=== PATIENT | female | born 1960 | race Caucasian/White ===

== ENCOUNTER 2019-07-03 20:52 | Emergency (ER) | payer OTHER ==
[~2019-07-03] VITALS: Ht 172.7 cm; Wt 88.5 kg
--- OUTSIDE RECORDS SUMMARY | ~2019-07-03 | XMS | Encounter Summary ---
Demographics + + + | Address | [address] | | | [place] [address] | + + + | Home Phone | | + + + | Preferred Language | Unknown | + + + | Marital Status | | + + + | Hindu Affiliation | NON | + + + | Race | White | + + + | Ethnic Group | Not or | + + + Author + + + | Author | [facility] | + + + | Organization | [facility] | + + + | Address | Unknown | + + + | Phone | Unavailable | + + + Support + + + + + | Name | Relationship | Address | Phone | + + + + + | Liam Dietrich | ECON | [place] | | + + + + + Care Team Providers + +------+ + | Care Newspaper Distributor Supervisor Name | Role | Phone | + +------+ + PCP | Unavailable | + +------+ + Encounter Details +--------+ + + + + | Date | Type | Department | Care Team | Description | +--------+ + + + + | 04/21/ | Results | [facility] | Roger Fatima MD | | | 1999 | Only | Center Outpatient | [address] | | | | | Therapy Center [address] | [place], [place] | | | | | [address] | [address] | | | | | Outpatient Therapy | [phone] | | | | | Center 2nd floor | | | | | | Mailcode: OP26 | | | | | | [place], [place] | | | | | | [address] | | | | | | [phone] | | | +--------+ + + + + Social History + +-------+ +--------+------+ | Tobacco Use | Types | Packs/Day | Years | Date | | | | | Used | | + +-------+ +--------+------+ | Never Assessed | | | | | + +-------+ +--------+------+ + + + | Sex Assigned at | Date Recorded | | | | + + + | Not on file | | + + + + + + + | Job Start Date | Occupation | Industry | + + + + | Not on file | Not on file | Not on file | + + + + + + + + | Travel History | Travel Start | Travel End | + + + + + + | No recent travel history available. | + + documented as of this encounter Plan of Treatment Not on filedocumented as of this encounter Procedures + +--------+ + + + | Procedure Name | Priori | Date/Time | Associated Diagnosis | Comments | | | ty | | | | + +--------+ + + + | FLUOROSCOPY, | Routin | 04/21/2000 | | Results for this | | INDEPENDENT PORT. | e | 3:10 PM | | procedure are in the | | | | PDT | | results section. | + +--------+ + + + documented in this encounter Results FLUOROSCOPY, INDEPENDENT PORT. (04/21/2000 3:10 PM PDT) + + + + + + | Component | Value | Ref Range | Performed | Pathologist | | | | | At | Signature | + + + + + + | FLUOROSCOPY | Radiologist 1: MAKAYLA | | | | | , | Marco Antonio PUGA IMPRESSION: | | | | | INDEPENDENT | FLUOROSCOPY SERVICES | | | | | PORT. | WERE PERFORMED UNDER THE | | | | | | DIRECTION OF | | | | | | THEORDERING PHYSICIAN. | | | | | | END OF IMPRESSION: | | | | | | | | | | | | | | | | | |END OF IMPRESSION: | | | | | | | | | | | | | | | | | | | | | | + + + + + + + + | Specimen | + + | | + + + +---------+ + + | Performing | Address | City/State/Zipcode | Phone Number | | Organization | | | | + +---------+ + + | [facility] | | | | RADIOLOGY | | | | + +---------+ + + documented in this encounter Visit Diagnoses Not on filedocumented in this encounter"
--- OUTSIDE RECORDS SUMMARY | ~2019-07-03 | XMS | Encounter Summary ---
Demographics + + + | Address | [address] | | | [place] [address] | + + + | Home Phone | | + + + | Preferred Language | Unknown | + + + | Marital Status | | + + + | Uatsdin Affiliation | 1041 | + + + | Race | Unknown | + + + | Ethnic Group | Unknown | + + + Author + + + | Author | [facility] | | | and [place] | + + + | Organization | [facility] | | | and [place] | + + + | Address | Unknown | + + + | Phone | Unavailable | + + + Support + + + + + | Name | Relationship | Address | Phone | + + + + + | Liam Dietrich | ECON | [address] | | | | | [place] | | | | | [address] | | + + + + + | Daina Mazariegos | ECON | Unknown | | + + + + + Care Team Providers + +------+ + | Care Architectural Examiner Name | Role | Phone | + +------+ + | Noe Thomason | PCP | | | MD | | | + +------+ + Reason for Visit + + + | Reason | Comments | + + + | Hip Pain | Right hip pain | + + + Service/Procedure (Routine) +--------+--------+ + + + + | Status | Reason | Specialty | Diagnoses / | Referred By | Referred To | | | | | Procedures | Contact | Contact | +--------+--------+ + + + + | Closed | | Physical | Diagnoses | | Sepideh, | | | | Medicine and | | Sepideh, | Mohan Andrews MD | | | | Rehabilitatio | Trochanteric | Mohan Andrews MD | [address] | | | | n | bursitis of | [address] | [address] [place] | | | | | both hips | [address] [place] | [place] | | | | | Procedures | [place], [place] | [address] Phone: | | | | | [place] | [address] | [phone] | | | | | DRAIN/INJECT | Phone: | Fax: | | | | | LARGE | [phone] | [phone] | | | | | JOINT/BURSA | Fax: | | | | | | Bilateral | [phone] | | | | | | Trochanteric | | | | | | | Bursa | | | | | | | injecitons | | | | | | | in office. | | | | | | | (appt | | | | | | | 09/19/12) | | | +--------+--------+ + + + + Encounter Details +--------+---------+ + + + | Date | Type | Department | Care Team | Description | +--------+---------+ + + + | 09/19/ | Office | [facility] | Mohan Bunn | Bursitis, hip | | 2012 | Visit | PHYSIATRY [address] | (Primary Dx); | | | | [place], | [place], [place] | Sacroiliitis - | | | | [place] [address] | [address] | right; Hx of spinal | | | | [phone] | | fusion; BACK PAIN, | | | | | | LUMBAR; DISC | | | | | | DISEASE, LUMBOSACRAL | | | | | | SPINE | +--------+---------+ + + + Social History + +-------+ +--------+------+ | Tobacco Use | Types | Packs/Day | Years | Date | | | | | Used | | + +-------+ +--------+------+ | Never Smoker | | | | | + +-------+ +--------+------+ + + +---------+ + | Alcohol Use | Drinks/Week | oz/Week | Comments | + + +---------+ + | Not Asked | | | | + + +---------+ + + + + | Sex Assigned at [...] + + documented as of this encounter Last Filed Vital Signs + + + + + | Vital Sign | Reading | Time Taken | Comments | + + + + + | Blood Pressure | 131/88 | 09/19/2012 7:22 AM | | | | | PST | | + + + + + | Pulse | 91 | 09/19/2012 7:22 AM | | | | | PST | | + + + + + | Temperature | - | - | | + + + + + | Respiratory Rate | - | - | | + + + + + | Oxygen Saturation | - | - | | + + + + + | Inhaled Oxygen | - | - | | | Concentration | | | | + + + + + | Weight | 83.9 kg (185 lb) | 09/19/2012 7:22 AM | | | | | PST | | + + + + + | Height | 177.8 cm (5' 10") | 09/19/2012 7:22 AM | | | | | PST | | + + + + + | Body Mass Index | 26.54 | 09/19/2012 7:22 AM | | | | | PST | | + + + + + documented in this encounter Progress Notes Mohan Bunn MD - 09/19/2012 7:31 AM PST Chief Complaint Patient presents with Hip Pain Right hip pain HPI: The patient is being seen in follow-up today for continued right lateral hip pain. S he has been seen for this complaint in the past. She has tried PT and has had a prior troch anteric bursa injection in the past which provided relief. Recently she had foot surgery and has been wearing a walking boot. She has had an abnormal gain because of this and she feel s this has flared up her pain in the hip and in the low back in the region of the SI joint. She is interested in repeating a trochanteric bursa injection again today. She did localize the majority of the pain to the lateral hip and was quite tender to palpation over the grea ter trochanter. I did feel it was appropriate to repeat the injection today. Impression: 1. Trochanteric bursitis - right 2. Sacroiliitis 3. Chronic low back pain, DDD, history of spinal fusion 4. Left foot pain and recent surgery Plan: On today's visit, we discussed her options. She has tried physical therapy for her v arious pain complaints and unfortunately she has not had much relief recently. She is intere sted in a trial of interventional procedures and I offered her a right trochanteric bursa in [facility] and she did wish to proceed. The procedure was performed using sterile, no-touch elidia hnique. Initially, a 27-gauge 1-1/2-inch needle was used to anesthetize the area with approx imately 2 mL of 1% lidocaine, then a 22-gauge spinal needle was advanced down to periosteum over the greater trochanter then slightly withdrawn. Attempted aspiration did not show any b lood or other fluid, then a total of 1 mL of 40 mg/mL of Kenalog and 2 mL each of 0.5% bupiv acaine and 1% lidocaine was infused into this region. The patient tolerated the procedure we ll without complications. She was instructed to ice the area as needed over the next few day s and to watch for any signs of infection. She will follow-up with me on an as-needed basis. documented in this encounter Plan of Treatment Not on filedocumented as of this encounter Visit Diagnoses + + | Diagnosis | + + | Bursitis, hip - Primary Enthesopathy of hip region | + + | Sacroiliitis - right Sacroiliitis, not elsewhere classified | + + | Hx of spinal fusion Arthrodesis status | + + | BACK PAIN, LUMBAR Lumbago | + + | DISC DISEASE, LUMBOSACRAL SPINE Degeneration of lumbar or lumbosacral intervertebral | | disc | + + documented in this encounter
--- OUTSIDE RECORDS SUMMARY | ~2019-07-03 | XMS | Encounter Summary ---
Demographics + + + | Address | [address] | | | [place] [address] | + + + | Home Phone | | + + + | Preferred Language | Unknown | + + + | Marital Status | | + + + | Restorationist Affiliation | 1041 | + + + | Race | Unknown | + + + | Ethnic Group | Unknown | + + + Author + + + | Author | [facility] | | | and [place] | + + + | Organization | [facility] | | | and [place] [...] [place] | | | | | [address] | | + + + + + | Daina Mazariegos | ECON | Unknown | | + + + + + Care Team Providers + +------+ + | Care Pressure Tester Name | Role | Phone | + +------+ + | Noe Thomason | PCP | | | MD | | | + +------+ + Reason for Visit +--------+ + | Reason | Comments | +--------+ + | Other | Discuss further imaging | +--------+ + Encounter Details +--------+ + + + + | Date | Type | Department | Care Team | Description | +--------+ + + + + | 06/18/ | Telephone | [facility] | Mohan Bunn | Other (Discuss | | 2012 | | PHYSIATRY [address] | [address] | further imaging) | | | | [place], | [place] | | | | | [place] [address] | [address] | | | | | [phone] | | | +--------+ + + + [...] filedocumented as of this encounter Visit Diagnoses Not on filedocumented in this encounter"
--- OUTSIDE RECORDS SUMMARY | ~2019-07-03 | XMS | Encounter Summary ---
Demographics + + + | Address | [address] | | | [place] [address] | + + + | Home Phone | | + + + | Preferred Language | Unknown | + + + | Marital Status | | + + + | Scientologist Affiliation | 1041 | + + + | Race | Unknown | + + + | Ethnic Group | Unknown | + + + Author + + + | Author | [facility] | | | and [place] | + + + | Organization | [facility] | | | and [...] [place] | | | | | [address] | | + + + + + | Daina Mazariegos | ECON | Unknown | | + + + + + Care Team Providers + +------+ + | Care Magneto Repairer Name | Role | Phone | + +------+ + | Noe Thomason | PCP | | | MD | | | + +------+ + Encounter Details +--------+ + + + + | Date | Type | Department | Care Team | Description | +--------+ + + + + | 06/18/ | Hospital | [facility] | BabiggbrandonchuyMohan | Right hip pain | | 2013 | Encounter | MED CTR XRAY [address] | [address] | | | | | [place] | [place], [place] | | | | | [place] [address] | [address] | | | | | [phone] | | | | | | | Manufacturing Project EngineerZora | | +--------+ + + + + [...] this encounter Last Filed Vital Signs + +---------+ + + | Vital Sign | Reading | Time Taken | Comments | + +---------+ + + | Blood Pressure | 154/84 | 06/18/2014 3:47 PM | | | | | PST | | + +---------+ + + | Pulse | 86 | 06/18/2014 3:00 PM | | | | | PST | | + +---------+ + + | Temperature | - | - | | + +---------+ + + | Respiratory Rate | - | - | | + +---------+ + + | Oxygen Saturation | - | - | | + +---------+ + + | Inhaled Oxygen | - | - | | | Concentration | | | | + +---------+ + + | Weight | - | - | | + +---------+ + + | Height | - | - | | + +---------+ + + | Body Mass Index | - | - | | + +---------+ + + documented in this encounter Medications at Time of Discharge + + + +---------+ + + | Medication | Sig | Dispensed | Refills | Start | End Date | | | | | | Date | | + + + +---------+ + + | aspirin (ADULT | Take 162 mg by mouth | | 0 | 04/07/20 | | | ASPIRIN EC LOW | Daily. | | | 12 | | | STRENGTH) 81 MG EC | | | | | | | tablet | | | | | | + + + +---------+ + + | | Take 1 tablet by | | 0 | | | | oxyCODONE-acetaminop | mouth Daily as | | | | | | hen (PERCOCET) 5-325 | needed. | | | | | | mg per tablet | | | | | | + + + +---------+ + + | Phendimetrazine | Take 105 mg by mouth | | 0 | 04/07/20 | | | Tartrate (BONTRIL | Daily. | | | 12 | | | SLOW RELEASE) 105 MG | | | | | | | CP24 | | | | | | + + + +---------+ + + | cetirizine | Take 10 mg by mouth | | 0 | 04/07/20 | | | (ZYRTEC) 10 mg | Daily. | | | 12 | 5 | | tablet | | | | | | + + + +---------+ + + | fluticasone | 2 sprays in each | | 0 | 04/07/20 | | | (FLONASE) 50 | nostril daily | | | 12 | 5 | | mcg/nasal spray | | | | | | + + + +---------+ + + documented as of this encounter Plan of Treatment Not on filedocumented as of this encounter Procedures + +--------+ + + + | Procedure Name | Priori | Date/Time | Associated Diagnosis | Comments | | | ty | | | | + +--------+ + + + | [place] ASPIRATION | Routin | 06/18/2014 | Right hip pain | Results for this | | INJECTION MAJOR | e | 3:35 PM | | procedure are in the | | JOINT RIGHT | | PST | | results section. | + +--------+ + + + documented in this encounter Results [place] Major Joint Injection Right (06/18/2014 3:35 PM PST) + + | Specimen | + + | | + + + + + | Narrative | Performed At | + + + | 06/18/2014 RIGHT INTRAARTICULAR HIP INJECTION CLINICAL | [facility] | | HISTORY: ICD-9 CODE 719.45, HIP PAIN. Mae Hernández | [facility] | | presents to the fluoroscopy suite for a fluoroscopically-guided [facility] | | right intraarticular hip injection as part of conservative | - IMAGING | | management for chronic pain and hip arthropathy. After informed | | | consent was obtained, the patient laid in the supine position on the | | | fluoroscopy table. The right intertrochanteric line was located under | | | fluoroscopic guidance. The area was prepped and draped in a sterile | | | fashion. Then a 25-gauge 1.5 inch needle was inserted into this | | | region and approximately 3 mL buffered 1% lidocaine was infused. | | | Next a 22-gauge spinal needle was inserted into the joint space | | | under fluoroscopic guidance. Confirmation into the joint capsule was | | | obtained with infusion of approximately 1 mL Omnipaque contrast, | | | which showed capsular flow. Then, a combination of 1 mL of 40 mg/mL | | | Kenalog and 4 mL 0.5% bupivicaine was infused. The patient tolerated | | | the procedure well without complications. Pre- and post-procedure | | | blood pressure was stable. The patient was given verbal as well as | | | written followup instructions. The patient reported good improvement | | | in pain symptoms post-procedure. Prior to the start of the | | | procedure, the following were performed or verified, including | | | correct patient identity, correct site/side marked and verified, | | | agreement of the procedure to be done, correct patient positioning | | | and an accurate procedure consent form. Any safety precautions based | | | on clinical history and/or medication use have been addressed. I | | | personally performed the procedure above. Estimated blood loss: | | | Minimal Complications: None Findings: As expected Anesthesia: | | | Local 1% Lidocaine | | + + + + + | Procedure Note | + + | Mohan Bunn MD - 06/18/2014 3:52 PM PST 06/18/2014RIGHT INTRAARTICULAR HIP | | INJECTIONCLINICAL HISTORY: ICD-9 CODE 719.45, HIP PAIN. [facility] | | presents to the fluoroscopy suite for a fluoroscopically-guided right intraarticular hip | | injection as part of conservative management for chronic pain and hip arthropathy. | | After informed consent was obtained, the patient laid in the supine position on the | | fluoroscopy table. The right intertrochanteric line was located under fluoroscopic | | guidance. The area was prepped and draped in a sterile fashion. Then a 25-gauge 1.5 inch | | needle was inserted into this region and approximately 3 mL buffered 1% lidocaine was | | infused. Next a 22-gauge spinal needle was inserted into the joint space under | | fluoroscopic guidance. Confirmation into the joint capsule was obtained with infusion of | | approximately 1 mL Omnipaque contrast, which showed capsular flow. Then, a combination | | of 1 mL of 40 mg/mL Kenalog and 4 mL 0.5% bupivicaine was infused. The patient tolerated | | the procedure well without complications. Pre- and post-procedure blood pressure was | | stable. The patient was given verbal as well as written followup instructions. The | | patient reported good improvement in pain symptoms post-procedure. Prior to the start of | | the procedure, the following were performed or verified, including correct patient | | identity, correct site/side marked and verified, agreement of the procedure to be done, | | correct patient positioning and an accurate procedure consent form. Any safety | | precautions based on clinical history and/or medication use have been addressed. I | | personally performed the procedure above.Estimated blood loss: MinimalComplications: | | NoneFindings: As expectedAnesthesia: Local 1% Lidocaine | |Anesthesia: Local 1% Lidocaine | + + + + + + + | Performing | Address | City/State[facility] | Phone Number | | Organization | | | | + + + + + | [address] | [address] | [place] | [phone] | | [facility] | | [address] | | | - IMAGING | | | | + + + + + documented in this encounter Visit Diagnoses + + | Diagnosis | + + | Right hip pain Pain in joint, pelvic region and thigh | + + documented in this encounter Administered Medications + +--------+ +-------+------+------+ | Medication Order | MAR | Action | Dose | Rate | Site | | | Action | Date | | | | + +--------+ +-------+------+------+ | iohexol (OMNIPAQUE 300) 300 | Given | 06/18/20 | 3 mLs | | | | mg/mL injection 3 mL 3 mL, | | 14 3:46 | | | | | INTRATHECAL, ONCE, 06/18/14 | | PM PST | | | | | at 1545, For 1 dose | | | | | | + +--------+ +-------+------+------+ +---+---+ | | | +---+---+ + +-------+ +-------+---+ + | lidocaine 1% injection 5 mL 5 | Given | 06/18/20 | 5 mLs | | Other | | mL, Intradermal, ONCE, Tue | | 14 3:45 | | | (Comment | | 06/18/14 at 1545, For 1 dose | | PM PST | | | ) | + +-------+ +-------+---+ + +---+---+ | | | +---+---+ + +-------+ +-------+---+---+ | sodium bicarbonate (NEUT) 4% | Given | 06/18/20 | 2 mLs | | | | injection 2 mL 2 mL, Topical, | | 14 3:46 | | | | | ONCE, 06/18/14 at 1545, For 1 | | PM PST | | | | | dose | | | | | | + +-------+ +-------+---+---+ +---+---+ | | | +---+---+ + +-------+ +-------+---+---+ | triamcinolone acetonide | Given | 06/18/20 | 40 mg | | | | (KENALOG-40) 40 mg/mL injection | | 14 3:46 | | | | | 40 mg 40 mg, Intra-articular, | | PM PST | | | | | ONCE, 06/18/14 at 1545, For 1 | | | | | | | dose, Shake well. Not for IV | | | | | | | use., | | | | | | + +-------+ +-------+---+---+ +---+---+ | | | +---+---+ documented in this encounter"
--- OUTSIDE RECORDS SUMMARY | ~2019-07-03 | XMS | Encounter Summary ---
Demographics + + + | Address | [address] | | | [place] [address] | + + + | Home Phone | | + + + | Preferred Language | Unknown | + + + | Marital Status | | + + + | Tenriism Affiliation | NON | + + + | Race | White | + + + | Ethnic Group | Not or | + + + Author + + + | Organization | Unknown | + + + | Address | Unknown | + + + | Phone | Unavailable | + + + Support + + + + + | Name | Relationship | Address | Phone | + + + + + | Liam Dietrich | ECON | [place] | | + + + + + Care Team Providers + +------+ + | Care Concrete Bucket Unloader Name | Role | Phone | + +------+ + PCP | Unavailable | + +------+ + Encounter Details +--------+ + + + + | Date | Type | Department | Care Team | Description | +--------+ + + + + | 18/ | Transcribed | | Dictation, Other | Transcribed | | 2000 | | | | | +--------+ + + + [...] + + documented as of this encounter Progress Notes Interface, Anesthesia Associate In - 06/10/2006 1:01 AM [facility] [place] [address] [place], [place] [address] or February 09, 2000 Khari Ying M.D. [facility] [address] [address] RE: MAE WILLIS MR #: [id number] Dear Dr. Ying: I saw the patient in the Neurosurgery Clinic again today. She has had several days of bad low back pain which has been fairly symmetrical. Her buttock pain is still a problem, but the back pain is getting to be more severe. She has tried oral Vicodin without much relief, and heat only seems to make the pain worse. In review of her records, her last MRI scan of the back was in 1996. I have felt all along that some of her pain may certainly be related to her back, although early evaluation did not seem to indicate that this was the primary problem. Given the fact that we are now [address], I think it would be worthwhile to reevaluate with an MRI scan and I have gone ahead to set that up here. I will see her back in clinic next week after the MRI is completed and we will reassess the possibility that she may have degenerative disc disease in the back which may be leading to some of her problems. Sincerely, Bebe Claros M.D. [facility] / MADELINE [id number] / [id number] / [id number] / [id number] signed by Interface, Anesthesia Associate In at 06/10/2006 1:01 AM PSTdocume nted in this encounter Plan of Treatment Not on filedocumented as of this encounter Visit Diagnoses Not on filedocumented in this encounter"
--- OUTSIDE RECORDS SUMMARY | ~2019-07-03 | XMS | Encounter Summary ---
Demographics + + + | Address | [address] | | | [place] [address] | + + + | Home Phone | | + + + | Preferred Language | Unknown | + + + | Marital Status | | + + + | Temple Affiliation | NON | + + + | Race | White | + + + | Ethnic Group | Not or | + + + Author + + + | Author | [facility] | + + + | Organization | [facility] | + + + | Address | Unknown | + + + | Phone | Unavailable | + + + Support + + + + + | Name | Relationship | Address | Phone | + + + + + | Liam Dietrich | ECON | [place] | | + + + + + Care Team Providers + +------+ + | Care Rn Hematology Name | Role | Phone | + +------+ + PCP | Unavailable | + +------+ + Encounter Details +--------+ + + + + | Date | Type | Department | Care Team | Description | +--------+ + + + + | 10/27/ | Office | [facility] | Note, Outpatient | Progress Note | | 2000 | Visit-Trans | MEDICINE | Clinic | | | | cribed | | | | +--------+ + + [...] as of this encounter Progress Notes Interface, Truss Puller Helper In - 05/22/2006 3:06 AM PSTCLINIC DATE: 10/27/2000 NEUROSURGERY CLINIC SUBJECTIVE: Mae Dietrich is a 39-year-old female with 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 She returns to clinic today for an adjustment of her internal pulse generator which is part of her nerve stimulator system. Ms. Dietrich states that she would like to have the generator reprogrammed from the cycling mode to a continuous mode. She says that the intermittent stimulation is bothersome and distracting. Ms. Dietrich does say that the nerve stimulator system is helpful for her back and left buttock pain overall. She said that she appreciates having the stimulation, especially when she is sitting for long periods of time. She continues to experience what she describes as lightning bolt pains in her left gluteal muscle. Using the visual analog scale, the patient rated her average pain level during the past week as 35/100. OBJECTIVE AND PROCEDURE: The patient's neuroreceiver was analyzed, and it was found that she has been using a cycling mode with a 1 minute on time and 1 minute time. Her electrode setting has been channeled to electrode 5 positive and 7 negative. She has been using an amplitude of 3.1 V, a pulse width of 60 msec, and a rate of 45 pulses per second. Because the patient stated that the stimulation feels like it is in the right location with the correct intensity and rate, the only change made in programming was to create a continuous mode of stimulation by reprogramming the neuroreceiver. The soft start was also reprogrammed to be in the off mode. PLAN: The patient will return to clinic on an as needed basis for adjustments of her nerve stimulator system. Reshma Mosquera R.N.,M.A. / [id number] / [id number] / [id number] / [id number] signed by Interface, Truss Puller Helper In at 05/22/2006 3:06 AM PSTdocume nted in this encounter Plan of Treatment Not on filedocumented as of this encounter Visit Diagnoses Not on filedocumented in this encounter"
--- OUTSIDE RECORDS SUMMARY | ~2019-07-03 | XMS | Encounter Summary ---
Demographics + + + | Address | [address] | | | [place] [address] | + + + | Home Phone | | + + + | Preferred Language | Unknown | + + + | Marital Status | | + + + | Faith Affiliation | NON | + + + | Race | White | + + + | Ethnic Group | Not or | + + + Author + + + | Author | [facility] | + + + | Organization | [facility] | + + + | Address [...] Team Providers + +------+ + | Care Cupola Tender Name | Role | Phone | + +------+ + PCP | Unavailable | + +------+ + Encounter Details +--------+ + + + + | Date | Type | Department | Care Team | Description | +--------+ + + + + | 03/13/ | Transcribed | Allergy Clinic at | Dictation, Other | Transcribed | | 1997 | | [facility] [address] | | | | | | [address] | | | | | | Mailcode: [id number] | | | | | | [address] | | | | | | [facility] | | | | | | [place] [address] | | | | | | [phone] | | | +--------+ + + + [...] as of this encounter Progress Notes Interface, Claim Technician In - 08/10/2006 2:08 AM PST [address] [address] or March 13, 1998 GRANT MADDEN MD [address] [place] [id number] RE:MAE HOLLINS MR#:[id number] Madden: Ms. Hollins returned today and we reviewed her electromyogram results. They showed absolutely no evidence of denervation in the superior gluteal muscle nor in the sciatic distribution on the left. She did have a bit of a sural neuropathy on the right but I think that is unrelated. 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 I have had a chance to review some of the literature on this in the last few weeks and this opinion is only strengthened by that. We talked about pyriformis release using a muscle splitting approach and she is thinking about it although I think she is inclined to proceed. I will keep you posted on her progress if she does elect to go ahead with the surgery. Sincerely, Bebe Claros M.D. Professor and Export Documents Clerk Department of Neurological Surgery Bhupendra documented in this encounter Plan of Treatment Not on filedocumented as of this encounter Visit Diagnoses Not on filedocumented in this encounter"
--- OUTSIDE RECORDS SUMMARY | ~2019-07-03 | XMS | Encounter Summary ---
Demographics + + + | Address | [address] | | | [place] [address] | + + + | Home Phone | | + + + | Preferred Language | Unknown | + + + | Marital Status | | + + + | Restorationist Affiliation | NON | + + + | Race | White | + + + | Ethnic Group | Not or | + + + Author + + + | Author | [facility] | + + + | Organization | [facility] | + + + | Address [...] Team Providers + +------+ + | Care Acute Dialysis Nurse Name | Role | Phone | + +------+ + | Noe Thomason MD | PCP | | + +------+ + Encounter Details +--------+ + + + + | Date | Type | Department | Care Team | Description | +--------+ + + + + | 01/16/ | Results | Registration [id number] | | | | 1998 | Only | [address] | | | | | | [address] Mailcode: [id number] | | | | | | [place], [place] | | | | | | [address] | | | | | | [phone] | | | +--------+ + + + [...] | + +--------+ + + + | URINALYSIS TESTS | Routin | 01/16/1999 | | Results for this | | | e | 2:43 PM | | procedure are in the | | | | PDT | | results section. | + +--------+ + + + | CHEMISTRY TESTS 4 | Routin | 01/16/1999 | | Results for this | | | e | 1:15 PM | | procedure are in the | | | | PDT | | results section. | + +--------+ + + + | CBC TESTS 2 | Routin | 01/16/1999 | | Results for this | | | e | 1:15 PM | | procedure are in the | | | | PDT | | results section. | + +--------+ + + + documented in this encounter Results URINALYSIS TESTS (01/16/1999 2:43 PM PDT) + +-------+ + + + | Component | Value | Ref Range | Performed | Pathologist | | | | | At | Signature | + +-------+ + + + | WHITE CELLS | 0-1 | /HPF | | | + +-------+ + + + | RED CELLS | NONE | /HPF | | | + +-------+ + + + | NON-SQUAMOU | NONE | /HPF | | | | S EPITH | | | | | + +-------+ + + + | SQUAMOUS | NONE | /HPF | | | | EPITHELIAL | | | | | + +-------+ + + + | BACTERIA | NONE | /HPF | | | + +-------+ + + + | MUCOUS | NONE | /HPF | | | + +-------+ + + + | HYALINE | NONE | /LPF | | | | CASTS | | | | | + +-------+ + + + | GRANULAR | NONE | /LPF | | | | CASTS | | | | | + +-------+ + + + | CELLULAR | NONE | /LPF | | | | CASTS | | | | | + +-------+ + + + + + | Specimen | + + | | + + + + + + + | Performing | Address | City/State/Zipcode | Phone Number | | Organization | | | | + + + + + | [facility] | [address] | [place] [address] | | | PATHOLOGY | [address] | | | + + + + + CHEMISTRY TESTS 4 (01/16/1999 1:15 PM PDT) + + + + + + | Component | Value | Ref Range | Performed | Pathologist | | | | | At | Signature | + + + + + + | SODIUM, | 140. | mmol/l | | | | PLASMA | | | | | | (LAB) | | | | | + + + + + + | POTASSIUM, | 4.6 | mmol/l | | | | PLASMA | | | | | | (LAB) | | | | | + + + + + + | CHLORIDE, | 105. | mmol/l | | | | PLASMA | | | | | | (LAB) | | | | | + + + + + + | TOTAL CO2, | 32. (H) | mmol/l | | | | PLASMA | | | | | | (LAB) | | | | | + + + + + + + + | Specimen | + + | | + + + + + + + | Performing | Address | City/State/Zipcode | Phone Number | | Organization | | | | + + + + + | [facility] | [address] | [place] [address] | | | PATHOLOGY | [address] | | | + + + + + CBC TESTS 2 (01/16/1999 1:15 PM PDT) + + + + + + | Component | Value | Ref Range | Performed | Pathologist | | | | | At | Signature | + + + + + + | WHITE CELL | 7.7 | K/CU MM | | | | COUNT | | | | | + + + + + + | RED CELL | 4.4 | M/CU MM | | | | COUNT | | | | | + + + + + + | HEMOGLOBIN | 13.9 | GM/DL | | | + + + + + + | HEMATOCRIT | 40.7 | % | | | + + + + + + | MCV | 92.4 | FL | | | + + + + + + | MCH | 31.5 | PG | | | + + + + + + | MCHC | 34.1 (H) | GM/DL | | | + + + + + + | RDW | 12.8 | % | | | + + + + + + | PLATELET | 270. | K/CU MM | | | | COUNT | | | | | + + + + + + | MPV | 7. (L) | [place] | | | + + + + + + + + | Specimen | + + | | + + + + + + + | Performing | Address | City/State/Zipcode | Phone Number | | Organization | | | | + + + + + | [facility] | [address] | [place] [address] | | | PATHOLOGY | [address] | | | + + + + + documented in this encounter Visit Diagnoses Not on filedocumented in this encounter"
--- OUTSIDE RECORDS SUMMARY | ~2019-07-03 | XMS | Encounter Summary ---
Demographics + + + | Address | [address] | | | [place] [address] | + + + | Home Phone | | + + + | Preferred Language | Unknown | + + + | Marital Status | | + + + | Jewish Affiliation | NON | + + + [...] Team Providers + +------+ + | Care Renovator Machine Operator Name | Role | Phone | + +------+ + PCP | Unavailable | + +------+ + Encounter Details +--------+ + + + + | Date | Type | Department | Care Team | Description | +--------+ + + + + | 02/16/ | Procedure - | | Record, Operation | Operative Report | | 1998 | | | | | | | Transcribed | | | | +--------+ + + [...] | + +--------+ + + + | OPERATION RECORD | | 02/16/1999 | | Results for this | | | | | | procedure are in the | | | | | | results section. | + +--------+ + + + documented in this encounter Results OPERATION RECORD (02/16/1999) + + | Transcriptions | + + | Interface, Driver Recruiter In - 07/08/2006 1:11 AM PST | | [place] [address] | | [place], [place] [address] | | [facility]Med Rec No.: | | [id number] Date: 02/16/1999Name: Thao Dietrich SURGEON:Bebe Swartz | | Marco Antonio ClarosMEDICAL LABORATORY TECHNOLOGIST(S): Marco Antonio Anand | | Marco Antonio GuPREOPERATIVE DIAGNOSIS(ES):Left inferior gluteal neuralgia.POSTOPERATIVE | | DIAGNOSIS(ES):Left inferior gluteal neuralgia.OPERATIONS PERFORMED:1. Implantation of | | extension electrode lead.2. Implantation of peripheral nerve stimulator.SPECIMEN(S) | | REMOVED:Not dictated.ANESTHESIA:General.INDICATIONS:This patient has had a | | successful trial of inferior gluteal nervestimulation for neuralgia involving the | | nerve associated with a neuromaseen at surgery.PROCEDURE:The patient was placed under | | general anesthetic and general endotrachealintubation. She was positioned on her | | right side. The previous upper leftbuttock incision was reopened and the wire of the | | electrode identified. Asmall left subcostal incision and a pocket created | | superficial to themuscle fascia and in that site. A subcutaneous passer was passed | | from thebuttock incision to the subcostal incision and the extension wires for | | theelectrode passed from the abdominal incision to the buttock incision. Theelectrode | | was attached to the extension leads by way of the standard fourelectrode lead with a | | screwdriver. The extension leads were connected upto an Itrel 3 generator and | | fastened in the usual fashion.This was then implanted and fastened to the fascia with | | 2-0 Surgidac. Thewound was copiously flushed and closed with 3-0 Vicryl to the | | subcutaneoustissue and 4-0 nylon to the skin. At the end of the procedure the | | patientwas awoken from anesthesia and transferred to Postanesthesia Care Unit in astable | | condition.Arnaldo Anand M.D.ZI:xt7D: 02/16/1999T: | | 03/02/[id number]: | |1. Implantation of extension electrode lead. | |2. Implantation of peripheral nerve stimulator. | | | |SPECIMEN(S) REMOVED: | |Not dictated. | | | |ANESTHESIA: | |General. | | | |INDICATIONS: | |This patient has had a successful trial of inferior gluteal nerve | |stimulation for neuralgia involving the nerve associated with a neuroma | |seen at surgery. | | | |PROCEDURE: | |The patient was placed under general anesthetic and general endotracheal | |intubation. She was positioned on her right side. The previous upper left | |buttock incision was reopened and the wire of the electrode identified. A | |small left subcostal incision and a pocket created superficial to the | |muscle fascia and in that site. A subcutaneous passer was passed from the | |buttock incision to the subcostal incision and the extension wires for the | |electrode passed from the abdominal incision to the buttock incision. The | |electrode was attached to the extension leads by way of the standard four | |electrode lead with a screwdriver. The extension leads were connected up | |to an [employer] 3 generator and fastened in the usual fashion. | | | |This was then implanted and fastened to the fascia with 2-0 Surgidac. The | |wound was copiously flushed and closed with 3-0 Vicryl to the subcutaneous | |tissue and 4-0 nylon to the skin. At the end of the procedure the patient | |was awoken from anesthesia and transferred to Postanesthesia Care Unit in a | |stable condition. | | | | | | | |Dima Treviño M.D. | | | | | | | |Bebe Claros M.D. | | | |ZI:[id number] | | | | | | | | | |[id number] | | | |CC: | + + documented in this encounter Visit Diagnoses Not on filedocumented in this encounter"
--- OUTSIDE RECORDS SUMMARY | ~2019-07-03 | XMS | Encounter Summary ---
Demographics + + + | Address | [address] | | | [place] [address] | + + + | Home Phone | | + + + | Preferred Language | Unknown | + + + | Marital Status | | + + + | Advent Affiliation | NON | + + + | Race | White | + + + | Ethnic Group | Not or | + + + Author + + + | Author | [facility] | + + + | Organization | [facility] | + + + | Address | Unknown | + + + | Phone | Unavailable | + + + Support + + + + + | Name | Relationship | Address | Phone | + + + + + | Liam Dietrich | ECON | [place] | | + + + + + Care Team Providers + +------+ + | Care Cartography Teacher Name | Role | Phone | + +------+ + | Noe Thomason MD | PCP | | + +------+ + Encounter Details +--------+ + + + + | Date | Type | Department | Care Team | Description | +--------+ + + + + | 03/04/ | Procedure - | UNKNOWN DEPARTMENT | Other, Faculty | EEG | | 1997 | | [address] [facility] | [phone] | | | | Transcribed | [address] | | | | | | [place] | | | | | | [address] | | | +--------+ + + + [...] documented as of this encounter Progress Notes Other, Faculty - 03/04/1998 12:00 AM PDTAssociated Order(s): EEG ROUTINE CLINIC DATE: Log #[id number] CLINICAL COMMENT: A 37-year-old woman with left buttock pain which has been constant since a fall onto that side in August of 1995. Paresthesias experienced in the left buttock. No radiation to the legs. No weakness. Physical examination: Notable for minimally reduced right ankle jerk relative to the left and subjective decrease in light touch and temperature sensation over the left buttock. TEST DESCRIPTION: The right sural amplitude is mildly reduced with a normal conduction velocity. The left sural sensory nerve conduction study was normal. Left deep peroneal and tibial motor nerve conduction studies were normal. Left peroneal and left tibial F-wave latencies were normal. Concentric needle electromyography of the left tibialis anterior, medical gastrocnemius and gluteus medius were normal. IMPRESSION: Apart from the mild reduction in sural amplitude on the asymptomatic side, the electrophysiological tests are normal. There is no evidence for a left sciatic neuropathy or radiculopathy. Gerri Duong M.D., Ph.D. Molded Parts Inspector, Neurology Marlene Randall M.D., Ph.D. Process Planner, Neurology Ayla C: 03/06/98 documented in this encou nter Plan of Treatment Not on filedocumented as of this encounter Procedures + +--------+ + + + | Procedure Name | Priori | Date/Time | Associated Diagnosis | Comments | | | ty | | | | + +--------+ + + + | EEG ROUTINE | | 03/04/1998 | | Results for this | | | | 12:00 AM | | procedure are in the | | | | PDT | | results section. | + +--------+ + + + documented in this encounter Results EEG ROUTINE (03/04/1998 12:00 AM PDT) + + | Procedure Note | + + | Other, Faculty - 03/04/1998 12:00 AM PDT CLINIC DATE: 03/04/98 Log #[id number] | | | | CLINICAL COMMENT: | | | | A 37-year-old woman with left buttock pain which has been constant since a | | fall onto that side in August of 1995. Paresthesias experienced in the | | left buttock. No radiation to the legs. No weakness. | | | | Physical examination: Notable for minimally reduced right ankle jerk | | relative to the left and subjective decrease in light touch and temperature | | sensation over the left buttock. | | | | TEST DESCRIPTION: | | | | The right sural amplitude is mildly reduced with a normal conduction | | velocity. The left sural sensory nerve conduction study was normal. Left | | deep peroneal and tibial motor nerve conduction studies were normal. Left | | peroneal and left tibial F-wave latencies were normal. Concentric needle | | electromyography of the left tibialis anterior, medical gastrocnemius and | | gluteus medius were normal. | | | | IMPRESSION: | | | | Apart from the mild reduction in sural amplitude on the asymptomatic side, | | the electrophysiological tests are normal. There is no evidence for a left | | sciatic neuropathy or radiculopathy. | | | | | | | | Gerri Duong M.D., Ph.D. | | Molded Parts Inspector, Neurology | | | | | | | | Marlene Randall M.D., Ph.D. | | Process Planner, Neurology | | | | MAYITO/demarcus | | | | | | C: 03/06/98 | | | + + documented in this encounter Visit Diagnoses Not on filedocumented in this encounter"
--- OUTSIDE RECORDS SUMMARY | ~2019-07-03 | XMS | Encounter Summary ---
Demographics + + + | Address | [address] [facility] [address] | | | [place] [address] | + + + | Home Phone | | + + + | Preferred Language | Unknown | + + + | Marital Status | | + + + | Yarsani Affiliation | [id number] | + + + | Race | Unknown | + + + | Ethnic Group | Unknown | + + + Author + + + | Author | [facility] | | | and [place] | + + + | Organization | [facility] | | | and [...] [place] | | | | | [address] | | + + + + + | Daina Mazariegos | ECON | Unknown | | + + + + + Care Team Providers + +------+ + | Care Yard Stocker Name | Role | Phone | + +------+ + | Noe Thomason | PCP | | | MD | | | + +------+ + Reason for Visit +--------+ + | Reason | Comments | +--------+ + | Other | discuss imaging | +--------+ + Encounter Details +--------+ + + + + | Date | Type | Department | Care Team | Description | +--------+ + + + + | 02/14/ | Telephone | [facility] | Tenisha Ricketts, | Other (discuss | | 2013 | | PHYSIATRY [address] | imaging) | | | | [place], | | | | | | [place] [address] | | | | | | [phone] | | | +--------+ + + + [...]
--- OUTSIDE RECORDS SUMMARY | ~2019-07-03 | XMS | Encounter Summary ---
Demographics + + + | Address | [address] | | | [place] [address] | + + + | Home Phone | | + + + | Preferred Language | Unknown | + + + | Marital Status | | + + + | Muslim Affiliation | NON | + + + | Race | White | + + + | Ethnic Group | Not or | + + + Author + + + | Author | [facility] | + + + | Organization | [facility] | + + + | Address [...] Team Providers + +------+ + | Care Casting Machine Control Board Operator Name | Role | Phone | + +------+ + | Noe Thomason MD | PCP | | + +------+ + Reason for Visit + + + | Reason | Comments | + + + | Back pain | | + + + Encounter Details +--------+---------+ + + + | Date | Type | Department | Care Team | Description | +--------+---------+ + + + | 10/28/ | Office | [facility] | Zi Fatima MD | Spondylolisthesis, | | 2006 | Visit | [facility] [address] | [address] | Grade 1; Lumbosacral | | | | [address] | [place], [place] | Spondylosis without | | | | Mailcode: [id number] | [phone] | Myelopathy | | | | [facility] | [phone] | | | | | and Healing, | | | | | | Building [address], 8th | | | | | | Floor [place], [place] | | | | | | [address] | | | | | | [phone] | | | +--------+---------+ + + + Social History + +-------+ +--------+------+ | Tobacco Use | Types | Packs/Day | Years | Date | | | | | Used | | + +-------+ +--------+------+ | Never Smoker | | | | | + +-------+ +--------+------+ + + + + + | Alcohol Use | Drinks/Week | oz/Week | Comments | + + + + + | Yes | 0-2 Standard | 0.0 - 1.7 | | | | drinks or equivalent | | | + + + + + + + + | Sex Assigned [...] + + + | Blood Pressure | 143/73 | 10/28/2006 2:39 PM | | | | | PDT | | + + + + + | Pulse | 72 | 10/28/2006 2:39 PM | | | | | PDT | | + + + + + | Temperature | 36 C (96.8 F) | 10/28/2006 2:39 PM | | | | | PDT | | + + + + + | Respiratory Rate | 15 | 10/28/2006 2:39 PM | | | | | PDT | | + + + + + | Oxygen Saturation | 98% | 10/28/2006 2:39 PM | | | | | PDT | | + + + + + | Inhaled Oxygen | - | - | | | Concentration | | | | + + + + + | Weight | 89.8 kg (198 lb) | 10/28/2006 2:39 PM | | | | | PDT | | + + + + + | Height | 175.3 cm (5' 9") | 10/28/2006 2:39 PM | | | | | PDT | | + + + + + | Body Mass Index | 29.24 | 10/28/2006 2:39 PM | | | | | PDT | | + + + + + documented in this encounter Progress Notes Zi Fatima - 10/28/2006 3:36 PM PDT October 28, 2006 Mae Hernández [id number] [facility] Return Visit Chief Complaint: Chief Complaint Patient presents with Back pain History of Present Illness: Mae Hernández is a 45 y.o. 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 She has had increased low back pain without radiati on over the last 3 weeks. 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 Her pain is improved by lying on massager chair or heat. She complains of sharp pain without radiation. She denies muscle aches, but has a pressure sensation as well. She has used a scant amount of hydrocodone/acetaminophen for this, which helps a little. No relevant past medical history. Past Surgical History Procedure Date Hx lumbar fusion 1996 L4-5 Peripheral nerve stimulator 1997 left sciatic nerve Idet, single level 1998 Family History Problem Relation Hypertension Mother Cancer Father lung No current outpatient prescriptions. Review of Systems: Bones, Joints, and Muscles: Right hip pain Gastrointestinal System: Bloating; has a bowel movement about every day. Genitourinary System: negative Nervous System: negative Psychiatric History: Euthymic; worse sleep due to pain Physical examination: BP 143/73 | Pulse 72 | Temp (Src) 96.8 F (36 C) (Oral) | Resp 15 | Wt 89.812 kg (198 lb s) | SpO2 98% Body mass index is 29.24 kg/(m^2). Appears healthy. Alert; in no acute distress. Pleasant. SPINE: physiologic curvature Cervical spine Curvature: physiologic Thoracic Spine Curvature: physiologic kyphosis Lumbar curvature: physiologic Lumbar active range of motion in degrees: Flexion: 80; not painful Extension: <10; low back tightness Right rotation + extension: 7/10 typical low back pain Left rotation + extension: 7/10 typical low back pain Myofascial exam: Tender right erector spinae and bilateral tensor fascia jojo Radiology: SPINE LUMBOSACRAL 2 VIEWS (no units) Date Value Low High Status 10/27/2006 Radiologist 1: Maxime HUNT M.D. LUMBAR SPINE, AP AND LATERAL UPRIGHT: 10/27/2006 Dictated 10/27/2006 COMPARISON: 09/05/2003 FINDINGS: There is combined an terior and posterior spinal fixation of L4-5. The interbody bone graft shows no collapse or displacement. The bilateral pedicle screws and paraspinal rods remain intact without loosen ing or displacement. There is no change in alignment at the fused segments. There is poste rior disc narrowing and some retrolisthesis at L3-4 which is unchanged. There is moderately advanced L5-S1 degenerative disc disease and facet arthropathy which is also unchanged. El ectrode with 4 pads is unchanged lying inferior to the left sciatic notch. Final Value: Radiologist 1: Maxime HUNT M.D. LUMBAR SPINE, AP AND LATERAL UPRIGHT: 10/27/2006 Dictated 10/27/2006 COMPARISON: 09/05/2003 FINDINGS: There is combined anterior and posterior spinal fixation of L4-5. The interbody bone graft shows no collapse or displacement. The bilateral pedicle screws and paraspinal rods remain intact without loosening or displacement. There is no change in alignment at the fused segments. There is posterior disc narrowing and some retrolisthesis at L3-4 which is unchanged. There is moderately advanced L5-S1 degenerative disc disease and facet arthropathy which is also unchanged. Electrode with 4 pads is unchanged lying inferior to the left sciatic notch. Impression: 1. 738.4B Spondylolisthesis, Grade 1 721.3 Lumbosacral Spondylosis without Myelopathy Ms. Hernández has mechanical low back pain consistent with a facet arthropathy, and has ad jacent segment disease evident on her X-ray. Dr. Claros has requested a diagnostic facet injection, and a lumbar medial branch block has the advantage that, if successful, it will l ead to a radiofrequency medial branch denervation. This procedure has a 75% likelihood of p roducing analgesia lasting about 18-24 months if the block produces analgesia. Ms. Hernández is not involved in physical therapy at this time, and has considerable myofa scial pain in her lumbopelvic girdle. It may be to her advantage to seek this locally, as s he no longer has easy access to [facility]. Recommendations/Plan: 1. Bilateral lumbar medial branch block at the L3-4 joint. 2. Pending results, possible radiofrequency medial branch denervation. 3. I had a detailed PARQ discussion with Ms. Hernández, who gave written consent for the procedure. ZI FATIMA MD [facility] [place] [facility] Lj Martinez - 10/28/2006 2:54 PM PDTFormatting of this note might be different from the origin al. CRITICAL POWER TECHNICIAN PRE-SEDATION: Date: October 28, 2006 Mae Hernández [id number] ALLERGIES: Erythromycin and Clarification needed Previous reaction to Sedation/Analgesia: no MEDICATIONS: No current outpatient prescriptions on file. Meets NPO Guidelines: yes For female patients of reproductive age: When was last menstrual period? Non-applicable If > 30 days, could the patient be ? no Would she like to have a test? no documented in this encounter Plan of Treatment Not on filedocumented as of this encounter Visit Diagnoses + + | Diagnosis | + + | Spondylolisthesis, grade 1 Acquired spondylolisthesis | + + | Lumbosacral spondylosis without myelopathy | + + documented in this encounter
--- OUTSIDE RECORDS SUMMARY | ~2019-07-03 | XMS | Encounter Summary ---
Demographics + + + | Address | [address] | | | [place] [address] | + + + | Home Phone | | + + + | Preferred Language | Unknown | + + + | Marital Status | | + + + | Tenriism Affiliation | [id number] | + + + | Race | Unknown | + + + | Ethnic Group | Unknown | + + + Author + + + | Author | [facility] | | | and [place] | + + + | Organization | [facility] | | | and [...] [place] | | | | | [id number] | | + + + + + | Daina Mazariegos | ECON | Unknown | | + + + + + Care Team Providers + +------+ + | Care Clay Hoister Name | Role | Phone | + +------+ + | Noe Thomason | PCP | | | MD | | | + +------+ + Reason for Referral Diagnostic/Screening (Routine) +--------+--------+ + + + + | Status | Reason | Specialty | Diagnoses / | Referred By | Referred To | | | | | Procedures | Contact | Contact | +--------+--------+ + + + + | Closed | | Radiology | Diagnoses | [place], | | | | | | Weakness of | Michelle Cohn, | | | | | | both legs | [place] [address] | | | | | | Procedures | [address] | | | | | | [address] | [place], [place] | | | | | | Myelography | [address] | | | | | | Lumbar Spine | Phone: | | | | | | | [phone] | | | | | | | Fax: | | | | | | | [phone] | | +--------+--------+ + + + + Reason for Visit Diagnostic/Screening (Routine) +--------+--------+ + + + + | Status | Reason | Specialty | Diagnoses / | Referred By | Referred To | | | | | Procedures | Contact | Contact | +--------+--------+ + + + + | Closed | | Radiology | Diagnoses | [place], | | | | | | Weakness of | Michelle Cohn, | | | | | | both legs | [place] [address] | | | | | | Procedures | [address] | | | | | | [address] | [place], [place] | | | | | | Myelography | [address] | | | | | | Lumbar Spine | Phone: | | | | | | | [phone] | | | | | | | Fax: | | | | | | | [phone] | | +--------+--------+ + + + + Encounter Details +--------+ + + + + | Date | Type | Department | Care Team | Description | +--------+ + + + + | 03/12/ | Hospital | [facility] | Michelle Haney, | Weakness of both | | 2015 | Encounter | [facility] [address] | [place] [address] | legs | | | | [place]rendan [place]ug[place], | [place], [place] | | | | | [place] [address] | [address] | | | | | [phone] | [phone] | | | | | | | | +--------+ + [...] + + documented as of this encounter Medications at Time of Discharge [...] | + +--------+ + + + | CT MYELOGRAPHY | Routin | 03/12/2015 | Weakness of both | Results for this | | LUMBAR SPINE | e | 2:05 PM | legs | procedure are in the | | | | PDT | | results section. | + +--------+ + + + documented in this encounter Results CT Myelography Lumbar Spine (03/12/2015 2:05 PM PDT) + + | Specimen | + + | | + + + + + | Narrative | Performed At | + + + | CT MYELOGRAPHY LUMBAR SPINE 03/12/2015 1:47 PM HISTORY: | [facility] | | Weakness of both legs. EVAL RT LOWER EXTREMITY PAIN, BILATERAL HF | | | WEAKNESS, AND S/P PREVIOUS LUMBAR FUSION.. Patient unable to obtain | | | MRI because of nerve stimulator. COMPARISON: Lumbar spine x-ray | | | 03/12/2015 TECHNIQUE: Coned-down axial images were obtained | | | through the lumbar lumbar spine following intrathecal injection of | | | Omnipaque 300 contrast under fluoroscopic guidance. Multiplanar | | | reformatted images created. FINDINGS: LUMBAR SPINE: Posterior | | | spinal fusion hardware is seen at the levels of L4 and L5 with disc | | | spacer at the intervening level, without evidence of hardware failure. | | | Posterior fusion hardware casts streak artifact, which hinders | | | evaluation of adjacent structures at those levels. Vertebral body | | | alignment is maintained at the fused levels. There is | | | retrolisthesis of L1 on L2 . There is retrolisthesis of L2 on L3 . | | | There is retrolisthesis of L3 on L4. There is exaggeration of | | | the lumbar lordosis. Schmorl's node formation is seen at the inferior | | | endplate of T12, superior and inferior endplates of L2, and superior | | | and inferior endplates of L3. Vertebral body heights are otherwise | | | preserved. There is diffuse degenerative disc disease at the | | | nonfused levels, with severe loss of disc height posteriorly at L3-4, | | | with mild loss of disc height at T11-12 through L1-2, and mild to | | | moderate loss of disc height posteriorly at L2-3. Postsurgical change | | | compatible with posterior fusion with laminectomy seen at L4. | | | Contrast is seen within the intrathecal space. The cauda equina | | | terminates normally at the level of L2. T11-12: Spinal canal | | | and osseous neural foramina within normal limits. T12-L1: Tiny | | | posterior disc bulge that mildly contours the thecal sac, | | | asymmetrically to the right of midline, without evidence of contacting | | | of the cord. Thecal sac measures 13 mm in midline AP diameter. | | | No osseous neural foraminal narrowing. L1-2: Tiny posterior | | | disc bulge that mildly contours the thecal sac, without significant | | | narrowing. No osseous neural foraminal narrowing. L2-3: | | | Small posterior disc bulge that mildly contours the thecal sac, | | | extending into bilateral inferior neural foraminal recesses, with | | | subsequent mild bilateral neural foraminal narrowing. L3-4: | | | Retrolisthesis of L3 on L4 with subsequent contouring of the thecal | | | sac. Facet degenerative hypertrophy, with transverse narrowing of | | | the thecal sac to approximately 10 mm in midline AP diameter. | | | Severe left and at least moderate right neural foraminal narrowing. | | | L4-5: Postsurgical change at this level compatible with L4 | | | laminectomy and posterior spinal fusion. Facet degenerative | | | hypertrophy with partial osseous fusion of the facets. No | | | significant neural foraminal narrowing. L5-S1: Facet | | | degenerative hypertrophy. Moderate bilateral neural foraminal | | | narrowing. Visualized intra-abdominal structures are unremarkable. | | | Postsurgical change in the soft tissues of the low back. | | | IMPRESSION - Postsurgical change at L4 and L5, compatible with | | | posterior spinal fusion and L4 laminectomy. Multilevel degenerative | | | disc disease and spondylolisthesis with exaggeration of lumbar | | | lordosis. Multilevel neural foraminal narrowing ranging up to severe | | | in degree, as detailed above, greatest at L3-4. Dictated and | | | Signed by: Eric Veras MD Electronically signed: 03/12/2015 | | | 4:40 PM | | + + + + + | Procedure Note | + + | Jarrod, Rad Results In - 03/12/2015 4:[address] MYELOGRAPHY LUMBAR SPINE 03/12/2015 | | 1:47 PMHISTORY: Weakness of both legs. EVAL RT LOWER EXTREMITY PAIN, BILATERAL | | HFWEAKNESS, AND S/P PREVIOUS LUMBAR FUSION.. Patient unable to obtain MRI becauseof | | nerve stimulator.COMPARISON: Lumbar spine x-ray 03/12/2015TECHNIQUE: Coned-down axial | | images were obtained through the lumbar lumbar spinefollowing intrathecal injection of | | Omnipaque 300 contrast under fluoroscopicguidance. Multiplanar reformatted images | | created.FINDINGS:LUMBAR SPINE:Posterior spinal fusion hardware is seen at the levels of | | L4 and L5 with discspacer at the intervening level, without evidence of hardware | | failure. Posterior fusion hardware casts streak artifact, which hinders evaluation | | ofadjacent structures at those levels.Vertebral body alignment is maintained at the | | fused levels. There is retrolisthesis of L1 on L2 . There is retrolisthesis of L2 on | | L3 . There is retrolisthesis of L3 on L4.There is exaggeration of the lumbar | | lordosis.Schmorl's node formation is seen at the inferior endplate of T12, superior | | andinferior endplates of L2, and superior and inferior endplates of L3. Vertebralbody | | heights are otherwise preserved.There is diffuse degenerative disc disease at the | | nonfused levels, with severeloss of disc height posteriorly at L3-4, with mild loss of | | disc height at [id number] L1-2, and mild to moderate loss of disc height posteriorly | | at L2-3.Postsurgical change compatible with posterior fusion with laminectomy seen | | atL4.Contrast is seen within the intrathecal space. The cauda equina terminates | | normally at the level of L2. T11-12: Spinal canal and osseous neural foramina within | | normal limits.T12-L1: Tiny posterior disc bulge that mildly contours the thecal | | sac,asymmetrically to the right of midline, without evidence of contacting of thecord. | | Thecal sac measures 13 mm in midline AP diameter. No osseous neuralforaminal | | narrowing.L1-2: Tiny posterior disc bulge that mildly contours the thecal sac, | | withoutsignificant narrowing. No osseous neural foraminal narrowing. L2-3: Small | | posterior disc bulge that mildly contours the thecal sac, extendinginto bilateral | | inferior neural foraminal recesses, with subsequent mildbilateral neural foraminal | | narrowing.L3-4: Retrolisthesis of L3 on L4 with subsequent contouring of the thecal | | sac. Facet degenerative hypertrophy, with transverse narrowing of the thecal sac | | toapproximately 10 mm in midline AP diameter. Severe left and at least moderateright | | neural foraminal narrowing.L4-5: Postsurgical change at this level compatible with L4 | | laminectomy andposterior spinal fusion. Facet degenerative hypertrophy with partial | | osseousfusion of the facets. No significant neural foraminal narrowing.L5-S1: Facet | | degenerative hypertrophy. Moderate bilateral neural foraminalnarrowing.Visualized | | intra-abdominal structures are unremarkable. Postsurgical change inthe soft tissues of | | the low back.IMPRESSION -Postsurgical change at L4 and L5, compatible with posterior | | spinal fusion and [id number].Multilevel degenerative disc disease and | | spondylolisthesis with exaggeration oflumbar lordosis.Multilevel neural foraminal | | narrowing ranging up to severe in degree, asdetailed above, greatest at L3-4.Dictated | | and Signed by: Eric Veras MD Electronically signed: 03/12/2015 4:40 PM | |foraminal narrowing. | | | |L1-2: Tiny posterior disc bulge that mildly contours the thecal sac, without | |significant narrowing. No osseous neural foraminal narrowing. | | | |L2-3: Small posterior disc bulge that mildly contours the thecal sac, extending | |into bilateral inferior neural foraminal recesses, with subsequent mild | |bilateral neural foraminal narrowing. | | | |L3-4: Retrolisthesis of L3 on L4 with subsequent contouring of the thecal sac. | |Facet degenerative hypertrophy, with transverse narrowing of the thecal sac to | |approximately 10 mm in midline AP diameter. Severe left and at least moderate | |right neural foraminal narrowing. | | | |L4-5: Postsurgical change at this level compatible with L4 laminectomy and | |posterior spinal fusion. Facet degenerative hypertrophy with partial osseous | |fusion of the facets. No significant neural foraminal narrowing. | | | |L5-S1: Facet degenerative hypertrophy. Moderate bilateral neural foraminal | |narrowing. | | | |Visualized intra-abdominal structures are unremarkable. Postsurgical change in | |the soft tissues of the low back. | | | | | |IMPRESSION - | |Postsurgical change at L4 and L5, compatible with posterior spinal fusion and L4 | |laminectomy. | |Multilevel degenerative disc disease and spondylolisthesis with exaggeration of | |lumbar lordosis. | |Multilevel neural foraminal narrowing ranging up to severe in degree, as | |detailed above, greatest at L3-4. | | | |Dictated and Signed by: Eric Veras MD | | Electronically signed: 03/12/2015 4:40 PM | + + + +---------+ + + | Performing | Address | City/State/[facility] | Phone Number | | Organization | | | | + +---------+ + + | [facility] | | | | + +---------+ + + documented in this encounter Visit Diagnoses + + | Diagnosis | + + | Weakness of both legs Other musculoskeletal symptoms referable to limbs | + + documented in this encounter"
--- OUTSIDE RECORDS SUMMARY | ~2019-07-03 | XMS | Encounter Summary ---
Demographics + + + | Address | [address] | | | [place] [address] | + + + | Home Phone | | + + + | Preferred Language | Unknown | + + + | Marital Status | | + + + | Protestant Affiliation | NON | + + + | Race | White | + + + | Ethnic Group | Not or | + + + Author + + + | Author | [facility] | + + + | Organization | [facility] | + + + | Address [...] Team Providers + +------+ + | Care Metrology Engineer Name | Role | Phone | + +------+ + PCP | Unavailable | + +------+ + Encounter Details +--------+ + + + + | Date | Type | Department | Care Team | Description | +--------+ + + + + | 12/12/ | Office | [facility] | Note, Outpatient | Progress Note | | 2001 | Visit-Trans | MEDICINE | Clinic | [...] as of this encounter Progress Notes Interface, Nanny/Household Manager In - 03/28/2006 1:23 AM PDTCLINIC DATE: 12/12/2001 Mae returns today now 3 months following up for pedicle screw fusion. Her back pain is better, and she has now reached a point where I think we can safely take her out of the brace. I advised that she continue physical therapy which she is now doing twice a week including both strengthening, stretching, and water therapy. I plan to see her back in 3 months for followup. Bebe Claros M.D. [facility] / MADELINE [id number] / [id number] / [id number] / Tdocumented in this encounter Plan of Treatment Not on filedocumented as of this encounter Visit Diagnoses Not on filedocumented in this encounter"
--- OUTSIDE RECORDS SUMMARY | ~2019-07-03 | XMS | Encounter Summary ---
Demographics + + + | Address | [address] | | | [place] [address] | + + + | Home Phone | | + + + | Preferred Language | Unknown | + + + | Marital Status | | + + + | Anabaptist Affiliation | NON | + + + | Race | White | + + + | Ethnic Group | Not or | + + + Author + + + | Author | [facility] | + + + | Organization | [facility] | + + + | Address | Unknown | + + + | Phone | Unavailable | + + + Support + + + + + | Name | Relationship | Address | Phone | + + + + + | Lima Dietrich | ECON | [place] | | + + + + + Care Team Providers + +------+ + | Care Commodity Buyer Name | Role | Phone | + +------+ + | Noe Thomason MD | PCP | | + +------+ + Encounter Details +--------+ + + + + | Date | Type | Department | Care Team | Description | +--------+ + + + + | 07/20/ | Telephone | [facility] | Roger Fatima MD | | | 2006 | | Pain Center at | [address] | | | | | [facility] | [place], [place] | | | | | [address] | [address] | | | | | Mailcode: [id number] | [phone] | | | | | [place] [facility] | | | | | | and Healing, | | | | | | | | | | | | Floor [place], [place] | | | | | | [address] | | | | | | [phone] | | | +--------+ + + + [...]
--- OUTSIDE RECORDS SUMMARY | ~2019-07-03 | XMS | Encounter Summary ---
Demographics + + + | Address | [address] | | | [place] [address] | + + + | Home Phone | | + + + | Preferred Language | Unknown | + + + | Marital Status | | + + + | Church Affiliation | NON | + + + | Race | White | + + + | Ethnic Group | Not or | + + + Author + + + | Author | [facility] | + + + | Organization | [facility] | + + + | [...] Team Providers + +------+ + | Care Field Agronomist Name | Role | Phone | + +------+ + PCP | Unavailable | + +------+ + Encounter Details +--------+ + + + + | Date | Type | Department | Care Team | Description | +--------+ + + + + | 02/15/ | Results | Neurosurgery 3250 | Bebe Claros MD | | | 2001 | Only | [address] | [address] | | | | | [address] Mailcode:OP14B | [place], [place] | | | | | [place] | [address] | | | | | [place], [place] | [phone] | | | | | [address] | | | | | | [phone] | | | +--------+ + + + [...] | + +--------+ + + + | X-RAY SPINE | Routin | 02/15/2002 | | Results for this | | LUMBOSACRAL 2 VIEWS | e | 2:41 PM | | procedure are in the | | | | PDT | | results section. | + +--------+ + + + documented in this encounter Results SPINE LUMBOSACRAL 2 VIEWS (02/15/2002 2:41 PM PDT) + + + + + + | Component | Value | Ref Range | Performed | Pathologist | | | | | At | Signature | + + + + + + | SPINE | Radiologist 1: | | | | | LUMBOSACRAL | BERNARDO LUCAS, | | | | | 2 VIEWS | M.D.-Radiologist 2: | | | | | | BERNARDO LUCAS, | | | | | | M.D.LUMBOSACRAL - AP AND | | | | | | LATERAL: 02/15/2002 | | | | | | at 1340 Dictated | | | | | | 02/16/2002 HISTORY: | | | | | | 41-year-old female. | | | | | | COMPARISON: | | | | | | 12/12/2001. FINDINGS: | | | | | | The patient has had | | | | | | posterior fusion of L4 | | | | | | and L5 withpaired spinal | | | | | | rods, pedicular screws | | | | | | and an intervertebral | | | | | | bone graft,in normal | | | | | | postoperative alignment | | | | | | and unchanged from | | | | | | previously.There is no | | | | | | evidence of hardware | | | | | | failure or loosening. | | | | | | An | | | | | | electricalstimulator is | | | | | | seen with its lead | | | | | | extending into the left | | | | | | hemipelvis,as before. | | | | | | The vertebrae are in | | | | | | normal alignment. Mild | | | | | | anterior wedging of | | | | | | T12and L1 is seen. The | | | | | | remaining lumbar | | | | | | vertebral body heights | | | | | | aremaintained. Disc | | | | | | space narrowing and | | | | | | marginal osteophyte | | | | | | formation isseen, at the | | | | | | lower thoracic and | | | | | | upper lumbar spine and | | | | | | at L5-S1. Laminectomies | | | | | | have been performed at | | | | | | L4 and L5. IMPRESSION: | | | | | | 1. Intact | | | | | | intervertebral bone | | | | | | graft and posterior | | | | | | fusion hardware atL4-L5 | | | | | | unchanged from prior | | | | | | study with no evidence | | | | | | of complication. 2. | | | | | | Chronic anterior | | | | | | wedging of T12 and L1. | | | | | | 3. Mild to moderate | | | | | | degenerative disc | | | | | | disease at T12-L1 | | | | | | through L2-3and at | | | | | | L5-S1. 4. Electronic | | | | | | stimulator with its tip | | | | | | in the left hemipelvis, | | | | | | asbefore. END OF | | | | | | IMPRESSION: | | | | + + + + + + + + | Specimen | + + | | + + + +---------+ + + | Performing | Address | City/State/Zipcode | Phone Number | | Organization | | | | + +---------+ + + | [facility] DEPARTMENT OF | | | | | RADIOLOGY | | | | + +---------+ + + documented in this encounter Visit Diagnoses Not on filedocumented in this encounter"
--- OUTSIDE RECORDS SUMMARY | ~2019-07-03 | XMS | Encounter Summary ---
Demographics + + + | Address | [address] | | | [place] [address] | + + + | Home Phone | | + + + | Preferred Language | Unknown | + + + | Marital Status | | + + + | Anabaptist Affiliation | NON | + + + | Race | White | + + + | Ethnic Group | Not or | + + + Author + + + | Author | [facility] | + + + | Organization | [facility] | + + + | Address | Unknown | + + + | Phone | Unavailable | + + + Support + + + + + | Name | Relationship | Address | Phone | + + + + + | Liam Lowry | ECON | [place] | | + + + + + Care Team Providers + +------+ + | Care Electronic Publications Specialist Name | Role | Phone | + +------+ + PCP | Unavailable | + +------+ + Encounter Details +--------+ + + + + | Date | Type | Department | Care Team | Description | +--------+ + + + + | 01/30/ | Transcribed | Allergy Clinic at | Dictation, Other | Transcribed | | 1997 | | [facility] [address] | | | | | | Rohith Kelly | | | | | | Mailcode: [id number] | | | | | | Dave Sweeney | | | | | | [facility] | | | | | | [place] [address] | | | | | | [phone] | | | +--------+ + + + [...] as of this encounter Progress Notes Interface, Industrial Safety And Health Specialist In - 08/11/2006 3:03 AM PST [address] [address] or December 31, 1997 [place] [address] [address] RE:MAE LOWRY MR#:[id number] Madden: I had the pleasure of seeing Ms. Lowry in Dr. Claros's clinic, together with Dr. Claros. The patient was seen, examined and interveiwed by Dr. Claros and her condition and treatment options were discussed. As you know this is a 37-year-old white female who has complains of pain in the left gluteal area that started after a fall in August, in a store. The patient's pain is localized in the superior gluteal area on the left side. There is radiation to the leg, no superficial painful points. There is some tingling and burning sensation that happens intermittently every time she sits down for a long time or puts foot pressure on the left side. This pain gets significantly worse after she has been driving her car, because she thinks there is too much pressure on that area. She feels that there is a tight pipe going through the middle of her buttock that gets spasms along its way, and describes it as "brakes pushing onto the nerve." This patient already had an MRI performed and a CT myelogram in June of 1997. She also had two tests; an epidural caudal injection of steroids by Dr. Beebe and Dr. Hilario. However, that did not give her any relief. Her medical and surgical history are unremarkable. She does not take any medications for pain. On examination she seems to be completely intact with no sensory or motor deficits. Specifically, her gluteal area has normal sensation to light touch and pinprick sensation and there is no difference between left and right. 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 That is a relatively rare phenomenon which, however, is well described in the literature and essentially is one of those entrapment syndromes when the nerve is compressed by offending muscle and the compression gets worse if there is any swelling or hematoma which could be her case, considering the history of trauma and fall. Since that is the possible case we would like to work this up a little better. We are going to get an EMG of the area to look for signs of denervation of superior or medial gluteal muscles. However, even if that is negative the clinical suspicion of possible compression of the superior gluteal nerve will remain. In the future if her symptoms persist or get worse she may be a candidate for exploration and possible decompression of the superior gluteal nerve next to the piriform muscle. We will be waiting for the results of the EMG prior to any therapeutic intervention. I want to thank you again for sending this patient to us. We will be happy to let you know about her progress in the future. Sincerely, Hola Arciniega M.D. Fellow, Neurosurgery /[facility] documented in this encounter Plan of Treatment Not on filedocumented as of this encounter Visit Diagnoses Not on filedocumented in this encounter
--- OUTSIDE RECORDS SUMMARY | ~2019-07-03 | XMS | Encounter Summary ---
Demographics + + + | Address | [address] | | | [place] [address] | + + + | Home Phone | | + + + | Preferred Language | Unknown | + + + | Marital Status | | + + + | Restorationist Affiliation | 1041 | + + + | Race | Unknown | + + + | Ethnic Group | Unknown | + + + Author + + + | Author | [facility] | | | and [place] | + + + | Organization | [facility] | | | and [place] | [...] [place] | | | | | [address] | | + + + + + | Daina Mazariegos | ECON | Unknown | | + + + + + Care Team Providers + +------+ + | Care Finance Teacher Name | Role | Phone | + +------+ + | Noe Thomason | PCP | | | MD | | | + +------+ + Reason for Referral Evaluate & Treat (Routine) +--------+ + + + + + | Status | Reason | Specialty | Diagnoses / | Referred By | Referred To | | | | | Procedures | Contact | Contact | +--------+ + + + + + | Closed | Specialty | Neurosurgery | Diagnoses | | Harryel, | | | Services | | DDD | Sepideh, | MD Bebe [address] | | | Required | | (degenerativ | Mohan Andrews MD | [address] | | | | | e disc | [address] | [place], [place] | | | | | disease), | [facility] | [address] | | | | | lumbosacral | [place], [place] | Phone: | | | | | Hx of | [address] | [phone] | | | | | spinal | Phone: | Fax: | | | | | fusion | [phone] | [phone] | | | | | Lumbar | Fax: | | | | | | radiculopath | [phone] | | | | | | y | | | | | | | Spondylolist | | | | | | | hesis of | | | | | | | lumbar | | | | | | | region | | | +--------+ + + + + + Encounter Details +--------+ + + + + | Date | Type | Department | Care Team | Description | +--------+ + + + + | 04/01/ | Orders Only | [facility] | Mohan Bunn | DISC DISEASE, | | 2013 | | PHYSIATRY [address] | TMD [address] | LUMBOSACRAL SPINE | | | | [place], | [place], [place] | (Primary Dx); Hx of | | | | [place] [address] | [address] | spinal fusion; | | | | [phone] | | Lumbar | | | | | | radiculopathy; | | | | | | Spondylolisthesis of | | | | | | lumbar region | +--------+ + + + + Social [...] as of this encounter Plan of Treatment + + +--------+ + + | Name | Type | Priori | Associated Diagnoses | Order Schedule | | | | ty | | | + + +--------+ + + | Ambulatory referral | Outpatient | Routin | DISC DISEASE, | Ordered: 04/01/2014 | | to Neurosurgery | Referral | e | LUMBOSACRAL SPINE | | | | | | Hx of spinal fusion | | | | | | Lumbar | | | | | | radiculopathy | | | | | | Spondylolisthesis of | | | | | | lumbar region | | + + +--------+ + + documented as of this encounter Visit Diagnoses + + | Diagnosis | + + | DISC DISEASE, LUMBOSACRAL SPINE - Primary Degeneration of lumbar or lumbosacral | | intervertebral disc | + + | Hx of spinal fusion Arthrodesis status | + + | Lumbar radiculopathy Thoracic or lumbosacral neuritis or radiculitis, unspecified | + + | Spondylolisthesis of lumbar region Acquired spondylolisthesis | + + documented in this encounter"
--- OUTSIDE RECORDS SUMMARY | ~2019-07-03 | XMS | Encounter Summary ---
Demographics + + + | Address | [address] | | | [place] [address] | + + + | Home Phone | | + + + | Preferred Language | Unknown | + + + | Marital Status | | + + + | Denominational Affiliation | 1041 | + + + | Race | Unknown | + + + | Ethnic Group | Unknown | + + + Author + + + | Author | [facility] | | | and [place] | + + + | Organization | [facility] | | | and [place] [...] [place] | | | | | [address] | | + + + + + | Daina Mazariegos | ECON | Unknown | | + + + + + Care Team Providers + +------+ + | Care Park Worker Supervisor Name | Role | Phone | + +------+ + | Antoinette Davila | PCP | | | PA | | | + +------+ + Reason for Visit Diagnostic/Screening (Routine) +--------+--------+ + + + + | Status | Reason | Specialty | Diagnoses / | Referred By | Referred To | | | | | Procedures | Contact | Contact | +--------+--------+ + + + + | Closed | | Radiology | Diagnoses | Isbell, | [facility] | | | | | Epigastric | MD Pilar | Medicine | | | | | pain | [address] | [address] | | | | | Procedures | POINT | [address] | | | | | NM Gastric | [place], [place] | [place], [place] | | | | | Emptying | [address] | [address] | | | | | | Phone: | Phone: | | | | | | [phone] | [phone] | | | | | | Fax: | Fax: | | | | | | [phone] | [phone] | +--------+--------+ + + + + Encounter Details +--------+ + + + + | Date | Type | Department | Care Team | Description | +--------+ + + + + | 06/13/ | Hospital | [facility] | Pilar Isbell MD | | | 2019 | Encounter | [facility] N[facility] | [address] | | | | | MEDICINE [address] | [place] [address] | | | | | [address] | [phone] | | | | | [place], [place] | | | | | | [address] | | | | | | [phone] | | | +--------+ + + + [...] + + + +---------+ + + | levothyroxine | Take 75 mcg by mouth | | 0 | | | | (SYNTHROID, | every morning | | | | | | LEVOTHROID) 75 MCG | (before breakfast). | | | | | | tablet | | | | | | + + + +---------+ + + | liraglutide | Inject 1.2 mg under | | 0 | | | | (VICTOZA) 18 mg/3 mL | the skin Daily. | | | | | | injection | | | | | | + + + +---------+ + + | naproxen | Take 250 mg by mouth | | 0 | | | | (NAPROSYN) 250 mg | 2 times daily (with | | | | | | tablet | breakfast & | | | | | | | dinner). | | | | | + + [...] + + + +---------+ + + | traMADol (ULTRAM) | Take 50 mg by mouth | | 0 | | | | 50 mg tablet | every 6 hours as | | | | | | | needed for Pain. | | | | | + + + +---------+ + + documented as of this encounter Plan of Treatment Not on filedocumented as of this encounter Procedures + +--------+ + + + | Procedure Name | Priori | Date/Time | Associated Diagnosis | Comments | | | ty | | | | + +--------+ + + + | NM GASTRIC EMPTYING | Routin | 06/13/2019 | Epigastric pain | Results for this | | | e | 1:04 PM | | procedure are in the | | | | PST | | results section. | + +--------+ + + + documented in this encounter Results NM Gastric Emptying (06/13/2019 1:04 PM PST) + + | Specimen | + + | | + + + + + | Impressions | Performed At | + + + | Negative study. No evidence of gastroparesis seen Signed | [facility] | | by: Marco Antonio Villalta, Fernando Sign Date/Time: 06/13/2019 2:30 PM | | + + + + + + | Narrative | Performed At | + + + | GASTRIC EMPTYING STUDY (4-HOUR) CLINICAL INFORMATION: early | [facility] | | satiety. epigastric pain COMPARISON: CT ABDOMEN W CONTRAST | | | (02/23/2018); PELVIS 1 OR VIEWS (08/06/2011); PROCEDURE: Dose: 1 mCi | | | Tc-99m sulfur colloid. Ingested as: {Standard radio labeled solid | | | meal.} The standard department imaging protocol was followed. | | | FINDINGS: Gastric retention at 1 hour measures 75 %. Normal | | | 37-90%. Gastric retention at 2 hours measures 45 %. Normal 30-60%. | | | Gastric retention at 4 hours measures 9 %. Normal 0-10%. There | | | is no gastroesophageal reflux seen. | | + + + + + | Procedure Note | + + | Finesse Garay Results In - 06/13/2019 2:34 PM PST | | GASTRIC EMPTYING STUDY (4-HOUR) | | | | CLINICAL INFORMATION: | | early satiety. epigastric pain | | | | COMPARISON: | | CT ABDOMEN W CONTRAST (02/23/2018); PELVIS 1 OR VIEWS (08/06/2011); | | | | PROCEDURE: | | Dose: 1 mCi Tc-99m sulfur colloid. | | | | Ingested as: {Standard radio labeled solid meal.} | | | | The standard department imaging protocol was followed. | | | | FINDINGS: | | Gastric retention at 1 hour measures 75 %. Normal 37-90%. | | Gastric retention at 2 hours measures 45 %. Normal 30-60%. | | Gastric retention at 4 hours measures 9 %. Normal 0-10%. | | | | There is no gastroesophageal reflux seen. | | | | IMPRESSION: | | Negative study. No evidence of gastroparesis seen | | | | | | | | Signed by: Marco Antonio Villalta Amit | | Sign Date/Time: 06/13/2019 2:30 PM | + + + +---------+ + + | Performing | Address | City/State/Zipcode | Phone Number | | Organization | | | | + +---------+ + + | [facility] | | | | + +---------+ + + documented in this encounter Visit Diagnoses Not on filedocumented in this encounter"
--- OUTSIDE RECORDS SUMMARY | ~2019-07-03 | XMS | Encounter Summary ---
Demographics + + + | Address | [address] | | | [place] [address] | + + + | Home Phone | | + + + | Preferred Language | Unknown | + + + | Marital Status | | + + + | Evangelical Affiliation | NON | + + + [...] Team Providers + +------+ + | Care Finishing Operator Name | Role | Phone | + +------+ + PCP | Unavailable | + +------+ + Encounter Details +--------+ + + + + | Date | Type | Department | Care Team | Description | +--------+ + + + + | 01/30/ | Results | [facility] | Roger Fatima MD | | | 2000 | Only | Center Outpatient | [address] | | | | | Therapy Center [address] | [place], [place] | | | | | [address] | [address] | | | | | Outpatient Therapy | [phone] | | | | | Center 2nd floor | | | | | | Mailcode: [address]26 | | | | | | [place], [place] | | | | | | [address] | | | | | | [phone] | | | +--------+ + + + [...] + + | FLUOROSCOPY, | Routin | 03/07/2001 | | Results for this | | INDEPENDENT PORT. | e | 10:40 AM | | procedure are in the | | | | PDT | | results section. | + +--------+ + + + | CT L SPINE W/PRIOR | Routin | 01/30/2001 | | Results for this | | CONTRAST | e | 3:35 PM | | procedure are in the | | | | PDT | | results section. | + +--------+ + + + | FLUOROSCOPY, | Routin | 01/30/2001 | | Results for this | | INDEPENDENT PORT. | e | 2:30 PM | | procedure are in the | | | | PDT | | results section. | + +--------+ + + + documented in this encounter Results FLUOROSCOPY, INDEPENDENT PORT. (03/07/2001 10:40 AM PDT) + + + + + + | Component | Value | Ref Range | Performed | Pathologist | | | | | At | Signature | + + + + + + | FLUOROSCOPY | Radiologist 1: MAKAYLA, | | | | | , | [...] | | + +---------+ + + | [place] DEPARTMENT OF | | | | | RADIOLOGY | | | | + +---------+ + + CT L SPINE W/PRIOR CONTRAST (01/30/2001 3:35 PM PDT) + + + + + + | Component | Value | Ref Range | Performed | Pathologist | | | | | At | Signature | + + + + + + | CT L SPINE | Radiologist 1: RITO, | | | | | W/PRIOR | Mckenzie DOYLE | | | | LAWANDA | Marco Antonio-Radiologist 2: | | | | | | EMRE VERAS M.D.CT | | | | | | LUMBAR SPINE: | | | | | | 01/30/2001 Dictated | | | | | | 02/06/2001 HISTORY: | | | | | | Status post | | | | | | discography. CLINICAL | | | | | | INFORMATION: Chronic low | | | | | | back pain localizing to | | | | | | the"tailbone." The | | | | | | patient is being seen in | | | | | | the [facility] | | | | [facility] with a | | | | | | history of a gluteal | | | | | | nerve stimulator. She is | | | | | | beingevaluated for | | | | | | IDET. COMPARISON STUDY: | | | | | | MRI, lumbar spine, | | | | | | 07/20/00. TECHNICAL | | | | | | FACTORS: CT imaging | | | | | | was performed utilizing | | | | | | 3 mm contiguousaxial | | | | | | images from the T12-S1 | | | | | | vertebral segments. | | | | | | Sagittal images | | | | | | arethen reformatted and | | | | | | reviewed. Prior MRI | | | | | | examination showed | | | | | | degenerative disc change | | | | | | and central discbulges | | | | | | at L4-5 and L5-S1. | | | | | | FINDINGS: At the L5-S1 | | | | | | level, there is gas in | | | | | | the disc space which | | | | | | maybe related to | | | | | | discography or vacuum | | | | | | disc phenomenon. There | | | | | | is mildloss of disc | | | | | | space. No contrast is | | | | | | present. Facet joints | | | | | | arewell-maintained. | | | | | | Spinal canal and | | | | | | neural foramina are | | | | | | patent. At the L4-5 | | | | | | level, there is also | | | | | | disc space narrowing. | | | | | | Contrast ispresent | | | | | | centrally in the disc | | | | | | space, status post | | | | | | discography. There | | | | | | islinear extension of | | | | | | contrast posteriorly, | | | | | | suggesting a central | | | | | | radialannular tear. | | | | | | There is extravasation | | | | | | of contrast into | | | | | | thesubligamentous | | | | | | extradural space | | | | | | posteriorly. No focal | | | | | | discrete discherniation | | | | | | is identified. Facet | | | | | | joints are | | | | | | well-maintained. | | | | | | Spinalcanal and neural | | | | | | foramina are patent. | | | | | | The L3-4 level shows | | | | | | contrast present | | | | | | extending anteriorly | | | | | | with alinear component | | | | | | suggesting radial | | | | | | central anterior annular | | | | | | tear.Contrast collects | | | | | | anterior to the disc | | | | | | margin. Spinal canal | | | | | | andneural foramina are | | | | | | patent. At the L1-2 and | | | | | | L2-3 levels, no | | | | | | abnormalities are seen. | | | | | | IMPRESSION: 1. Central | | | | | | posterior radial | | | | | | annular tear, L4-5 with | | | | | | subligamentousextradural | | | | | | contrast collection. 2. | | | | | | Anterior central | | | | | | radial-type annular | | | | | | tear, L3-4. 3. Disc | | | | | | space narrowing, L4-5 | | | | | | and L5-S1. END OF | | | | | | IMPRESSION: | | | | + + + + + + + + | Specimen | + + | | + + + +---------+ + + | Performing | Address | City/State/Zipcode | Phone Number | | Organization | | | | + +---------+ + + | [facility] DEPARTMENT OF | | | | | RADIOLOGY | | | | + +---------+ + + FLUOROSCOPY, INDEPENDENT PORT. (01/30/2001 2:30 PM PDT) + + + + + + | Component | Value | Ref Range | Performed | Pathologist | | | | | At | Signature | + + + + + + | FLUOROSCOPY | Radiologist 1: MAKAYLA, | | | | | , | [...] | | + +---------+ + + | [facility] DEPARTMENT OF | | | | | RADIOLOGY | | | | + +---------+ + + documented in this encounter Visit Diagnoses Not on filedocumented in this encounter
--- OUTSIDE RECORDS SUMMARY | ~2019-07-03 | XMS | Encounter Summary ---
Demographics + + + | Address | [address] | | | [place] [address] | + + + | Home Phone | | + + + | Preferred Language | Unknown | + + + | Marital Status | | + + + | Congregation Affiliation | NON | + + + | Race | White | + + + | Ethnic Group | Not or | + + + Author + + + | Author | [facility] | + + + | Organization | [facility] | + + + | [...] Team Providers + +------+ + | Care Hand I Thermal Cutter Name | Role | Phone | + +------+ + PCP | Unavailable | + +------+ + Encounter Details +--------+ + + + + | Date | Type | Department | Care Team | Description | +--------+ + + + + | 04/03/ | Office | [facility] | Note, [...] as of this encounter Progress Notes Interface, Joint Cutter Machine In - 05/03/2006 3:07 AM PDTCLINIC DATE: 04/03/2001 CHIEF COMPLAINT: Low back pain. HISTORY OF PRESENT ILLNESS: Ms. Dietrich relates that she has a continued burning upper sacral pain 3 weeks after her IDET procedure. She feels as though her medication is important to her (if she misses or if she is late with a dose, she has a substantial increase in pain.) but that is only providing partial relief. REVIEW OF SYSTEMS: She denies fevers, rigors, or diaphoresis. She denies any new neurological changes. She denies any change in urination. She has intermittent constipation but usually has a bowel movement on a daily basis. PHYSICAL EXAMINATION: GENERAL: No apparent distress. VITAL SIGNS: Blood pressure 132/92, heart rate 78, respirations 16, and temperature 36.3 centigrade. NEUROLOGICAL: There is no topical allodynia over the sacral. However, there is substantial tenderness to even moderate palpation of the area. The neurological exam is otherwise nonfocal. IMPRESSION: Lumbar spondylosis without myelopathy. Ms. Dietrich is 3 weeks off her IDET procedure, and I have seen a couple of patients had this type of burning sacral discomfort subsequent to the procedure. She does not have any findings to suggest that she has a more ominous sort of problems such as infectious discitis. However, I gave her some things to look out for such as fever or changes in sphincteric function which would cause me to want to order an MRI. Most patients who have had this burning post-IDET pain, resolved this within 4-6 weeks of the procedure and I encouraged Ms. Dietrich to continue doing pretty modest physical therapy to avoid deconditioning during this period. She will probably need to miss some work because it is very uncomfortable for her to sit for prolonged periods of time. Her job requires this. Therefore, I gave her a note for another 3 weeks of likely absence of work. I also advised to increase her OxyContin to 20 mg p.o. q.8h. and use 323 in case she had constipation. PLAN 1. Follow up in 3 weeks. 2. Increase OxyContin to 20 mg p.o. q.8h. Roger Fatima M.D. KAVITA / [id number] / [id number] / [id number] / cc: Bebe Claros M.D. [id number] signed by Interface, Joint Cutter Machine In at 05/03/2006 3:07 AM PDTdocume nted in this encounter Plan of Treatment Not on filedocumented as of this encounter Visit Diagnoses Not on filedocumented in this encounter"
--- OUTSIDE RECORDS SUMMARY | ~2019-07-03 | XMS | Encounter Summary ---
Demographics + + + | Address | [address] | | | [place] [address] | + + + | Home Phone [...] + + + | Author | [facility] | + + + | Organization | [facility] | + + + | Address | Unknown | + + + | Phone | Unavailable | + + + Support + + + + + | Name | Relationship | Address | Phone | + + + + + | Liam Dietrich | ECON | [place] | | + + + + + Care Team Providers + +------+ + | Care Surveillance Manager Name | Role | Phone | + +------+ + PCP | Unavailable | + +------+ + Encounter Details +--------+ + + + + | Date | Type | Department | Care Team | Description | +--------+ + + + + | 06/02/ | Office | [facility] | Note, [...] as of this encounter Progress Notes Interface, Provider Service Representative In - 04/25/2006 2:25 AM PDTCLINIC DATE: 06/02/2001 [facility] SUBJECTIVE: Ms. Dietrich states that after waiting in line in an activity with her child, she has increased burning low-back pain. She has poor sleep associated with this. She has about 1 bowel movement a day or every other day. Constipation is not a significant issue for her. In looking at her records, we had done a first lumbar medial branch block back in 1999; and instead of doing a second block, Ms. Dietrich had wanted to work more on physical therapy. She relates currently and at that time that she had several hours of increased pain control with extension. On physical exam today, she has increased pain with extension but is able to flex 80 degrees without significant pain. PHYSICAL EXAMINATION: GENERAL: No apparent distress. VITAL SIGNS: Blood pressure 118/74, heart rate 60, respirations 16, and temperature 36.6 degrees centigrade. BACK: Lumbar range of motion: Flexion to 80 degrees is essentially asymptomatic. She has a sense of pressure, but no pain. Extension to 20 degrees causes increased pressure and pain. Rotation is bilaterally 30 degrees and causes a sense of "soreness" with rotation to the left. There is tenderness over the upper sacrum in the midline. IMPRESSION: Lumbar spondylosis with myelopathy. Ms. Dietrich's current difficulty with extension is not new and appears to be consistent with her prior problem. For a variety of reasons, she never had the second diagnostic lumbar medial branch block, and I think that some of her mechanical back pain is related to this. Although it is possible that she may not have an improvement in functions or symptoms after her Intradiscal Electrothermal therapy, I think that we should exhaust the possibilities regarding the other etiologies for lumbosacral pain. We can increase her medications in the meanwhile and ask her to take some senna. She is going to see Dr. Claros. PLAN 1. Increase OxyContin to 20 mg p.o. q.8h. 2. Senna for constipation. 3. Follow up with Dr. Claros as already scheduled. 4. Lumbar medial branch block #2. Roger Fatima M.D. [facility], [facility] / [id number] / [id number] / [id number] / [id number] cc: Bebe Claros M.D. Department of Neurosurgery, Operations Program Manager [id number] signed by Interface, Provider Service Representative In at 04/25/2006 2:25 AM PDTdoc umented in this encounter Plan of Treatment Not on filedocumented as of this encounter Visit Diagnoses Not on filedocumented in this encounter
--- OUTSIDE RECORDS SUMMARY | ~2019-07-03 | XMS | Encounter Summary ---
Demographics + + + | Address | [address] | | | [place] [address] | + + + | Home Phone | | + + + | Preferred Language | Unknown | + + + | Marital Status | | + + + | Restorationism Affiliation | NON | + + + | Race | White | + + + | Ethnic Group | Not or | + + + Author + + + | Author | [facility] | + + + | Organization | [facility] | + + + | [...] Team Providers + +------+ + | Care Candy Wrapping Machine Operator Name | Role | Phone [...] as of this encounter Progress Notes Interface, Distribution Engineer In - 05/22/2006 3:06 AM PSTCLINIC DATE: [...] nerve stimulator system. Reshma Mosquera R.N.,M.A. / [id number] / [id number] / [id number] / [id number] signed by Interface, Distribution Engineer In at 05/22/2006 3:06 AM PSTdocume nted in this encounter Plan of Treatment Not on filedocumented as of this encounter Visit Diagnoses Not on filedocumented in this encounter"
--- OUTSIDE RECORDS SUMMARY | ~2019-07-03 | XMS | Encounter Summary ---
Demographics + + + | Address | [address] | | | [place] [address] | + + + | Home Phone | | + + + | Preferred Language | Unknown | + + + | Marital Status | | + + + | Religion Affiliation | NON | + + + | Race | White | + + + | Ethnic Group | Not or | + + + Author + + + | Author | [facility] | + + + | Organization | [facility] | + + + | [...] Team Providers + +------+ + | Care Sandblaster Glass Name | Role | Phone | + +------+ + PCP | Unavailable | + +------+ + Encounter Details +--------+ + + + + | Date | Type | Department | Care Team | Description | +--------+ + + + + | 02/24/ | Office | [facility] | Note, Outpatient | Progress Note | | 1998 | Visit-Trans | MEDICINE | Clinic | [...] as of this encounter Progress Notes Interface, Web Site Developer In - 07/05/2006 3:09 AM PSTCLINIC DATE: 02/24/1999 NEUROLOGICAL SURGERY CLINIC SUBJECTIVE: Mae Dietrich is a [age]-old female with 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 She returns to clinic today for postoperative evaluation following implantation of a left gluteal nerve stimulator implant on February 16, 1999 and also a left gluteal nerve electrode placement on February 06, 1999. The patient states that her gluteal nerve stimulation is taking the edge off of her left buttock pain; however, she says that the current electrode settings create too intense stimulation and she would like to try a different setting. OBJECTIVE: The patient's temperature was taken with a tympanic thermometer and found to be 98.5 degrees. The patient's abdominal and two buttocks incisions were evaluated by Bebe Claros M.D. The incisions were found to be healing well, with no signs or symptoms of infection. The incisional edges were all well approximated. Using the spinal cord stimulator game programmer, it was determined that the patient's spinal cord stimulator had been programmed to have electrodes 0 off, 1 off, 2 positive and 3 negative. The patient has been using a pulse width of 60 microseconds and a rate of 130 pulses per second. She has an amplitude of only 0.2 volts at present because of the continued intense sensation that the generator is creating. PROCEDURE: All of the Steri-Strips were removed from both of the patient's buttocks incisions. Steri-Strips were placed on the superior buttock incision. It was not necessary to remove the sutures from the abdominal wound because the sutures are disposable. Using a game programmer seven different settings were tried. The patient found the best relief with 0 off, 1 positive, 2 off and 3 negative. With that electrode configuration the patient preferred an amplitude of 2.2 volts, a pulse width of 60 microseconds and a rate of 130 pulses per second. PLAN: The patient was scheduled to return to clinic on March 03, 1999 for follow-up and possible adjustment of the gluteal nerve stimulator parameters. Reshma Mosquera R.N., M.A. LJ/aron cc: [place] [id number] [id number] signed by Interface, Web Site Developer In at 07/05/2006 3:09 AM PSTdocume nted in this encounter Plan of Treatment Not on filedocumented as of this encounter Visit Diagnoses Not on filedocumented in this encounter"
--- OUTSIDE RECORDS SUMMARY | ~2019-07-03 | XMS | Encounter Summary ---
Demographics + + + | Address | [address] | | | [place] [address] | + + + | Home Phone | | + + + | Preferred Language | Unknown | + + + | Marital Status | | + + + | Lutheran Affiliation | NON | + + + [...] Team Providers + +------+ + | Care Rehabilitation Aide Name | Role | Phone | + +------+ + PCP | Unavailable | + +------+ + Encounter Details +--------+ + + + + | Date | Type | Department | Care Team | Description | +--------+ + + + + | 10/05/ | Transcribed | | Dictation, Other | [...] as of this encounter Progress Notes Interface, Change Over In - 06/19/2006 3:15 AM [facility] [place] [id number] [place], [place] [address] or October 06, 1999 Khari Ying M.D. [id number] [facility] [address] [place] [address] RE: MAE JOSE MR #: [id number] Dear Dr. Ying: Mae Jose returned to our clinic today. She is not doing very well and has increasing pain in the buttock, now spreading up slightly higher towards the iliac crest. She is having more episodes of what she calls "electric shock" pains. We talked about several options of including a trial of spinal cord stimulation versus simply removing the nerve stimulating electrode and severing the inferior gluteal nerve. I did give her a video tape on spinal cord stimulation which she is going to review, and then she will be back in touch with me once she has reached some certain decision. I think, clearly, she is now at the point where she needs to move on to some other therapy since she is simply not making any progress. I will be back in touch with you when and if she decides to proceed with some further surgery. Sincerely, Bebe Claros M.D. ISSAC / MADELINE [id number] / [id number] / [id number] / [id number] signed by Interface, Change Over In at 06/19/2006 3:15 AM PSTdocume nted in this encounter Plan of Treatment Not on filedocumented as of this encounter Visit Diagnoses Not on filedocumented in this encounter
--- OUTSIDE RECORDS SUMMARY | ~2019-07-03 | XMS | Encounter Summary ---
Demographics + + + | Address | [address] | | | [place] [address] | + + + | Home Phone | | + + + | Preferred Language | Unknown | + + + | Marital Status | | + + + | Roman Catholic Affiliation | 1041 | + + + | Race | Unknown | + + + | Ethnic Group | Unknown | + + + Author + + + | Author | [facility] | | | and [place] | + + + | Organization | [facility] | | | and [...] [place] | | | | | [address] | | + + + + + | Daina Mazariegos | ECON | Unknown | | + + + + + Care Team Providers + +------+ + | Care Commercial Collections Driver Name | Role | Phone | + +------+ + | Noe Thomason | PCP | | | MD | | | + +------+ + Reason for Visit +--------+ + | Reason | Comments | +--------+ + | Other | follow up | +--------+ + Encounter Details +--------+ + + + + | Date | Type | Department | Care Team | Description | +--------+ + + + + | 02/17/ | Telephone | [facility] [place] | Tenisha Ricketts, | Other (follow up) | | 2014 | | [address]RY [address] | [employer]NER | | | | | [place], | | | | | | [place] [address] | | | | | | [phone] | | | +--------+ + + + [...]
--- OUTSIDE RECORDS SUMMARY | ~2019-07-03 | XMS | Encounter Summary ---
Demographics + + + | Address | [address] | | | [place] [address] | + + + | Home Phone | | + + + | Preferred Language | Unknown | + + + | Marital Status | | + + + | Sikhism Affiliation | 1041 | + + + | Race | Unknown | + + + | Ethnic Group | Unknown | + + + Author + + + | Author | [facility] | | | and [place] | + + + | Organization | [facility] | | | and [place] [...] [place] | | | | | [address] | | + + + + + | Daina Mazariegos | ECON | Unknown | | + + + + + Care Team Providers + +------+ + | Care Inspector Ball Points Name | Role | Phone | + +------+ + | Noe Thomason | PCP | | | MD | | | + +------+ + Reason for Visit +--------+ + | Reason | Comments | +--------+ + | Other | Discuss pain | +--------+ + Encounter Details +--------+ + + + + | Date | Type | Department | Care Team | Description | +--------+ + + + + | 06/11/ | Telephone | [facility] | Mohan Bunn | Other (Discuss pain) | | 2012 | | [address]SI[address]RY [address] | [address] | | | | | [place], | [place], [place] | | | | | [place] [address] | [address] | | | | | [phone] | | | +--------+ + + + [...]
--- OUTSIDE RECORDS SUMMARY | ~2019-07-03 | XMS | Encounter Summary ---
Demographics + + + | Address | [address] | | | [place] [address] | + + + | Home Phone | | + + + | Preferred Language | Unknown | + + + | Marital Status | | + + + | Sabianist Affiliation | NON | + + + [...] Team Providers + +------+ + | Care Steam Plant Records Clerk Name | Role | Phone | + +------+ + PCP | Unavailable | + +------+ + Encounter Details +--------+ + + + + | Date | Type | Department | Care Team | Description | +--------+ + + + + | 09/04/ | Results | Neurosurgery [address] | Bebe Claros MD | | | 2001 | Only | [address] | [address] | | | | | [address] Mailcode:OP[address] | [place], [place] | | | | | [place] | [address] | | | | | [place], [place] | [phone] | | | | | [address] | | | | | | [phone] | | | +--------+ + + + [...] | + +--------+ + + + | SPINE, LUMBOSACRAL, | Routin | 11/09/2001 | | Results for this | | 2 VIEWS | e | 2:19 PM | | procedure are in the | | | | PDT | | results section. | + +--------+ + + + | SPINE, LUMBOSACRAL, | Routin | 10/05/2001 | | Results for this | | 2 VIEWS | e | 9:40 AM | | procedure are in the | | | | PST | | results section. | + +--------+ + + + | SPINE, LUMBOSACRAL, | Routin | 09/05/2001 | | Results for this | | 2 VIEWS | e | 9:35 AM | | procedure are in the | | | | PST | | results section. | + +--------+ + + + | FLUOROSCOPY, | Routin | 09/04/2001 | | Results for this | | INDEPENDENT PORT. | e | 7:10 PM | | procedure are in the | | | | PST | | results section. | + +--------+ + + + | SURGICAL PATHOLOGY | Routin | 09/04/2001 | | Results for this | | | e | | | procedure are in the | | | | | | results section. | + +--------+ + + + documented in this encounter Results SPINE, LUMBOSACRAL, 2 VIEWS (11/09/2001 2:19 PM PDT) + + + + + + | Component | Value | Ref Range | Performed | Pathologist | | | | | At | Signature | + + + + + + | SPINE, | Radiologist 1: MARILEE, | | | | | LUMBOSACRAL | Maxime DINH | | | | | , 2 VIEWS | M.DCarolee-Radiologist 2: | | | | | | YAMILETH DEL RIO | | | | | | SPINE: 11/09/2001 | | | | | | Dictated 11/10/2001 | | | | | | HISTORY: The patient | | | | | | is status post L4-L5 | | | | | | spinal fusion with | | | | | | pairedspinal rods and | | | | | | pedicular screws. | | | | | | There is | | | | | | intervertebral body | | | | | | bonegraft at L4-L5. | | | | | | The patient is status | | | | | | post L5 laminectomy. The | | | | | | vertebrae are in normal | | | | | | alignment. There is | | | | | | L5-S1 disc | | | | | | spacenarrowing and L5-S1 | | | | | | facet arthropathy. | | | | | | There is mild anterior | | | | | | wedgingat T11-T12 with | | | | | | mild degenerative | | | | | | changes at T10-T11 and | | | | | | T11-T12,unchanged. There | | | | | | is no fracture or focal | | | | | | destruction identified. | | | | | | The SI joints have mild | | | | | | inferior spurring which | | | | | | has not | | | | | | significantlychanged. | | | | | | There is an electrode | | | | | | stimulator seen at the | | | | | | left lowerquadrant with | | | | | | a lead over the left | | | | | | hemipelvis, unchanged. | | | | | | IMPRESSION: 1. Post | | | | | | L4-L5 anterior fusion | | | | | | and posterior spinal | | | | | | fusion with | | | | | | intacthardware and | | | | | | graft. 2. Severe L5-S1 | | | | | | degenerative disc | | | | | | disease. 3. | | | | | | Degenerative changes | | | | | | of the lower thoracic | | | | | | spine, as above. 4. No | | | | | | change in electrical | | | | | | stimulator device in | | | | | | left lower quadrant. | | | | | | END OF IMPRESSION: | | | | + + [...] | | | + +---------+ + + SPINE, LUMBOSACRAL, 2 VIEWS (10/05/2001 9:40 AM PST) + + + + + + | Component | Value | Ref Range | Performed | Pathologist | | | | | At | Signature | + + + + + + | SPINE, | Radiologist 1: | | | | | LUMBOSACRAL | SCHMAHMANN, BERNARDO, | | | | | , 2 VIEWS | M.D.LUMBOSACRAL SPINE: | | | | | | 10/05/2001 Dictated | | | | | | 10/05/2001 TECHNIQUE: | | | | | | Two views. COMPARISON: | | | | | | 09/05/01. FINDINGS: | | | | | | The patient is status | | | | | | post L4-L5 spinal fusion | | | | | | with pairedspinal rods | | | | | | and pedicular screws | | | | | | extending into L4 and | | | | | | L5. There | | | | | | isintervertebral body | | | | | | bone graft at L4-L5. | | | | | | The patient is status | | | | | | postL4 laminectomy. The | | | | | | vertebrae are in normal | | | | | | alignment. There is | | | | | | marked L5-S1 discspace | | | | | | narrowing and L5-S1 | | | | | | facet arthropathy. | | | | | | There is mild | | | | | | anteriorwedging of T12 | | | | | | and T11 of indeterminate | | | | | | age, but probably | | | | | | chronic withdegenerative | | | | | | disc disease noted at | | | | | | T10, T11 and T11-T12. | | | | | | There aresmall | | | | | | marginal osteophytes at | | | | | | multiple levels. There | | | | | | is no fractureor focal | | | | | | destruction identified. | | | | | | The sacroiliac joints | | | | | | demonstratemild | | | | | | degenerative change, | | | | | | particularly at the | | | | | | inferior aspects of | | | | | | bothjoints. There is an | | | | | | electrode stimulator | | | | | | seen in the left lower | | | | | | quadrant and alead is | | | | | | noted in the left | | | | | | hemipelvis. IMPRESSION: | | | | | | 1. Status post L4-L5 | | | | | | anterior and posterior | | | | | | spinal fusion with | | | | | | intacthardware and | | | | | | graft. 2. Severe L5-S1 | | | | | | degenerative disc | | | | | | disease. 3. | | | | | | Age-indeterminate, but | | | | | | probably chronic | | | | | | compression deformities | | | | | | ofT11 and T12. 4. | | | | | | Electrical stimulator | | | | | | device in the left lower | | | | | | quadrant. END OF | | | | | | IMPRESSION: | | | | + + + + + + + + | Specimen | + + | | + + + +---------+ + + | Performing | Address | City/State/Zipcode | Phone Number | | Organization | | | | + +---------+ + + | [facility] | | | | | RADIOLOGY | | | | + +---------+ + + SPINE, LUMBOSACRAL, 2 VIEWS (09/05/2001 9:35 AM PST) + + + + + + | Component | Value | Ref Range | Performed | Pathologist | | | | | At | Signature | + + + + + + | SPINE, | Radiologist 1: MAKAYLA, | | | | | LUMBOSACRAL | Marco Antonio PUGA-Radiologist | | | | | , 2 VIEWS | 2: VIVIEN BENAVIDES, | | | | | | Marco AntonioLUMBAR SPINE: | | | | | | 09/05/2001 Dictated | | | | | | 09/05/2001 COMPARISON: | | | | | | None. FINDINGS: There | | | | | | has been anterior fusion | | | | | | with intervertebral | | | | | | body bonegraft material | | | | | | at L4-5. There is also | | | | | | posterior asha and | | | | | | pedicle screwfixation of | | | | | | L4-5. There has been | | | | | | an L4 laminectomy. The | | | | | | alignment ofthe | | | | | | vertebral bodies is | | | | | | normal. In the soft | | | | | | tissues overlying | | | | | | theright lower quadrant | | | | | | of the abdomen, there is | | | | | | a stimulator device | | | | | | withattached electrodes | | | | | | placed in the right | | | | | | lower pelvis. | | | | | | IMPRESSION: Status post | | | | | | anterior and posterior | | | | | | fusion of L4-5 and L4 | | | | | | laminectomywith anatomic | | | | | | alignment of the spine. | | | | | | END OF IMPRESSION: | | | | + + + + + + + + | Specimen | + + | | + + + +---------+ + + | Performing | Address | City/State/Zipcode | Phone Number | | Organization | | | | + +---------+ + + | [facility] | | | | | RADIOLOGY | | | | + +---------+ + + FLUOROSCOPY, INDEPENDENT PORT. (09/04/2001 7:10 PM PST) + + + + + + | [...] | | | + +---------+ + + SURGICAL PATHOLOGY (09/04/2001) + + + + + + | Component | Value | Ref Range | Performed | Pathologist | | | | | At | Signature | + + + + + + | SURGICAL | SOURCE OF SPECIMEN:A L4- | | [facility] | | | PATHOLOGY | 5 disc Final Pathologic | | DEPARTMENT | | | | Diagnosis:L4-5 disc: | | OF | | | | - Fragments of | | PATHOLOGY | | | | fibrocartilage, | | | | | | intervertebral disc | | | | | | material, and | | | | | | scantmature lamellar | | | | | | bone Case reviewed | | | | | | by:Melanie Moore / | | | | | | Student Alonzo Clancy | | | | | | Marco Antonio Vieira | | | | | | /Estephanie Leger | | | | | | Marco Antonio Tyler, Ph.D. | | | | | | /PathologistT:09/07/01 | | | | | | I have reviewed all | | | | | | diagnostic slides and | | | | | | have edited the gross | | | | | | and/ormicroscopic | | | | | | portion of this report | | | | | | as part of my pathologic | | | | | | assessment andfinal | | | | | | diagnosis. Clinical | | | | | | History:The patient is a | | | | | | 40 year old female with | | | | | | a discectomy specimen. | | | | | | Gross Description:One | | | | | | specimen is received in | | | | | | formalin labeled, "L4-5 | | | | | | disc". Received | | | | | | aremultiple, irregular, | | | | | | unoriented fragments of | | | | | | soft to firm, rubbery, | | | | | | zamora tored tissue | | | | | | measuring4.5 x 4.5 x 2 | | | | | | cm in aggregate. | | | | | | Cassette Index:A1, RS, | | | | | | may need surface | | | | | | decalcificationSP:RW:CC: | | | | | | rRendering | | | | | | Diagnostician: | | | | | | Meño Tyler | | | | | | | | | | | | Marco Antonio,Ph.D.PathologistEle | | | | | | ctronically Signed | | | | | | 09/07/2001Comment: | | | | | | SOURCE OF SPECIMEN: L4- | | | | | | 5 disc | | | | + + + + + + + + | Specimen | + + | | + + + + + + + | Performing | Address | City/State/Zipcode | Phone Number | | Organization | | | | + + + + + | [facility] | [address] | [place] [address] | | | PATHOLOGY | KADEEM CARDONA | | | + + + + + | [facility] | [address] | [place] [address] | | | PATHOLOGY | KADEEM CARDONA | | | + + + + + documented in this encounter Visit Diagnoses Not on filedocumented in this encounter
--- OUTSIDE RECORDS SUMMARY | ~2019-07-03 | XMS | Encounter Summary ---
Demographics + + + | Address | [address] | | | [place] [address] | + + + | Home Phone | | + + + | Preferred Language | Unknown | + + + | Marital Status | | + + + | Restorationism Affiliation | 1041 | + + + | Race | Unknown | + + + | Ethnic Group | Unknown | + + + Author + + + | Author | [facility] | | | and Humbertoana | + + + | Organization | [facility] | | | and Humbertoana [...] [place] | | | | | [address] | | + + + + + | Daina Mazariegos | ECON | Unknown | | + + + + + Care Team Providers + +------+ + | Care [place] Dehydrator Operator Name | Role | Phone | [...] | | | | pain | [address] [place] | [address] | | | | | Procedures | POINT | [address] | | | | | [place] Gastric | [place], [place] | [place] | | | | | Emptying | [address] | [address] | | | | | | Phone: | Phone: | | | | | | [phone] | [phone] | | | | | | Fax: | Fax: | | | | | | [phone] | [phone] | +--------+--------+ + + + + Encounter Details +--------+ + + + + | Date | Type | Department | Care Team | Description | +--------+ + + + + | 06/13/ | Hospital | [facility] | Pilar Isbell MD | | | 2019 | Encounter | [facility] | [address] | | | | | MEDICINE [address] | [place] [address] | | | | | [address] | [phone] | | | | | [place], [place] | | | | | | [address] | | | | | | [phone] | | | +--------+ + + + [...]
--- OUTSIDE RECORDS SUMMARY | ~2019-07-03 | XMS | Encounter Summary ---
Demographics + + + | Address | [address] | | | [place] [address] | + + + | Home Phone | | + + + | Preferred Language | Unknown | + + + | Marital Status | | + + + | Latter-Day Affiliation | NON | + + + [...] Team Providers + +------+ + | Care Tobacco Educator Name | Role | Phone | + +------+ + PCP | Unavailable | + +------+ + Encounter Details +--------+ + + + + | Date | Type | Department | Care Team | Description | +--------+ + + + + | 09/20/ | Transcribed | | Dictation, Other | Transcribed | | 2002 | | | | | +--------+ + [...] as of this encounter Progress Notes Interface, Customs And Immigration Officer In - 04/05/2006 1:08 AM PDT September 20, 2001 Marco Antonio Agustin Max, [address] [place] [id number] Re: Mae Hernández [birth year][address] Mary, I saw Mae Hernández in the [facility] today. 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 This was treated with wide local excision without complication. Thank you very much for referring this patient. If you have any questions regarding her care please feel free to contact me. Sincerely, Carlos Hudson Service Delivery Analyst, Dermatology Otolaryngology - Head and Neck Surgery SAHARA/randy A documented in this encounter Plan of Treatment Not on filedocumented as of this encounter Visit Diagnoses Not on filedocumented in this encounter"
--- OUTSIDE RECORDS SUMMARY | ~2019-07-03 | XMS | Encounter Summary ---
Demographics + + + | Address | [address] | | | [place] [address] | + + + | Home Phone | | + + + | Preferred Language | Unknown | + + + | Marital Status | | + + + | Yazidism Affiliation | 1041 | + + + | Race | Unknown | + + + | Ethnic Group | Unknown | + + + Author + + + | Author | [facility] | | | and Humbertoana | + + + | Organization | [facility] | | | and Humbertoana [...] [place] | | | | | [address] | | + + + + + | Daina Mazariegos | ECON | Unknown | | + + + + + Care Team Providers + +------+ + | Care In School Suspension Aide Name | Role | Phone | + +------+ + PCP | Unavailable | + +------+ + Reason for Visit + + + | Reason | Comments | + + + | Appointment | | + + + Encounter Details +--------+ + + + + | Date | Type | Department | Care Team | Description | +--------+ + + + + | 08/23/ | Telephone | [facility] | Mohan Bunn | Appointment | | 2012 | | ORTHOPEDIC SURGERY | MD Darryl [address] | | | | | [address] [place] [address] | [place], [place] | | | | | [place], [place] | [address] | | | | | [address] | | | | | | [phone] | | | +--------+ + + + [...]
--- OUTSIDE RECORDS SUMMARY | ~2019-07-03 | XMS | Encounter Summary ---
Demographics + + + | Address | [address] | | | [place] [address] | + + + | Home Phone | | + + + | Preferred Language | Unknown | + + + | Marital Status | | + + + | Baptism Affiliation | 1041 | + + + | Race | Unknown | + + + | Ethnic Group | Unknown | + + + Author + + + | Author | [facility] | | | and [place] | + + + | Organization | [facility] | | | and [...] [place] | | | | | [address] | | + + + + + | Daina Mazariegos | ECON | Unknown | | + + + + + Care Team Providers + +------+ + | Care Lead Setter Name | Role | Phone | + +------+ + | Noe Thomason | PCP | | | MD | | | + +------+ + Reason for Visit Service/Procedure (Routine) +--------+--------+ + + + + | Status | Reason | Specialty | Diagnoses / | Referred By | Referred To | | | | | Procedures | Contact | Contact | +--------+--------+ + + + + | Closed | | Radiology | Diagnoses | | [facility] | | | | | | [place], | [address] | | | | | Sacroiliitis | Mohan Andrews MD | [place], | | | | | (HCC) | [address] | [place] | | | | | Procedures | [place] | [address] | | | | | PA INJECT SI | [place], [place] | Phone: | | | | | JOINT | [address] | [phone] | | | | | ARTHRGRPHY&/ | Phone: | Fax: | | | | | ANES/STEROID | [phone] | [phone] | | | | | W/IMAGE PA | Fax: | | | | | | | [phone] | | | | | | TRIAMCINOLON | | | | | | | E ACET INJ | | | | | | | NOS, 10 MG | | | | | | | APPT | | | | | | | TODAY-Bilat | | | | | | | SI Joint | | | +--------+--------+ + + + + Encounter Details +--------+ + + + + | Date | Type | Department | Care Team | Description | +--------+ + + + + | 11/10/ | Hospital | [facility] | Yohannesgertrude, | S/P lumbar fusion - | | 2015 | Encounter | [facility] XRAY [address] | [address] | L4/L5; Status post | | | | [address] [place] | [address], | right hip | | | | [place] [address] | [place] [address] | replacement; | | | | [phone] | [phone] | Sacroiliitis, not | | | | | | elsewhere classified | | | | | Soup MixerZora | ([facility]) | +--------+ + + + + Social [...] +---------+ + + | Blood Pressure | 139/101 | 11/11/2015 2:06 PM | | | | | PDT | | + +---------+ + + | Pulse | 108 | 11/11/2015 2:06 PM | | | | | PDT | | + +---------+ + + | [...] + +--------+ + + + | FL SACROILIAC | Routin | 11/11/2015 | S/P lumbar fusion | Results for this | | INJECTION RIGHT | e | 1:51 PM | - L4/L5 Status post | procedure are in the | | | | PDT | right hip | results section. | | | | | replacement | | | | | | Sacroiliitis, not | | | | | | elsewhere classified | | | | | | (HCC) | | + +--------+ + + + | FL SACROILIAC | Routin | 11/11/2015 | S/P lumbar fusion | Results for this | | INJECTION LEFT | e | 1:51 PM | - L4/L5 Status post | procedure are in the | | | | PDT | right hip | results section. | | | | | replacement | | | | | | Sacroiliitis, not | | | | | | elsewhere classified | | | | | | (HCC) | | + +--------+ + + + documented in this encounter Results FL Sacroiliac Injection Right (11/11/2015 1:51 PM PDT) + + | Specimen | + + | | + + + + + | Narrative | Performed At | + + + | 11/11/2015 Bilateral Sacroiliac Joint Injection Clinical History: | [facility] | | Sacroiliitis ICD-10 M46.1 Mae Jones EliseozackShruti presents to | [facility] | | the fluoroscopy suite for fluoroscopically guided bilateral | MEDICAL CENTER | | sacroiliac joint steroid injections as part of conservative | - IMAGING | | management for chronic pain with sacroiliitis. After informed | | | consent was obtained the patient laid in the prone position on the | | | fluoroscopy table. The bilateral sacroiliac joints were identified | | | under fluoroscopic guidance. The areas were prepped and draped in | | | sterile fashion. A 25 gauge 1-1/2 inch needle was inserted into each | | | region and approximately 3 mL of buffered 1% lidocaine was infused. | | | Then a 22 gauge spinal needle was inserted into the inferior joint | | | spaces under fluoroscopic guidance. Confirmation into the sacroiliac | | | joints obtained with infusion of approximately 1 mL of Omnipaque | | | contrast which showed flow within the joint spaces. Then a | | | combination of 2 mL 1% lidocaine and 2 mL of 40 mg per milliliter | | | Kenalog was infused divided between the two sides. The patient | | | tolerated the procedure well without complications. Pre- and post | | | procedure blood pressures were stable. The patient was given verbal | | | as well as written followup instructions. Prior to the start of | | | the procedure the following were performed and verified including | | | correct patient identity, correct site/side marked and visible, | | | agreement of the procedure to be done, correct patient positioning | | | and an accurate procedure consent form. Any safety precautions based | | | on clinical history and/or medications have been addressed. I | | | personally performed the procedure above. Estimated blood loss: | | | Minimal Complications: None Findings: As expected Anesthesia: | | | Local 1% Lidocaine | | + + + + + + + + | Performing | Address | City[facility]State[facility] | Phone Number | | Organization | | | | + + + + + | [facility] | [address] | [place] | [phone] | | [facility] | | [address] | | | - IMAGING | | | | + + + + + FL Sacroiliac Injection Left (11/11/2015 1:51 PM PDT) + + | Specimen | + + | | + + + + + | Narrative | Performed At | + + + | 11/11/2015 Bilateral Sacroiliac Joint Injection Clinical History: | [facility] | | Sacroiliitis ICD-10 M46.1 Mae Hernández presents to | [facility] | | the fluoroscopy suite for fluoroscopically guided bilateral [facility] | | sacroiliac joint steroid injections as part of conservative | - IMAGING | | management for chronic pain with sacroiliitis. After informed | | | consent was obtained the patient laid in the prone position on the | | | fluoroscopy table. The bilateral sacroiliac joints were identified | | | under fluoroscopic guidance. The areas were prepped and draped in | | | sterile fashion. A 25 gauge 1-1/2 inch needle was inserted into each | | | region and approximately 3 mL of buffered 1% lidocaine was infused. | | | Then a 22 gauge spinal needle was inserted into the inferior joint | | | spaces under fluoroscopic guidance. Confirmation into the sacroiliac | | | joints obtained with infusion of approximately 1 mL of Omnipaque | | | contrast which showed flow within the joint spaces. Then a | | | combination of 2 mL 1% lidocaine and 2 mL of 40 mg per milliliter | | | Kenalog was infused divided between the two sides. The patient | | | tolerated the procedure well without complications. Pre- and post | | | procedure blood pressures were stable. The patient was given verbal | | | as well as written followup instructions. Prior to the start of | | | the procedure the following were performed and verified including | | | correct patient identity, correct site/side marked and visible, | | | agreement of the procedure to be done, correct patient positioning | | | and an accurate procedure consent form. Any safety precautions based | | | on clinical history and/or medications have been addressed. I | | | personally performed the procedure above. Estimated blood loss: | | | Minimal Complications: None Findings: As expected Anesthesia: | | | Local 1% Lidocaine | | + + + + + + + + | Performing | Address | City/State[facility] | Phone Number | | Organization | | | | + + + + + | [facility] | [address] | [place] | [phone] | | [facility] | | [address] | | | - IMAGING | | | | + + + + + documented in this encounter Visit Diagnoses + + | Diagnosis | + + | S/P lumbar fusion - L4/L5 Arthrodesis status | + + | Status post right hip replacement Hip joint replacement by other means | + + | Sacroiliitis, not elsewhere classified (HCC) Sacroiliitis, not elsewhere classified | + + documented in this encounter Administered Medications + +--------+ +-------+------+------+ | Medication Order | MAR | Action | Dose | Rate | Site | | | Action | Date | | | | + +--------+ +-------+------+------+ | iohexol (OMNIPAQUE 300) 300 | Given | 11/11/19 | 4 mLs | | | | mg/mL injection 4 mL 4 mL, | | 16 2:03 | | | | | INTRATHECAL, ONCE, Bonnie 11/11/15 at | | PM PDT | | | | | 1415, For 1 dose | | | | | | + +--------+ +-------+------+------+ +---+---+ | | | +---+---+ + +-------+ +-------+---+ + | lidocaine 1% injection 5 mL 5 | Given | 11/11/19 | 5 mLs | | Other | | mL, Intradermal, ONCE, Tue | | 16 2:05 | | | (Comment | | 11/11/15 at 1415, For 1 dose | | PM PDT | | | ) | + +-------+ +-------+---+ + +---+---+ | | | +---+---+ + +-------+ +--------+---+ + | lidocaine buffered 1% injection | Given | 11/11/19 | 10 mLs | | Other | | 10 mL 10 mL, Intradermal, ONCE, | | 16 1:58 | | | (Comment | | 11/11/15 at 1415, For 1 dose | | PM PDT | | | ) | + +-------+ +--------+---+ + +---+---+ | | | +---+---+ + +-------+ +-------+---+---+ | triamcinolone acetonide | Given | 11/11/19 | 80 mg | | | | (KENALOG-40) 40 mg/mL injection | | 16 2:05 | | | | | 80 mg 80 mg, Intra-articular, | | PM PDT | | | | | ONCE, 11/11/15 at 1415, For 1 | | | | | | | dose, Shake well. Not for IV | | | | | | | use., | | | | | | + +-------+ +-------+---+---+ +---+---+ | | | +---+---+ documented in this encounter"
--- OUTSIDE RECORDS SUMMARY | ~2019-07-03 | XMS | Encounter Summary ---
Demographics + + + | Address | [address] | | | [place] [address] | + + + | Home Phone | | + + + | Preferred Language | Unknown | + + + | Marital Status | | + + + | Faith Affiliation | 1041 | + + + | Race | Unknown | + + + | Ethnic Group | Unknown | + + + Author + + + | Author | [facility] | | | and Humbertoana | + + + | Organization | [facility] | | | and Humbertoana [...] [place] | | | | | [address] | | + + + + + | Daina Mazariegos | ECON | Unknown | | + + + + + Care Team Providers + +------+ + | Care Ground Nuclear Weapons Assembly Officer Name | Role | Phone | + +------+ + PCP | Unavailable | + +------+ + Reason for Visit + + + | Reason | Comments | + + + | Appointment | | + + + Encounter Details +--------+ + + + + | Date | Type | Department | Care Team | Description | +--------+ + + + + | 08/14/ | Telephone | [facility] | Mohan Bunn | Appointment | | 2012 | | PHYSIATRY [address] | [address] | | | | | [place], | [place], [place] | | | | | [place] [address] | [phone] | | | | | [phone] | | | +--------+ + + + [...]
--- OUTSIDE RECORDS SUMMARY | ~2019-07-03 | XMS | Encounter Summary ---
Demographics + + + | Address | [address] | | | [place] [address] | + + + | Home Phone | | + + + | Preferred Language | Unknown | + + + | Marital Status | | + + + | Buddhist Affiliation | 1041 | + + + | Race | Unknown | + + + | Ethnic Group | Unknown | + + + Author + + + | Author | [facility] | | | and Humbertoana | + + + | Organization | [facility] | | | and Humbertoana [...] [place] | | | | | [address] | | + + + + + | Daina Mazariegos | ECON | Unknown | | + + + + + Care Team Providers + +------+ + | Care Raveler Name | Role | Phone | + +------+ + PCP | Unavailable | + +------+ + Reason for Visit +--------+ + | Reason | Comments | +--------+ + | Other | | +--------+ + Encounter Details +--------+ + + + + | Date | Type | Department | Care Team | Description | +--------+ + + + + | 08/25/ | Telephone | [facility] | BaMohan contreras | Other | | 2012 | | PHYSIATRY [address] | [address] | | | | | [place], | [facility], [place] | | | | | [place] [address] | [address] | | | | | [phone] | | | +--------+ + + + [...]
--- OUTSIDE RECORDS SUMMARY | ~2019-07-03 | XMS | Encounter Summary ---
Demographics + + + | Address | [address] | | | [place] [address] | + + + | Home Phone | | + + + | Preferred Language | Unknown | + + + | Marital Status | | + + + | Christianity Affiliation | NON | + + + [...] Team Providers + +------+ + | Care Emulsification Operator Name | Role | Phone | + +------+ + PCP | Unavailable | + +------+ + Encounter Details +--------+ + + + + | Date | Type | Department | Care Team | Description | +--------+ + + + + | 09/04/ | Procedure - | | Record, Operation | Operative Report | | 2001 | | | | | | | [...] + + | OPERATION RECORD | | 09/04/2001 | | Results for this | | | | | | procedure are in the | | | | | | results section. | + +--------+ + + + documented in this encounter Results OPERATION RECORD (09/04/2001) + + | Transcriptions | + + | Interface, Mail Distributor In - 04/05/2006 1:08 AM PDT | | [place] [address] [address] | | [place], [place] [address] | | [facility] Rec No[facility] | | [id number] Date: 09/04/2001Name: Mae Hernández SURGEON:Bebe | | Maxime Claros M.D.ASSISTANTS: Allan Mercado M.D.PREOPERATIVE | | DIAGNOSIS(ES):L4-5 degenerative disc disease.POSTOPERATIVE DIAGNOSIS(ES):L4-5 | | degenerative disc disease.OPERATIONS PERFORMED:1. L4-5 posterior lumbar interbody | | fusion with Synthes allograft spacers.2. Segmental L4 L5 pedicle screw fixation.3. | | Interoperative fluoroscopy times one minute.SPECIMEN(S) REMOVED:None.ESTIMATED BLOOD | | LOSS:300 cc.COMPLICATIONS:None.INDICATIONS:As per Dr. Claros's attending operative | | addendum note and clinic notes.PROCEDURE:The patient was properly identified and taken | | to the operating room whereshe underwent induction intubation by the anesthesiologist | | nd preoperativeantibiotics and steroids were administered. Leyva catheter was | | placed.Sequential compression stockings were placed for deep venous | | thrombosisprophylaxis. The patient was turned prone onto the Dave table, | | allpressure points were well padded. Her back was prepped and draped in thestandard | | sterile fashion.The fluoroscopic unit was brought in and used to localize the | | incision.Local anesthetic with epinephrine was then infiltrated, and a | | linearincision was made with a #2 blade scalpel and carried down through the skinand | | subcutaneous tissues to the fascia. The fascia was then opened usingBovie | | electrocautery, and the posterior spinous processes of L3, L4, and L5were then exposed. | | Repeat fluoroscopy was used to confirm the correctlevel, and a subperiosteal | | dissection was carried out at L3, L4, and D0zpnbv Torres retractors and Bovie | | electrocautery. The Fritz retractorsystem was then placed. A laminectomy at | | L4 was then performed usingAddison and Kerrison rongeurs. The bone was saved | | for reimplantationperfusion. Wide laminectomy was performed at this level, and | | L4-5foraminotomies were performed bilaterally do decompress the nerve root. Apartial | | laminotomy of the inferior margin of L3 bilaterally, and superiormargin of L5 | | bilaterally was performed to facilitate exposure and palpationof the L4-5 pedicles.Once | | this was accomplished, the Dizzywood high-speed drill was then used toplace marketing performance analyst | | holes over the L4 and L5 pedicles bilaterally using acombination of direct | | visualization and fluoroscopy for guidance. Once thepilot holes were placed, a pedicle | | probe was passed into the pedicle to thecorrect depth using fluoroscopy for guidance. | | Bilaterally pedicle screwswere then placed at these levels, again using fluoroscopy | | for guidance.Once this was accomplished, a titanium asha from the Synthes set was | | chosenand trimmed to the correct length, and this was then placed. This was thensecured | | to the pedicle screws using the instrumentation set provided. Thedisc space was then | | placed under mild distraction, and the superior screwswere temporarily tightened in | | distraction. Once this was accomplished, thedura was mobilized medially, starting on | | the right side. Dural veins werecoagulated using bipolar electrocautery, and the L4-5 | | annulus was cut witha #15 blade scalpel. Discectomy was then performed using | | pituitaryrongeurs and curettes. In a likewise fashion, discectomy was completed onthe | | opposite side in a similar fashion.Once the end plates were prepared with the box | | curette, the trials for theSynthes allografts were then brought in. An | | appropriately-sized PLIFspacer allografts were then placed bilaterally. Fluoroscopy | | again was usedto guide placement, and final position was confirmed. The pedicle | | screwswere then loosened bilaterally and then retightened and torqued | | tospecification with the disc space and grafts under compression. Thepreviously | | harvested bone from the L4 laminectomy was then morselized andmixed with DBX | | demineralized bone matrix. Using a funnel and a tamp, thiswas then placed into the | | disc space lateral to the grafts. Additionalmaterial was placed between the | | facet joints superiorly. Prior finalplacement of the graft material, the wound | | was copiously irrigated withbacitracin irrigant.The wound was then closed in layers | | with interrupted 0-Vicryl suturesthrough the fascial layer, interrupted 3-0 | | Vicryl sutures through thesubcutaneous layer, followed by running 4-0 Rapide | | self-absorbing suturefor final skin closure. The wound was then dressed with | | bacitracinointment and Telfa. Surgical drapes were removed and the patient | | wasreturned to the supine position on a [facility] where she was awakenedand | | extubated by the anesthesiologist. Shew was then taken to the PostAnesthesia Care | | Unit in stable condition.Allan Mercado M.D. Bebe Claros, | | Marco AntonioMS:x11D: 10/09/2001T: 10/10/[id number]: | |margin of L5 bilaterally was performed to facilitate exposure and palpation | |of the L4-5 pedicles. | | | |Once this was accomplished, the Dizzywood high-speed drill was then used to | |place marketing performance analyst holes over the L4 and L5 pedicles bilaterally using a | |combination of direct visualization and fluoroscopy for guidance. Once the | |marketing performance analyst holes were placed, a pedicle probe was passed into the pedicle to the | |correct depth using fluoroscopy for guidance. Bilaterally pedicle screws | |were then placed at these levels, again using fluoroscopy for guidance. | |Once this was accomplished, a titanium asha from the Synthes set was chosen | |and trimmed to the correct length, and this was then placed. This was then | |secured to the pedicle screws using the instrumentation set provided. The | |disc space was then placed under mild distraction, and the superior screws | |were temporarily tightened in distraction. Once this was accomplished, the | |dura was mobilized medially, starting on the right side. Dural veins were | |coagulated using bipolar electrocautery, and the L4-5 annulus was cut with | |a #15 blade scalpel. Discectomy was then performed using pituitary | |rongeurs and curettes. In a likewise fashion, discectomy was completed on | |the opposite side in a similar fashion. | | | |Once the end plates were prepared with the box curette, the trials for the | |Synthes allografts were then brought in. An appropriately-sized PLIF | |spacer allografts were then placed bilaterally. Fluoroscopy again was used | |to guide placement, and final position was confirmed. The pedicle screws | |were then loosened bilaterally and then retightened and torqued to | |specification with the disc space and grafts under compression. The | |previously harvested bone from the L4 laminectomy was then morselized and | |mixed with DBX demineralized bone matrix. Using a funnel and a tamp, this | |was then placed into the disc space lateral to the grafts. Additional | |material was placed between the facet joints superiorly. Prior final | |placement of the graft material, the wound was copiously irrigated with | |bacitracin irrigant. | | | |The wound was then closed in layers with interrupted 0-Vicryl sutures | |through the fascial layer, interrupted 3-0 Vicryl sutures through the | |subcutaneous layer, followed by running 4-0 Rapide self-absorbing suture | |for final skin closure. The wound was then dressed with bacitracin | |ointment and Telfa. Surgical drapes were removed and the patient was | |returned to the supine position on a [facility] where she was awakened | |and extubated by the anesthesiologist. Shew was then taken to the Post | |Anesthesia Care Unit in stable condition. | | | | | | | |Allan Mercado M.D. Bebe Claros M.D. | | | |MS:x11 | | | | | | | | | |[phone] | | | |CC: | + + documented in this encounter Visit Diagnoses Not on filedocumented in this encounter"
--- OUTSIDE RECORDS SUMMARY | ~2019-07-03 | XMS | Encounter Summary ---
Demographics + + + | Address | [address] | | | [place] [address] | + + + | Home Phone | | + + + | Preferred Language | Unknown | + + + | Marital Status | | + + + | Druze Affiliation | NON | + + + | Race | White | + + + | Ethnic Group | Not or | + + + Author + + + | Author | [facility] | + + + | Organization | [facility] | + + + | Address [...] Team Providers + +------+ + | Care Cashier Supervisor Name | Role | Phone | + +------+ + PCP | Unavailable | + +------+ + Encounter Details +--------+ + + + + | Date | Type | Department | Care Team | Description | +--------+ + + + + | 08/15/ | Office | [facility] | Note, [...] as of this encounter Progress Notes Interface, Baling Press Operator In - 04/08/2006 6:10 AM PDTCLINIC DATE: 08/15/2001 NEUROSURGERY CLINIC Ms. Dietrich comes back for further discussion of her low back pain. In 1996, she fell at work and sustained a low back injury which has been diagnosed as degenerative lumbar disease. She had a positive diskography at L4-5 and an IDET procedure which has been unsuccessful. She has also had successful gluteal nerve stimulation for her left piriformis syndrome in 1997. We reviewed all the perioperative and postoperative issues of L4-5 PLIF and pedicle screw fusion. She is worried about undergoing surgery of any kind but wants to proceed. We are planning to schedule this and proceed as necessary. She has weaned herself from OxyContin and is only taking 3 or 4 Vicodin tablets a day. Jefferson Munroe M.D. VALERI / MADELINE [id number] / [id number] / [id number] / C: 09/12/2001 [facility] [id number] signed by Interface, Baling Press Operator In at 04/08/2006 6:10 AM PDTdoc umented in this encounter Plan of Treatment Not on filedocumented as of this encounter Visit Diagnoses Not on filedocumented in this encounter"
--- OUTSIDE RECORDS SUMMARY | ~2019-07-03 | XMS | Encounter Summary ---
Demographics + + + | Address | [address] | | | [place] [address] | + + + | Home Phone | | + + + | Preferred Language | Unknown | + + + | Marital Status | | + + + | Episcopal Affiliation | NON | + + + | Race | White | + + + | Ethnic Group | Not or | + + + Author + + + | Author | [facility] | + + + | Organization | [facility] | + + + | [...] Team Providers + +------+ + | Care Adjunct Faculty Name | Role | Phone | + +------+ + PCP | Unavailable | + +------+ + Encounter Details +--------+ + + + + | Date | Type | Department | Care Team | Description | +--------+ + + + + | 02/10/ | Results | Neurosurgery [address] | Bebe Claros MD | | | 1999 | Only | [address] [place] | [address] | | | | | [address] Mailcode:OP[address] | [place], [place] | | | | | [facility] | [address] | | | | | [place], [place] | [phone] | | | | | [address] | | | | | | [phone] | | | +--------+ + + + [...] | + +--------+ + + + | MRI L-SPINE, 3 SEQ, | Routin | 02/11/2000 | | Results for this | | [facility] | e | 7:30 AM | | procedure are in the | | | | PDT | | results section. | + +--------+ + + + documented in this encounter Results MRI L-SPINE, 3 SEQ, (02/11/2000 7:30 AM PDT) + + + + + + | Component | Value | Ref Range | Performed | Pathologist | | | | | At | Signature | + + + + + + | MRI | Radiologist 1: | | | | | L-SPINE, 3 | [facility] | | | | | SEQ, | LUMBAR SPINE: | | | | | | 02/11/00. DICTATED | | | | | | 02/11/00. TECHNIQUE: | | | | | | T1 and T2 sagittal and | | | | | | axial pulse sequence of | | | | | | the lumbarspine was | | | | | | obtained. FINDINGS: | | | | | | The spinal cord ends | | | | | | at the L1-2 level. | | | | | | There is very mildloss | | | | | | of height of the T12 | | | | | | vertebral body | | | | | | anteriorly, but there is | | | | | | noincrease signal | | | | | | intensity on the T2 | | | | | | sequence. This is | | | | | | probablychronic. | | | | | | Marrow is otherwise | | | | | | unremarkable. At the | | | | | | L4-5 and L5-S1 level, | | | | | | there are broad base | | | | | | disc bulges, but nocanal | | | | | | stenosis or foraminal | | | | | | narrowing. There are | | | | | | mild hypertrophicchanges | | | | | | of the facet joints. | | | | | | There are also small | | | | | | osteophytes at theL4-5 | | | | | | and L5-S1 level. There | | | | | | is also mild disc space | | | | | | narrowing at the L5-S1 | | | | | | level. IMPRESSION: Disc | | | | | | bulges at the L4-5 and | | | | | | L5-S1 level. END OF | | | | | | IMPRESSION: | | | | + + + + + + + + | Specimen | + + | | + + + +---------+ + + | Performing | Address | City/State/Zipcode | Phone Number | | Organization | | | | + +---------+ + + | [facility] DEPARTMENT OF | | | | | RADIOLOGY | | | | + +---------+ + + documented in this encounter Visit Diagnoses Not on filedocumented in this encounter"
--- OUTSIDE RECORDS SUMMARY | ~2019-07-03 | XMS | Encounter Summary ---
Demographics + + + | Address | [address] | | | [place] [address] | + + + | Home Phone | | + + + | Preferred Language | Unknown | + + + | Marital Status | | + + + | Oriental Orthodox Affiliation | NON | + + + | Race | White | + + + | Ethnic Group | Not or | + + + Author + + + | Author | [facility] | + + + | Organization | [facility] | + + + | [...] Team Providers + +------+ + | Care Surgical Resident Name | Role | Phone | + +------+ + PCP | Unavailable | + +------+ + Encounter Details +--------+ + + + + | Date | Type | Department | Care Team | Description | +--------+ + + + + | 09/05/ | Results | Neurosurgery [address] | Bebe Claros MD | | | 2003 | Only | [address] | [address] | | | | | [address] Mailcode:OP14B | [place], [place] | | | | | [facility] [employer] | [address] | | | | | [place], [place] | [phone] | | | | | [address] | | | | | | [phone] | | | +--------+ + + + [...] + | X-RAY SPINE | Routin | 09/05/2003 | | Results for this | | LUMBOSACRAL 2 VIEWS | e | 9:34 AM | | procedure are in the | | | | PST | | results section. | + +--------+ + + + documented in this encounter Results SPINE LUMBOSACRAL 2 VIEWS (09/05/2003 9:34 AM PST) + + + + + + | Component | Value | Ref Range | Performed | Pathologist | | | | | At | Signature | + + + + + + | SPINE | Radiologist 1: MARILEE, | | | | | LUMBOSACRAL | Maxime DINH | | | | | 2 VIEWS | M.D.-Radiologist 2: | | | | | | KEVON YIP: Patti.Macario | | | | | | lateral lumbar spine | | | | | | COMPARISON: March | | | | | | 2002 DISCUSSION: The | | | | | | patient is status post | | | | | | laminectomy and fusion | | | | | | at L4 5.Pedicles screws | | | | | | and intravertebral bone | | | | | | graft show no | | | | | | intervalchange in | | | | | | alignment or evidence of | | | | | | hardware complication. | | | | | | Thereslight disc | | | | | | narrowing and sclerosis | | | | | | at L5 S1. An electrode | | | | | | withintact leads | | | | | | projects over the left | | | | | | pelvis in the region of | | | | | | thesciatic notch. | | | | | | IMPRESSION: 1. L4 5 | | | | | | and diskectomy with | | | | | | laminectomy and fusion | | | | | | without changein | | | | | | alignment or evidence of | | | | | | hardware complication. | | | | + + + + + + + + | Specimen | + + | | + + + +---------+ + + | Performing | Address | City/State/Zipcode | Phone Number | | Organization | | | | + +---------+ + + | [facility] DEPARTMENT OF | | | | | RADIOLOGY | | | | + +---------+ + + documented in this encounter Visit Diagnoses Not on filedocumented in this encounter"
--- OUTSIDE RECORDS SUMMARY | ~2019-07-03 | XMS | Encounter Summary ---
Demographics + + + | Address | [address] | | | [place] [address] | + + + | Home Phone | | + + + | Preferred Language | Unknown | + + + | Marital Status | | + + + | Anabaptism Affiliation | NON | + + + [...] Team Providers + +------+ + | Care Pit Shoveler Name | Role | Phone | + +------+ + PCP | Unavailable | + +------+ + Encounter Details +--------+ + + + + | Date | Type | Department | Care Team | Description | +--------+ + + + + | 06/03/ | Procedure - | | Record, Operation | Operative Report | | 2000 | | | | | | | [...] + + | OPERATION RECORD | | 06/03/2000 | | Results for this | | | | | | procedure are in the | | | | | | results section. | + +--------+ + + + documented in this encounter Results OPERATION RECORD (06/03/2000) + + | Transcriptions | + + | Interface, Four H Agent In - 06/02/2006 1:03 AM PST | | [place] [address] [address] | | [place], [place] [address] | | [facility]Med Rec No.: | | [id number] Date: 06/03/2000Name: Thao Dietrich SURGEON: | | Bebe Claros M.D.STORAGE CENTER MANAGER(S): Noe Mcdaniel M.D. | | Ph.D.PREOPERATIVE DIAGNOSIS(ES):Chronic buttock pain.POSTOPERATIVE | | DIAGNOSIS(ES):Same.PROCEDURE(S) PERFORMED:Replacement of implantable pulse generator | | with a synergy unit.INDICATIONS:The patient is a 39-year-old female who has a | | gluteal nerve stimulatorimplant and she is here for the replacement of the IPG | | unit with theSynergy battery.SPECIMEN(S):See below.PROCEDURE:The patient was properly | | identified and brought to the operating room. Shewas placed under general anesthesia. | | Her left upper abdomen was properlyprepped and draped in the usual sterile fashion | | and local anesthetic wasused to infiltrate the incisional area. The old scar was | | reopened using a#10 blade and the Bovie was used to dissect around the pocket around | | thegenerator. The generator was then removed using a Jad and the wireleads were | | then disconnected using a screwdriver. The new battery was thenhooked up and the leads | | were secured with the screwdriver and a headwas then placed into the other | | channel, which was not used, and after whichwe inserted the Synergy unit to the old | | pocket and irrigated the pocketwith copious antibiotic solution. The subcutaneous | | layer was then closedwith 3-0 Vicryl stitches and the skin was closed with 4-0 | | Rapide in asimple, running fashion.Noe Mcdaniel M.D. Ph.D. Bebe Claros, | | Marco AntonioFH/X65D:06/03/2000T:06/03/[id number]: | |PROCEDURE(S) PERFORMED: | |Replacement of implantable pulse generator with a synergy unit. | | | |INDICATIONS: | |The patient is a 39-year-old female who has a gluteal nerve stimulator | |implant and she is here for the replacement of the IPG unit with the | |Synergy battery. | | | |SPECIMEN(S): | |See below. | | | |PROCEDURE: | |The patient was properly identified and brought to the operating room. She | |was placed under general anesthesia. Her left upper abdomen was properly | |prepped and draped in the usual sterile fashion and local anesthetic was | |used to infiltrate the incisional area. The old scar was reopened using a | |#10 blade and the Bovie was used to dissect around the pocket around the | |generator. The generator was then removed using a Jad and the wire | |leads were then disconnected using a screwdriver. The new battery was then | |hooked up and the leads were secured with the screwdriver and a head | |was then placed into the other channel, which was not used, and after which | |we inserted the Synergy unit to the old pocket and irrigated the pocket | |with copious antibiotic solution. The subcutaneous layer was then closed | |with 3-0 Vicryl stitches and the skin was closed with 4-0 Rapide in a | |simple, running fashion. | | | | | |Noe Mcdaniel M.D. Ph.D. Bebe Claros M.D. | | | |FH/X65 | | | | | | | | | |[id number] | | | |CC: | + + documented in this encounter Visit Diagnoses Not on filedocumented in this encounter"
--- OUTSIDE RECORDS SUMMARY | ~2019-07-03 | XMS | Encounter Summary ---
Demographics + + + | Address | [address] | | | [place] [address] | + + + | Home Phone | | + + + | Preferred Language | Unknown | + + + | Marital Status | | + + + | Mu-Ism Affiliation | NON | + + + [...] Team Providers + +------+ + | Care Analyst Market Intelligence Name | Role | Phone | + +------+ + PCP | Unavailable | + +------+ + Encounter Details +--------+ + + + + | Date | Type | Department | Care Team | Description | +--------+ + + + + | 12/13/ | Office | [facility] | Note, [...] as of this encounter Progress Notes Interface, Swing Grinder In - 05/20/2006 4:02 AM PDTCLINIC DATE: 12/13/2000 [facility] CHIEF COMPLAINT: Low back pain. HISTORY OF PRESENT ILLNESS: Ms. iDetrich comes today for a followup visit. She has been seen here before for treatment of her low back pain. Initially, she had some diagnostic lumbar medial branch blocks with no significant change in her pain. She then had a revision of her peripheral nerve stimulator by Dr. Claros and that has been taking care of her nerve pain, still she has been having low back pain despite changes on her nerve stimulation and continued physical therapy. She says that she has been doing physical therapy which has not been really helping. The last time that she came for physical therapy here was in October 2000 and since we had a different physical therapy, she decided to postpone any other visits to our Physical Therapy. She is still doing her exercises, and she has joined a health club. She says that her daily activities keep her from doing daily exercises. Her pain is still deep in the low back, going across the sacrum, pressure like, and throbbing. Her pain can go from 3/10 to 10/10 on the visual analog scale. This does not happen everyday. She denies any numbness or weakness. She says that in terms of medication, she has been taking Vicodin 0 to 2 pills a week. This is not used with regularity, because she does not like to take medications. She says that she tried OxyContin in the past which was not helping. She has not tried methadone, Zanaflex, or Ultram. She denies any changes in her ability to urinate. She denies any changes in her ability to have bowel movements, reporting bowel movements everyday or every other day. No changes in sexual function. In terms of her mood, she says that it has been a little bit down. She has been tired of this pain that now has been there for approximately 4 years, and she wants it to go away. She says that she is sleeping 5 to 6 hours, and hence if she goes late to sleep, she will not wake up because of the pain. MEDICATIONS: Vicodin 0 to 2 pills a week. PHYSICAL EXAMINATION: VITAL SIGNS: Weight 178 pounds, height 5 feet 10 inches, blood pressure 124/78, heart rate 76, respiratory rate 16, temperature 36.0, and pain score of 5/10. GENERAL APPEARANCE: Alert and oriented in no acute distress. SPINE: Lumbar range of motion: The patient is able to flex to 90 degrees with some stretching in the low back. No double clutch coming from that movement. Extension to 20 degrees does not reproduce any significant pain on her back. Bilateral rotation to 45 degrees with extension performed and no reproduction of pain is done. Side glide from left to right reproduces her typical back pain, and this is the worst movement for her from right to left. We also reproduced her typical back pain, although to a less extent. March sign shows decreased range of motion of the sacroiliac joint on the right leg. Tenderness: The patient presents tenderness along the sacrum in the mid-area and along the left piriformis muscle. EXTREMITIES: Lower extremities: Straight leg raising bilaterally to 90 degrees with no reproduction of pain. Bilateral Ranjeet's sign is within normal limits on both sides with no reproduction of pain. Strength: Bilateral extension and flexion of the knees and ankles +5. Bilateral extensor hallucis longus +5. NEUROLOGIC: The patient is able to walk on toes, heels, and tandem walk. Deep tendon reflexes: Bilateral knees +3 and bilateral ankles +2. IMPRESSION: Mechanical low back pain. The examination still shows pelvic asymmetry, but it shows improvement of her myofascial pain. She also reports improved function after her peripheral nerve stimulator was revised, and she has had minimal benefit with the physical therapy after this was done. Her range of motion is normal with the typical pain reproduced only with the slide glide and palpation. The MRI is still consistent with degenerative spinal disease with bulging disk at L4-L5 and L5-S1. We doubt that she has significant facet arthropathy. We agree with the assessment that her pain is probably discogenic. We will schedule a discography today. We did a PARQ discussion with the patient, and this will be scheduled. Meanwhile, she will have an evaluation with our psychologist as part of the intradiscal electrothermal protocol. PLAN 1. Psychology evaluation as part of the intradiscal electrothermal protocol. 2. Provocative discography for diagnosis. Dr. Roger Fatima was present during the assessment of this patient. Corey Allen M.D. Fellow, [facility] Roger Fatima M.D. Liability Claims Representative, [facility] Department of Anesthesiology / [place] [id number] / [id number] / [id number] / cc: Bebe Claros M.D. [id number] signed by Interface, Swing Grinder In at 05/20/2006 4:02 AM PDTdocume nted in this encounter Plan of Treatment Not on filedocumented as of this encounter Visit Diagnoses Not on filedocumented in this encounter"
--- OUTSIDE RECORDS SUMMARY | ~2019-07-03 | XMS | Encounter Summary ---
Demographics + + + | Address | [address] | | | [place] [address] | + + + | Home Phone | | + + + | Preferred Language | Unknown | + + + | Marital Status | | + + + | Confucianism Affiliation | NON | + + + [...] Team Providers + +------+ + | Care Hotel Maintenance Technician Name | Role | Phone | + +------+ + PCP | Unavailable | + +------+ + Encounter Details +--------+ + + + + | Date | Type | Department | Care Team | Description | +--------+ + + + + | 01/30/ | Procedure - | | Record, Operation [...] + + | OPERATION RECORD | | 01/30/2001 | | Results for this | | | | | | procedure are in the | | | | | | results section. | + +--------+ + + + documented in this encounter Results OPERATION RECORD (01/30/2001) + + | Transcriptions | + + | Interface, Bobbin Hauler In - 05/12/2006 1:10 AM PDT | | [place] [address] | | [place], [place] [address] | | [facility]icsOPERATION RECORDMed Rec No.: | | [id number] Date: 01/30/2001Name: Thao Dietrich SURGEON: | | Roger Fatima M.D.DREDGE OPERATOR SUPERVISOR(S): Megan Ferguson, | | Marco AntonioPREOPERATIVE DIAGNOSIS(ES):Mechanical lumbosacral pain.POSTOPERATIVE | | DIAGNOSIS(ES):Mechanical lumbosacral pain, probably associated with L4-5 internal | | discdegeneration.PROCEDURE(S) PERFORMED:ANESTHESIA:Sedation and monitoring supervised | | by Dr. Fatima, delivered by Vero WillardFINDINGS:1. L3-4 disc opening | | pressure is 15 PSI. The patient reported 7-8/10 pressure sensation at 52 PSI. | | This was not consistent with her typical pain sensation.2. L5-S1 disc had an opening | | pressure of 12 PSI. The patient complained of pressure without explicit pain, with | | injection pressures of up to 120 PSI.3. L4-5 opening pressure 13 PSI. The patient | | complained of typical mid lumbosacral pain, a little bit worse on the right, at 31 | | PSI.4. The Jordan ratings of all discs were a rating of 4.COMPLICATIONS:None.ESTIMATED | | BLOOD LOSS:None.URINE OUTPUT:None.DRAINS:None.IV FLUIDS:Lactated Ringer's 700 | | mL.SPECIMEN(S):None.INDICATIONS:The patient is a 40-year-old female with a history of | | mechanical back painrefractory to conservative management. She is here today for | | diagnosticevaluation of possible lumbar discogenic pain associated with internal | | discdegeneration and multiple levels found on her MRI.PROCEDURE:After a detailed PARQ | | discussion, the patient signed a written consent.She had a 20-gauge intravenous | | catheter placed in her left hand and had 2grams of IV cefazolin 1.5 hours prior to | | the procedure. She was thenescorted to the [facility] Procedure | | Suite where she waspositioned prone on the examination table. Her back was | | prepared withHibiclens, alcohol and DuraPrep. She was prepped out in aseptic | | fashionand aseptic technique was used during the procedure.A fluoroscope was positioned | | to count the five lumbar vertebrae and wasthen positioned in a right lateral | | oblique position to expose theintersection of the inferior end plate of the L4-5 | | interspace with thefacet articular process. A 1% Lidocaine skin wheal was placed | | here with [id number] introducer needle placed through that wheal. A 22-gauge 6.5 | | inchChiba needle was positioned under intermittent fluoroscopic guidance intothe | | intervertebral disc and then was further positioned so that the tip wasin the | | geometrical center of the disc. There were no paresthesias duringplacement. At this | | point the fluoroscope was positioned to indicate theL5-S1 disc in similar fashion and | | after placement of a skin wheal andintroducer needle, another Chiba needle was | | positioned under intermittentfluoroscopy into the geometric center of the L5-S1 | | intervertebral disc onthe first attempt. There were no paresthesias.The fluoroscope was | | repositioned over the L3-4 intervertebral disc and in aright oblique position a skin | | wheal and introducer needle were placed in asimilar fashion. The Chiba needle was | | then placed under intermittentfluoroscopy into the geometrical center of the | | intervertebral disc.During this period of time, the patient had remained sedated with | | propofolintravenous infusion. This was discontinued. We took utmost care duringthe | | entire procedure to avoid any contact with the electronic set forperipheral nerve | | stimulator and in fact did the entire procedure on thecontralateral side of the | | patient.Upon awakening, we began to inject the L3-4 intervertebral disc | | withOmnipaque 300 with 10 mg/mL of cefazolin and the results of the injectionare | | found in the Findings section. We then injected the L5-M2merhhjkpaywilp | | disc. Injection of this disc was difficult, as there wasapparently very little | | disc material. High injection pressures wereinitially necessary to create some | | opening that was asymptomatic. Repeatinjection gave the findings which are | | summarized in the Findings section.The L4-5 disc was similarly injected.After adequate | | clinical and fluoroscopic data were obtained, the needleswere removed and the | | patient was given intravenous fentanyl for paincontrol. She was transferred by | | stretcher [facility] where she | | had an uneventful recovery andwas taking p.o. medications prior to discharge.She was | | discharged with oral analgesic medications and will have review ofher CT scan before | | determining further plan.The patient tolerated the procedure well and had no apparent | | complications.She was given a pass for staying off work for two days after the | | procedure. Roger Fatima | | Marco AntonioDS/X65D:01/30/2001T:01/30/2001cc: Bebe Claros M.D.[id number]: | |refractory to conservative management. She is here today for diagnostic | |evaluation of possible lumbar discogenic pain associated with internal disc | |degeneration and multiple levels found on her MRI. | | | |PROCEDURE: | |After a detailed PARQ discussion, the patient signed a written consent. | |She had a 20-gauge intravenous catheter placed in her left hand and had 2 | |grams of IV cefazolin 1.5 hours prior to the procedure. She was then | |escorted to the [facility] Suite where she was | |positioned prone on the examination table. Her back was prepared with | |Hibiclens, alcohol and DuraPrep. She was prepped out in aseptic fashion | |and aseptic technique was used during the procedure. | | | |A fluoroscope was positioned to count the five lumbar vertebrae and was | |then positioned in a right lateral oblique position to expose the | |intersection of the inferior end plate of the L4-5 interspace with the | |facet articular process. A 1% Lidocaine skin wheal was placed here with a | |20-guage introducer needle placed through that wheal. A 22-gauge 6.5 inch | |Chiba needle was positioned under intermittent fluoroscopic guidance into | |the intervertebral disc and then was further positioned so that the tip was | |in the geometrical center of the disc. There were no paresthesias during | |placement. At this point the fluoroscope was positioned to indicate the | |L5-S1 disc in similar fashion and after placement of a skin wheal and | |introducer needle, another Chiba needle was positioned under intermittent | |fluoroscopy into the geometric center of the L5-S1 intervertebral disc on | |the first attempt. There were no paresthesias. | | | |The fluoroscope was repositioned over the L3-4 intervertebral disc and in a | |right oblique position a skin wheal and introducer needle were placed in a | |similar fashion. The Chiba needle was then placed under intermittent | |fluoroscopy into the geometrical center of the intervertebral disc. | | | |During this period of time, the patient had remained sedated with propofol | |intravenous infusion. This was discontinued. We took utmost care during | |the entire procedure to avoid any contact with the electronic set for | |peripheral nerve stimulator and in fact did the entire procedure on the | |contralateral side of the patient. | | | |Upon awakening, we began to inject the L3-4 intervertebral disc with | |Omnipaque 300 with 10 mg/mL of cefazolin and the results of the injection | |are found in the Findings section. We then injected the L5-S1 | |intervertebral disc. Injection of this disc was difficult, as there was | |apparently very little disc material. High injection pressures were | |initially necessary to create some opening that was asymptomatic. Repeat | |injection gave the findings which are summarized in the Findings section. | |The L4-5 disc was similarly injected. | | | |After adequate clinical and fluoroscopic data were obtained, the needles | |were removed and the patient was given intravenous fentanyl for pain | |control. She was transferred by stretcher to the [facility] | |Center Post Anesthesia Care Unit where she had an uneventful recovery and | |was taking p.o. medications prior to discharge. | | | |She was discharged with oral analgesic medications and will have review of | |her CT scan before determining further plan. | | | |The patient tolerated the procedure well and had no apparent complications. | |She was given a pass for staying off work for two days after the procedure. | | | | | | | | Roger Fatima M.D. | | | |DS/X65 | | | | | | | |cc: Bebe Claros M.D. | | | | | |[phone] | | | |CC: | + + documented in this encounter Visit Diagnoses Not on filedocumented in this encounter"
--- OUTSIDE RECORDS SUMMARY | ~2019-07-03 | XMS | Encounter Summary ---
Demographics + + + | Address | [address] | | | [place] [address] | + + + | Home Phone | | + + + | Preferred Language | Unknown | + + + | Marital Status | | + + + | Sikhism Affiliation | NON | + + + | Race | White | + + + | Ethnic Group | Not or | + + + Author + + + | Author | [facility] | + + + | Organization | [facility] | + + + | Address | Unknown | + + + | Phone | Unavailable | + + + Support + + + + + | Name | Relationship | Address | Phone | + + + + + | Liam Dietrich | ECON | [place] | | + + + + + Care Team Providers + +------+ + | Care Commutator Operator Name | Role | Phone | + +------+ + | Noe Thomason MD | PCP | | + +------+ + Reason for Visit + + + | Reason | Comments | + + + | Follow-up visit | | + + + Encounter Details +--------+ + + + + | Date | Type | Department | Care Team | Description | +--------+ + + + + | 12/12/ | Telephone | [facility] | Sibell, Roger, MD | Follow-up visit | | 2006 | | Pain Center at | [address] | | | | | [facility] | [place], [place] | | | | | [address] | [address] | | | | | Mailcode: [id number] | [phone] | | | | | [facility] | | | | | | and Healing, | | | | | | Building | | | | | | Floor [place], [place] | | | | | | [address] | | | | | | [phone] | | | +--------+ + + + [...]
--- OUTSIDE RECORDS SUMMARY | ~2019-07-03 | XMS | Encounter Summary ---
Demographics + + + | Address | [address] | | | [place] [address] | + + + | Home Phone [...] Team Providers + +------+ + | Care Obstetrician/Gynecologist Name | Role | Phone | + +------+ + PCP | Unavailable | + +------+ + Encounter Details +--------+ + + + + | Date | Type | Department | Care Team | Description | +--------+ + + + + | 06/23/ | Procedure - | | Record, Operation | Operative Report | | 1997 | | | | | | | [...] + + | OPERATION RECORD | | 06/23/1998 | | Results for this | | | | | | procedure are in the | | | | | | results section. | + +--------+ + + + documented in this encounter Results OPERATION RECORD (06/23/1998) + + | Transcriptions | + + | Interface, Seismic Observer In - 07/29/2006 5:03 AM PST | | [facility] | | [place], [place] [address] University | | [facility] CenterOPERATION RECORDMed Rec No.: [id number] Date: | | 06/23/1998Name: Thao Dietrich SURGEON: Bebe Claros M.D. | | Professor and Cost Accounting Clerk, | | Department of Neurological Surgery | | aSSISTANTS: Hola Arciniega M.D. | | Fellow, Department of Neurological | | Surgery pOSTOPERATIVE DIAGNOSIS(ES): | | Left piriformis syndrome.OPERATIONS PERFORMED: Left piriformis foramen | | release.SPECIMEN(S) REMOVED: None.ANESTHESIA: | | General.DRAINS: Implants.ESTIMATED BLOOD LOSS: | | 30 cc.COMPLICATIONS: None.DISPOSITION: | | To Postanesthesia Care Unit, extubated.INDICATIONS: This | | 37-year-old, right-handed whitefemale presented with complaints of pain in the | | left gluteal area. Thepatient had an injury to her left buttock after she fell | | several monthsago. The patient developed pain in her gluteal area and the upper | | thighposteriorly immediately after the fall and, over time, the pain | | gotprogressively worse. She had a focal tenderness on examination and | | herelectromyographic study was essentially normal. Based on clinical groundsand the | | history, the patient was diagnosed with post-traumatic leftpiriformis syndrome and | | was scheduled for a piriformis decompression.PROCEDURE: After | | appropriate informed consent, shewas taken to the Operating Room and general anesthesia | | was induced and thepatient was intubated uneventfully. She was then placed in | | the proneposition and all pressure points were padded appropriately.After that, the | | left gluteal area was prepped and draped in standardsterile fashion and the site of | | the future incision was infiltrated withlocal anesthesia.A slightly curvilinear | | incision was made prison between the trochantermajor and the ischial tuberosity. | | The incision was made along one of theminor skin folds. After that, the skin | | and underlying fascia weredissected sharply and the self-retaining retractor was | | put in place. Thesurface of the gluteus cheli muscle was then visualized and | | themuscle-splitting technique was used in order to penetrate through themuscle. | | It was possible to go between the muscular fascicles withoutcutting the muscle | | fibers. Once the muscle was completely penetrated, theself-retaining retractors were | | inserted in between the muscle fascicles.The sciatic nerve was visualized. It was | | going just lateral to the gluteusmedius muscle and, in the superior aspect, it | | was diving into thepiriformis foramen and was covered by the tendon and the muscle | | tissue overthe piriformis muscle. At the level of entrance into the | | piriformisforamen, the sciatic nerve was changing its configuration from being roundto | | being flattened and slightly discolored. That was interpreted as a signof longstanding | | compression and decompression of the piriformis foramen wasthen performed by cutting the | | tendon and part of the muscle tissue of thepiriformis muscle. The first recurrent | | branch of the sciatic nerve thatwas probably a superior gluteal nerve was | | visualized and preservedthroughout the dissection. It was possible also to preserve | | all arterialand venous vessels in the vicinity of the sciatic nerve.Once the | | decompression was performed, it was possible to feel the sciaticnerve all the way | | through the piriformis canal into the patient's pelvis.There was no evidence of | | ongoing compression.At this point, the incision was irrigated with a large amount of | | Bacitracinsolution and additional hemostasis was achieved using bipolar coagulation.The | | sciatic nerve was once again inspected and it was found to be | | nicelydecompressed.Then we proceeded with careful closure of the gluteal fascia | | using #0Vicryl. Then the subcutaneous layers were closed with #3-0 Vicryl and theskin | | was closed with nylon. The incision was then cleaned, dried andcovered with a | | sterile dressing.The patient was awakened from anesthesia, extubated uneventfully | | andbrought to the Postanesthesia Care Unit in stable condition. There were | | nocomplications during surgery. The patient tolerated the procedure well. | | Hola Arciniega M.D. Fellow, | | Department of Neurological Surgery | | Bebe Claros M.D. | | Professor and Cost Accounting Clerk, | | Department of Neurological Surgery | | KS/ljmD: 06/24/1998T: 06/25/1998 9:14 Acc: | |cutting the muscle fibers. Once the muscle was completely penetrated, the | |self-retaining retractors were inserted in between the muscle fascicles. | |The sciatic nerve was visualized. It was going just lateral to the gluteus | |medius muscle and, in the superior aspect, it was diving into the | |piriformis foramen and was covered by the tendon and the muscle tissue over | |the piriformis muscle. At the level of entrance into the piriformis | |foramen, the sciatic nerve was changing its configuration from being round | |to being flattened and slightly discolored. That was interpreted as a sign | |of longstanding compression and decompression of the piriformis foramen was | |then performed by cutting the tendon and part of the muscle tissue of the | |piriformis muscle. The first recurrent branch of the sciatic nerve that | |was probably a superior gluteal nerve was visualized and preserved | |throughout the dissection. It was possible also to preserve all arterial | |and venous vessels in the vicinity of the sciatic nerve. | | | |Once the decompression was performed, it was possible to feel the sciatic | |nerve all the way through the piriformis canal into the patient's pelvis. | |There was no evidence of ongoing compression. | | | |At this point, the incision was irrigated with a large amount of Bacitracin | |solution and additional hemostasis was achieved using bipolar coagulation. | |The sciatic nerve was once again inspected and it was found to be nicely | |decompressed. | | | |Then we proceeded with careful closure of the gluteal fascia using #0 | |Vicryl. Then the subcutaneous layers were closed with #3-0 Vicryl and the | |skin was closed with nylon. The incision was then cleaned, dried and | |covered with a sterile dressing. | | | |The patient was awakened from anesthesia, extubated uneventfully and | |brought to the Postanesthesia Care Unit in stable condition. There were no | |complications during surgery. The patient tolerated the procedure well. | | | | | | | | Hola Arciniega M.D. | | Fellow, Department of Neurological | | Surgery | | | | | | | | Bebe Claros M.D. | | Professor and Cost Accounting Clerk, | | Department of Neurological Surgery | | | | | |EVELINA/paras | | | | A | | | |cc: | + + documented in this encounter Visit Diagnoses Not on filedocumented in this encounter"
--- OUTSIDE RECORDS SUMMARY | ~2019-07-03 | XMS | Encounter Summary ---
Demographics + + + | Address | [address] | | | [place] [address] | + + + | Home Phone | | + + + | Preferred Language | Unknown | + + + | Marital Status | | + + + | Orthodox Affiliation | NON | + + [...] Team Providers + +------+ + | Care Bag Machine Set Up Operator Name | Role | Phone | + +------+ + PCP | Unavailable | + +------+ + Encounter Details +--------+ + + + + | Date | Type | Department | Care Team | Description | +--------+ + + + + | 02/06/ | Procedure - | | Record, Operation | Operative Report | | 1999 | | | | | | | [...] + + | OPERATION RECORD | | 02/06/1999 | | Results for this | | | | | | procedure are in the | | | | | | results section. | + +--------+ + + + documented in this encounter Results OPERATION RECORD (02/06/1999) + + | Transcriptions | + + | Interface, Motor Assembly Supervisor In - 07/10/2006 3:08 AM PST | | [facility] | | [place], [place] [address] University | | [facility]OPER[facility] RECORDMed Rec No.: [id number] Date: | | 02/06/1999Name: Thao Dietrich SURGEON: Bebe Claros, | | Marco AntonioASSISTANTS: Dima Treviño M.D. | | Shankar Gu M.D.PREOPERATIVE DIAGNOSIS(ES): Left gluteal | | neuralgia.POSTOPERATIVE DIAGNOSIS(ES): Same.OPERATIONS PERFORMED: | | 1. Exploration of the left glutealregion. 2. | | Explantation of the quadripolar electrode. | | 3. Replacement of quadripolar | | electrode with another | | quadripolar electrode, which was | | placed on the inferior gluteal | | nerve.ANESTHESIA: General endotracheal anesthesia.ESTIMATED | | BLOOD LOSS: Less than 100 cc.FLUIDS: 1500 cc | | lactated Ringer's.SPECIMEN(S) REMOVED: None.COMPLICATIONS: | | None.INDICATIONS: This patient has previously | | undergoneplacement of a quadripolar electrode in her left gluteal region for | | thetreatment of left gluteal neuralgia. However, the electrode was not in theoptimal | | position, and therefore it was decided that the patient wouldundergo another | | procedure for placement of the electrode in the optimalposition for the best | | results.PROCEDURE: After obtaining proper consent, | | thepatient was taken to the Operating Room where she was placed in a supineposition | | and her left gluteal area was prepped and draped in the usualsterile fashion. | | Please note that the previous electrode after having beensterilized was cut and removed | | from the field prior to final sterilizationof the field and draping.An incision was | | made along the line which connects the left posterior iliacspine and the coccyx. The | | length of this incision was approximately 10 cm.Also, an incision was made along the | | previous incision on the left buttock(the old incision was reopened). The gluteal | | muscles were split throughthe new incision, and the previous scar was followed down | | towards thepiriformis muscle. The sciatic nerve was identified and seemed to | | beencased in fibrotic tissues. The old incision was used to follow all theway to the | | sciatic notch. The inferior gluteal nerve was successfullyidentified. A neuroma | | was noted to be encasing the inferior gluteal nerve.The old electrode, which was | | connected to the perineurium, was disconnectedand removed from the operating field. | | After identifying the inferiorgluteal nerve via nerve stimulation, the new | | electrode was encased inDuraGraft and secured to it. It was then placed over the | | inferior glutealnerve. The fascial layers of the muscle were reapproximated using | | 1-0Vicryl. This was done in an interrupted fashion. Another fascial layerwas then | | reapproximated using 2-0 Vicryl. Next, a subcutaneous levelsuture was used to | | reapproximate the wound superficially. Lastly, theedges of the wound were | | reapproximated using a running nylon suture. Thismethod of suturing applied to both | | incisions.The wound was washed, dried, and covered with antibiotic ointment. A | | Telfadressing was placed over the catheter and the wounds. The patient | | wasextubated in the Operating Room successfully and regained consciousness.She was | | transferred to the Post Anesthesia Care Unit. There were nocomplications.Please | | note that Dr. Claros was present throughout the entire operation.Shankar Gu M.D. | | Bebe Claros M.D.Suki/ammysD: 02/06/1999T: 02/19/1999 3:05 [id number]: | |patient was taken to the Operating Room where she was placed in a supine | |position and her left gluteal area was prepped and draped in the usual | |sterile fashion. Please note that the previous electrode after having been | |sterilized was cut and removed from the field prior to final sterilization | |of the field and draping. | | | |An incision was made along the line which connects the left posterior iliac | |spine and the coccyx. The length of this incision was approximately 10 cm. | |Also, an incision was made along the previous incision on the left buttock | |(the old incision was reopened). The gluteal muscles were split through | |the new incision, and the previous scar was followed down towards the | |piriformis muscle. The sciatic nerve was identified and seemed to be | |encased in fibrotic tissues. The old incision was used to follow all the | |way to the sciatic notch. The inferior gluteal nerve was successfully | |identified. A neuroma was noted to be encasing the inferior gluteal nerve. | |The old electrode, which was connected to the perineurium, was disconnected | |and removed from the operating field. After identifying the inferior | |gluteal nerve via nerve stimulation, the new electrode was encased in | |DuraGraft and secured to it. It was then placed over the inferior gluteal | |nerve. The fascial layers of the muscle were reapproximated using 1-0 | |Vicryl. This was done in an interrupted fashion. Another fascial layer | |was then reapproximated using 2-0 Vicryl. Next, a subcutaneous level | |suture was used to reapproximate the wound superficially. Lastly, the | |edges of the wound were reapproximated using a running nylon suture. This | |method of suturing applied to both incisions. | | | |The wound was washed, dried, and covered with antibiotic ointment. A Telfa | |dressing was placed over the catheter and the wounds. The patient was | |extubated in the Operating Room successfully and regained consciousness. | |She was transferred to the Post Anesthesia Care Unit. There were no | |complications. | | | |Please note that Dr. Claros was present throughout the entire operation. | | | | | | | | | |Shankar Gu M.D. Bebe Claros M.D. | | | |VANESSAL/miladys | | | | P | |[phone] | | | |cc: | + + documented in this encounter Visit Diagnoses Not on filedocumented in this encounter"
--- OUTSIDE RECORDS SUMMARY | ~2019-07-03 | XMS | Encounter Summary ---
Demographics + + + | Address | [address] | | | [place] [address] | + + + | Home Phone [...] Team Providers + +------+ + | Care Meeting Planner Name | Role | Phone | + +------+ + PCP | Unavailable | + +------+ + Encounter Details +--------+ + + + + | Date | Type | Department | Care Team | Description | +--------+ + + + + | 09/02/ | Results | | Other, Faculty | | | 2001 | Only | | [phone] | | +--------+ + + + + [...] | + +--------+ + + + | DERMATOPATHOLOGY(CON | Routin | 09/02/2001 | | Results for this | | SULT) | e | | | procedure are in the | | | | | | results section. | + +--------+ + + + documented in this encounter Results DERMATOPATHOLOGY(CONSULT) (09/02/2001) + + + + + + | Component | Value | Ref Range | Performed | Pathologist | | | | | At | Signature | + + + + + + | DERMATOPATH | SOURCE OF SPECIMEN:A | | | | | (CONSULT) | CONSULTATION CLINICAL | | | | | | DESCRIPTION:Shave, mid | | | | | | back, R/O MIS Dear Elan: | | | | | | I agree with you | | | | | | regarding Mae | | | | | | Acre-Bigot's mid back | | | | | | skinbiopsy where there | | | | | | is a broad, asymmetric, | | | | | | and poorly | | | | | | circumscribedmelanocytic | | | | | | neoplasm characterized | | | | | | by primarily single | | | | | | melanocytes and | | | | | | somenests distributed | | | | | | irregularly along the | | | | | | basal layer, focally | | | | | | throughout theepidermis, | | | | | | and extending down | | | | | | adnexae. Most of the | | | | | | melanocytic nuclei | | | | | | arelarge, pleomorphic, | | | | | | and hyperchromatic, and | | | | | | many of the cells | | | | | | havecytoplasm containing | | | | | | melanin. There are a | | | | | | few nests of melanocytes | | | | | | withsmaller more | | | | | | uniform nuclei in the | | | | | | fibrotic and thickened | | | | | | papillary dermisof a | | | | | | pre-existing nevus. 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 | | | | | | While the mid back | | | | | | melanoma appears to be | | | | | | within the confines of | | | | | | theepidermis (in situ) | | | | | | in these sections, | | | | | | pronounced adnexal | | | | | | involvement andplane of | | | | | | section make it | | | | | | difficult to entirely | | | | | | exclude superficial | | | | | | dermalinvolvement. The | | | | | | melanoma extends | | | | | | closely to the surgical | | | | | | margins of theshave | | | | | | biopsy; excision to | | | | | | insure its complete | | | | | | removal would be | | | | | | prudent. Thank you for | | | | | | referring this | | | | | | consultation. 1 slide | | | | | | returned to Dr. Mary; | | | | | | [id number]. | | | | | | CRW/jyiRendering | | | | | | Diagnostician: | | | | | | Ayush Reddy Jr., | | | | | | MJenniferPathologistElectroni | | | | | | wilberto Signed | | | | | | 09/12/2001Comment: | | | | | | SOURCE OF SPECIMEN: | | | | | | CONSULTATION | | | | + + + + + + + + | Specimen | + + | | + + + + + | Narrative | Performed At | + + + | Ordered by Tyra Pérez | | + + + + + + + + | Performing | Address | City/State/Zipcode | Phone Number | | Organization | | | | + + + + + | [facility] | [id number], [address] | [place] [address] | | | DERMATOPATHOLOGY | [address] | | | + + + + + documented in this encounter Visit Diagnoses Not on filedocumented in this encounter"
--- OUTSIDE RECORDS SUMMARY | ~2019-07-03 | XMS | Encounter Summary ---
Demographics + + + | Address | [address] | | | [place] [address] | + + + | Home Phone | | + + + | Preferred Language | Unknown | + + + | Marital Status | | + + + | Orthodox Affiliation | NON | + + + | Race | White | + + + | Ethnic Group | Not or | + + + Author + + + | Author | [facility] | + + + | Organization | [facility] | + + + | Address [...] Team Providers + +------+ + | Care Hospice Volunteer Coordinator Name | Role | Phone | + +------+ + PCP | Unavailable | + +------+ + Encounter Details +--------+ + + + + | Date | Type | Department | Care Team | Description | +--------+ + + + + | 12/12/ | Results | Neurosurgery [address] | Bebe Claros MD | | | 2001 | Only | [address] | [address] | | | | | [address] Mailcode:[address] | [place], [place] | | | | | [facility] [employer] | [address] | | | | | [place], [place] | [phone] | | | | | [address] | | | | | | [phone] | | | +--------+ + + + [...] + | X-RAY SPINE | Routin | 12/12/2001 | | Results for this | | LUMBOSACRAL 2 VIEWS | e | 1:35 PM | | procedure are in the | | | | PDT | | results section. | + +--------+ + + + documented in this encounter Results SPINE LUMBOSACRAL 2 VIEWS (12/12/2001 1:35 PM PDT) + + + + + + | Component | Value | Ref Range | Performed | Pathologist | | | | | At | Signature | + + + + + + | SPINE | Radiologist 1: ALLAN, | | | | | LUMBOSACRAL | Marco Antonio FRANKLINLUMBAR SPINE | | | | | 2 VIEWS | - UPRIGHT AP AND LATERAL | | | | | | VIEWS: 12/12/2001 | | | | | | Dictated 12/13/2001 | | | | | | COMPARISON: | | | | | | 11/09/2001. FINDINGS: | | | | | | There has been prior | | | | | | anteroposterior fusion | | | | | | of L4-L5. Theinterbody | | | | | | bone graft and | | | | | | posterior asha and | | | | | | pedicle screw | | | | | | fixationremain intact. | | | | | | There is mild anterior | | | | | | wedging of T12 which | | | | | | resultsin an increased | | | | | | thoracolumbar junction | | | | | | kyphosis. This is | | | | | | unchangedfrom prior | | | | | | study. The remaining | | | | | | vertebral body heights | | | | | | are wellmaintained. | | | | | | There is mild | | | | | | narrowing of disc space | | | | | | at lower thoracicand | | | | | | upper lumbar levels. A | | | | | | stimulator-type device | | | | | | is again | | | | | | identifiedoverlying the | | | | | | left lower anterior | | | | | | abdominal wall with the | | | | | | tip in theregion of the | | | | | | left sciatic notch. | | | | | | This is also | | | | | | unchanged. Laminectomies | | | | | | have been performed at | | | | | | L4 and L5. IMPRESSION: | | | | | | 1. Status post | | | | | | anterior and posterior | | | | | | fusion of L4-5 without | | | | | | evidenceof complication | | | | | | or loss of fixation. 2. | | | | | | Disc space narrowing | | | | | | at lower thoracic and | | | | | | upper lumbar levels. 3. | | | | | | Chronic anterior | | | | | | wedging of the T12 | | | | | | vertebra with an | | | | | | associatedincreased | | | | | | kyphosis at this level. | | | | | | 4. Electronic | | | | | | stimulator left lower | | | | | | quadrant also unchanged. | | | | | | END [...]
--- OUTSIDE RECORDS SUMMARY | ~2019-07-03 | XMS | Encounter Summary ---
Demographics + + + | Address | [address] | | | [place] [address] | + + + | Home Phone | | + + + | Preferred Language | Unknown | + + + | Marital Status | | + + + | Methodist Affiliation | NON | + + + | Race | White | + + + | Ethnic Group | Not or | + + + Author + + + | Author | [facility] | + + + | Organization | [facility] | + + + | Address [...] Team Providers + +------+ + | Care Box Tender Name | Role | Phone | + +------+ + PCP | Unavailable | + +------+ + Encounter Details +--------+ + + + + | Date | Type | Department | Care Team | Description | +--------+ + + + + | 04/14/ | Office | [facility] | Report, Outpatient | Progress Note | | 2000 | Visit-Trans | | Consultation | | | | cribed | | [...] as of this encounter Progress Notes Interface, Riprap Man In - 06/06/2006 2:31 AM [facility] OR [facility] OUTPATIENT CONSULTATION REPORT [address], [place] [address] or Referred From and Faxed To: Referred To: ATTENDING PHYSICIAN: Bebe Claros M.D. MR#: [id number] Patient: Mae Dietrich CONSULTATION DATE: 04/14/2000 CHIEF COMPLAINT: Low back pain. The patient was referred to the [facility] by Dr. Claros. REASON FOR REQUESTED CONSULTATION: Mrs. Dietrich is a 39-year-old female patient who reports to be otherwise healthy until August 1996. She says she fell in a store that month. She fell over her left buttock and she said at that time she didn't feel it was anything of importance. She was taking some msqd-xah-vvdyxel medication and thought she only had some bruises. A couple of months later, she started having tingling and numbness of the left buttock and October of that year she saw Dr. Cortes from Orthopedics who ordered an MRI. He said she had nothing that he could do surgery for so he referred her to Dr. Beebe of Neurosurgery, who did a myelogram and other tests. He ordered some steroid pills which did not work and she also had two epidural steroid injections which did not work. Then Dr. Beebe referred her to Dr. Ying, a Neurologist, who eventually referred her to Dr. Claros here at [facility]. This happened in 01/1998. She underwent release of the pyriformis muscle on the left side. She says that she had relief from her pain but she developed more pain. Dr. Claros decided to place a spinal cord stimulator in 1998, the trial did not work so she underwent a peripheral nerve stimulator trial and placement. She says this really worked for her pain but it has been off since January 2000 when she underwent an MRI. She is not sure about why the nerve stimulator is not working at the moment. They would like to perform, review or replacement of the stimulator but Dr. Claros is interested in reviewing other possible reasons for her low back pain which is involving progressively more low back pain as much as her buttock which was the initial pain referral. Mrs. Dietrich says the pain is numb and tingling, hot and like pressure mostly on the left side. She also noticed some pain that feels like pressure on the low back. She says she had an epidural scope in December of this year and that this low back pain got even worse but is currently decreasing even though it is still present. She says that that pain feels like heavy pressure and when it gets very bad, the back gets very stiff. She says it is getting better. She reports to have been going to physical therapy since 1996. She is doing breathing exercises and walking. She also does stretching with a ball. She has received exercise at a gymnasium and heat therapy in the past. The patient says she has tried other medications like Oxycodone. After surgery she also tried Neurontin, unknown dose, for four months. She was taking it three times a day and it was not working. She has restarted it twice since the pain problem started. She also reports to have taken a heart pill to relax the nerves which was not working. She doesn't remember this as being Clonidine. She says she is not taking any medications. She has some Vicodin for breakthrough pain but she hardly ever takes it. Mrs. Dietrich says her pain is usually between 6 and 10/10, the 10 depends on the activity, she says the pain gets worse with driving, sitting or standing for a long period of time. It can be worse in the morning or at night depending on the activity once again, she says it is constant and that it gets better with hot tub and stretching over the ball. The patient says that she has not had any problems with her ability to urinate or have bowel movements in terms of her sleep, she says that when she has had a very high pain day, it takes a long time to go to sleep, that the pain has awakened her in the past from her sleep. She is able to sleep 5 and = hours a day, depending on the daily activity. PAST MEDICAL HISTORY: The patient denies any cardiovascular, respiratory, gastrointestinal, genital, urinary, musculoskeletal or neurological problems, other than just what we reported. PAST SURGICAL HISTORY: 1. 1997 - pyriformis release. 2. January 1999 - peripheral nerve stimulator (had three procedures). 3. December 1999 - epidural scope. MEDICATIONS: Vicodin for breakthrough. DRUG OR FOOD ALLERGIES: ERYTHROMYCIN - nausea and vomiting. SOCIAL HISTORY: Patient is currently and lives with her and her two kids. She doesn't report any current use of tobacco or illicit street drugs. She reports to consume very little alcohol. She is currently working in the [employer] business. CONSULTATION FINDINGS AND RECOMMENDATIONS: Vital signs - weight 177 lb, height 5'10", blood pressure 132/84, pulse 84, respiratory rate 16, temperature 36.5, pain score 7/10. General appearance - well-groomed, engaging in interaction, calm behavior, good mobility, normal gait. Lungs are clear to auscultation bilaterally. Heart - regular rate and rhythm. Musculoskeletal - well-developed. Skin within normal limits except for well healed scar over the left buttock. Spine - lumbar curvature within normal limits. Range of motion - patient able to flex to 90 degrees and extend to 30 degrees with mild pulling, able to have right rotation and extension to 45 degrees when we did extension. We are able to elicit some pulling on the left hip which gives her some pain. Leg rotation with extension to 45 degrees was negative for pain. Side glide was negative from left to right and from right to left. She was feeling some pulling of the left hip with the side glide from left to right. Tenderness - the patient presents with mild tenderness over the left buttock scars. Extremities - lower extremities, straight leg raising negative on both legs up to 90 degrees. Ranjeet's sign negative on both sides. Bilateral sacroiliac range of motion within normal limits. Neurological - deep tendon reflexes, triceps jerk, biceps jerk, brachioradialis jerk, knee jerk and ankle jerk bilaterally 2+/4+. Sensory - within normal limits to light touch, pin prick and cold in the lower extremities and lumbar area. Motor - bilateral knee and ankle flexion, extension and extensor hallucis longus 2+/4+. ASSESSMENT: 1. Mild lumbar extension restriction which is not painful. Despite the patient's complaint of pain, her function seems not to be markedly limited. She presents with mild lumbar extension restriction, her physical exam and history don't seem to point in the direction of discogenic pain as our first diagnosis to rule out. We discussed this with her. We think with her history of trauma and her limitations and physical exam, we should consider first arthropathy of the facet joints. We discussed with her the possibility of having diagnostic lumbar medial branch blocks and she agreed to these. We also feel that because of the other findings and physical exam and medial history, she should undergo a Multi- disciplinary Patient Care Conference with evaluation by our physical therapy and pain psychologist here at the [facility]. She agrees to this. 2. Left buttock tenderness consistent with myofascial dysfunction. This was once again reviewed with the patient. This will be addressed by he physical therapist here at the [facility]. 3. Peripheral nerve stimulator generator failure. This will be reviewed by Dr. Claros. PLAN: 1. Consider diagnostic lumbar medial branch blocks for possible radiofrequency innervation if the diagnostic blocks were successful. 2. Psychology evolution. 3. Physical therapy evaluation. 4. Multidisciplinary Patient Care Conference. Corey Allen M.D. Roger Fatima M.D. MDR/x38 [id number] cc: Bebe Claros M.D. Dept of Neurosurgery documented in this encounter Plan of Treatment Not on filedocumented as of this encounter Visit Diagnoses Not on filedocumented in this encounter
--- OUTSIDE RECORDS SUMMARY | ~2019-07-03 | XMS | Encounter Summary ---
Demographics + + + | Address | [address] | | | [place] [address] | + + + | Home Phone | | + + + | Preferred Language | Unknown | + + + | Marital Status | | + + + | Voodoo Affiliation | NON | + + + [...] Team Providers + +------+ + | Care Art Museum Docent Name | Role | Phone | + [...] | Transcriptions | + + | Interface, Commissions Manager In - 07/08/2006 1:11 AM PST | | [place] [address] | | [place], [place] [address] | | [facility] Rec No.: | | [id number] Date: 02/16/1999Name: Thao Dietrich SURGEON:Bebe Swartz | | Marco Antonio ClarosORGAN TEACHER(S): Marco Antonio Anand | | Marco Antonio [...] | condition.Arnaldo Anand M.D.ZI:xt7D: 02/16/1999T: | | 03/02/[id number]: | |1. Implantation of extension electrode lead. [...] leads were connected up | |to an [employer]gen[employer] 3 generator and fastened in the usual [...] | | | | | | | |[id number] | | | |CC: | + + documented in this encounter Visit Diagnoses Not on filedocumented in this encounter"
--- OUTSIDE RECORDS SUMMARY | ~2019-07-03 | XMS | Encounter Summary ---
Demographics + + + | Address | [address] | | | [place] [address] | + + + | Home Phone [...] Team Providers + +------+ + | Care Gravel Weigher Name | Role | Phone | + +------+ + PCP | Unavailable | + +------+ + Encounter Details +--------+ + + + + | Date | Type | Department | Care Team | Description | +--------+ + + + + | 02/06/ | Procedure - | | Documentation, | OP REPORT-TEACHING | | 1998 | | | Teaching Physician | | | | Transcribed | | [...] | + +--------+ + + + | TEACHING PHYSICIAN | | 02/06/1999 | | | + +--------+ + + + documented in this encounter Visit Diagnoses Not on filedocumented in this encounter"
--- OUTSIDE RECORDS SUMMARY | ~2019-07-03 | XMS | Encounter Summary ---
Demographics + + + | Address | [address] | | | [place] [address] | + + + | Home Phone | | + + + | Preferred Language | Unknown | + + + | Marital Status | | + + + | Amish Affiliation | NON | + + + | Race | White | + + + | Ethnic Group | Not or | + + + Author + + + | Author | [facility] | + + + | Organization | [facility] | + + + | [...] Team Providers + +------+ + | Care Scullion Chief Name | Role | Phone | + +------+ + | Noe Thomason MD | PCP | | + +------+ + Reason for Referral Diagnostic Testing (Routine) +--------+--------+ + + + + | [...] | | | | both legs | PA-C [address] | | | | | | Procedures | [address] | | | | | | CT SPINE | [place], | | | | | | LUMBAR W | [place] | | | | | | CONTRAST | [address] | | | | | | | Phone: | | | | | | | [phone] | | | | | | | Fax: | | | | | | | [phone] | | +--------+--------+ + + + + Diagnostic Testing (Routine) +--------+--------+ + + + + | Status | Reason | Specialty | Diagnoses / | Referred By | Referred To | | | | | Procedures | Contact | Contact | +--------+--------+ + + + + | Closed | | Non [facility] | Diagnoses | [place], | Non-[facility] | | | | Department | Weakness of | Michelle Cohn, | Epic Dept | | | | | both legs | PA-C 9053 | | | | | | Procedures | [address] | | | | | | X-RAY | [place], | | | | | | MYELOGRAM | [place] | | | | | | LUMBOSACRAL | [address] | | | | | | W/INJECTION | Phone: | | | | | | [place] | [phone] | | | | | | MYELOGRAPHY | Fax: | | | | | | VIA LUMBAR | [phone] | | | | | | INJ, INCLUDE | | | | | | | | | | | | | | RADIOLOGICAL | | | | | | | SUPERVSN | | | | | | | AND INTERP; | | | | | | | LUMBOSACRAL | | | | | | | [place] | | | | | | | MYELOGRAPHY | | | | | | | VIA LUMBAR | | | | | | | INJ, INCL | | | | | | | RAD SUPERVSN | | | | | | | AND INTERP; | | | | | | | =>2 REGIONS | | | | | | | [place] | | | | | | | MYELOGRAPHY | | | | | | | LUMBAR SPINE | | | | | | | [place] CT | | | | | | | SCAN,LUMBAR | | | | | | | SPINE,W/O | | | | | | | CONTRAST | | | +--------+--------+ + + + + Reason for Visit + + + | Reason | Comments | + + + | Phone communication | | + + + Encounter Details +--------+ + + + + | Date | Type | Department | Care Team | Description | +--------+ + + + + | 02/25/ | Telephone | Neurosurgery at | Jonathan Castañeda Stephanie, | Phone communication | | 2014 | | [facility] [address] | [place] [address] | | | | | Heavenly Mailcode: CH8N | [place], [place] | | | | | [facility] | [address] | | | | | and Healing, | [phone] | | | | | [facility] | | | | | | Floor [place], [place] | | | | | | [address] | | | | | | [phone] | | | +--------+ + + + + Social History + +-------+ +--------+------+ | Tobacco Use | Types | Packs/Day | Years | Date | | | | | Used | | + +-------+ +--------+------+ | Never Smoker | | | | | + +-------+ +--------+------+ + +---+---+---+ | Smokeless Tobacco: | | | | | Never Used | | | | + +---+---+---+ + + + + + | Alcohol [...] of this encounter Plan of Treatment + +---------+--------+ + + | Name | Type | Priori | Associated Diagnoses | Order Schedule | | | | ty | | | + +---------+--------+ + + | X-RAY MYELOGRAM | Imaging | Routin | Weakness of both | Expected: | | LUMBOSACRAL | | e | legs | 02/25/2015, Expires: | | W/INJECTION | | | | 03/28/2016 | + +---------+--------+ + + | CT SPINE LUMBAR W | Imaging | Routin | Weakness of both | Expected: | | CONTRAST | | e | legs | 02/25/2015, Expires: | | | | | | 03/28/2016 | + +---------+--------+ + + | X-RAY SPINE | Imaging | Routin | Weakness of both | Expected: | | LUMBOSACRAL 2 VIEWS | | e | legs | 02/28/2015, Expires: | | | | | Spondylolisthesis, | 03/31/2016 | | | | | grade 1 Right hip | | | | | | pain | | + +---------+--------+ + + documented as of this encounter Visit Diagnoses + + | Diagnosis | + + | Weakness of both legs - Primary Other musculoskeletal symptoms referable to limbs | + + | Spondylolisthesis, grade 1 Acquired spondylolisthesis | + + | Right hip pain Pain in joint, pelvic region and thigh | + + documented in this encounter"
--- OUTSIDE RECORDS SUMMARY | ~2019-07-03 | XMS | Encounter Summary ---
Demographics + + + | Address | [address] | | | [place] [address] | + + + | Home Phone | | + + + | Preferred Language | Unknown | + + + | Marital Status | | + + + | Anglican Affiliation | NON | + + + [...] Providers + +------+ + | Care Commercial Producer Name | Role | Phone | + +------+ + PCP | Unavailable | + +------+ + Encounter Details +--------+ + + + + | Date | Type | Department | Care Team | Description | +--------+ + + + + | 09/02/ | Transcribed | | Dictation, Other | Transcribed | | 1999 | | | | | +--------+ + [...] as of this encounter Progress Notes Interface, Tool Crib Clerk In - 07/23/2006 1:09 AM [facility] OR [facility] and [place] [address] [place], [place] [address] or September 02, 1998 DR GRANT MADDEN [address] [place] [address] RE: Mae Dietrich MR#: [id number] Madden: Mae was here last month and returns today for follow-up. Last month she was having some electrical shock-like pains in the buttock, and we started her on Neurontin. She took two pills in the morning and in the afternoon and two to three pills at bed time and found that these electric shock-like pains were substantially better. She actually ran out for a short period of time and found that the crawling sensations in her buttock and the electric shock-like pains worsened. Thus I think it is pretty clear that these are signs of either nerve injury or, more optimistically, nerve regrowth. I refilled the prescription and reassured her. I thought that probably what she was experiencing was nerve recovery and that this would go on for the next few months until the nerve regenerated to its maximal extent. She is also complaining of some tightness in the buttock, and I certainly think it is time to start her on some form of physical therapy. I wrote her out a prescription for this, and she is going to seek out a therapist who she worked with previously. At this point we are going to see her back at about three months for follow-up, and she will be in touch with me if there are any problems in the interim. Sincerely, Bebe Claros M.D. [place] A 1: 09 AM PSTdocumented in this encounter Plan of Treatment Not on filedocumented as of this encounter Visit Diagnoses Not on filedocumented in this encounter"
--- OUTSIDE RECORDS SUMMARY | ~2019-07-03 | XMS | Encounter Summary ---
Demographics + + + | Address | [address] | | | [place] [address] | + + + | Home Phone | | + + + | Preferred Language | Unknown | + + + | Marital Status | | + + + | Church Affiliation | NON | + + + | Race | White | + + + | Ethnic Group | Not or | + + + Author + + + | Author | [facility] | + + + | Organization | [facility] | + + + | [...] Team Providers + +------+ + | Care Communications Lead Name | Role | Phone | + [...] as of this encounter Progress Notes Interface, Payroll Benefits Clerk In - 05/20/2006 4:02 AM PDTCLINIC DATE: 12/13/2000 [facility] CHIEF COMPLAINT: Low back pain. HISTORY OF PRESENT ILLNESS: Ms. Dietrich comes today for a followup visit. She [...] Fellow, [facility] Roger Fatima M.D. Tariff Compiler, [facility] Department of Anesthesiology / [place] [id number] / [id number] / [id number] / cc: Bebe Claros M.D. [id number] signed by Interface, Payroll Benefits Clerk In at 05/20/2006 4:02 AM PDTdocume nted in this encounter Plan of Treatment Not on filedocumented as of this encounter Visit Diagnoses Not on filedocumented in this encounter"
--- OUTSIDE RECORDS SUMMARY | ~2019-07-03 | XMS | Encounter Summary ---
Demographics + + + | Address | [address] | | | [place] [address] | + + + | Home Phone | | + + + | Preferred Language | Unknown | + + + | Marital Status | | + + + | Taoist Affiliation | NON | + + + | Race | White | + + + | Ethnic Group | Not or | + + + Author + + + | Author | [facility] | + + + | Organization | [facility] | + + + | [...] Team Providers + +------+ + | Care Ball Machine Operator Name | Role | Phone | + +------+ + PCP | Unavailable | + +------+ + Encounter Details +--------+ + + + + | Date | Type | Department | Care Team | Description | +--------+ + + + + | 02/10/ | Office | [facility] | Note, [...] documented as of this encounter Progress Notes Dago, Cupola Tapper In - 06/10/2006 1:01 AM PSTCLINIC DATE: 02/11/2000 SUBJECTIVE: Mae returns today with followup MRI scan. This shows what appears to be both L4-5 and L5-S1 "black disk", that is disk degeneration at both of these levels. We feel that this may be the generator of her back, and to some extent, her buttock pain. We are going to send her to the pain center for injections of these disks including diskography and possible IDETT. We have communicated this to the Pain Center and she is planning to schedule an appointment with them. Bebe Claros M.D. ISSAC / [place] [id number] / [id number] / [id number] / [id number] signed by Dago, Cupola Tapper In at 06/10/2006 1:01 AM PSTdocume nted in this encounter Plan of Treatment Not on filedocumented as of this encounter Visit Diagnoses Not on filedocumented in this encounter
--- OUTSIDE RECORDS SUMMARY | ~2019-07-03 | XMS | Encounter Summary ---
Demographics + + + | Address | [address] | | | [place] [address] | + + + | Home Phone | | + + + | Preferred Language | Unknown | + + + | Marital Status | | + + + | Religion Affiliation | [id number] | + + + | Race | Unknown | + + + | Ethnic Group | Unknown | + + + Author + + + | Author | [facility] | | | and [place] | + + + | Organization | [facility] | | | and [...] [place] | | | | | [address] | | + + + + + | Daina Mazariegos | ECON | Unknown | | + + + + + Care Team Providers + +------+ + | Care Supervisor Pastry Name | Role | Phone | + [...] | DDD | Sepideh, | MD Bebe 2023 | | | Required | | (degenerativ | Mohan Andrews MD | [address] | | | | | e disc | [address] | [place], [place] | | | | | disease), | [facility] | [address] | | | | | lumbosacral | [place], [place] | Phone: | | | | | Hx of | [address] | [phone] | | | | | spinal | Phone: | Fax: | | | | | fusion | [phone] | [phone] | | | | | Lumbar | Fax: | | | | | | radiculopath | [phone] | | | | | | y [...] | LUMBOSACRAL SPINE | | | | [place], | [place], [place] | (Primary Dx); Hx of | | | | [place] [address] | [address] | spinal fusion; | | | | [phone] | | Lumbar | | | | [...]
--- OUTSIDE RECORDS SUMMARY | ~2019-07-03 | XMS | Encounter Summary ---
Demographics + + + | Address | [address] | | | [place] [address] | + + + | Home Phone | | + + + | Preferred Language | Unknown | + + + | Marital Status | | + + + | Latter Day Affiliation | NON | + + + [...] + | Liam Lowry | ECON | [place] | | + + + + + Care Team Providers + +------+ + | Care Program Technician Name | Role | Phone | + +------+ + PCP | Unavailable | + +------+ + Encounter Details +--------+ + + + + | Date | Type | Department | Care Team | Description | +--------+ + + + + | 03/24/ | Transcribed | | Dictation, Other | [...] as of this encounter Progress Notes Interface, Motor Room Controller In - 07/05/2006 3:09 AM [facility] and [place] [address] [place], [place] [address] or March 24, 1999 Khari Ying M.D. [address] [facility], [address] [place] [address] RE: MAE LOWRY MR #: [id number] Dear Dr. Ying: We saw Mae Lowry again in Neurosurgery Outpatient Clinic today. She was also seen and examined by Dr. Claros. As you well know, Mae has had multiple surgeries for her left buttock pain. Last year, she had a division of her piriformis muscle for a supposed piriformis syndrome, which gave her relief for many months. 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 She has had several visits to our clinic with our coordinating nurse in order to explore the value of the various different parameters of the stimulator. Her most recent visit was about 10 days ago at which time the parameters of the stimulation were slightly changed. She reports that since that visit an old, chronic, recurrent pain that she has had towards the midline in the sacral area has been troubling her more. In addition, she still has some pain and discomfort in the lower surgical wound of her left buttock. Today, in the outpatient clinic, we returned the stimulation parameters to those that were previously used. That is an amplitude above approximately 2.6 volts. She experiences contractions of the gluteal muscle and it was explained to her that this will not provide any extra pain relief and it would be better for her to keep the stimulation below the threshold of recruiting the muscle fibers. The pulse width of the stimulation is down to its minimum and therefore this is a maximal attempt to recruit only the sensory fibers. At this stage, we have recommended that her followup be continued by our nursing staff adjacent to our clinic in one to two weeks' time. We shall endeavor to keep you updated of any progress she makes. Sincerely, Dima Treviño M.D. GREG / [id number] / [id number] / gac cc: Jefferson Cortes M.D. [id number] [facility], [address] [place] [address] Sonny Beebe M.D. [address] [place] [address] Jefferson Cortes M.D. [address] [facility], [address] [place] [address] Sonny Beebe M.D. [address] [facility] [place] [id number] signed by Interface, Motor Room Controller In at 07/05/2006 3:09 AM PSTdocumented in this encounter Plan of Treatment Not on filedocumented as of this encounter Visit Diagnoses Not on filedocumented in this encounter"
--- OUTSIDE RECORDS SUMMARY | ~2019-07-03 | XMS | Encounter Summary ---
Demographics + + + | Address | [address] | | | [place] [address] | + + + | Home Phone | | + + + | Preferred Language | Unknown | + + + | Marital Status | | + + + | Jainism Affiliation | NON | + + + [...] Team Providers + +------+ + | Care Miller Distillery Name | Role | Phone | + +------+ + PCP | Unavailable | + +------+ + Encounter Details +--------+ + + + + | Date | Type | Department | Care Team | Description | +--------+ + + + + | 02/16/ | Procedure - | | Documentation, | [...] + + | TEACHING PHYSICIAN | | 02/16/1999 | | | + +--------+ + + + documented in this encounter Visit Diagnoses Not on filedocumented in this encounter"
--- OUTSIDE RECORDS SUMMARY | ~2019-07-03 | XMS | Encounter Summary ---
Demographics + + + | Address | [address] | | | [place] [address] | + + + | Home Phone | | + + + | Preferred Language | Unknown | + + + | Marital Status | | + + + | Baptist Affiliation | NON | + + + | Race | White | + + + | Ethnic Group | Not or | + + + Author + + + | Author | [facility] | + + + | Organization | [facility] | + + + | Address [...] Team Providers + +------+ + | Care Permanent Mold Supervisor Name | Role | Phone | [...] | | 1998 | | [address] [facility] | [phone] | | | | Transcribed | [address] | | | | | | [place] | | | | | | [address] | | | +--------+ + + + [...] PDTAssociated Order(s): EEG ROUTINE CLINIC DATE: Log #[id number] CLINICAL COMMENT: A 37-year-old woman with left [...] neuropathy or radiculopathy. Gerri Duong M.D., Ph.D. Wholesale Representative, Neurology Marlene Randall M.D., Ph.D. Underwriting Support Manager, Neurology Ayla C: 03/06/98 documented in this [...] 12:00 AM PDT CLINIC DATE: 03/04/98 Log #[id number] | | | | CLINICAL COMMENT: | [...] | Gerri Duong M.D., Ph.D. | | Wholesale Representative, Neurology | | | | | | | | Marlene Randall M.D., Ph.D. | | Underwriting Support Manager, Neurology | | | | MAYITO/demarcus | | | | | | C: 03/06/98 | | | + + documented in this encounter Visit Diagnoses Not on filedocumented in this encounter"
--- OUTSIDE RECORDS SUMMARY | ~2019-07-03 | XMS | Encounter Summary ---
Demographics + + + | Address | [address] | | | [place] [address] | + + + | Home Phone | | + + + | Preferred Language | Unknown | + + + | Marital Status | | + + + | Evangelical Affiliation | NON | + + + | Race | White | + + + | Ethnic Group | Not or | + + + Author + + + | Author | [facility] | + + + | Organization | [facility] | + + + | Address [...] Team Providers + +------+ + | Care Surveyor Helper Rod Name | Role | Phone | + +------+ + | Noe Thomason MD | PCP | | + +------+ + Encounter Details +--------+ + + + + | Date | Type | Department | Care Team | Description | +--------+ + + + + | 09/05/ | DELETED | Preoperative | Consult, | ANESTHESIA/SEDATION | | 2001 | TRANSCRIPTI | Medicine Clinic at | Anesthesia [address] | | | | ON | [facility] 4th Floor [address] | | | | | [address] | [address] [place], [place] | | | | | Mailcode: CH4S | [id number] | | | | | [facility] | | | | | | and Healing, | | | | | | Building [address],4th Floor | | | | | | [place], [place] | | | | | | [address] | | | | | | [phone] | | | +--------+ + + + [...] | + +--------+ + + + | ANESTHESIA/SEDATION | | 09/05/2001 | | Results for this | | | | 11:21 AM | | procedure are in the | | | | PST | | results section. | + +--------+ + + + documented in this encounter Visit Diagnoses Not on filedocumented in this encounter"
--- OUTSIDE RECORDS SUMMARY | ~2019-07-03 | XMS | Encounter Summary ---
Demographics + + + | Address | [address] | | | [place] [address] | + + + | Home Phone | | + + + | Preferred Language | Unknown | + + + | Marital Status | | + + + | Christian Affiliation | NON | + + + [...] Providers + +------+ + | Care Electronic Security Technician Name | Role | Phone | [...] as of this encounter Progress Notes Interface, Wire Frame Lampshade Maker In - 06/10/2006 1:01 AM [facility] OR [facility] and [place] [address] [place], [place] [address] or February 09, 2000 Khari Ying M.D. [facility] [address] [address] RE: MAE WILLIS MR #: [id number] Dear Dr. Ying: I saw the patient [...] Sincerely, Bebe Claros M.D. ISSAC / MADELINE [id number] / [id number] / [id number] / [id number] signed by Interface, Wire Frame Lampshade Maker In at 06/10/2006 1:01 AM PSTdocume nted in this encounter Plan of Treatment Not on filedocumented as of this encounter Visit Diagnoses Not on filedocumented in this encounter"
--- OUTSIDE RECORDS SUMMARY | ~2019-07-03 | XMS | Encounter Summary ---
Demographics + + + | Address | [address] | | | [place] [address] | + + + | Home Phone | | + + + | Preferred Language | Unknown | + + + | Marital Status | | + + + | Jewish Affiliation | NON | + + + | Race | White | + + + | Ethnic Group | Not or | + + + Author + + + | Author | [facility] | + + + | Organization | [facility] | + + + | Address [...] Team Providers + +------+ + | Care Primary Class Teacher Name | Role | Phone | + +------+ + PCP | Unavailable | + +------+ + Encounter Details +--------+ + + + + | Date | Type | Department | Care Team | Description | +--------+ + + + + | 04/29/ | Office | [facility] | Note, [...] as of this encounter Progress Notes Interface, Energy Conservation Representative In - 06/04/2006 1:06 AM PSTCLINIC DATE: 04/29/2000 [facility] HISTORY OF PRESENT ILLNESS: Ms. Dietrich comes today for the possibility of a second lumbar medial branch block. On April 21, 2000, she received her first lumbar medial branch block. She reports that after the procedure she had more than 50% relief from her local back pain for approximately 6 hours. She also says that now she is not getting the shooting pain as much. She was asking about what she should do now in terms of physical therapy versus the series of blocks. She reports that her pain is currently 6-7/10 in the low back, and this her pressure type of pain. CURRENT MEDICATIONS: None. ALLERGIES: ERYTHROMYCIN CAUSES NAUSEA AND VOMITING. PHYSICAL EXAMINATION: VITAL SIGNS: Weight 178 pounds, blood pressure is 130/82, heart rate 75, respiratory rate 16, and temperature 36.9. Current pain level is 6-7/10. ASSESSMENT 1. Myofascial pain with the involvement of the piriformis on the left side and the gluteus medius and iliosacral dysfunction. We discussed the case with a physical therapist here at the [facility], and we agree that the patient would probably benefit of the series of physical therapy before undergoing any more invasive treatment. The patient agrees to this, and the appointments have been already scheduled. At the middle of the series of physical therapy treatments, the patient would come back for a reevaluation and possible consideration of a second lumbar and medial branch block. 2. Mechanical pain. This will be treated as above. 3. Neuropathic pain. The patient is very interested in having her nerve stimulator reactivated by . She states that the time that it has not been on, has helped her to really determine if she wants this stimulator or not. She will be followed by Dr. Claros next week, and we recommend that Dr. Claros calls Dr. Fatima during her appointment on that day. PLAN 1. Physical therapy. 2. Consider lumbar medial branch block #2 after a series of physical therapy sessions. 3. Nerve stimulator reactivation by Dr. Claros. Corey Allen M.D. Roger Fatima M.D. / [id number] / [id number] / [id number] / cc: Bebe Claros M.D. Neurosurgery [facility] [id number] signed by Interface, Energy Conservation Representative In at 06/04/2006 1:06 AM PSTdocume nted in this encounter Plan of Treatment Not on filedocumented as of this encounter Visit Diagnoses Not on filedocumented in this encounter"
--- OUTSIDE RECORDS SUMMARY | ~2019-07-03 | XMS | Encounter Summary ---
Demographics + + + | Address | [address] | | | [place] [address] | + + + | Home Phone | | + + + | Preferred Language | Unknown | + + + | Marital Status | | + + + | Cheondoism Affiliation | NON | + + + [...] Team Providers + +------+ + | Care Oss Architect Name | Role | Phone | + [...] as of this encounter Progress Notes Interface, Icu Staff Nurse In - 04/05/2006 1:08 AM PDT September 20, 2001 Marco Antonio Agustin [place], [address] [place] [address] Re: Mae Hernández [birth year][address] Mary, I saw Mae Hernández in the [facility] today. 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 This was treated with wide local excision without complication. Thank you very much for referring this patient. If you have any questions regarding her care please feel free to contact me. Sincerely, Carlos Hudson Surfacer Operator, Dermatology Otolaryngology - Head and Neck Surgery SAHARA/randy A documented in this encounter Plan of Treatment Not on filedocumented as of this encounter Visit Diagnoses Not on filedocumented in this encounter"
--- OUTSIDE RECORDS SUMMARY | ~2019-07-03 | XMS | Encounter Summary ---
Demographics + + + | Address | [address] | | | [place] [address] | + + + | Home Phone | | + + + | Preferred Language | Unknown | + + + | Marital Status | | + + + | Buddhist Affiliation | NON | + + + | Race | White | + + + | Ethnic Group | Not or | + + + Author + + + | Author | [facility] | + + + | Organization | [facility] | + + + | Address [...] Team Providers + +------+ + | Care Teacher Counselor Name | Role | Phone | + [...] as of this encounter Progress Notes Interface, Fence Manufacture Supervisor In - 05/03/2006 3:07 AM PDTCLINIC DATE: [...] p.o. q.8h. Roger Fatima M.D. KAVITA / [id number] / [id number] / [id number] / cc: Bebe Claros M.D. [id number] signed by Interface, Fence Manufacture Supervisor In at 05/03/2006 3:07 AM PDTdocume nted in this encounter Plan of Treatment Not on filedocumented as of this encounter Visit Diagnoses Not on filedocumented in this encounter"
--- OUTSIDE RECORDS SUMMARY | ~2019-07-03 | XMS | Encounter Summary ---
Demographics + + + | Address | [address] | | | [place] [address] | + + + | Home Phone | | + + + | Preferred Language | Unknown | + + + | Marital Status | | + + + | Caodaism Affiliation | 1041 | + + + | Race | Unknown | + + + | Ethnic Group | Unknown | + + + Author + + + | Author | [facility] | | | and [place] | + + + | Organization | [facility] | | | and [...] [place] | | | | | [address] | | + + + + + | Daina Mazariegos | ECON | Unknown | | + + + + + Care Team Providers + +------+ + | Care Computer Repairer Name | Role | Phone | [...] | +--------+ + + + + | 06/04/ | Telephone | [facility] | Mohan Bunn | Other | | 2013 | | PHYSIATRY [address] | | | | | [place], | [place] | | | | | [place] [address] | [address] | | | | | [phone] | | | +--------+ + + + [...] Not on filedocumented as of this encounter Results [place] Major Joint Injection Right (06/18/2014 3:35 PM PST) + + | Specimen | + + | | + + + + + | Narrative | Performed At | + + + | 06/18/2014 RIGHT INTRAARTICULAR HIP INJECTION CLINICAL | [facility] | | HISTORY: ICD-9 CODE 719.45, HIP PAIN. Mae Hernández | [facility] | | presents to the fluoroscopy suite for a fluoroscopically-guided [facility] | | right intraarticular hip injection [...] ICD-9 CODE 719.45, HIP PAIN. Mae Jones EliseozackShruti | | presents to the fluoroscopy suite [...] | + + + + + | [facility] | [address] | [place] | [phone] | | [facility] | | [address] | | | - IMAGING | | | | + + + + + documented in this encounter Visit Diagnoses + + | Diagnosis | + + | Right hip pain - Primary Pain in joint, pelvic region and thigh | + + documented in this encounter"
--- OUTSIDE RECORDS SUMMARY | ~2019-07-03 | XMS | Encounter Summary ---
Demographics + + + | Address | [address] | | | [place] [address] | + + + | Home Phone | | + + + | Preferred Language | Unknown | + + + | Marital Status | | + + + | Pentecostal Affiliation | NON | + + + [...] Team Providers + +------+ + | Care White Goods Appliance Tech Name | Role | Phone | + +------+ + | Noe Thomason MD | PCP | | + +------+ + Reason for Referral Consult to [place] (Routine) +--------+--------+ + + + + | Status | Reason | Specialty | Diagnoses / | Referred By | Referred To | | | | | Procedures | Contact | Contact | +--------+--------+ + + + + | Closed | | Pain | Diagnoses | [place], | [place], | | | | Management | Lumbosacral | MD Roger | MD Roger | | | | | spondylosis | [address] | [address] | | | | | without | Ave | Ave | | | | | myelopathy | [place], [place] | [place] | | | | | Procedures | [address] | [address] | | | | | CONSULT TO | Phone: | Phone: | | | | | [place] | [phone] | [phone] | | | | | | Fax: | Fax: | | | | | | [phone] | [phone] | +--------+--------+ + + + + Encounter Details +--------+ + + + + | Date | Type | Department | Care Team | Description | +--------+ + + + + | 11/03/ | Documentati | [facility] Comprehensive | Roger Fatima MD | | | 2006 | on | Pain Center at | [address] | | | | | [facility] | [place], [place] | | | | | [address] | [address] | | | | | Mailcode: CH15P | [phone] | | | | | [facility] | | | | | | and Healing, | | | | | | | | | | | | [place], [place] | | | | | | [address] | | | | | | [phone] | | | +--------+ + + + [...] + | Diagnosis | + + | Lumbosacral spondylosis without myelopathy - Primary | + + documented in this encounter"
--- OUTSIDE RECORDS SUMMARY | ~2019-07-03 | XMS | Encounter Summary ---
Demographics + + + | Address | [address] | | | [place] [address] | + + + | Home Phone | | + + + | Preferred Language | Unknown | + + + | Marital Status | | + + + | Jewish Affiliation | 1041 | + + + | Race | Unknown | + + + | Ethnic Group | Unknown | + + + Author + + + | Author | [facility] | | | and [place] | + + + | Organization | [facility] | | | and [place] [...] [place] | | | | | [address] | | + + + + + | Daina Mazariegos | ECON | Unknown | | + + + + + Care Team Providers + +------+ + | Care Costume Maker Name | Role | Phone | + [...] | +--------+ + + + + | 03/17/ | Telephone | [facility] | Mohan Bunn | Other | | 2014 | | PHYSIATRY [address] | | | | | [place], | [place], [place] | | | | | [place] [address] | [address] | | | | | [phone] | | | +--------+ + + + [...]
--- OUTSIDE RECORDS SUMMARY | ~2019-07-03 | XMS | Encounter Summary ---
Demographics + + + | Address | [address] | | | [place] [address] | + + + | Home Phone | | + + + | Preferred Language | Unknown | + + + | Marital Status | | + + + | Mormonism Affiliation | NON | + + + [...] Providers + +------+ + | Care Teacher Ballet Name | Role | Phone | + +------+ + PCP | Unavailable | + +------+ + Encounter Details +--------+ + + + + | Date | Type | Department | Care Team | Description | +--------+ + + + + | 02/11/ | Office | [facility] | Note, [...] as of this encounter Progress Notes Interface, Lifestyle Coordinator In - 07/10/2006 3:08 AM PSTCLINIC DATE: 02/11/1999 NEUROLOGY CLINIC NOTE SUBJECTIVE: This patient is well known to us with a history of left gluteal neuralgia. She underwent gluteal decompression one year ago. However, after a short while, the pain reappeared. She has undergone two exploratory surgeries in the last two weeks to decompress and implant a stimulator on her inferior gluteal nerve. The first was unsuccessful. However, the second surgery approximately one week ago succeeded in identifying the inferior gluteal nerve and a neuroma from a previous traumatic injury. A Resume electrode was implanted. Today the patient is well. The scars look healthy without evidence of inflammation or injection. The patient reports stimulation in the appropriate distribution. However, the wound pain has disguised some of the benefit of stimulation. In the clinic today, the wounds were redressed. We assisted her in changing the parameters of the stimulation to make it cover the entire desired area. We discussed the planned implantation of the in-dwelling stimulator scheduled for February 16, 1999, concerning the size of the stimulator and site of implantation. Dima Treviño M.D. Instructor, Sterotactic and Functional Neurosurgery [id number] Tdocumented in this encounter Plan of Treatment Not on filedocumented as of this encounter Visit Diagnoses Not on filedocumented in this encounter"
--- OUTSIDE RECORDS SUMMARY | ~2019-07-03 | XMS | Encounter Summary ---
Demographics + + + | Address | [address] | | | [place] [address] | + + + | Home Phone | | + + + | Preferred Language | Unknown | + + + | Marital Status | | + + + | Sikh Affiliation | NON | + + + | Race | White | + + + | Ethnic Group | Not or | + + + Author + + + | Author | [facility] | + + + | Organization | [facility] | + + + | Address [...] Team Providers + +------+ + | Care Elevator Constructor Electric Name | Role | Phone | + +------+ + PCP | Unavailable | + +------+ + Encounter Details +--------+ + + + + | Date | Type | Department | Care Team | Description | +--------+ + + + + | 06/06/ | Office | [facility] | Note, [...] as of this encounter Progress Notes Interface, Fruit Tester In - 04/25/2006 2:25 AM PDTCLINIC DATE: 06/06/2001 NEUROSURGERY CLINIC Ms. Dietrich comes back in today for a further assessment by Dr. Claros. She has been treated by us for 2 problems. In 1996, she fell at work and sustained low back pain and has been diagnosed with degenerative lumbar problems. She has had positive diskography at L5-S1, and an IDET procedure on March 07, 2001, has not yet improved any of her symptoms. She has been off work for 2 months and reports postoperative burning sensations. She has also been treated with peripheral nerve stimulation of her gluteal nerve for left piriformis syndrome in 1997. This was revised in May 2000. This condition has been fairly stable. She has been trying to get back to work and was encouraged by her litigation attorney associate to touch base with our service. She has undergone 2 weeks of physical therapy without relief. She is scheduled for a facet block on July 07, 2001. Her examination today is basically unremarkable except for the exacerbation of her low back pain with extension of the lumbar spine, I detected no reflex asymmetry nor focal motor weakness. Dr. Claros has extensively discussed her condition and other possible options including lumbar fusion which is the most radical of the choices. Jefferson Munroe M.D. VALERI / MADELINE [id number] / [id number] / [id number] / [id number] signed by Interface, Fruit Tester In at 04/25/2006 2:25 AM PDTdoc umented in this encounter Plan of Treatment Not on filedocumented as of this encounter Visit Diagnoses Not on filedocumented in this encounter"
--- OUTSIDE RECORDS SUMMARY | ~2019-07-03 | XMS | Encounter Summary ---
Demographics + + + | Address | [address] | | | [place] [address] | + + + | Home Phone | | + + + | Preferred Language | Unknown | + + + | Marital Status | | + + + | Temple Affiliation | 1041 | + + + | Race | Unknown | + + + | Ethnic Group | Unknown | + + + Author + + + | Author | [facility] | | | and Humbertoana | + + + | Organization | [facility] | | | and Humbertoana [...] [place] | | | | | [address] | | + + + + + | Daina Mazariegos | ECON | Unknown | | + + + + + Care Team Providers + +------+ + | Care Yarn Handler Name | Role | Phone | + +------+ + | Noe Thomason | PCP | | | MD | | | + +------+ + Encounter Details +--------+ + + + + | Date | Type | Department | Care Team | Description | +--------+ + + + + | 03/12/ | Hospital | [facility] | Michelle Haney, | Weakness of both | | 2015 | Encounter | MED CTR XRAY [address] | [place] [address] | legs; | | | | [place] | [place], [place] | Spondylolisthesis, | | | | [place] [address] | [address] | grade 1; Right hip | | | | [phone] | [phone] | pain | | | | | | | [...] | + +--------+ + + + | XR LUMBAR SPINE 2 OR | Routin | 03/12/2015 | Weakness of both | Results for this | | 3 VW | e | 2:01 PM | legs | procedure are in the | | | | PDT | Spondylolisthesis, | results section. | | | | | grade 1 Right hip | | | | | | pain | | + +--------+ + + + documented in this encounter Results XR Lumbar Spine 2 or 3 Vw (03/12/2015 2:01 PM PDT) + + | Specimen | + + | | + + + + + | Narrative | Performed At | + + + | THREE VIEWS LUMBAR SPINE 03/12/2015 2:01 PM CLINICAL HISTORY: | [facility] | | Weakness of both legs. Eval for dynamic instability. COMPARISON: | | | LUMBAR RADIOGRAPHS JANUARY 2014 AND JULY 2011 FINDINGS: The most | | | inferior lumbar type vertebra is again designated L5. Lateral views | | | in neutral, flexed and extended positions are provided. Exaggeration | | | of the lumbar lordosis persists. Interbody and posterior asha and | | | pedicle screw fusion hardware remains in position at L4-5 and appears | | | grossly intact and stable in alignment. Lumbar vertebral height is | | | maintained, without evident fracture. There is stable, mild | | | wedging deformity of the T12 vertebral body. Mild to moderate disc | | | space narrowing persists throughout the lumbar spine, excepting the | | | operated level. Approximately 10 mm retrolisthesis is again visible | | | at L3-4 and is similar in extent with flexion and extension, along | | | with lesser retrolisthesis at L1-2 and L2-3. A presumed | | | neurostimulator remains in position, with leads coursing over the | | | lower lumbar spine and sacrum. Hip arthroplasty hardware is | | | minimally imaged. IMPRESSION - 1. MULTILEVEL LUMBAR | | | DEGENERATIVE DISC DISEASE AND SPONDYLOSIS WITH MULTILEVEL | | | RETROLISTHESIS DISCUSSED. Dictated and Signed by: Rui Adrian | | | Electronically signed: 03/12/2015 5:04 PM | | + + + + + | Procedure Note | + + | Jarrod, Rad Results In - 03/12/2015 5:07 PM PDT THREE VIEWS LUMBAR SPINE 03/12/2015 2:01 | | PMCLINICAL HISTORY: Weakness of both legs. Eval for dynamic instability.COMPARISON: | | LUMBAR RADIOGRAPHS JANUARY 2014 AND JULY 2011FINDINGS: The most inferior lumbar type | | vertebra is again designated L5. Lateralviews in neutral, flexed and extended positions | | are provided. Exaggeration ofthe lumbar lordosis persists. Interbody and posterior asha | | and pedicle screwfusion hardware remains in position at L4-5 and appears grossly intact | | andstable in alignment. Lumbar vertebral height is maintained, without | | evidentfracture. There is stable, mild wedging deformity of the T12 vertebral body. | | Mild to moderate disc space narrowing persists throughout the lumbar spine,excepting the | | operated level. Approximately 10 mm retrolisthesis is againvisible at L3-4 and is | | similar in extent with flexion and extension, along withlesser retrolisthesis at L1-2 | | and L2-3. A presumed neurostimulator remains inposition, with leads coursing over the | | lower lumbar spine and sacrum. Hiparthroplasty hardware is minimally imaged.IMPRESSION | | -1. MULTILEVEL LUMBAR DEGENERATIVE DISC DISEASE AND SPONDYLOSIS WITH | | MULTILEVELRETROLISTHESIS DISCUSSED.Dictated and Signed by: Rui Adrian MD | | Electronically signed: 03/12/2015 5:04 PM | |position, with leads coursing over the lower lumbar spine and sacrum. Hip | |arthroplasty hardware is minimally imaged. | | | |IMPRESSION - | | | |1. MULTILEVEL LUMBAR DEGENERATIVE DISC DISEASE AND SPONDYLOSIS WITH MULTILEVEL | |RETROLISTHESIS DISCUSSED. | | | |Dictated and Signed by: Rui Adrian MD | | Electronically signed: 03/12/2015 5:04 PM | + + + +---------+ + [...]
--- OUTSIDE RECORDS SUMMARY | ~2019-07-03 | XMS | Encounter Summary ---
Demographics + + + | Address | [address] | | | [place] [address] | + + + | Home Phone | | + + + | Preferred Language | Unknown | + + + | Marital Status | | + + + | Rastafari Affiliation | 1041 | + + + | Race | Unknown | + + + | Ethnic Group | Unknown | + + + Author + + + | Author | [facility] | | | and [place]to[place] | + + + | Organization | [facility] | | | and [place] [...] [place] | | | | | [address] | | + + + + + | Daina Mazariegos | ECON | Unknown | | + + + + + Care Team Providers + +------+ + | Care Sod Farmer Name | Role | Phone | + +------+ + | Noe Thomason | PCP | | | MD | | | + +------+ + Reason for Visit +--------+ + | Reason | Comments | +--------+ + | Other | schedule appt | +--------+ + Encounter Details +--------+ + + + + | Date | Type | Department | Care Team | Description | +--------+ + + + + | 01/28/ | Telephone | [facility] | Tenisha Ricketts, | Other (schedule | | 2013 | | PHYSIATRY [address] | [employer] ROLLER OPERATOR | appt) | | | | [place], | | | | | | [place] [address] | | | | | | [phone] | | | +--------+ + + + [...]
--- OUTSIDE RECORDS SUMMARY | ~2019-07-03 | XMS | Encounter Summary ---
Demographics + + + | Address | [address] | | | [place] [address] | + + + | Home Phone | | + + + | Preferred Language | Unknown | + + + | Marital Status | | + + + | Mandaeism Affiliation | NON | + + + [...] Team Providers + +------+ + | Care Chinese Medicine Practitioner Name | Role | Phone | + +------+ + PCP | Unavailable | + +------+ + Encounter Details +--------+ + + + + | Date | Type | Department | Care Team | Description | +--------+ + + + + | 07/01/ | Transcribed | | Dictation, Other | Transcribed | | 1998 | | | | | +--------+ + [...] as of this encounter Progress Notes Interface, Orthopedic Radiologic Technologist In - 07/29/2006 5:03 AM [facility] [place] [facility] and [place] [address] [place], [place] [address] or July 02, 1998 [place] [address] [place] [address] RE: MAE LOWRY MR# [id number] Dear Doctor Deonna: I had the pleasure of seeing Ms. Lowry in Neurosurgery Clinic today. She was seen and examined, and her treatment was discussed in detail with the patient by Dr. Claros. As you know, this is a 37-year-old righthanded, white female who had a post-traumatic pain in her left gluteal area and was diagnosed with piriformis syndrome. She underwent surgery on 06/23/98, and today she comes for routine postoperative follow-up. She is doing well. The only complaint she has right now is of pain around the incision and deeper in her buttock. The area around the incision is somewhat bruised, but there is no evidence of infection or inflammation. The incision is healing well, but today we decided to keep the sutures in for another week, because it has been only eight days since the operation. As you know, during surgery, we discovered a quite tight compression of the sciatic nerve with the piriformis muscle tendon, so the tendon was transected, and the partial transsection of the piriformis muscle was also performed, therefore releasing the nerve. We would like to see Ms. Lowry in one week, and at that time we will probably remove all of her sutures and will decide about timing of the next follow-up appointment. I want to thank you once again for sending this patient to us. I will be happy to let you know about her progress in the future. If you have any questions or concerns about her condition, please do not hesitate to call us here. Thanks again. Sincerely, Hola Arciniega M.D. Fellow, Department of Neurological Surgery Jose Manuel C: 07/09/1998 ds documented in this encounter Plan of Treatment Not on filedocumented as of this encounter Visit Diagnoses Not on filedocumented in this encounter"
--- OUTSIDE RECORDS SUMMARY | ~2019-07-03 | XMS | Encounter Summary ---
Demographics + + + | Address | [address] | | | [place] [address] | + + + | Home Phone | | + + + | Preferred Language | Unknown | + + + | Marital Status | | + + + | Church Affiliation | NON | + + + | Race | White | + + + | Ethnic Group | Not or | + + + Author + + + | Author | [facility] | + + + | Organization | [facility] | + + + | [...] Team Providers + +------+ + | Care Sales Representative Marine Supplies Name | Role | Phone | + +------+ + | Noe Thomason MD | PCP | | + +------+ + Reason for Visit + + + | Reason | Comments | + + + | New patient | | | consultation | | + + + Office Visit - E/M Services (Routine) +--------+--------+ + + + + | Status | Reason | Specialty | Diagnoses / | Referred By | Referred To | | | | | Procedures | Contact | Contact | +--------+--------+ + + + + | Closed | | Orthopedics | Diagnoses | Paddy, | [place], | | | | | Hip pain R | Noe Roth, | MD Beto | | | | | hip pain | MD | [address] | | | | | | [place] | [address] | | | | | | FAMILY | [place], [place] | | | | | | MEDICINE | [address] | | | | | | [address] | Phone: | | | | | | [address] | [phone] | | | | | | [place], | Fax: | | | | | | [place] [address] | [phone] | | | | | | Phone: | | | | | | | [phone] | | | | | | | Fax: | | | | | | | [phone] | | +--------+--------+ + + + + Encounter Details +--------+---------+ + + + | Date | Type | Department | Care Team | Description | +--------+---------+ + + + | 05/02/ | Office | Orthopaedics at | Beto Craft, | Hip Pain (Primary | | 2008 | Visit | [facility] [address] | [address] | Dx); Knee Pain | | | | Ave Mailcode: CH12A | [facility], [place] | | | | | [facility] | [address] | | | | | and [place], | [phone] | | | | | [facility] | | | | | | [place], [place] | | | | | | [address] | | | | | | [phone] | | | +--------+---------+ + + + [...] + + + | Blood Pressure | - | - | | + + + + + | Pulse | - | - | | + [...] + + + + | Weight | 88.5 kg (195 lb) | 05/02/2009 9:58 AM | | | | | PDT | | + + + + + | Height | 177.8 cm (5' 10") | 05/02/2009 9:58 AM | | | | | PDT | | + + + + + | Body Mass Index | 27.98 | 05/02/2009 9:58 AM | | | | | PDT | | + + + + + documented in this encounter Patient Instructions Patient Instructions Beto Craft MD - 05/02/2009 11:27 AM PDTRight hip and knee pain Please eval and treat for right hip and knee pain with possible sciatica symptoms. Focus on increasing strength and flexibility especially of the hip flexors/extonsors and gluteal mus cles. Please complete a course of physical therapy. Call their office for an appointment. If you are not better in the next four to six weeks or your symptoms worsen please call our office back to schedule a follow-up appointment. documented in this encounter Progress Notes Beto Craft MD - 05/02/2009 11:46 AM PDTFormatting of this note might be different fro m the original. [facility] 05/02/2009 RESIDENT: Antoinette Alonso MD CC: Right knee pain HPI: This patient was referred to me by Noe THOMASON for consultation regarding Rt hip pa in. Has had hip and knee and back issues over the last few months. Deep pain in the ant knee and calf. Worse witih sittingin and lying.. Better with standin g pop in the hip Saw Dr Hines physical therapist. In [facility] for her back and hip pain then had surgery for L3-4 sdisc.. 1996: Piriformis area surgery after a fall. Nerve stimulater and fusion 2003:las visit Previous pain meds. Better now for 3-4 weeks. Since September 2008 she has been having right knee pain which starts in a generalized distri bution in the knee and radiates into the front and back of her leg. She has no associated n umbness or tingling, no bowel or bladder changes but does feel some weakness with there symt oms ("I have to lift my leg out of the car"). She also states her pain is worse lying flat or sitting, but better on her feet. She feels painful crepitus of the left hip especially w ith figure of four posture. She is taking ibuprofen/vicodin and oxycontin prn for her sympt oms and has recently completed a course of PT in [place] which has helped her symptoms. She has a history significant for having a L4/5 fusion in 1996 resulting from a left sided hip/gluteal injury. She also has a nerve stimulator implanted for pain in her left hip. Jia dixon sees Dr. John for her back symptoms. 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 Social History Main Topics Tobacco Use: Never Alcohol Use: 0.0 - 1.0 oz/week 0-2 drink(s) per week Drug Use: No Sexually Active: Not on file Other Topics Concern Not on file Social History Narrative No narrative on file ROS- as above, all other systems negative EXAM Filed Vitals 05/02/2009 9:58 AM Height: 177.8 cm (5' 10")( < 3 %ile) Weight: 88.451 kg (195 lbs)( < 3 %ile) Gen: well nourished female appears stated age, NAD MS: gait is antalgic with eversion of left foot. Two footed and one footed squat reveal va lgus collapse bilaterally, hip abductors on right 4+/5 strength otherwise strength 5/5 bilat erally Right Hip: ROM intact but noted to have decrease hip flexion to 70 degrees and extension to 20 degrees. Strength noted above. Negative log roll and Fabers. Postive Lisa's on right. WEIGHTBEARING RIGHT: Neutral LEFT: Neutral FEET: normal SQUAT: limited on right at 45 degrees GAIT: antalgic ACTIVE ROM: Right: Knee flexes to only 90 degrees, Left: 110 degrees POPLITEAL ANGLE: Right: 130, Left: 130 QUADRICEPTS ATROPHY: None and not apparent. EFFUSION: None PATELLA: RIGHT LEFT TILT Neutral Neutral GLIDE 2 quadrants 2 quadrants CREPITATION ++ None J SIGN Absent Absent TENDERNESS None None APPREHENSION Neg Neg OTHER LIGAMENTS: RIGHT LEFT VALGUS AT 30 Neg Neg VARUS AT 30 Neg Neg ANDRES 0 0 ANT. DRAWER Firm endpoint, symmetric Firm endpoint, symmetric PIVOT SHIFT Absent Absent POST. DRAWER Negative Negative OTHER PERIARTICULAR TENDERNESS: RIGHT LEFT JLT MEDIAL Neg Neg JLT LATERAL + Neg IRVING Neg Neg WILLOW Neg Neg PATELLAR TENDON EXT Neg Neg NVS: Intact Radiographs: Review of outside hip films reveal VNS inplace on left with no other signific ant abnormality noted. ASSESSMENT/PLAN: 1. Right knee pain- attributed to relative lack of flexibility and strength vs compensatio n injury from past injury on left side. Recommend PT to focus on increasing ROM and strength and decreasing pain. Will have pt f/u 4 to 6 weeks prn if symptoms persist or worsen. 2. Right hip pain- see plan Right hip and knee pain Please eval and treat for right hip and knee pain with possible sciatica symptoms. Focus on increasing strength and flexibility especially of the hip flexors/extonsors and gluteal mus cles. Please complete a course of physical therapy. Call their office for an appointment. If you are not better in the next four to six weeks or your symptoms worsen please call our office back to schedule a follow-up appointment. Antoinette Alonso MD Visiting Stage Electrician I personally interviewed the patient, duplicated the pertinent parts of the physical examin ation and personally formulated the plan with the medical lab assistant. I have reviewed, entere d my findings, and agree with the above documentation. Beto Craft M.D. Sports Medicine [facility], [address] [place] [address] Beto Martínez MD - 05/02/2009 11:00 AM [facility] Clinic 05/02/2009 Mae Hernández is a 48 y.o. female PCP: Noe THOMASON This patient was referred to me by Noe THOMASON for consultation regarding Rt hiop p ain. Has had hip and knee and back issues over the last few months. DEep garima in the ant knee and calf. Worse witih sittingin and lying.. Better with standing pop in the hip Saw Dr Hines physical therapist. In [place] for her back and hip pain then had surger y for L3-4 sdisc.. 1997: Piriformis area surgery after a fall. Nerve stimulater and fusion 2003:las visit Previous pain meds. Better now for 3-4 weeks. . documented in this en counter Plan of Treatment Not on filedocumented as of this encounter Visit Diagnoses + + | Diagnosis | + + | Hip pain - Primary Pain in joint, pelvic region and thigh | + + | Knee pain Pain in joint, lower leg | + + documented in this encounter
--- OUTSIDE RECORDS SUMMARY | ~2019-07-03 | XMS | Encounter Summary ---
Demographics + + + | Address | [address] | | | [place] [address] | + + + | Home Phone | | + + + | Preferred Language | Unknown | + + + | Marital Status | | + + + | Taoism Affiliation | NON | + + + [...] Team Providers + +------+ + | Care Pool Cleaner Name | Role | Phone | + +------+ + PCP | Unavailable | + +------+ + Encounter Details +--------+ + + + + | Date | Type | Department | Care Team | Description | +--------+ + + + + | 04/21/ | Procedure - | | Record, Operation [...] + + | OPERATION RECORD | | 04/21/2000 | | Results for this | | | | | | procedure are in the | | | | | | results section. | + +--------+ + + + documented in this encounter Results OPERATION RECORD (04/21/2000) + + | Transcriptions | + + | Interface, Construction Ironworker Helper In - 06/04/2006 1:06 AM PST | | [place] [address] | | [place], [place] [address] | | [facility]OPERATION RECORDMed Rec No.: | | [id number] Date: 04/21/2000Name: Richard DietrichJonyMARISELA SURGEON: | | Roger Fatima M.D.GRINDING AND SPRAYING SUPERVISOR: Corey | | Marco Antonio AllenPREOPERATIVE DIAGNOSIS:Low back pain with mild lumbar extension | | restriction.POSTOPERATIVE DIAGNOSIS:Low back pain with mild lumbar extension | | restriction.PRINCIPAL PROCEDURE PERFORMED:Diagnostic lumbar medial branch block under | | fluoroscopy.ANESTHESIA:Local anesthesia.SPECIMENS:None dictated.ESTIMATED BLOOD | | LOSS:None.COMPLICATIONS:There were no complications.INDICATIONS:The patient has a | | history of mild lumbar extension restriction with historyof neuropathic pain treated | | with peripheral nerve stimulator, which hasundergone generator failure. On her | | first visit, we were not really ableto elicit much of her mechanical pain, but today on | | evaluation we were ableto reproduce her pain with rotation at the lumbar area. | | With leftrotation, we were able to reproduce her left buttock pain radiating | | downthe back part of the buttock with an intensity of 10/10.When extension was added, no | | increase of the pain was found. With rightrotation, we were also able to reproduce | | left buttock pain radiating down.With right rotation to 45 degrees was 4/10. When | | extension was added tothe movement, she had pain 9/10. Bending backwards, she would | | have pain3/10. On the left buttock just sitting and bending forward would producepain | | 4/10. We decided to go ahead with the diagnostic lumbar medial branchblock. We once | | again reviewed the medical history and physical examinationwith the patient and the | | chart.DESCRIPTION OF PROCEDURE:After medical history and physical examination were | | reviewed with thepatient, PARQ discussion was performed and written consent | | obtained. Thepatient was taken to the procedure room where she placed herself in | | proneposition with pressure points padded. A pillow was placed under theabdomen | | to obtain a better flexion of the lumbar area. Monitors includingelectrocardiogram | | (EKG), pulse oximetry and non invasive blood pressurecuff where administered. Vital | | signs were monitored by Margarita Wong M.D.under Roger Fatima M.D.'s direct | | supervision.The lower back was cleaned with Betadine and prepped in sterile | | fashion.The lumbar vertebrae were localized under fluoroscopy and lidocaine, | | 1percent with bicarbonate was used for local anesthesia at L4, [id number] | | for a paramedian approach to the facet joints. A 22 gauge3-1/2 inch spinal needle | | to approach the facet joint under fluoroscopicguidance in the anteroposterior views | | and position was finally confirmed inthe oblique views.The movements were done in an | | incremental fashion. Once position of theneedles was obtained, the position was | | finally confirmed with [id number]. Contrast total of approximately 0.4 cc was | | injected at each level.Once the final position of the needles was confirmed on | | anteroposterior andoblique views with the contrast, lidocaine 2 percent, 0.5 cc was | | injectedthrough each needle.The needles at the L4 level were removed and the needles | | at the L5 wererepositioned under fluoroscopic guidance to reach bilateral sacral | | alalevels. Once again, position was confirmed under fluoroscopic guidance onanterior, | | posterior and oblique views with Omnipaque contrast, 0.4 cc ateach level, and | | lidocaine, 2 percent, 0.5 cc was once again injected. Thepatient tolerated the | | procedure well. She was taken to the recovery areaat the pain management center | | without any further complications.Before leaving, we tested the patient's pain | | again and she reportedimprovement of her pain. She said that upon sitting and | | bending forward,her pain had gone down to 2/10, but she thought that this was | | mostlyrelated to the injection to her regional low back pain. She also said thatwith | | left rotation and extension, her pain went down to 0/10 in her lowback and right | | rotation produced pain 2/10.When extension added, no pain was reproduced there. Bending | | backwards gaveher pain 0/10. She was sent home with instructions for patients who | | havehad injections, and she was allowed to take Motrin, 800 mg every 8 hoursfor three | | days when needed. She will follow up for a second diagnosticlumbar medial branch | | block in two weeks with Roger Fatima M.D.ATTENDING SURGEON'S ATTESTATION:Pursuant to | | Federal Medicare billing regulations, I certify that Roger Daley M.D. was present | | during the entire procedure.Corey Allen M.D. Roger Fatima, | | Marco AntonioMDR:[id number]: 04/22/2000T: 04/25/2000C: 04/27/2000 cmdcc:Bebe Claros | | Marco AntonioNeurosurgerySacred Heart [id number]: | |position with pressure points padded. A pillow was placed under the | |abdomen to obtain a better flexion of the lumbar area. Monitors including | |electrocardiogram (EKG), pulse oximetry and non invasive blood pressure | |cuff where administered. Vital signs were monitored by Margarita Wong M.D. | |under Roger Fatima M.D.'s direct supervision. | | | |The lower back was cleaned with Betadine and prepped in sterile fashion. | |The lumbar vertebrae were localized under fluoroscopy and lidocaine, 1 | |percent with bicarbonate was used for local anesthesia at L4, L5 | |bilaterally for a paramedian approach to the facet joints. A 22 gauge | |3-1/2 inch spinal needle to approach the facet joint under fluoroscopic | |guidance in the anteroposterior views and position was finally confirmed in | |the oblique views. | | | |The movements were done in an incremental fashion. Once position of the | |needles was obtained, the position was finally confirmed with Omnipaque | |180. Contrast total of approximately 0.4 cc was injected at each level. | |Once the final position of the needles was confirmed on anteroposterior and | |oblique views with the contrast, lidocaine 2 percent, 0.5 cc was injected | |through each needle. | | | |The needles at the L4 level were removed and the needles at the L5 were | |repositioned under fluoroscopic guidance to reach bilateral sacral ala | |levels. Once again, position was confirmed under fluoroscopic guidance on | |anterior, posterior and oblique views with Omnipaque contrast, 0.4 cc at | |each level, and lidocaine, 2 percent, 0.5 cc was once again injected. The | |patient tolerated the procedure well. She was taken to the recovery area | |at the pain management center without any further complications. | | | |Before leaving, we tested the patient's pain again and she reported | |improvement of her pain. She said that upon sitting and bending forward, | |her pain had gone down to 2/10, but she thought that this was mostly | |related to the injection to her regional low back pain. She also said that | |with left rotation and extension, her pain went down to 0/10 in her low | |back and right rotation produced pain 2/10. | | | |When extension added, no pain was reproduced there. Bending backwards gave | |her pain 0/10. She was sent home with instructions for patients who have | |had injections, and she was allowed to take Motrin, 800 mg every 8 hours | |for three days when needed. She will follow up for a second diagnostic | |lumbar medial branch block in two weeks with Roger Fatima M.D. | | | |ATTENDING SURGEON'S ATTESTATION: | |Pursuant to Federal Medicare billing regulations, I certify that Roger Zavaleta | |Marco Antonio Fatima was present during the entire procedure. | | | | | | | |Marco Antonio Anthony M.D. | | | |MDR:[id number] | | | | | |C: 04/27/2000 cmd | | | | | | | |cc: | | | | | | | |Bebe Claros M.D. | |Neurosurgery | |[facility] | | | | | | | |[id number] | | | |CC: | + + documented in this encounter Visit Diagnoses Not on filedocumented in this encounter"
--- OUTSIDE RECORDS SUMMARY | ~2019-07-03 | XMS | Encounter Summary ---
Demographics + + + | Address | [address] | | | [place] [address] | + + + | Home Phone | | + + + | Preferred Language | Unknown | + + + | Marital Status | | + + + | Zoroastrianism Affiliation | NON | + + + [...] Providers + +------+ + | Care Program Director/Air Personality Name | Role | Phone | + +------+ + PCP | Unavailable | + +------+ + Encounter Details +--------+ + + + + | Date | Type | Department | Care Team | Description | +--------+ + + + + | 12/21/ | Office | [facility] | Note, [...] as of this encounter Progress Notes Interface, Director Treasurer In - 05/16/2006 3:12 AM PDTCLINIC DATE: 12/21/2000 [facility] PSYCHOLOGICAL EVALUATION IDENTIFICATION AND REFERRAL: The patient is a 40-year-old white female who has been involved in treatment at the [facility] for some period of time on an intermittent basis and who is being considered for possible IDET and who is referred for the psychological evaluation to further develop a more comprehensive multidisciplinary perspective and plan. BASIS OF EVALUATION: Clinical interview with the attending psychologist as well as approximately 1/4-hour psychological testing comprised of the Matos Depression Inventory (BDI). DESCRIPTION AND HISTORY OF PAIN PROBLEM: The patient indicated that the primary pain problems she is "working on right now" is a problem in her tailbone area in the lower back where she experiences great discomfort. She noted that the area "hardens." She denied experiencing significant difficulties in her legs. She dated the onset of her pain to a fall in a store of about 4 years ago. She underwent a variety of evaluation and treatment procedures ultimately including surgery and spinal cord stimulation. The spinal cord stimulation ultimately has provided coverage to the area in her hip and buttock area. She had come to this [facility] and had been involved in physical therapy but did not find this to be resulting in dramatic change in her remaining pain. She has been discussing the possibility of discography and IDET now to address her remaining major pain complaint in the low back area. She is still in the evaluation process for IDET. FACTORS THAT EXACERBATE/ALLEVIATE PAIN: The patient's pain is made worse by sitting too long, standing in one position for too long, doing too much in 1 day, and sometimes noting a delayed effect from engaging in one position or activity such that she feels it more later than immediately. Her pain is alleviated to some extent by the use of stretching and bending, occasional use of opioid medication if the pain is particularly severe, use of a hot bath, and walking. She has not noticed a significant stress effect on her pain. She has noted that she can lay on one side only if she is positioned correctly. PAIN SCORE: Upon interview, the patient rated her present pain as 3-4 on a 0 (pain equals) to 10 (unbearable/worst imaginable pain) scale, noting that over the past weekend it ranged from about 3-8 an average to around 5. ADVERSE EFFECTS THE PATIENT ON FUNCTIONING: The patient has had to decrease her activities in general. She also noted that her changes in activity and capability have affected everybody in her household where other are held back to some extent in what they do because of her limited ability to engage at the same level. HISTORY OF NEUROPSYCHOLOGICAL INFLUENCE/DEFICITS: Denied. MEDICATIONS: The patient's current medications include only occasional p.r.n. medicines and nothing taken on a regular basis. She takes Vicodin only, very occasionally when her pain is at its most unbearable. She will occasionally take Advil for headaches. OTHER MEDICAL/SURGICAL HISTORY: The patient has been reportedly, relatively healthy. She did have surgery involving partial hysterectomy and bladder tuck which relieved some of the discomfort that she was feeling involving extra sharp pain like a "corporation secretary knife jabbing up" her vagina. PRESENT PSYCHOLOGICAL SYMPTOMS: The patient denied experiencing much in a way of significant depression, irritability/anger, or anxiety. She reported having basically adequate sleep, although she does have some problem getting and maintaining a comfortable position. Her energy level is reportedly good. Her appetite is fine. She has gained some weight related to her restricted activity level, and this has been very bothersome to her in terms of her self image. She denied significant anhedonia. She did have some adverse impact on her sexual functioning for a while but stated that matters are fine now. She denied crying spells or significant thoughts of self-denigration. She has an even brighter outlook of the future in anticipation of what might be done for her pain management at this stage. She does not fight or withdraw socially. She denies suicidal or homicidal thinking or psychotic-like symptoms. PAST PSYCHOLOGICAL/PSYCHIATRIC TREATMENT HISTORY: Denied. FAMILY PSYCHIATRIC HISTORY: Denied. SUBSTANCE USE HISTORY: The patient has never used tobacco. She drinks alcohol only very occasionally and drinking has never been a problem. She denied any use of illicit substances. She has greatly limited her caffeinated beverage intake and now primarily decaffeinated beverages. SOCIAL HISTORY Family and Current Social Support: The [place] was [place] She has 3 to 4 siblings. She reports an excellent developmental/childhood history, free from abuse. She reported very close relationships with her family members. She herself has been 2 times. She noted that she has good friends with her first and that they have actually got along much better since they have . She has been almost 6 years to her current second . She noted that matters have been somewhat difficult in her relationship, and she has not felt a lot of support from him through all the difficulties she has been having with her pain condition. She noted that he is not affectionate as she would like. She stated "he does not give me the support, and I think I deserve." She noted that she believe they are doing reasonably good together despite some of the strain. She has 2 children, a 16-year-old daughter from her first marriage and a 6-year-old son from her current marriage. She reported very close relationships with her children despite some teenage issues with her older daughter. She reported the availability of confidence and a satisfying social support network. Educational: The patient graduated from high school. 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 She stayed home for a few years as she was raising her child. 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 She reported very much enjoying her job. Financial: The patient reported difficult financial circumstances related a lot to strain due to medical bills. Her does work travel sales consultant as well. She has a law suit regarding the fall she had and believes that there might be some better resolution after she finishes up her evaluation and possible treatment of the remaining pain issue she is addressing at the [facility]. Daily Activities and Avocational Interests/Activities: The patient typically works at least 40 hours per week. She spends her other time doing household matters, shopping some, being with friends and family, but is not doing too much outs and has not had much in the way of hobbies or social recreational activities over the past few years. PATIENT'S STATED GOALS FOR TREATMENT: The patient expressed the hope to see if her pain is coming from disk in her back and if so to undergo more definite treatment, presumably with IDET. If the disks are not part of her problem then she believes she will just have to learn to live with her pain since she does not want to be a "guinea pig" and keep undergoing procedures without necessarily having a very significant potential for benefit. Overall, she believes she had been relatively fine in terms of her own abilities to cope but she does find it sad to contemplate the thing she is not able to do. Nevertheless, she believed that she had received great benefit from the spinal cord stimulation and other procedures with Dr. Claros in Neurosurgery and has changed her orientation over time from seeking a perfect care or solution to her problem to accepting that everything has been done, it can be done and then no need to make any necessary adjustments. As she said "you just have to learn you have to go a different avenue." BEHAVIORAL OBSERVATION: The patient was a somewhat tolerant, quite sun-tanned woman. Her affect and mood were generally appropriate to the seriousness of the situation. She appeared alert and reasonably oriented in necessary spheres. Her cognitive function was intact for present purposes. Her speech and thought processes remained clear and understandable. There was no evidence of psychotic processes nor suicidal or homicidal thinking. Her judgement and insight would appear to be adequate. PSYCHOLOGICAL TEST RESULTS: The patient obtained a very low score on the BDI, suggesting absence of significant perceive and depression. ICD-9-CM WORKING DIAGNOSES 316 Psychic factors associated with disease; pacing issues, improved. DSM-IV WORKING DIAGNOSES AXIS I: 307.89Pain disorder associated with both psychological factors and a general medical condition; pacing issues, improved. AXIS II: Deferred. AXIS III: Chronic low back pain. AXIS IV: Psychosocial stressors: Activity/lifestyle restrictions and interferences associated with chronic pain; marital issues. AXIS V: Global Assessment of Functioning scale: Current GAF = 75. PROBLEM LIST 1. Chronic low back pain. 2. Sun deactivation/deconditioning. 3. Denies/minimizes symptoms of affective disturbance/distress. 4. Denies/minimizes influence of stress on pain. 5. History of pacing issues, improved. 6. Some weight gain associated with relatively lowered activity level and corresponding concerns about of self-image. 7. Some marital issues. 8. Financial strain. 9. Pain-related litigation. GOALS 1. Decreased pain. 2. Increase activation/conditioning. 3. Maintain maximum mood and general emotional stability. 4. Maintain improved pacing. 5. Decrease weight. 6. Improve marital functioning. 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 She reports "tough" financial situation due to large medical bills. Apart from some dissatisfaction with her spouse and perceived lack of affectionate, supportive behaviors on his part ("he does not give me the support, and I think I deserve"), she has a broadly satisfying social support network. She reported being currently committed to the relationship with her . She is interested in invasive/interventional workup and possible treatment "(IDET) " plan. She believes that over time she has accepted the reality of chronic pain and the need to make adjustments ("just have to learn, you have to go a different avenue"), but does have some sadness at times about having to limit her various activities. RECOMMENDATION/PLAN/ACTION 1. No contraindications to proceeding with invasive/interventional workup and correspondingly indicated therapy from a psychological standpoint; please note, however, patient does not perceive satisfactory level of support from but does have others in her network who are perceived as most important. 2. Psychological services may be made available p.r.n. but there are no strong indications for such at present; however, she might benefit from some training in self-regulation techniques to further enhance self-management strategies that she is currently employing for coping and symptom management; she may, though, not perceive much need or likely benefit or justification in terms of cough/benefit. 3. Consider marital counseling if quality of relationship deteriorates more significantly. The patient was informed that more definite treatment, recommendations would be forthcoming following a multidisciplinary pain management center team conference. She expressed her understanding of the need for and gave consent to the sharing of evaluation of information with referring physician, noting that she does not really have much in the way of a primary care provider, as well as the Pain Management Center, and her insurance company in order to coordinate her care. Roger Hameed, Ph.D. Data Entry Email Processor of Anesthesiology Diplomate in Health Psychology, DAVIDP ROSIE / M[place]ELINE [id number] / [id number] / [id number] / [id number] signed by Interface, Director Treasurer In at 05/16/2006 3:12 AM PDTdocume nted in this encounter Plan of Treatment Not on filedocumented as of this encounter Visit Diagnoses Not on filedocumented in this encounter
--- OUTSIDE RECORDS SUMMARY | ~2019-07-03 | XMS | Encounter Summary ---
Demographics + + + | Address | [address] | | | [place] [address] | + + + | Home Phone | | + + + | Preferred Language | Unknown | + + + | Marital Status | | + + + | Holiness Affiliation | 1041 | + + + | Race | Unknown | + + + | Ethnic Group | Unknown | + + + Author + + + | Author | [facility] | | | and Humbertoana | + + + | Organization | [facility] | [...] [place] | | | | | [address] | | + + + + + | Daina Mazariegos | ECON | Unknown | | + + + + + Care Team Providers + +------+ + | Care Vacuum Worker Name | Role | Phone | + +------+ + | Noe Thomason | PCP | | | MD | | | + +------+ + Encounter Details +--------+ + + + + | Date | Type | Department | Care Team | Description | +--------+ + + + + | 03/12/ | Hospital | [facility] | Michelle Haney, | Weakness of both | | 2015 | Encounter | MED CTR XRAY [address] | [place] [address] | legs | | | | [place] | [place], [place] | | | | | [place] [address] | [id number] | | | | | [phone] | [phone] | | | | | | | | | | | | Zora Kilpatrick Ir | | +--------+ + + + + [...] each | | 0 | 04/07/20 | 10/22/201 | | (FLONASE) 50 | nostril daily [...] + +--------+ + + + | FL INJECTION FOR CT | Routin | 03/12/2015 | Weakness of both | Results for this | | MYELOGRAM | e | 1:29 PM | legs | procedure are in the | | | | PDT | | results section. | + +--------+ + + + documented in this encounter Results FL Injection for CT Myelogram (03/12/2015 1:29 PM PDT) + + | Specimen | + + | | + + + + + | Narrative | Performed At | + + + | FL INJECTION FOR CT MYELOGRAM. 03/12/2015 1:05 PM HISTORY: | [facility] | | Weakness of both legs. EVAL RT LOWER EXTREMITY PAIN, BILATERAL HF | | | WEAKNESS, AND S/P PREVIOUS LUMBAR FUSION.. COMPARISON: Lumbar | | | spine x-ray 03/12/2015 TECHNIQUE: The patient's name, date of | | | , and procedure site were confirmed prior to proceeding. | | | Risks, benefits, and alternatives to the procedure were discussed | | | with the patient, who signed consent after an opportunity to ask | | | questions. The patient's low back was then prepped and draped in the | | | usual sterile fashion. Local anesthesia was provided using 1% | | | buffered Lidocaine. Under fluoroscopic guidance, a 22-gauge spinal | | | needle was advanced into the spinal canal from a posterior approach, | | | with the inner stylette replaced into the needle whenever the needle | | | was moved/repositioned. Once CSF fluid was seen in the hub of the | | | needle after removing the stylette, a total of 7 mL of Omnipaque 300 | | | contrast was then introduced into the intrathecal space. The | | | stylette was then once again replaced into the needle, and the needle | | | was then removed. The patient tolerated the procedure | | | well, without evidence of immediate complication. FINDINGS: | | | The spinal needle is seen at the L4-5 level. Contrast is seen to | | | appropriately redistributed along within the thecal sac. | | | IMPRESSION - Successful fluoroscopically guided myelogram injection, | | | as described above. Dictated and Signed by: Eric Veras MD | | | Electronically signed: 03/12/2015 2:36 PM | | + + + + + | Procedure Note | + + | Jarrod, Rad Results In - 03/12/2015 2:39 PM PDT [place] INJECTION FOR CT MYELOGRAM. | | 03/12/2015 1:05 PMHISTORY: Weakness of both legs. EVAL RT LOWER EXTREMITY PAIN, BILATERAL | | HFWEAKNESS, AND S/P PREVIOUS LUMBAR FUSION..COMPARISON: Lumbar spine x-ray | | 03/12/2015TECHNIQUE: The patient's name, date of , and procedure site were | | confirmedprior to proceeding. Risks, benefits, and alternatives to the procedure | | werediscussed with the patient, who signed consent after an opportunity to askquestions. | | The patient's low back was then prepped and draped in the usualsterile fashion. Local | | anesthesia was provided using 1% buffered Lidocaine. Under fluoroscopic guidance, a | | 22-gauge spinal needle was advanced into thespinal canal from a posterior approach, with | | the inner stylette replaced intothe needle whenever the needle was moved/repositioned. | | Once CSF fluid was seenin the hub of the needle after removing the stylette, a total of | | 7 mL ofOmnipaque 300 contrast was then introduced into the intrathecal space. | | Thestylette was then once again replaced into the needle, and the needle was | | thenremoved. The patient tolerated the procedure well, without evidence of | | immediatecomplication. FINDINGS:The spinal needle is seen at the L4-5 level. Contrast | | is seen to appropriatelyredistributed along within the thecal sac.IMPRESSION -Successful | | fluoroscopically guided myelogram injection, as described above.Dictated and Signed by: | | Eric Veras MD Electronically signed: 03/12/2015 2:36 PM | |removed. | |The patient tolerated the procedure well, without evidence of immediate | |complication. | | | |FINDINGS: | |The spinal needle is seen at the L4-5 level. Contrast is seen to appropriately | |redistributed along within the thecal sac. | | | |IMPRESSION - | |Successful fluoroscopically guided myelogram injection, as described above. | | | |Dictated and Signed by: Eric Veras MD | | Electronically signed: 03/12/2015 2:36 PM | + + + +---------+ + [...] limbs | + + documented in this encounter Administered Medications + +--------+ +-------+------+------+ | Medication Order | MAR | Action | Dose | Rate | Site | | | Action | Date | | | | + +--------+ +-------+------+------+ | iohexol (OMNIPAQUE 300) 300 | Given | 03/12/20 | 7 mLs | | | | mg/mL injection 7 mL 7 mL, | | 15 1:30 | | | | | Other, ONCE PRN, Other, Starting | | PM PDT | | | | | 03/12/15 at 1327, For 1 dose, | | | | | | | Radiology | | | | | | + +--------+ +-------+------+------+ +---+---+ | | | +---+---+ + +-------+ +-------+---+ + | lidocaine 1% injection 5 mL 5 | Given | 03/12/20 | 5 mLs | | Other | | mL, Intradermal, ONCE, Wed | | 15 1:29 | | | (Comment | | 03/12/15 at 1345, For 1 dose, | | PM PDT | | | ) | | Radiology | | | | | | + +-------+ +-------+---+ + +---+---+ | | | +---+---+ + +-------+ +-------+---+---+ | sodium bicarbonate (NEUT) 4% | Given | 03/12/20 | 4 mLs | | | | injection 4 mL 4 mL, | | 15 1:29 | | | | | Infiltration, ONCE, 03/12/15 | | PM PDT | | | | | at 1345, For 1 dose, Use for | | | | | | | addition to other parenteral | | | | | | | solutions., Radiology | | | | | | + +-------+ +-------+---+---+ +---+---+ | | | +---+---+ documented in this encounter"
--- OUTSIDE RECORDS SUMMARY | ~2019-07-03 | XMS | Encounter Summary ---
Demographics + + + | Address | [address] | | | [place] [address] | + + + | Home Phone | | + + + | Preferred Language | Unknown | + + + | Marital Status | | + + + | Quaker Affiliation | NON | + + + [...] Team Providers + +------+ + | Care Drycleaner Name | Role | Phone | + +------+ + PCP | Unavailable | + +------+ + Encounter Details +--------+ + + + + | Date | Type | Department | Care Team | Description | +--------+ + + + + | 08/07/ | Transcribed | | Dictation, Other | [...] as of this encounter Progress Notes Interface, House Repairer In - 07/25/2006 3:17 AM [facility] OR [facility] [place] [address] [place], [place] [address] or August 07, 1998 [place] [id number] [place] [address] RE: MAE LOWRY MR#: [id number] Madden: I had the pleasure of seeing the patient in the Neurosurgery Clinic today. She was seen, examined, and her condition and management were discussed in detail with the patient by Dr. Claros. As you know, this 37-year-old lady had intractable pain in her left leg and was diagnosed with left piriformis syndrome. She particularly underwent piriformis release and currently is recovering from the procedure. She continues to have pain in the gluteal area on the left side, and the pain gets worse on movement and on sitting down. This prevents the patient from normal activities, and she cannot drive for a long time or perform any kind of work in the sitting position. The patient's examination remains essentially normal, although she does have some tenderness on palpation in the gluteal area under the postoperative scar. Whether or not this is related to the healing process in her sciatic nerve or there is something else going on, is not clear at this point. However, we would like to pursue some less invasive treatment modalities, such as focal injection of steroids and perhaps trigger point injections that can be done in the setting of the Pain Clinic. We are going to refer this patient to our Pain Clinic so she can be evaluated and perhaps helped with focal injections. She is going to return to us in one month, and at that time we will decide if there is anything else we can do in order to improve her condition. In the meantime, we are planning to start her on oral Neurontin and we will gradually increase her dose from 1 tablet a day to 6 tablets a day, so that may improve her neuropathic sensation and also the shooting pain that she experiences every once in a while. At this point the patient is still able to return to her work, and we will need to reevaluate her condition during her next visit in the middle of August. I want to thank you very much for sending this patient to us, and I will be happy to let you know about her progress in the future. If you have any questions or concerns about her condition or management, please do not hesitate to contact us here. Thank you again. Sincerely, Hola Arciniega M.D. KS:xt4 C: 08/12/98 dlk documented in this encounter Plan of Treatment Not on filedocumented as of this encounter Visit Diagnoses Not on filedocumented in this encounter"
--- OUTSIDE RECORDS SUMMARY | ~2019-07-03 | XMS | Encounter Summary ---
Demographics + + + | Address | [address] | | | [place] [address] | + + + | Home Phone | | + + + | Preferred Language | Unknown | + + + | Marital Status | | + + + | Yazidism Affiliation | 1041 | + + + | Race | Unknown | + + + | Ethnic Group | Unknown | + + + Author + + + | Author | [facility] | | | and Humbertoana | + + + | Organization | [facility] | | | and [place]toana [...] [place] | | | | | [address] | | + + + + + | Daina Mazariegos | ECON | Unknown | | + + + + + Care Team Providers + +------+ + | Care Art History Instructor Name | Role | Phone | + [...] | +--------+--------+ + + + + | Denied | | Radiology | Diagnoses | | [address] | | | | | Lumbar | [place], | [place] | | | | | radiculopath | Mohan Andrews MD | [place], | | | | | y | [address] | [place] [address] | | | | | Procedures | [place] | Phone: | | | | | CT Lumbar | [place], [place] | [phone] | | | | | Spine w | [address] | Fax: | | | | | Contrast | Phone: | [phone] | | | | | | [phone] | | | | | | | Fax: | | | | | | | [phone] | | +--------+--------+ + + + + Reason for Visit + + + | Reason | Comments | + + + | Back Pain | Low back pain that radiates into both hips and down the legs | + + + Encounter Details +--------+---------+ + + + | Date | Type | Department | Care Team | Description | +--------+---------+ + + + | 07/12/ | Office | [facility] | Mohan Bunn | Lumbar radiculopathy | | 2012 | Visit | PHYSIATRY [address] | TMD [address] | (Primary Dx); Right | | | | [place], | [place], [place] | hip pain; Bursitis, | | | | [place] [address] | [address] | hip; BACK PAIN, | | | | [phone] | | LUMBAR; Sacroiliitis | | | | | | - right; Hx of | | | | | | spinal fusion | +--------+---------+ + + + Social History [...] + + + | Blood Pressure | 146/94 | 07/12/2013 7:31 AM | | | | | PST | | + + + + + | Pulse | 83 | 07/12/2013 7:31 AM | | | | | PST [...] Weight | 83.9 kg (185 lb) | 07/12/2013 7:31 AM | | | | | PST | | + + + + + | Height | 177.8 cm (5' 10") | 07/12/2013 7:31 AM | | | | | PST | | + + + + + | Body Mass Index | 26.54 | 07/12/2013 7:31 AM | | | | | PST | | + + + + + documented in this encounter Progress Notes Mohan Bunn MD - 07/12/2013 8:13 AM PST Chief Complaint Patient presents with Back Pain Low back pain that radiates into both hips and down the legs HPI: The patient is being seen in follow-up today for several pain complaints including ch ronic low back pain, bilateral lateral hip pain, right groin pain and some pain radiating do wn the right leg to the ankle. She has been seen for some of these complaints in the past. She has a history of lumbar fusion (L4-L5) and a nerve stimulator. She has tried PT and has had prior trochanteric bursa injections in the past which provided relief. Recently she had several left foot surgeries and had been wearing a walking boot. She has had an abnormal g ait because of this and she feels this has flared up her pain in the hip and in the low back . She has had x-rays of the right hip previously and that did show some early arthritis. S he is interested in repeating trochanteric bursa injections again today. She is also hoping to try to figure out what is happening with the back and hip and would like new imaging. Jia dixon cannot have an MRI because of the nerve stimulator. Patient's medications, allergies, past medical, surgical, social and family histories were reviewed and updated as appropriate. X-rays of the hip and lumbar spine were reviewed with the patient in detail. Current Outpatient Prescriptions Medication Sig Dispense Refill aspirin (ADULT ASPIRIN EC LOW STRENGTH) 81 MG EC tablet Take 162 mg by mouth Daily. cetirizine (ZYRTEC) 10 mg tablet Take 10 mg by mouth Daily. fluticasone (FLONASE) 50 mcg/nasal spray 2 sprays in each nostril daily oxyCODONE-acetaminophen (PERCOCET) 5-325 mg per tablet Take 1 tablet by mouth Daily as needed. Phendimetrazine Tartrate (BONTRIL SLOW RELEASE) 105 MG CP24 Take 105 mg by mouth Daily. Allergies Allergen Reactions Erythromycin ROS: The patient reported the pain complaints as above in HPI and some continued right berlin t pain as well. She has had some weight gain and is always cold. She was recently found to have hypothyroidism. PHYSICAL EXAMINATION: Blood pressure 146/94, pulse 83, height 1.778 m (5' 10"), weight 83.915 kg (185 lb). Body mass index is 26.54 kg/(m^2). GENERAL: The patient is well developed and well nourished. She does not appear uncomfortab le when seated. HEENT: Normocephalic and atraumatic. Normal sclerae without icterus. NECK (ANTERIOR): There is no apparent cervical lymphadenopathy or thyromegaly. PULMONARY: The patient is in no acute respiratory distress with unlabored respirations. CARDIOVASCULAR: Regular rate and rhythm. There is not lower extremity edema. ABDOMEN: Non-distended. SKIN: Limited skin exam shows no significant rashes or lesions. There are well healed surg ical scars in the lumbar region. NEUROLOGIC: The patient is awake, alert, and oriented. She follows simple and complex commands. Her speech is fluent. She comprehends speech well. She has no apparent deficits with short or residential memory. The cranial nerves appear grossly intact. Sensory exam does not show diminished sensation to light touch in the upper and lower extre mities. REFLEX: RIGHT LEFT PATELLAR 2+ 2+ ACHILLES 0 0 PLANTAR Downgoing Downgoing MUSCULOSKELETAL : Straight leg raise and slump-sit are mildly positive on the right. Patri ck's maneuver and impingement testing were positive for groin pain on the right. There was significant tenderness to palpation over the greater trochanters and to a lesser extent ove r the sacral sulci. The patient localized the majority of the pain to the lateral hips and the right groin. She did also report that the pain starting at approximately L5 and radiati ng down the right leg pain was quite severe as well. Lumbar facet loading was negative. St rength testing showed 5/5 strength throughout the lower extremities. The patient was able t o heel and toe walk but with some difficulty and pain due to her foot issue on the left (pelon or surgery with pins and screws). There was no redness, effusion, warmth or joint line tend erness in the knees or ankles. 1. Lumbar radiculopathy - with low back pain radiating down the right leg 2. Right hip pain - x-rays show progression of arthritis 3. Bursitis, hip - bilateral 4. Low back pain 5. Sacroiliitis - right greater than left 6. Hx of spinal fusion Plan: 1. I did order x-rays of the right hip today. As x-rays did show significant progression o f arthritis which I would classify as severe at this point. She does want to consider surge ry at some point but like to postpone that if possible and we discussed other options such a s an intra-articular hip injection. She wants trochanteric bursa injections today so I woul d not want to do the hip injection too soon. We will bring her back in a few weeks for the intraarticular hip injection. 2. As above she wants to try trochanteric bursa injections and I did feel that was appropr iate. The procedure was performed using sterile, no-touch technique. Initially, a 27-gauge 1-1/2 -inch needle was used to anesthetize the area with approximately 2 mL of 1% lidocaine, then a 22-gauge spinal needle was advanced down to periosteum over the greater trochanter then sl ightly withdrawn. Attempted aspiration did not show any blood or other fluid, then a total o f 1 mL of 40 mg/mL of Kenalog and 2 mL each of 0.5% bupivacaine and 1% lidocaine was infused into this region. The patient tolerated the procedure well without complications. The enti re procedure was then repeated on the opposite side. She was instructed to ice the area as n eeded over the next few days and to watch for any signs of infection. 3. I did also order a CT myelogram of the lumbar spine for further evaluation of her back issues and radicular leg pain. 4. I did not make any changes in her medications today. documented in this encounter Plan of Treatment + +---------+--------+ + + | Name | Type | Priori | Associated Diagnoses | Order Schedule | | | | ty | | | + +---------+--------+ + + | CT Lumbar Spine w | Imaging | Routin | Lumbar | Expected: | | Contrast | | e | radiculopathy | 07/12/2013, Expires: | | | | | | 07/12/2014 | + +---------+--------+ + + | FL Lumbar Puncture | Imaging | Routin | Lumbar | Expected: | | | | e | radiculopathy | 07/12/2013, Expires: | | | | | | 07/12/2014 | + +---------+--------+ + + documented as of this encounter Results XR Hip Right 2 + Vw (07/12/2013 10:39 AM PST) + + | Specimen | + + | | + + + + + | Narrative | Performed At | + + + | [facility] | [place] | | Department [address] [facility] [facility] [place] | [facility] | | [ rep [address]] [ rep [facility] | | st zip] Signed | - IMAGING | | | | | Patient Name: MAE THOMPSON | | | Physician: KEILA : 1960 Age: 52 Sex: F Unit | | | #: [id number] Exam Date: 07/12/13 Location: | | | [facility] [place] [place] Report #: [id number] Page: | | | %(RAD)RES..mtdd.print.filter("pg") of %(RAD) | | | RES..mtdd.print.filter("tpg") | | | | | | Accession Number: [id number] | | | PELVIS AND RIGHT HIP, TWO VIEWS, 07/12/2013 CLINICAL | | | HISTORY: RIGHT HIP AND GROIN PAIN. COMPARISON: | | | Pelvic radiographs 08/06/2011. FINDINGS: The bones | | | are well mineralized and well aligned. No fracture or dislocation is | | | suspected. Complete, progressive narrowing of the superior right | | | hip joint space is evident, and subchondral sclerosis and cystic | | | change are now evident as well. The left hip joint, sacroiliac | | | joints and pubic symphysis are maintained. An electronic device | | | and associated electrodes again project over the left lower | | | abdomen/pelvis. Jasvir and pedicle screw fusion hardware in the lower | | | lumbar spine is only minimally imaged. Soft tissue structures are | | | unremarkable. IMPRESSION: 1. SEVERE, | | | PROGRESSIVE DEGENERATION OF THE RIGHT HIP. Dictated | | | Date/Time: 07/12/2013 10:39 Transcribed Date/Time: 07/12/2013 | | | 10:58 Binder Coverstitch: <<Signature | | | on File>> | | | Rui Shaver | | | MD Nguyễn07/12/13 2219 <Electronically signed by Rui Adrian MD> | | | Rui Adrian MD 07/12/13 1039 Binder Coverstitch: | | | [facility]-care Auipubcbdenxy38/19/13 1058 Mohan Bunn MD | | | | | + + + + + + + + | Performing | Address | City/State/Zipcode | Phone Number | | Organization | | | | + + + + + | [facility] | [address] | [place] | [phone] | | [facility] | | [address] | | | - IMAGING | | | | + + + + + documented in this encounter Visit Diagnoses + + | Diagnosis | + + | Lumbar radiculopathy - Primary Thoracic or lumbosacral neuritis or radiculitis, | | unspecified | + + | Right hip pain Pain in joint, pelvic region and thigh | + + | Bursitis, hip Enthesopathy of hip region | + + | BACK PAIN, LUMBAR Lumbago | + + | Sacroiliitis - right Sacroiliitis, not elsewhere classified | + + | Hx of spinal fusion Arthrodesis status | + + documented in this encounter
--- OUTSIDE RECORDS SUMMARY | ~2019-07-03 | XMS | Encounter Summary ---
Demographics + + + | Address | [address] | | | [place] [address] | + + + | Home Phone [...] Team Providers + +------+ + | Care Inside Sales Account Representative Name | Role | Phone | + +------+ + | Noe Thomason MD | PCP | | + +------+ + Reason for Referral Consultation (Routine) +--------+--------+ + + + + | Status | Reason | Specialty | Diagnoses / | Referred By | Referred To | | | | | Procedures | Contact | Contact | +--------+--------+ + + + + | Denied | | Orthopedics | Diagnoses | Maddy, | Donny, | | | | | Right hip | Edison Brown, | MD Valentín | | | | | pain | [facility] [address] | [address] | | | | | Procedures | [address] | Dave Conroy | | | | | CONSULT TO | TINO, | [place], | | | | | ORTHOPEDICS | [place] | [place] | | | | | [place] | [address] | [address] | | | | | REHABILITATI | Phone: | Phone: | | | | | ON | [phone] | [phone] | | | | | | Fax: | Fax: | | | | | | [phone] | [phone] | +--------+--------+ + + + + Physical Therapy (Routine) +--------+--------+ + + + + | Status | Reason | Specialty | Diagnoses / | Referred By | Referred To | | | | | Procedures | Contact | Contact | +--------+--------+ + + + + | Closed | | | Diagnoses | Maddy, | | | | | | Low back | Edison Brown, | | | | | | pain | PA-C [address] | | | | | | Procedures | [address] | | | | | | PHYSICAL | [place], | | | | | | THERAPY | [place] | | | | | | REFERRAL | [address] | | | | | | | Phone: | | | | | | | [phone] | | | | | | | Fax: | | | | | | | [phone] | | +--------+--------+ + + + + Reason for Visit + + + | Reason | Comments | + + + | New patient | | | consultation | | + + + Intake Referral (Routine) +--------+ + + + + + | Status | Reason | Specialty | Diagnoses / | Referred By | Referred To | | | | | Procedures | Contact | Contact | +--------+ + + + + + | Closed | Specialty | Neurological | Diagnoses | | Maddy, | | | Services | Surgery | DDD | Sepideh, | Edison Brown PA-C | | | Required | | (degenerativ | Mohan Andrews MD | [address] | | | | | e disc | [address] | [place] | | | | | disease), | [facility] | [place], [place] | | | | | lumbosacral | [place], [place] | [address] | | | | | [place] | [address] | Phone: | | | | | spinal | Phone: | [phone] | | | | | fusion | [phone] | Fax: | | | | | Lumbar | Fax: | [phone] | | | | | radiculopath | [phone] | | | | | | y | | | | | | | Spondylolist | | | | | | | hesis of | | | | | | | lumbar | | | | | | | region | | | +--------+ + + + + + Encounter Details +--------+---------+ + + + | Date | Type | Department | Care Team | Description | +--------+---------+ + + + | 06/10/ | Office | Neurosurgery at | Edison Burgos, | Low back pain | | 2013 | Visit | [facility] [address] | [address] | (Primary Dx); | | | | Ave Mailcode: CH[address] | Ave [place], [place] | Weakness of both | | | | [place] [facility] | [address] | legs; | | | | and Healing, | [phone] | Spondylolisthesis; | | | | Building | | Right hip pain | | | | Floor [place], [place] | | | | | | [address] | | | | | | [phone] | | | +--------+---------+ + + + [...] + + + | Blood Pressure | 146/97 | 06/10/2014 9:30 AM | | | | | PST | | + + + + + | Pulse | 79 | 06/10/2014 9:30 AM | | | | | PST | | + + + + + | Temperature | 37 C (98.6 F) | 06/10/2014 9:30 AM | | | | | PST | | + + + + + | Respiratory Rate | 18 | 06/10/2014 9:30 AM | | | | | PST | | + + + + + | Oxygen Saturation | - | - | | + + + + + | Inhaled Oxygen | - | - | | | Concentration | | | | + + + + + | Weight | 91 kg (200 lb 11.2 | 06/10/2014 9:30 AM | | | | oz) | PST | | + + + + + | Height | - | - | | + + + + + | Body Mass Index | 28.8 | 05/02/2009 9:58 AM | | | | | PDT | | + + + + + documented in this encounter Progress Notes Edison Burgos PA-C - 06/10/2014 9:48 AM PSTFormatting of this note might be different fr om the original. NEUROLOGICAL SURGERY - HISTORY & PHYSICAL Chief Complaint: Low back and right hip pain with radiation down lateral right thigh to anterior right leone History of Present Illness: Ms. Hernández is a 53 year old female with a history of L4-5 PIF in 1996, nerve stimulator in 2000, and bilateral foot surgeries. She reports she began having right hip pain in October of this year that improved with injections. She states that she noticed bilateral hip flexo r weakness in January after she had limited her activity due to hip pain. She then reports she had a mechanical fall in April and since has had increased pain radiating down her right l eg. The pain radiates down her right lateral thigh into her anterior leone and does not exten d to her foot. She states the pain is aggravated by walking and lying on her right side. She has tried narcotics, NSAIDs, Gabapentin, PT, and heat for pain. Heat works the best, but he r pain is no longer adequately controlled. She denies BLE numbness, worsening hip flexor wea kness since January, loss of control of bowel/bladder. Of note the patient has recently been diagnosed and has started medical therapy for hypothy roidism, which she believes is one of the causes of her weakness. She is interested in a ref erral to Ortho for further eval of her right hip pain. Review of Systems: All other systems were reviewed on a complete review of systems questionnaire that will be scanned into [employer]. Current medication list: Current Outpatient Prescriptions Medication Sig aspirin EC 81 mg oral tablet,delayed release (DR/EC) Take 162 mg by mouth once daily. levothyroxine 75 mcg oral tablet Take 75 mcg by mouth once daily. naproxen 500 mg oral tablet Take 500 mg by mouth two times daily. oxyCODONE, immediate release, 5 mg oral tablet Take by mouth every six hours as needed . potassium chloride SR 10 mEq oral tablet,ER particles/crystals Take 10 mEq by mouth onc e daily. No current facility-administered medications for this visit. Allergies: Allergies Allergen Reactions Erythromycin Nausea/Vomiting Past surgical history: Past Surgical History Procedure Laterality Date Lumbar fusion 1996 L4-5 Peripheral nerve stimulator 1997 left sciatic nerve Idet, single level 1998 Hysterectomy 1996 with bladder tuck Past medical history: Past Medical History Diagnosis Date Low back pain History Smoking status Never Smoker Smokeless tobacco Never Used History Alcohol Use 0 - 1 oz/week 0-2 drink(s) per week Family History: I asked and the patient's family history is non-contributory for presenting complaint and findings. Social History: Never smoker, Moderate alcohol Physical Exam: Vital Signs: BP 146/97 | Pulse 79 | Temp (Src) 37 C (98.6 F) (Forehead) | RR 18 | Wt 91 .037 kg (200 lb 11.2 oz) | BMI 28.8 kg/(m^2) General Appearance: No acute distress, well-groomed. Eyes: anicteric sclerae, moist conjunctivae HENT: Normocephalic, Atraumatic Neck: Trachea midline; no visible thyromegaly Lungs: CTA, with normal respiratory effort CV: RRR, no audible MRGs Skin: Normal temperature, no visible rashes Psych: Appropriate and cooperative Musculoskeletal: MOTOR SCORE LEFT RIGHT C5 (Shoulder Abduct) 5 5 C6 (Elbow Flex) 5 5 C7 (Elbow Ext) 5 5 C8 (Wrist Ext) 5 5 T1 (Pinky Abd) 5 5 L2 (Hip Flex) 4+ 4 L3 (Knee Ext) 5 5 L4 (Dorsiflexion) 5 5 L5 (EHL) 5 5 S1 (Plantar Flex) 5 5 Gait: Antalgic Station: Normal. Tone: Normal tone in upper and lower extremities. No rigidity, atrophy, or abnormal moveme nts. Decreased AROM in left ankle due to previous surgeries Neurological: Oriented to time, place, person. Memory intact, normal recall. Normal attention span, concentration. Language: no receptive or expressive aphasia, normal spontaneous speech. . Sensation grossly intact to light touch throughout and to pinpoint sensation throughout Anal Sphincter: Deferred. TENDON REFLEXES LEFT RIGHT C5-6 (Biceps) NT NT C6 (Brachioradialis) NT NT C7-8 (Triceps) NT NT L3-4 (Knee jerk) 3+ 3+ S1-2 (Achilles) 1+ 1+ PATHOLOGIC REFLEXES LEFT RIGHT Sweeney neg neg Babinkski neg neg Clonus neg neg Straight leg raise: (-) Right, (-) Left Pain with internal rotation of right hip, not with internal rotation of left hip Imaging: Patient brought disc with external lumbar xrays, which will be sent to [facility] to be [facility] Assessment: Ms. Hernández is a 53 year old female with a history of L4-5 PIF in 1996, nerve stimul ator in 2000, and bilateral foot surgeries. She presents for evaluation of back, hip, and RL E radiating pain that have been progressing since October of this year. She has bilateral HF w eakness, which began after diagnosis of hypothyroid and patient limited activity due to pain . She does not have BLE numbness or bowel/bladder changes. The patient cannot have an MRI du e to nerve stimulator placed in 2000. Plan: -Ordered PT -Per patient preference will refer to Ortho for further eval/management of right hip pain a ggravated with internal rotation -Ordered CT myelogram -Will review imaging with staff when complete and call patient with updated plan -Patient counseled on worsening/urgent symptoms and she will seek immediate medical attenti on if they present I spent 50 minutes [id number] with the patient. I spent more than 50% of this visit in co unseling in which we discussed diagnosis, treatment, imaging studies and follow-up. EDISON BURGOS PA-C NEUROSURGERY AT [facility] [address] Mailcode: [place] [address] documented in this e ncounter Plan of Treatment Not on filedocumented as of this encounter Procedures + +--------+ + + + | Procedure Name | Priori | Date/Time | Associated Diagnosis | Comments | | | ty | | | | + +--------+ + + + | RADIOLOGY | | 06/10/2014 | | Results for this | | | | 12:00 AM | | procedure are in the | | | | PST | | results section. | + +--------+ + + + | RADIOLOGY | | 02/13/2014 | | Results for this | | | | 12:00 AM | | procedure are in the | | | | PDT | | results section. | + +--------+ + + + documented in this encounter Results RADIOLOGY (06/10/2014 12:00 AM PST) + + + | Narrative | Performed At | + + + | | | + + + RADIOLOGY (02/13/2014 12:00 AM PDT) + + + | Narrative | Performed At | + + + | | | | | | + + + + + | Procedure Note | + + | Rohit Thibodeaux - 06/14/2014 1:15 PM PST | + + documented in this encounter Visit Diagnoses + + | Diagnosis | + + | Low back pain - Primary Lumbago | + + | Weakness of both legs Other musculoskeletal symptoms referable to limbs | + + | Spondylolisthesis Congenital spondylolisthesis | + + | Right hip pain Pain in joint, pelvic region and thigh | + + documented in this encounter"
--- OUTSIDE RECORDS SUMMARY | ~2019-07-03 | XMS | Encounter Summary ---
Demographics + + + | Address | [address] | | | [place] [address] | + + + | Home Phone | | + + + | Preferred Language | Unknown | + + + | Marital Status | | + + + | Mandaen Affiliation | NON | + + + [...] Team Providers + +------+ + | Care Patient Ambassador Name | Role | Phone | + +------+ + PCP | Unavailable | + +------+ + Encounter Details +--------+ + + + + | Date | Type | Department | Care Team | Description | +--------+ + + + + | 10/06/ | Office | [facility] | Note, [...] as of this encounter Progress Notes Interface, Bander Hand In - 05/24/2006 3:11 AM PSTCLINIC DATE: 10/06/2000 Mae returns today largely because she needed medication for a long airplane trip she is taking in the next few days. I explained to her the nature of the medication I was prescribing and indications for acute pain, particularly during this prolonged sitting. She has been very good about taking the medication only when necessary, and I do not suspect there is any difficulty with abuse or tolerance. We did talk about a few other issues, for example, her ongoing physical therapy. She seems to be resigned to the fact that she is going to have some pain and continues to work even with that. Bebe Claros M.D. ISS[facility] / [place] [id number] / [id number] / [id number] / [id number] signed by Interface, Bander Hand In at 05/24/2006 3:11 AM PSTdocume nted in this encounter Plan of Treatment Not on filedocumented as of this encounter Visit Diagnoses Not on filedocumented in this encounter"
--- OUTSIDE RECORDS SUMMARY | ~2019-07-03 | XMS | Encounter Summary ---
Demographics + + + | Address | [address] | | | [place] [address] | + + + | Home Phone [...] Author | [facility] | | | and Humbertoana | + + + | Organization | [facility] | | | and Humbertoana | [...] [place] | | | | | [address] | | + + + + + | Daina Mazariegos | ECON | Unknown | | + + + + + Care Team Providers + +------+ + | Care Silver Recovery Operator Name | Role | Phone | + +------+ + | Noe Thomason | PCP | | | MD | | | + +------+ + Encounter Details +--------+ + + + + | Date | Type | Department | Care Team | Description | +--------+ + + + + | 10/15/ | Orders Only | [facility] [place] | Tenisha Ricketts, | Right hip pain | | 2013 | | 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 Ms. Mae WorleyCorneliustamra | [facility] | | presents to the fluoroscopy suite for a fluoroscopically-guided | [facility] | | right intraarticular hip injection as [...] | | | Kenalog and 4 mL 1% lidocaine was infused. The patient tolerated the | | | procedure well without complications. Pre- and post-procedure blood | | | pressure was stable. The patient was given [...] + + | Mohan Bunn MD - 10/17/2013 1:54 PM PDT DATE 10/17/13RIGHT INTRAARTICULAR HIP | | INJECTIONCLINICAL HISTORY: ICD-9 CODE 719.45, HIP PAIN. Ms. Mae Hernández | | presents to the fluoroscopy suite [...] of 40 mg/mL Kenalog and 4 mL 1% lidocaine was infused. The patient tolerated the | | procedure well without complications. Pre- and post-procedure [...] NoneFindings: As expectedAnesthesia: Local 1% Lidocaine | |Findings: As expected | |Anesthesia: Local 1% Lidocaine | + + + + + + + | Performing | Address | City/State/Zipcode | Phone Number | | Organization | | | | + + + + + | [facility] | [address] | [place], [place] | [phone] | | [facility] | | [address] | | | - IMAGING | | | | + + + + + documented in this encounter Visit Diagnoses + + | Diagnosis | + + | Right hip pain - Primary Pain in joint, pelvic region and thigh | + + documented in this encounter"
--- OUTSIDE RECORDS SUMMARY | ~2019-07-03 | XMS | Clinical Summary ---
Demographics + + + | Address | [address] | | | [place] [address] | + + + | Home Phone | | + + + | Preferred Language | Unknown | + + + | Marital Status | | + + + | Christian Affiliation | NON | + + + | Race | White | + + + | Ethnic Group | Not or | + + + Author + + + | Author | [facility] | + + + | Organization | [facility] | + + + | Address | Unknown | + + + | Phone | Unavailable | + + + Support + + + + + | Name | Relationship | Address | Phone | + + + + + | Liam Dietrich | ECON | [place], [place] | | + + + + + Care Team Providers + +------+ + | Care Senior Science Consultant Name | Role | Phone | + +------+ + PCP | Unavailable | + +------+ + Source Comments JOVANNY is fully live on both [facility] and [facility]Patient.[facility] Allergies + + + + + + | Active Allergy | Reactions | Severity | Noted | Comments | | | | | Date | | + + + + + + | Erythromycin | Nausea/Vomiting | High | 10/28/19 | | | | | | 07 | | + + + + + + Medications + + + +---------+------+------+-------+ | Medication | Sig | Dispensed | Refills | Star | End | Statu | | | | | | t | Date | s | | | | | | Date | | | + + + +---------+------+------+-------+ | levothyroxine 75 | Take 75 mcg by mouth | | 0 | | | Activ | | mcg oral tablet | once daily. | | | | | e | + + + +---------+------+------+-------+ | potassium chloride | Take 10 mEq by mouth | | 0 | | | Activ | | SR 10 mEq oral | once daily. | | | | | e | | tablet,ER | | | | | | | | particles/crystals | | | | | | | + + + +---------+------+------+-------+ | naproxen 500 mg | Take 500 mg by mouth | | 0 | | | Activ | | oral tablet | two times daily. | | | | | e | + + + +---------+------+------+-------+ | oxyCODONE, | Take by mouth every | | 0 | | | Activ | | immediate release, 5 | six hours as | | | | | e | | mg oral tablet | needed. | | | | | | + + + +---------+------+------+-------+ | aspirin EC 81 mg | Take 162 mg by mouth | | 0 | | | Activ | | oral tablet,delayed | once daily. | | | | | e | | release (DR/EC) | | | | | | | + + + +---------+------+------+-------+ Active Problems + + + | Problem | Noted Date | + + + | Spondylolisthesis | 06/10/2014 | + + + | Weakness of both legs | 06/10/2014 | + + + | Right hip pain | 06/10/2014 | + + + | Lumbosacral spondylosis without myelopathy | 10/28/2006 | + + + | Low back pain | 10/27/2006 | + + + | Spondylolisthesis, grade 1 | 10/27/2006 | + + + Family History + + +------+ + | Medical History | Relation | Name | Comments | + + +------+ + | Cancer | Father | | lung | + + +------+ + | Hypertension | Mother | | | + + +------+ + + +------+ + + | Relation | Name | Status | Comments | + +------+ + + | Father | | | | + +------+ + + | Mother | | Alive | | + +------+ + + Social History + +-------+ +--------+------+ [...] recent travel history available. | + + Last Filed Vital Signs + + + [...] + + + | Oxygen Saturation | 99% | 12/08/2006 12:22 PM | | | | | PDT [...] | | + + + + + Plan of Treatment + + + + + | Health Maintenance | Due Date | Last Done | Comments | + + + + + | Influenza (Flu) | | | | | vaccination (#1) | 9 | | | + + + + + | Pneumococcal | Aged Out | | No longer eligible | | vaccination | | | based on patient's | | | | | age to complete this | | | | | topic | + + + + + Results Not on filefrom Last 3 Months Insurance + +--------+ +--------+ + +------+ | Payer | Benefi | Subscriber | Effect | Phone | Address | Type | | | t Plan | ID | rad | | | | | | / | | Dates | | | | | | Group | | | | | | + +--------+ +--------+ + +------+ | [employer]UE | HMA/RG | [phone] | 07/25/19 | [phone] | [address] | PPO | | SHIELD | A | x | 14-Pre | 8 | [id number] | | | | | | sent | | [place], | | | | | | | | [place] | | | | | | | | [address] | | + +--------+ +--------+ + +------+ | [employer] | [facility] | [phone] | 10/24/19 | | [address] | PPO | | | CIGNA | | 14-Pre | | [id number] | | | | | | sent | | [place] | | | | | | | | , [place] [address] | | + +--------+ +--------+ + +------+ + +--------+ +--------+ + + | Guarantor Name | Accoun | Relation to | Date | Phone | Billing Address | | | t Type | Patient | of | | | | | | | | | | + +--------+ +--------+ + + | Brunilda-Mae Dietrich | Person | Self [birth year] | [address] | | | al/Fam | | 1961 | [phone] | [place] [address] | | | keira | | | 6 (Home) | | + +--------+ +--------+ + +
--- OUTSIDE RECORDS SUMMARY | ~2019-07-03 | XMS | Encounter Summary ---
Demographics + + + | Address | [address] | | | [place] [address] | + + + | Home Phone [...] + + + | Author | [facility] | + + + | Organization | [facility] | + + + | Address [...] Team Providers + +------+ + | Care Milling Machine Operator Name | Role | Phone | + +------+ + PCP | Unavailable | + +------+ + Encounter Details +--------+ + + + + | Date | Type | Department | Care Team | Description | +--------+ + + + + | 05/09/ | Office | [facility] | Note, [...] as of this encounter Progress Notes Interface, Commissions Manager In - 04/29/2006 3:03 AM PDTCLINIC DATE: 05/09/2001 [facility] CHIEF COMPLAINT: "I think I am getting better." HISTORY OF PRESENT ILLNESS: Ms. Dietirch reports that the burning sensation in her low back has continued to improve slowly. She has been able to work from 7 a.m. to 11 a.m. without problems; when she is asked to stay a little longer, she has a slight increase in her pain. She is using her soft brace in the p.m. hours only. She still notices some burning of her left sciatic notch, but this has resolved by the use of peripheral nerve stimulator. Before her drive, she was rating her pain at 4/10; however, driving increases her pain, and she rated her pain at 7/10 when she arrived. She has been decreasing her use of OxyContin and is feeling overall relatively satisfied with her progress. PHYSICAL EXAMINATION: GENERAL: No apparent distress. VITAL SIGNS: Blood pressure 130/78, heart rate 80, and respirations 20, and temperature 36.2 degrees centigrade. NEUROLOGIC: Lumbar range of motion, flexion to 80 degrees produces some tightness in the low back and extension to 40 degrees is "a little sore" but not significantly discomforting. IMPRESSION: Lumbar spondylosis without myelopathy. Ms. Dietrich's symptoms continue to improve gradually. Overall, she feels as though she is getting better, and she is reducing use of opioid medication. She still has ways to go with the physical therapy. I believe that she will continue to improve over the next several months. PLAN: Refill current medication. Follow up in 1 month. Roger Fatima M.D. KAVITA / [place] [id number] / [id number] / [id number] / [id number] cc: Bebe Claros M.D. [place], Department of Neurosurgery [id number] signed by Interface, Commissions Manager In at 04/29/2006 3:03 AM PDTdocume nted in this encounter Plan of Treatment Not on filedocumented as of this encounter Visit Diagnoses Not on filedocumented in this encounter
--- OUTSIDE RECORDS SUMMARY | ~2019-07-03 | XMS | Encounter Summary ---
Demographics + + + | Address | [address] | | | [place] [address] | + + + | Home Phone | | + + + | Preferred Language | Unknown | + + + | Marital Status | | + + + | Yarsani Affiliation | NON | + + + | Race | White | + + + | Ethnic Group | Not or | + + + Author + + + | Author | [facility] | + + + | Organization | [facility] | + + + | Address [...] Team Providers + +------+ + | Care Cctv Technician Name | Role | Phone | + +------+ + PCP | Unavailable | + +------+ + Encounter Details +--------+ + + + + | Date | Type | Department | Care Team | Description | +--------+ + + + + | 03/17/ | Office | [facility] | Note, [...] as of this encounter Progress Notes Interface, Lead Maintenance Technician In - 05/07/2006 3:12 AM PDTCLINIC DATE: 03/17/[facility] SUBJECTIVE: Ms. Dietrich returns to clinic today with a new complaint of low back pain since Tuesday of this week. She had her IDET procedure done on March 07, 2001, and she says that without precipitating event her deep throbbing pain over her lumbar spine and iliac crest recurred. She is stating that her pain is 5/10 right now ranging from 2 to over 10, and she is able to get significant relief with the OxyContin she is taking, approximately 80% of her pain is relieved, but she notes that before a 12-hour period ends, she has recurrence of her pain. She denies any numbness, weakness, or changes in her urination or bowel movements, and she is reporting bowel movement approximately every other day. Due to complicated scheduling, she has not had an appointment with Physical Therapy yet. OBJECTIVE: VITAL SIGNS: Her weight is 190 pounds, blood pressure 134/82, heart rate 78, respiratory rate 16, temperature 36.3, and pain 5/10. GENERAL: She is very well groomed. Her interactions are engaging and appropriate. BACK: She is tender to deep palpation over her lumbar and sacral spine as well as paraspinous muscles in this area. EXTREMITIES: Her lower extremity strength is 5/5 throughout bilaterally. Her deep tendon reflexes are 2+ throughout her lower extremities and sensation is equal bilaterally. NEUROLOGIC: Her gait is normal. She is able to walk on heels and the balls of her feet. ASSESSMENT: Increased pain status post intradiscal electrothermal therapy procedure. Distribution of her pain is consistent with an origin in the disk that was treated. This is unlikely to be a significant event in her recovery course and should improve with time, and she will need to begin physical therapy. PLAN 1. Continue to avoid flexion of her lumbar spine or twisting of the lumbar spine. 2. Change OxyContin dose to 10 mg p.o. q. 8h. 3. Schedule DICTATION ENDS ABRUPTLY Rodríguez Andrews M.D. Roger Fatima M.D. BA / MADELINE [id number] / [id number] / [id number] / [id number] signed by Interface, Lead Maintenance Technician In at 05/07/2006 3:12 AM PDTdocume nted in this encounter Plan of Treatment Not on filedocumented as of this encounter Visit Diagnoses Not on filedocumented in this encounter"
--- OUTSIDE RECORDS SUMMARY | ~2019-07-03 | XMS | Encounter Summary ---
Demographics + + + | Address | [address] | | | [place] [address] | + + + | Home Phone [...] + | Author | [facility] | | | and Humbertoana | + + + | Organization | [facility] | | | and Humbertoana [...] [place] | | | | | [address] | | + + + + + | Daina Mazariegos | ECON | Unknown | | + + + + + Care Team Providers + +------+ + | Care Staff Psychiatrist Name | Role | Phone | + +------+ + | Noe Thomason | PCP | | | MD | | | + +------+ + Reason for Visit Auth/Cert +--------+--------+ + + + + | Status | Reason | Specialty | Diagnoses / | Referred By | Referred To | | | | | Procedures | Contact | Contact | +--------+--------+ + + + + | | | | | | | +--------+--------+ + + + + Encounter Details +--------+ + + + + | Date | Type | Department | Care Team | Description | +--------+ + + + + | 02/23/ | Hospital | [facility] | Nguyễn Redmond MD | Epigastric pain | | 2018 | Encounter | [facility] [address] | [address] | | | | | [place], | [place], [place] | | | | | [place] [address] | [address] | | | | | [phone] | [phone] | | | | | | | [...] + +--------+ + + + | CT ABDOMEN W | Routin | 02/23/2018 | Epigastric pain | Results for this | | CONTRAST | e | 4:52 PM | | procedure are in the | | | | PDT | | results section. | + +--------+ + + + documented in this encounter Results CT Abdomen w Contrast (02/23/2018 4:52 PM PDT) + + | Specimen | + + | | + + + + + | Narrative | Performed At | + + + | EXAM: CT ABDOMEN W CONTRAST dated 02/23/2018 4:44 PM | [facility] | | HISTORY:Epigastric pain Comparison: None. TECHNIQUE: Imaging | | | is performed from the lung bases through the abdomen following the | | | uneventful intravenous administration of 85 mL Omnipaque 350. | | | Automated exposure control, Adjustment of mA and/or kV according to | | | patient size, and use of iterative reconstruction technique are | | | applied to this exam. DOSE: DLP 298.66 mGy-cm FINDINGS: | | | LUNG BASES: The lung bases are clear. There is no visible pleural | | | effusion or pneumothorax. There is no significant pericardial | | | thickening. There is a small hiatal hernia. LIVER: The liver is | | | unremarkable in attenuation and enhancement. Focal fatty | | | infiltration along the falciform ligament. There are 2 adjacent | | | hypodensities in the right lobe. These measure about 6 and 7 mm. | | | GALLBLADDER: The gallbladder is not distended. There are no | | | calcified gallstones. No visible biliary ductal dilatation. | | | SPLEEN: The spleen is unremarkable. There is no splenomegaly. | | | PANCREAS: The pancreas is unremarkable. The pancreatic duct is not | | | dilated. ADRENALS: No adrenal enlargement. No adrenal masses. | | | KIDNEYS: The kidneys are symmetrically enhancing. There are no | | | focal renal lesions. There is no nephrolithiasis. There is no | | | obstructive uropathy. BOWEL: The visible portions of the | | | gastrointestinal tract are unremarkable. VASCULATURE AND LYMPH | | | NODES: No aneurysmal dilatation of the abdominal aorta. No | | | abdominal lymphadenopathy. BONES: There are no acute osseous | | | abnormalities. There are no suspicious lytic or blastic bone | | | lesions. Posterior and interbody fusion changes at L4-L5. Intact | | | hardware. Solid osseous fusion across the disc level. Disc | | | collapse at L3-L4. Retrolisthesis of L3 x 6 mm. Slight | | | retrolisthesis of L1 and L2. OTHER: There is no free fluid. | | | There is no free air. There is a fat-containing umbilical hernia. | | | There is an implanted device in the left abdominal subcutaneous | | | tissues. It has a lead seen extending to the subcutaneous tissues | | | of the pelvis overlying the gluteal muscles. It is incompletely | | | visualized. IMPRESSION - There is a small hiatal hernia. | | | Subcentimeter hypodensities in the liver. These are nonspecific. | | | They could be small cysts or hemangiomas. Dictated and | | | Signed by: Beto Berry MD Electronically signed: 02/23/2018 | | | 7:48 PM | | + + + + + | Procedure Note | + + | Jarrod, Rad Results In - 02/23/2018 7:52 PM PDT EXAM: CT ABDOMEN W CONTRAST dated | | 02/23/2018 4:44 PMHISTORY:Epigastric painComparison: None.TECHNIQUE: Imaging is performed | | from the lung bases through the abdomenfollowing the uneventful intravenous | | administration of 85 mL Omnipaque 350. Automated exposure control, Adjustment of mA | | and/or kV according to patientsize, and use of iterative reconstruction technique are | | applied to this exam.DOSE: DLP 298.66 mGy-cmFINDINGS: LUNG BASES: The lung bases are | | clear. There is no visible pleural effusion orpneumothorax. There is no significant | | pericardial thickening. There is a smallhiatal hernia.LIVER: The liver is unremarkable | | in attenuation and enhancement. Focal fattyinfiltration along the falciform ligament. | | There are 2 adjacent hypodensitiesin the right lobe. These measure about 6 and 7 | | mm.GALLBLADDER: The gallbladder is not distended. There are no calcifiedgallstones. No | | visible biliary ductal dilatation.SPLEEN: The spleen is unremarkable. There is no | | splenomegaly.PANCREAS: The pancreas is unremarkable. The pancreatic duct is not | | dilated.ADRENALS: No adrenal enlargement. No adrenal masses.KIDNEYS: The kidneys are | | symmetrically enhancing. There are no focal renallesions. There is no nephrolithiasis. | | There is no obstructive uropathy.BOWEL: The visible portions of the gastrointestinal | | tract are unremarkable.VASCULATURE AND LYMPH NODES: No aneurysmal dilatation of the | | abdominal aorta. No abdominal lymphadenopathy.BONES: There are no acute osseous | | abnormalities. There are no suspicious lyticor blastic bone lesions. Posterior and | | interbody fusion changes at L4-L5. Intact hardware. Solid osseous fusion across the | | disc level. Disc collapse atL3-L4. Retrolisthesis of L3 x 6 mm. Slight retrolisthesis | | of L1 and L2.OTHER: There is no free fluid. There is no free air. There is a | | fat-containingumbilical hernia. There is an implanted device in the left | | abdominalsubcutaneous tissues. It has a lead seen extending to the subcutaneous | | tissuesof the pelvis overlying the gluteal muscles. It is incompletely | | visualized.IMPRESSION - There is a small hiatal hernia.Subcentimeter hypodensities in | | the liver. These are nonspecific. They could besmall cysts or hemangiomas.Dictated and | | Signed by: Beto Berry MD Electronically signed: 02/23/2018 7:48 PM | |PANCREAS: The pancreas is unremarkable. The pancreatic duct is not dilated. | | | |ADRENALS: No adrenal enlargement. No adrenal masses. | | | |KIDNEYS: The kidneys are symmetrically enhancing. There are no focal renal | |lesions. There is no nephrolithiasis. There is no obstructive uropathy. | | | |BOWEL: The visible portions of the gastrointestinal tract are unremarkable. | | | |VASCULATURE AND LYMPH NODES: No aneurysmal dilatation of the abdominal aorta. | |No abdominal lymphadenopathy. | | | |BONES: There are no acute osseous abnormalities. There are no suspicious lytic | |or blastic bone lesions. Posterior and interbody fusion changes at L4-L5. | |Intact hardware. Solid osseous fusion across the disc level. Disc collapse at | |L3-L4. Retrolisthesis of L3 x 6 mm. Slight retrolisthesis of L1 and L2. | | | |OTHER: There is no free fluid. There is no free air. There is a fat-containing | |umbilical hernia. There is an implanted device in the left abdominal | |subcutaneous tissues. It has a lead seen extending to the subcutaneous tissues | |of the pelvis overlying the gluteal muscles. It is incompletely visualized. | | | |IMPRESSION - | | | |There is a small hiatal hernia. | | | |Subcentimeter hypodensities in the liver. These are nonspecific. They could be | |small cysts or hemangiomas. | | | | | | | | | |Dictated and Signed by: Beto Berry MD | | Electronically signed: 02/23/2018 7:48 PM | + + + +---------+ + + | Performing | Address | City/State/Zipcode | Phone Number | | Organization | | | | + +---------+ + + | [facility] | | | | + +---------+ + + documented in this encounter Visit Diagnoses + + | Diagnosis | + + | Epigastric pain Abdominal pain, epigastric | + + documented in this encounter Administered Medications + +--------+ +--------+------+------+ | Medication Order | MAR | Action | Dose | Rate | Site | | | Action | Date | | | | + +--------+ +--------+------+------+ | iohexol (OMNIPAQUE 350) 350 | Given | 02/24/20 | 85 mLs | | | | mg/mL injection 85 mL 85 mL, | | 18 4:50 | | | | | Intravenous, ONCE PRN, Other, for | | PM PDT | | | | | imaging CT study, Starting Brenda | | | | | | | 02/23/18 at 1653, For 1 dose, | | | | | | | Radiology | | | | | | + +--------+ +--------+------+------+ +---+---+ | | | +---+---+ documented in this encounter"
--- OUTSIDE RECORDS SUMMARY | ~2019-07-03 | XMS | Encounter Summary ---
Demographics + + + | Address | [address] | | | [place] [address] | + + + | Home Phone | | + + + | Preferred Language | Unknown | + + + | Marital Status | | + + + | Worship Affiliation | NON | + + + | Race | White | + + + | Ethnic Group | Not or | + + + Author + + + | Author | [facility] | + + + | Organization | [facility] | + + + | Address | Unknown | + + + | Phone | Unavailable | + + + Support + + + + + | Name | Relationship | Address | Phone | + + + + + | Liam Dietrich | ECON | [place] | | + + + + + Care Team Providers + +------+ + | Care Sanitation Worker Name | Role | Phone | [...] as of this encounter Progress Notes Interface, Order Schedule Clerk In - 05/24/2006 3:11 AM PSTCLINIC DATE: [...] that. Bebe Claros M.D. ISSAC / MADELINE [id number] / [id number] / [id number] / [id number] signed by Interface, Order Schedule Clerk In at 05/24/2006 3:11 AM PSTdocume nted in this encounter Plan of Treatment Not on filedocumented as of this encounter Visit Diagnoses Not on filedocumented in this encounter"
--- OUTSIDE RECORDS SUMMARY | ~2019-07-03 | XMS | Encounter Summary ---
Demographics + + + | Address | [address] | | | [place] [address] | + + + | Home Phone [...] + + + | Author | [facility] | + + + | Organization | [facility] | + + + | Address | Unknown | + + + | Phone | Unavailable | + + + Support + + + + + | Name | Relationship | Address | Phone | + + + + + | Liam Dietrich | ECON | [place] | | + + + + + Care Team Providers + +------+ + | Care Business Planning Analyst Name | Role | Phone | + +------+ + PCP | Unavailable | + +------+ + Encounter Details +--------+ + + + + | Date | Type | Department | Care Team | Description | +--------+ + + + + | 09/01/ | Results | Neurosurgery [address] | Bebe Claros MD | | | 2001 | Only | [address] | [address] | | | | | [address] Mailcode:[address] | [place], [place] | | | | | [employer] | [address] | | | | | [place], [place] | [phone] | | | | | [address] | | | | | | [phone] | | | +--------+ + + + [...] | + +--------+ + + + | TYPE AND SCREEN | Routin | 09/01/2001 | | Results for this | | | e | 1:25 PM | | procedure are in the | | | | PST | | results section. | + +--------+ + + + documented in this encounter Results TYPE AND SCREEN (09/01/2001 1:25 PM PST) + +-------+ + + + | Component | Value | Ref Range | Performed | Pathologist | | | | | At | Signature | + +-------+ + + + | ABO GROUP | A | | [facility] | | | | | | DEPARTMENT | | | | | | OF | | | | | | PATHOLOGY | | + +-------+ + + + | RH TYPE | POS | | [facility] | | | | | | DEPARTMENT | | | | | | OF | | | | | | PATHOLOGY | | + +-------+ + + + | ANTIBODY | NEG | | [facility] | | | SCREEN | | | DEPARTMENT | | | | | | OF | | | | | | PATHOLOGY | | + +-------+ + + + + + | Specimen | + + | | + + + + + | Narrative | Performed At | + + + | SPEC. OUTDATES 09/05/01 @ 0700 | [facility] | | | DEPARTMENT OF | | | PATHOLOGY | + + + + + + + + | Performing | Address | City/State/Zipcode | Phone Number | | Organization | | | | + + + + + | [facility] DEPARTMENT OF | [address] | [place] [address] | | | PATHOLOGY | [address] | | | + + + + + | [facility] | [address] | [place] [address] | | | PATHOLOGY | [address] | | | + + + + + documented in this encounter Visit Diagnoses Not on filedocumented in this encounter"
--- OUTSIDE RECORDS SUMMARY | ~2019-07-03 | XMS | Encounter Summary ---
Demographics + + + | Address | [address] | | | [place] [address] | + + + | Home Phone | | + + + | Preferred Language | Unknown | + + + | Marital Status | | + + + | Adventism Affiliation | 1041 | + + + | Race | Unknown | + + + | Ethnic Group | Unknown | + + + Author + + + | Author | [facility] | | | and Humbertoana | + + + | Organization | [facility] | | | and [...] [place] | | | | | [address] | | + + + + + | Daina Mazariegos | ECON | Unknown | | + + + + + Care Team Providers + +------+ + | Care Golf Course Equipment Operator Name | Role | Phone | [...] | +--------+ + + + + | 08/08/ | Telephone | [facility] | Mohan Bunn | Other | | 2013 | | PHYSIATRY [address] | | | | | [place], | [place], [place] | | | | | [place] [address] | [address] | | | | | [phone] | | | +--------+ + + + [...]
--- OUTSIDE RECORDS SUMMARY | ~2019-07-03 | XMS | Encounter Summary ---
Demographics + + + | Address | [address] | | | [place] [address] | + + + | Home Phone [...] Team Providers + +------+ + | Care Cattle Brander Name | Role | Phone | + +------+ + PCP | Unavailable | + +------+ + Encounter Details +--------+ + + + + | Date | Type | Department | Care Team | Description | +--------+ + + + + | 01/14/ | Procedure - | | Record, Operation [...] + + | OPERATION RECORD | | 01/15/2000 | | Results for this | | | | | | procedure are in the | | | | | | results section. | + +--------+ + + + documented in this encounter Results OPERATION RECORD (01/15/2000) + + | Transcriptions | + + | Interface, Pivot End Polisher In - 06/10/2006 1:01 AM PST | | [place] [address] | | [place], [place] [address] | | [facility]Med Rec No.: | | [id number] Date: 01/15/2000Name: Thao Dietrich SURGEON: | | Dima Treviño M.D.PREOPERATIVE DIAGNOSIS(ES):Left buttock pain.POSTOPERATIVE | | DIAGNOSIS(ES):Left buttock pain.OPERATIONS PERFORMED:1. Trial of spinal cord | | stimulation.2. Fluoroscopy.SPECIMEN(S) REMOVED:No specimens were | | sent.ANESTHESIA:Local.INDICATIONS:This patient suffers with left buttock pain. She | | has previously beentreated with puriform resection and also gluteal nerve | | stimulation.However, she continues to suffer with pain. We therefore proceed to | | atrial of spinal cord stimulation.PROCEDURE:The patient was signed on informed consent, | | brought to the Operating Roomand identified. She was placed prone on the operating | | table. The area forsurgery in the lower back was prepped and draped in the usual | | fashion.Under local anesthetic using through table fluoroscopy, a Tuohy needle | | wasintroduced into the epidural space at the L3-4 level using the loss ofresistance | | technique. A spinal cord stimulation lead was easily introducedinto the epidural space | | and easily navigated under fluoroscopic control tolie just left of the midline at the | | T12-L1 level. Trials of stimulationusing various electrode combinations were | | unsuccessful in capturing thearea of pain. The patient would feel stimulation out to | | and including thelower part of the left buttock, but this would never go up into the | | higherpart of the left buttock or to its lateral aspect which is where she | | wasexperiencing the worst of the pain. Attempts were made to re-navigate theelectrode | | higher and lower. However, no electrode combination in anyposition succeeded in | | capturing the area of pain with the stimulation. Itwas therefore decided to abandon | | this trial as a negative trial. Theelectrode and the Tuohy needle were removed. | | The patient was transferredback to the Short Stay Observation Area.ESTIMATED BLOOD | | LOSS:Less than 5 cc.Dima Treviño M.D.ZI:xt4D: 01/19/2000T: 01/22/2000ATTENDING | | SURGEON'S ATTESTATION:Pursuant to Federal Medicare guidelines, was present for | | the entireprocedure.[id number]: | | | |INDICATIONS: | |This patient suffers with left buttock pain. She has previously been | |treated with puriform resection and also gluteal nerve stimulation. | |However, she continues to suffer with pain. We therefore proceed to a | |trial of spinal cord stimulation. | | | |PROCEDURE: | |The patient was signed on informed consent, brought to the Operating Room | |and identified. She was placed prone on the operating table. The area for | |surgery in the lower back was prepped and draped in the usual fashion. | |Under local anesthetic using through table fluoroscopy, a Tuohy needle was | |introduced into the epidural space at the L3-4 level using the loss of | |resistance technique. A spinal cord stimulation lead was easily introduced | |into the epidural space and easily navigated under fluoroscopic control to | |lie just left of the midline at the T12-L1 level. Trials of stimulation | |using various electrode combinations were unsuccessful in capturing the | |area of pain. The patient would feel stimulation out to and including the | |lower part of the left buttock, but this would never go up into the higher | |part of the left buttock or to its lateral aspect which is where she was | |experiencing the worst of the pain. Attempts were made to re-navigate the | |electrode higher and lower. However, no electrode combination in any | |position succeeded in capturing the area of pain with the stimulation. It | |was therefore decided to abandon this trial as a negative trial. The | |electrode and the Tuohy needle were removed. The patient was transferred | |back to the Short Stay Observation Area. | | | |ESTIMATED BLOOD LOSS: | |Less than 5 cc. | | | | | | | |Dima Treviño M.D. | | | |ZI:xt4 | | | | | | | |ATTENDING SURGEON'S ATTESTATION: | |Pursuant to Federal Medicare guidelines, was present for the entire | |procedure. | | | | | | | | | |[id number] | | | |CC: | + + documented in this encounter Visit Diagnoses Not on filedocumented in this encounter"
--- OUTSIDE RECORDS SUMMARY | ~2019-07-03 | XMS | Clinical Summary ---
Demographics + + + | Address | [address] | | | [place] [address] | + + + | Home Phone [...] Team Providers + +------+ + | Care Caul Puller Name | Role | Phone | + +------+ + PCP | Unavailable | + +------+ + Source Comments JOVANNY is fully live on both [facility] and [facility] Allergies + + + + + + [...] | HMA/RG | [phone] | 07/25/19 | [phone] | [address] | PPO | | SHIELD | A | x | 14-Pre | [address] | [address] | | | | | | sent | | [place], | | | | | | | | [place] | | | | | | | | [address] | | + +--------+ +--------+ + +------+ | [employer] | [facility] | [phone] | 10/24/19 | | [address] | PPO | | | CIGNA | | 14-Pre | | [id number] | | | | | | sent | | [place] | | | | | | | | , [place] [address] | | + +--------+ +--------+ + +------+ [...] | 1961 | [phone] | [place] [address] | | | keira | | | [address] (Home) | | + +--------+ +--------+ + +
--- OUTSIDE RECORDS SUMMARY | ~2019-07-03 | XMS | Encounter Summary ---
Demographics + + + | Address | [address] | | | [place] [address] | + + + | Home Phone [...] Team Providers + +------+ + | Care Strategic Planning Manager Name | Role | Phone | + +------+ + PCP | Unavailable | + +------+ + Encounter Details +--------+ + + + + | Date | Type | Department | Care Team | Description | +--------+ + + + + | 04/16/ | Transcribed | | Dictation, Other | [...] as of this encounter Progress Notes Interface, Bariatric Coordinator In - 07/05/2006 3:09 AM [facility] [place] [facility] [place] [id number] [place], [place] [address] or April 16, 1999 Khari Ying M.D. [address] [facility] [address], [address] [place] [address] RE: MAE LOWRY MR #: [id number] Dear Dr. Ying: I saw Mae Lowry back in our neurosurgery clinic today. She was seen and options discussed with her by Dr. Claros too. 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 She returns to the clinic today reporting that she experiences good relief in the area of her stimulation; however, she also has intermittently a lightning-sharp pain in her buttocks which occurs unpredictably. This pain occurs too quickly for her to manipulate the stimulation. In the past, this pain has not responded to a drug such as Neurontin. In addition, she has been coping reasonably well with four hours a day of work, although occasionally as she sits at her computer all day, her leg becomes numb. Her main problem is management of her discomfort at night, and sometimes she can lay awake for many hours trying to find a comfortable position in which to sleep. 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 We have recommended that she is to take a trial of Mexitil 200 mg twice a day. This is better known as a cardiac antiarrhythmic, however, also has effects at reducing the pain from neuromas. She is prepared to give this a trial for a couple of weeks, and we will then see her back in our clinic to assess again. We will keep you updated of any progress she makes. Sincerely, Dima Treviño M.D. Instructor, Stereotactic Functional [place] / [place] [id number] / [id number] / [id number] / [id number] signed by Interface, Bariatric Coordinator In at 07/05/2006 3:09 AM PSTdocume nted in this encounter Plan of Treatment Not on filedocumented as of this encounter Visit Diagnoses Not on filedocumented in this encounter"
--- OUTSIDE RECORDS SUMMARY | ~2019-07-03 | XMS | Encounter Summary ---
Demographics + + + | Address | [address] | | | [place] [address] | + + + | Home Phone | | + + + | Preferred Language | Unknown | + + + | Marital Status | | + + + | Mandaen Affiliation | NON | + + + | Race | White | + + + | Ethnic Group | Not or | + + + Author + + + | Author | [facility] | + + + | Organization | [facility] | + + + | [...] Team Providers + +------+ + | Care Soap Press Feeder Name | Role | Phone | + +------+ + PCP | Unavailable | + +------+ + Encounter Details +--------+ + + + + | Date | Type | Department | Care Team | Description | +--------+ + + + + | 01/14/ | Results | Neurosurgery [address] | Bebe Claros MD | | | 1999 | Only | [address] [place] | [address] | | | | | [address] Mailcode:[address] | [place], [place] | | | | | [employer] | [address] | | | | | [place], [place] | [phone] | | | | | [address] | | | | | | [phone] | | | +--------+ + + + [...] + + | FLUOROSCOPY, | Routin | 01/15/2000 | | Results for this | | INDEPENDENT PORT. | e | 11:30 AM | | procedure are in the | | | | PDT | | results section. | + +--------+ + + + documented in this encounter Results FLUOROSCOPY, INDEPENDENT PORT. (01/15/2000 11:30 AM PDT) + + + + + [...] | | + +---------+ + + | [facility] DEPARTMENT OF | | | | | RADIOLOGY | | | | + +---------+ + + documented in this encounter Visit Diagnoses Not on filedocumented in this encounter"
--- OUTSIDE RECORDS SUMMARY | ~2019-07-03 | XMS | Encounter Summary ---
Demographics + + + | Address | [address] | | | [place] [address] | + + + | Home Phone | | + + + | Preferred Language | Unknown | + + + | Marital Status | | + + + | Orthodoxy Affiliation | NON | + + + | Race | White | + + + | Ethnic Group | Not or | + + + Author + + + | Author | [facility] | + + + | Organization | [facility] | + + + | [...] Team Providers + +------+ + | Care Home Health Cna Name | Role | Phone | + [...] | | | | | Therapy Center [address] | [place], [place] | | | | | [address] | [address] | | | | | Outpatient Therapy | [phone] | | | | | Center 2nd floor | | | | | | Mailcode: OP26 | | | | | | [place], [place] | | | | | | [address] | | | | | | [phone] | | | +--------+ + + + [...] | | | | | | the [facility] Pain | | | | | | [...] | | + +---------+ + + | [facility] DEPARTMENT OF | | | | | [...] | | + +---------+ + + | [facility] DEPARTMENT OF | | | | | RADIOLOGY | | | | + +---------+ + + documented in this encounter Visit Diagnoses Not on filedocumented in this encounter
--- OUTSIDE RECORDS SUMMARY | ~2019-07-03 | XMS | Encounter Summary ---
Demographics + + + | Address | [address] | | | [place] [address] | + + + | Home Phone | | + + + | Preferred Language | Unknown | + + + | Marital Status | | + + + | Anabaptist Affiliation | NON | + + + | Race | White | + + + | Ethnic Group | Not or | + + + Author + + + | Author | [facility] | + + + | Organization | [facility] | + + + | Address [...] Providers + +------+ + | Care Elevator Operator Name | Role | Phone | [...] | | | | Rd Mailcode:[address] | [place], [place] | | | | | [address] [address] | [address] | | | | | [place], [place] | [phone] | | | | | [address] | | | | | | [phone] | | | +--------+ + + + [...] DEPARTMENT OF | [address] | [place] [address] | | | PATHOLOGY | [address] | | | + + + + + | [facility] | [address] | [place] [address] | | | PATHOLOGY | [address] | | | + + + + + documented in this encounter Visit Diagnoses Not on filedocumented in this encounter"
--- OUTSIDE RECORDS SUMMARY | ~2019-07-03 | XMS | Encounter Summary ---
Demographics + + + | Address | [address] | | | [place] [address] | + + + | Home Phone [...] Team Providers + +------+ + | Care Bottom Turner Name | Role | Phone | + +------+ + PCP | Unavailable | + +------+ + Encounter Details +--------+ + + + + | Date | Type | Department | Care Team | Description | +--------+ + + + + | 01/28/ | Procedure - | | Documentation, | [...] + + | TEACHING PHYSICIAN | | 01/28/1999 | | | + +--------+ + + + documented in this encounter Visit Diagnoses Not on filedocumented in this encounter"
--- OUTSIDE RECORDS SUMMARY | ~2019-07-03 | XMS | Encounter Summary ---
Demographics + + + | Address | [address] | | | [place] [address] | + + + | Home Phone | | + + + | Preferred Language | Unknown | + + + | Marital Status | | + + + | Taoism Affiliation | 1041 | + + + | Race | Unknown | + + + | Ethnic Group | Unknown | + + + Author + + + | Author | [facility] | | | and [place] | + + + | Organization | [facility] | | | and [...] [place] | | | | | [address] | | + + + + + | Daina Mazariegos | ECON | Unknown | | + + + + + Care Team Providers + +------+ + | Care Satellite Tv Technician Name | Role | Phone | + +------+ + | Noe Thomason | PCP | | | MD | | | + +------+ + Reason for Visit + + + | Reason | Comments | + + + | Back Pain | low back pain | + + + Encounter Details +--------+---------+ + + + | Date | Type | Department | Care Team | Description | +--------+---------+ + + + | 11/10/ | Office | [facility] | [place], | S/P lumbar fusion - | | 2016 | Visit | PHYSIATRY [address] | [address] | L4/L5 (Primary Dx); | | | | [address], | [place], | Status post right | | | | [place] [address] | [place] [address] | hip replacement; | | | | [phone] | [phone] | Sacroiliitis, not | | | | | | elsewhere classified | | | | | | ([facility]) | +--------+---------+ + + + Social History [...] + + + | Blood Pressure | 133/84 | 11/11/2015 12:41 PM | | | | | PDT | | + + + + + | Pulse | 94 | 11/11/2015 12:41 PM | | | | | PDT [...] + + + + | Weight | 88 kg (194 lb) | 11/11/2015 12:41 PM | | | | | PDT | | + + + + + | Height | 172.7 cm (5' 8") | 11/11/2015 12:41 PM | | | | | PDT | | + + + + + | Body Mass Index | 29.5 | 11/11/2015 12:41 PM | | | | | PDT | | + + + + + documented in this encounter Patient Instructions Patient Instructions Chayito Landers PA-C - 11/11/2015 12:55 PM PDTSacoiliitis: This is the term used to describe sacroiliac joint pain which connect the sacrum (very end of the spine) and pelvic bone. It occurs when there is movement of one pelvic bone on the other or a decrease in joint mobility with bending and twisting movements, mis-stepping, or when there is a leg length discrepancy. There can be pain to the buttocks region, into the groin or posterior thigh. Treatment consists of rest, physical therapy, Sacroiliac Belt, saroj roid joint injections into the sacroiliac joint. Steroids are a very strong anti-inflammatory, this helps reduce pain by reducing swelling. Complications of steroids are bleeding, infection, and an increase of blood sugars if you a re diabetic. exterminator helper risk can lead to osteoporosis which is why we limited the number of injections to 3 times per year. With a sacroiliac joint injection, the steroid is placed i nside this joint. The procedure is about 20 minutes long. You will lie on your back while x-rays are taken. Once the region is marked, it is numbed and then injected with steroids. Follow-up at the hospital thirty minutes before your scheduled procedure to allow for time to check in. You may eat and drink as usual on the day of the procedure. If you are scheduled for an epidural injection do not take any blood thinning medications f or at least 5-7 days prior to your procedure unless you have been instructed by another phys ician not to discontinue blood thinning medications. If you are having a procedure other than an epidural injection (i.e. facet injection, media l branch block, SI joint injection or other joint injection) it is not absolutely necessary to discontinue blood thinning medications but doing so will decrease the risk of bruising or bleeding. If you have had a prior stroke, DVT or PE or if you are taking blood thinning medication be cause you have atrial fibrillation, a prosthetic cardiac valve replacement or heart stenting do not stop taking your blood thinning medications unless you have permission from your car diologist or primary care provider. All other medications should be taken as usual on the day of the procedure. Common blood thinning medications include: Aspirin (a baby aspirin is o.k.) Ibuprofen (Advil or Motrin) Naproxen (Aleve) Nabumetone (Relafen) Clopidogrel (Plavix) Dipyridamole/ASA (Aggrenox) Warfarin (Coumadin) Dabigatran (Pradaxa) Rivaroxaban (Xarelto) There are many others. If you have questions about your medications and whether or not you should stop any medications please contact our office. If you are having an epidural injection or if you take any medication for relaxation/sedati on on the day of the procedure you must provide a driver material handler to take you home. For all procedur es it is recommended that someone else drive you home. documented in this encounter Progress Notes Chayito Landers PA-C - 11/11/2015 12:57 PM PDTFormatting of this note might be differe nt from the original. CHIEF COMPLAINT: Chief Complaint Patient presents with Back Pain low back pain HISTORY OF PRESENT ILLNESS: The patient is a 54 y.o. female being seen today in follow-up for complaints of low back pa in. The patient has been seen for this complaint in the past, with initial visit started b y Dr. Bunn. She last had bilateral SI joint injection on 05/15/2015 which gave her 3 months of excellent relief with an additional month of 50% relief. The patient has a histor y of lumbar fusion of L4-L5 done in 1996. She also has a nerve stimulator that was placed i n 2000. She comes today with severe pain to the low back that has worsened in the last 4 mo nths. She describes the pain as achy and sharp at times. Her symptoms worsen with getting up af ter prolonged sitting. Her symptoms improve with use of tramadol, oxycodone, naproxen. The patient does not describe numbness of the legs. She does have intermittent pain that r adiates down the right leg in the L5 dermatome. She does report weakness of the right hip flexors. The patient does not report recent falls or trauma. She does not have bowel and b ladder dysfunction. She does not have saddle anesthesia. Treatments for these complaints have included prior lumbar fusion L4-L5, neurostimulator, p rior started injections, use of narcotics, anti-inflammatory. Patient's medications, allergies, past medical, surgical, social and family histories were reviewed and updated as appropriate. CURRENT MEDICATIONS: Current Outpatient Prescriptions Medication Sig Dispense Refill aspirin (ADULT ASPIRIN EC LOW STRENGTH) 81 MG EC tablet Take 162 mg by mouth Daily. levothyroxine (SYNTHROID, LEVOTHROID) 75 MCG tablet Take 75 mcg by mouth every morning (before breakfast). liraglutide (VICTOZA) 18 mg/3 mL injection Inject 1.2 mg under the skin Daily. naproxen (NAPROSYN) 250 mg tablet Take 250 mg by mouth 2 times daily (with breakfast & dinner). oxyCODONE-acetaminophen (PERCOCET) 5-325 mg per tablet Take 1 tablet by mouth Daily as needed. Phendimetrazine Tartrate (BONTRIL SLOW RELEASE) 105 MG CP24 Take 105 mg by mouth Daily. traMADol (ULTRAM) 50 mg tablet Take 50 mg by mouth every 6 hours as needed for Pain. No current facility-administered medications for this visit. ALLERGIES: Allergies Allergen Reactions Erythromycin REVIEW OF SYSTEMS: (in the last 24 hours) GENERALLY: No fever, chills, weight changes. EYES: No vision changes. EARS, NOSE, AND THROAT: No hearing loss or tinnitis,no difficulty swallowing, no hoarseness . NEUROMUSCULAR: Please see the review of systems discussed above in the history of present illness. In addition, the patient has no dizziness, no blackouts, no headaches. CARDIOVASCULAR: No chest pain, no palpitations PULMONARY: No shortness of breath, no cough. GASTROINTESTINAL: No nausea, vomiting or diarrhea GENITOURINARY: No dysuria or hematuria SKIN: No rashes. HEMATOLOGIC/LYMPHATIC: No abnormal bleeding PHYSICAL EXAMINATION: Filed Vitals: 11/11/15 1241 BP: 133/84 Pulse: 94 PainSc: 5 PainLoc: Back Body mass index is 29.5 kg/(m^2). GENERAL: The patient is well developed and well nourished. She does not appear uncomfortab le when seated. HEENT: HEAD/FACE: EYES: Normocephalic and atraumatic. There are no areas of recent trauma. Normal sclerae without icterus. SKIN Limited skin exam shows no significant rashes or lesions. There are scars in the lumb ar region. CHEST: The patient is in no acute respiratory distress with unlabored respirations. HEART: There is not lower extremity edema. ABDOMEN: The patient is overweight. NEUROLOGIC: The patient is awake, alert, and oriented to time, place, person. She follows simple and complex commands. Her speech is fluent. She comprehends speech well. She has no apparent deficits with short or marine oil terminal superintendent memory. She has appropriate fund of knowledge Cranial nerves 2-12 appear grossly intact. Sensory exam does not show diminished sensation to light touch in the lower extremities. REFLEX: RIGHT LEFT PATELLAR 2+ 2+ ACHILLES 2+ 2+ MUSCULOSKELETAL There is no tenderness in the midline of the cervical or thoracic spine. T here is no major palpable deformity of the spine. Straight leg raise and slump-sit are negative. Ranjeet's maneuver and impingement testing were negative for any groin pain. There was no tenderness to palpation over the greater tr ochanters, there was tenderness to the sacral sulci, right greater than left. The patient l ocalized the majority of the pain to the lumbosacral region. Lumbar facet loading was posit rad. Strength testing showed 5/5 strength throughout the lower extremities. The patient wa s able to heel and toe walk without difficulty. There was no redness, effusion, warmth or j oint line tenderness in the knees or ankles. RADIOGRAPHIC REVIEW: The patient's imaging was reviewed in detail with the patient today during the visit. Lumba r CT shows solid fusion from L4-L5, she does have adjacent segment disease and at L3-L4 she has spondylolisthesis which is producing foraminal stenosis bilaterally left side is worse. She does have facet arthritis at L5-S1. ASSESSMENT: 1. S/P lumbar fusion - L4/L5 2. Status post right hip replacement 3. Sacroiliitis, not elsewhere classified (HCC) PLAN: 1. The patient has had significant conservative care including medications (NSAIDS and shan cotics), PT (multiple sessions over the years) and auto care center manager. Unfortunately she cont inues to have significant discomfort. It appears to me that the pain is primarily coming fr om the sacroiliac joint. I did feel that she would be a good candidate for interventional p rocedures and I offered bilateral SI joint injections. 2. Medications have been reviewed at today's visit with no changes made at this time. 3. The patient will follow-up as needed. ELECTRONICALLY SIGNED BY: Chayito Landers PA-C, 11/11/2015 CC: Jonathan Banda PA-C at [facility] 16 1:20 PM PDTdocumented in this encounter Plan of Treatment Not on filedocumented as of this encounter Results [place] Sacroiliac Injection Right (11/11/2015 1:51 PM PDT) + + | Specimen | + + | | + + + + + | Narrative | Performed At | + + + | 11/11/2015 Bilateral Sacroiliac Joint Injection Clinical History: | [facility] | | Sacroiliitis ICD-10 M46.1 Mae Jones Edgar presents to | [facility] | | the fluoroscopy suite for fluoroscopically guided bilateral [facility] | | sacroiliac joint steroid injections as [...] + + | Performing | Address | City/State[facility] | Phone Number | | Organization | | | | + + + + + | [facility] | [address] | [place], [place] | [phone] | | [facility] | | [address] | | | - IMAGING | | | | + + + + + FL Sacroiliac Injection Left (11/11/2015 1:51 PM PDT) + + | Specimen | + + | | + + + + + | Narrative | Performed At | + + + | 11/11/2015 Bilateral Sacroiliac Joint Injection Clinical History: | [facility] | | Sacroiliitis ICD-10 M46.1 Mae Jones Edgar presents to | [facility] | | the fluoroscopy suite for fluoroscopically guided bilateral | [facility] | | sacroiliac joint steroid [...] ST. | [address] | [place], [place] | [phone] | | [facility] | | [address] | | | - IMAGING | | | | + + + + + documented in this encounter Visit Diagnoses + + | Diagnosis | + + | S/P lumbar fusion - L4/L5 - Primary Arthrodesis status | + + | Status post right hip replacement Hip joint replacement by other means | + + | Sacroiliitis, not elsewhere classified (HCC) Sacroiliitis, not elsewhere classified | + + documented in this encounter
--- OUTSIDE RECORDS SUMMARY | ~2019-07-03 | XMS | Encounter Summary ---
Demographics + + + | Address | [address] | | | [place] [address] | + + + | Home Phone | | + + + | Preferred Language | Unknown | + + + | Marital Status | | + + + | Moravian Affiliation | 1041 | + + + | Race | Unknown | + + + | Ethnic Group | Unknown | + + + Author + + + | Author | [facility] | | | and [place] | + + + | Organization | [facility] | | | and [place] [...] [place] | | | | | [address] | | + + + + + | Daina Mazariegos | ECON | Unknown | | + + + + + Care Team Providers + +------+ + | Care Mold Polisher Name | Role | Phone | + [...] | | | | pain | [address] | [address] | | | | | Procedures | POINT | [address] | | | | | [place] Gastric | [place], [place] | [place] | | | | | Emptying | [address] | [address] | | | | | | Phone: | Phone: | | | | | | [phone] | [phone] | | | | | | Fax: | Fax: | | | | | | [phone] | [phone] | +--------+--------+ + + + + Encounter Details +--------+ + + + + | Date | Type | Department | Care Team | Description | +--------+ + + + + | 06/13/ | Hospital | [facility] | Pilar Isbell MD | | | 2019 | Encounter | [facility] | [address] [facility] | | | | | MEDICINE [address] | [place] [address] | | | | | [address] | [phone] | | | | | [place], [place] | | | | | | [address] | | | | | | [phone] | | | +--------+ + + + [...]
--- OUTSIDE RECORDS SUMMARY | ~2019-07-03 | XMS | Encounter Summary ---
Demographics + + + | Address | [address] | | | [place] [address] | + + + | Home Phone [...] Providers + +------+ + | Care Commercial Litigation Paralegal Name | Role | Phone | + [...] Closed | | Pain | Diagnoses | Hyacinth, | Akua, | | | | Management | | MD Bebe | MD Roger | | | | | Spondylolist | [address] | [address] | | | | | stephan, grade | Ave | Ave | | | | | [address] | [place], [place] | [place], [place] | | | | | Procedures | [address] | [address] | | | | | CONSULT TO | Phone: | Phone: | | | | | PAIN CENTER | [phone] | [phone] | | | | | | Fax: | Fax: | | | | | | [phone] | [phone] | +--------+--------+ + + + + Reason for Visit + + + | Reason | Comments | + + + | Follow-up in | increasing chronic low back pain, having spasms per pt, would | | outpatient clinic | like to discuss pain management | + + + Encounter Details +--------+---------+ + + + | Date | Type | Department | Care Team | Description | +--------+---------+ + + + | 10/27/ | Office | Neurosurgery at | Bebe Claros MD | Low Back Pain | | 2006 | Visit | [facility] [address] | [address] | (Primary Dx); | | | | Ave Mailcode: CH8N | [place], [place] | Spondylolisthesis, | | | | [facility] | [address] | Grade 1 | | | | and Healing, | [phone] | | | | | [place] [address] [facility] | | | | | | Floor [place], [place] | | | | | | [address] | | | | | | [phone] | | | +--------+---------+ + + + [...] documented as of this encounter Progress Notes Oni Schuster - 10/27/2006 2:41 PM Mirella is a pleasant 45 yo female who complains of low back pain. She has always had a low grade pain, but 3 weeks ago while house cleaning s he stated her back became very painful. She had no radicular pain, only localized low back p ain. In 2001 she had a L4-L5 posterior lumbar fusion. She also has a left sciatic nerve stimula tor regarding sciatic nerve pain. Lumbosacral films were taken and showed L3-L4 spondylolisthesis grade II. Hardware from 13 09 fusion appeared normal. Plan Mae is to have a L3-L4 bilateral facet block. She was offered to wear lumbosacral brace. Also we called her PCP to prescribe short term pain relief. She is then to follow up with us for continued consultation and recommendation based upon test results. documented in this encounter Plan of Treatment Not on filedocumented as of this encounter Procedures + +--------+ + + + | Procedure Name | Priori | Date/Time | Associated Diagnosis | Comments | | | ty | | | | + +--------+ + + + | RADIOLOGY | | 01/30/2009 | | Results for this | | | | 12:00 AM | | procedure are in the | | | | PDT | | results section. | + +--------+ + + + | X-RAY SPINE | Routin | 10/27/2006 | Low Back Pain | Results for this | | LUMBOSACRAL 2 VIEWS | e | 1:08 PM | | procedure are in the | | | | PDT | | results section. | + +--------+ + + + documented in this encounter Results RADIOLOGY (01/30/2009 12:00 AM PDT) + + + | Narrative | Performed At | + + + | | | + + + + + | Procedure Note | + + | Bebe Claros MD - 01/30/2009 12:00 AM PDT | | | + + SPINE LUMBOSACRAL 2 VIEWS (10/27/2006 1:08 PM PDT) + + + + + + | Component | Value | Ref Range | Performed | Pathologist | | | | | At | Signature | + + + + + + | SPINE | Radiologist 1: MARILEE, | | | | | LUMBOSACRAL | Maxime DINH M.D.LUMBAR | | | | | 2 VIEWS | SPINE, AP AND LATERAL | | | | | | UPRIGHT: 10/27/2006 | | | | | | Dictated 10/27/2006 | | | | | | COMPARISON: 09/05/2003 | | | | | | FINDINGS: There is | | | | | | combined anterior and | | | | | | posterior spinal | | | | | | fixation ofL4-5. The | | | | | | interbody bone graft | | | | | | shows no collapse or | | | | | | displacement.The | | | | | | bilateral pedicle screws | | | | | | and paraspinal rods | | | | | | remain intact | | | | | | withoutloosening or | | | | | | displacement. There is | | | | | | no change in alignment | | | | | | at thefused segments. | | | | | | There is posterior disc | | | | | | narrowing and some | | | | | | retrolisthesis at | | | | | | L3-4which is unchanged. | | | | | | There is moderately | | | | | | advanced L5-S1 | | | | | | degenerativedisc disease | | | | | | and facet arthropathy | | | | | | which is also unchanged. | | | | | | Electrode with 4 pads | | | | | | is unchanged lying | | | | | | inferior to the left | | | | | | sciaticnotch. | | | | + + + + + + + + | Specimen | + + | | + + + +---------+ + + | Performing | Address | City/State/Zipcode | Phone Number | | Organization | | | | + +---------+ + + | [facility] DEPARTMENT OF | | | | | RADIOLOGY | | | | + +---------+ + + documented in this encounter Visit Diagnoses + + | Diagnosis | + + | Low back pain - Primary Lumbago | + + | Spondylolisthesis, grade 1 Acquired spondylolisthesis | + + documented in this encounter"
--- OUTSIDE RECORDS SUMMARY | ~2019-07-03 | XMS | Encounter Summary ---
Demographics + + + | Address | [address] | | | [place] [address] | + + + | Home Phone [...] Providers + +------+ + | Care Hospice Massage Therapist Name | Role | Phone | + +------+ + PCP | Unavailable | + +------+ + Encounter Details +--------+ + + + + | Date | Type | Department | Care Team | Description | +--------+ + + + + | 08/23/ | Office | | Note, Outpatient | Progress Note | | 2002 | Visit-Trans | | Clinic | | | | cribed [...] as of this encounter Progress Notes Interface, Propagator In - 01/29/2006 1:01 AM PDTCLINIC DATE: 08/23/2002 NEUROSURGERY CLINIC ATTENDING PHYSICIAN: Bebe Claros M.D. SUBJECTIVE: Ms. Hernández is a 42-year-old woman who is status post L4-L5 fusion in August 2001. She returned to the clinic for routine followup. She states that she is doing well, although she does continue to have some back pain. She states that her back pain has improved approximately 50% since the time of her surgery. She also indicated that she has difficulty walking long distances as might occur during any shopping trip. She has no other complaints.Specifically, she has no complaints of bowel and bladder difficulty. PHYSICAL EXAMINATION GENERAL: On examination, she is awake and oriented person, place, and date. The speech is fluent. EXTREMITIES: She has full strength in all 4 extremities. NEUROSURGERY: Her gait is steady. LABORATORY DATA: Plain films of the lumbar spine show good spinal alignment with hardware in place. There is evidence of good fusion. ASSESSMENT AND PLAN: Overall, Ms. Hernández appears to be improved since her lumbar spine fusion. We recommended that she continue with her physical therapy as tolerated. We have also given her a prescription for Vicodin which she should take on an as-needed basis for continuing pain. She is to return to the Neurosurgery Clinic on an as-needed basis. Dr. Claros was present for the patient's interview and examination. Enio Choe M.D. Bebe Claros M.D. / MADELINE [id number] / [id number] / [id number] / [id number] C: 08/29/2002 am C: 08/31/2002S cc: Jefferson Cortes [address] [facility] [address] [place] [address] Sonny Beebe M.D. [address] [place] [address] Khari Ying M.D. [address] [facility] [address] [place], [place] [id number] signed by Interface, Propagator In at 01/29/2006 1:01 AM PDTInterface, Propagator In - 01/29/2006 1:01 AM PDTCLINIC DATE: 08/23/2002 Mae returned today for followup approximately 1 year after L4-L5 PLIF. She states that her back pain is about 50% better, but she still is quite limited in terms of walking, bending, lifting, and exercise. She is in the market now for a new primary care doctor, and we are going to try to set that up here at [facility]. She is using Vicodin sparingly, and I gave her 50 additional pills to last her no less than 6 months. At this point, I think we have probably reached maximum benefit from surgery, but I will continue to follow her and can provide her small number of pain pills in the future until she gets primary care physician. Bebe Claros M.D. ISSAC / MADELINE [id number] / [id number] / [id number] / Tdocumented in this encounter Plan of Treatment Not on filedocumented as of this encounter Visit Diagnoses Not on filedocumented in this encounter"
--- OUTSIDE RECORDS SUMMARY | ~2019-07-03 | XMS | Encounter Summary ---
Demographics + + + | Address | [address] | | | [place] [address] | + + + | Home Phone [...] Team Providers + +------+ + | Care Floor Space Allocator Name | Role | Phone | + +------+ + PCP | Unavailable | + +------+ + Encounter Details +--------+ + + + + | Date | Type | Department | Care Team | Description | +--------+ + + + + | 10/10/ | Transcribed | | Dictation, Other | [...] as of this encounter Progress Notes Interface, [place] Engine Machinist In - 06/04/2006 1:06 AM [facility] OR [facility] and [place] [address] [place], [place] [address] or May 03, 2000 Khari Ying M.D. [facility] [address] [facility] [address] [place] [address] RE: MAE WILLIS MR #: [id number] Dear Dr. Ying: I saw the patient back in Neurosurgery Clinic today. As you know I have recently sent her to our Pain Center for evaluation. They have performed some facet injections on the patient and have also began some physical therapy. At the present time, physical therapy seems to be the most promising avenue to try to alleviate her back pain. The patient is pursuing that with them at this time. The other issue is that her stimulator battery recently placed in January, now appears to be out of power. It is not clear why this has occurred, although she feels that the stimulation is helpful and would like to have it replaced. I am going to explant this generator and send it back to the company for analysis. It is possible that if it is found to be defective, they may be willing to issue a replacement or at least reimburse her insurance company for the cost. It seems very premature for this unit to have failed in such a fashion. We are setting about to schedule her for the replacement of her stimulated generator. Sincerely, Bebe Claros M.D. / [id number] / [id number] / [id number] / [id number] cc: Roger Fatima M.D. Pain Center [id number] signed by Interface, [place] Engine Machinist In at 06/04/2006 1:06 AM PSTdocume nted in this encounter Plan of Treatment Not on filedocumented as of this encounter Visit Diagnoses Not on filedocumented in this encounter"
--- OUTSIDE RECORDS SUMMARY | ~2019-07-03 | XMS | Encounter Summary ---
Demographics + + + | Address | [address] | | | [place] [address] | + + + | Home Phone [...] Team Providers + +------+ + | Care Skate Boarder Name | Role | Phone | + +------+ + PCP | Unavailable | + +------+ + Encounter Details +--------+ + + + + | Date | Type | Department | Care Team | Description | +--------+ + + + + | 05/04/ | Transcribed | | Dictation, Other | [...] as of this encounter Progress Notes Interface, Ip Network Architect In - 07/15/2006 3:10 AM [facility] OR [facility] and [place] [address] [place], [place] [address] or November 25, 1998 [place] [address] [place] [address] RE: Mae Jose MR#: [id number] Madden: I saw Mae Jose back in the Neurosurgery Clinic at [facility] [place] [facility] today. 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 My conclusion is that based on her continued symptoms of parasthesias and burning pain strictly limited to the buttock, she suffered an irreversible injury to the superior gluteal nerve at the time of her original fall. She now has a fairly well established pain syndrome in the buttock, which was only briefly interrupted by our decompressive surgery. I suspect we simply traumatized the nerve a bit at the time of that surgery and it went into a period of hypofunction rendering her somewhat numb in the distribution. When the function of the nerve returned several weeks after surgery, it was simply to reproduce her pain syndrome. The upshot of all of this is that I believe that we will need to take further steps to reduce her pain. I discussed with her the application of peripheral nerve stimulation technology to this problem and that my inclination is to proceed in this direction. We certainly could go in and cut the nerve, but this could produce an irreversible nerve deficit and pain, which would be even more difficult to treat. Mae wishes to proceed with a trial of peripheral nerve stimulation and we are making arrangements to do that currently. I will certainly keep you apprised of her progress during this trial procedure. Sincerely, Bebe Claros M.D. Professor and Ball Machine Operator, Department of Neurological Surgery [id number] #[id number] signed by Interface, Ip Network Architect In at 07/15/2006 3:10 AM PSTdocumen ric in this encounter Plan of Treatment Not on filedocumented as of this encounter Visit Diagnoses Not on filedocumented in this encounter"
--- OUTSIDE RECORDS SUMMARY | ~2019-07-03 | XMS | Encounter Summary ---
Demographics + + + | Address | [address] | | | [place] [address] | + + + | Home Phone [...] + + + | Author | [facility] | | | and Humbertoana | + + + | Organization | [facility] | [...] [place] | | | | | [address] | | + + + + + | Daina Mazariegos | ECON | Unknown | | + + + + + Care Team Providers + +------+ + | Care Neuro Urologist Name | Role | Phone | + [...] | | Lumbar | [place], | [address] | | | | | radiculopath | Mohan Andrews MD | [place], | | | | | y | [address] | [place] [address] | | | | | Procedures | [place] | Phone: | | | | | CT Lumbar | [place] | [phone] | | | | | Spine w | [address] | Fax: | | | | | Contrast | Phone: | [phone] | | | | | | [phone] | | | | | | | Fax: | | | | | | | [phone] | | +--------+--------+ + + + + [...] + + | 07/12/ | Office | [facility] | Mohan Bunn | Lumbar radiculopathy | | 2012 | Visit | PHYSIATRY [address] | TMD [address] | (Primary Dx); Right | | | | [address] [place], | [place], [place] | hip pain; Bursitis, | | | | [place] [address] | [address] | hip; BACK PAIN, | | | | [phone] | | LUMBAR; Sacroiliitis | | | [...] has no apparent deficits with short or shelter memory. The cranial nerves appear grossly intact. [...] Performed At | + + + | [facility] | [place] | | Department [address] [facility] [place] | [facility] | | [ rep [address]] [ rep [facility] | | st zip] Signed | - IMAGING | | | | | Patient Name: MAE THOMPSON | | | Physician: KEILA : 1960 Age: 52 Sex: F Unit | | | #: [id number] Exam Date: 07/12/13 Location: | | | [facility] Report #: [id number] Page: | | | %(RAD)RES..mtdd.print.filter("pg") of %(RAD) | | | RES..mtdd.print.filter("tpg") | | | | | | Accession Number: [id number] | | | PELVIS AND RIGHT HIP, [...] Transcribed Date/Time: 07/12/2013 | | | 10:58 Relay Tester Helper: <<Signature | | | on File>> | | | Rui Shaver | | | MD Nguyễn07/12/13 2219 <Electronically signed by Rui Adrian MD> | | | Rui Adrian MD 07/12/13 1039 Relay Tester Helper: | | | Spotjournal Ytisxiwiemlbm16/19/13 1058 Mohan Bunn MD | | | | | + + + + + + + + | Performing | Address | City/State/Zipcode | Phone Number | | Organization | | | | + + + + + | [facility] | [address] | [place] | [phone] | | [facility] | | [address] | | | - IMAGING | | [...]
--- OUTSIDE RECORDS SUMMARY | ~2019-07-03 | XMS | Clinical Summary ---
Demographics + + + | Address | [address] | | | [place] [address] | + + + | Home Phone | | + + + | Preferred Language | Unknown | + + + | Marital Status | | + + + | Mormonism Affiliation | 1041 | + + + | Race | Unknown | + + + | Ethnic Group | Unknown | + + + Author + + + | Author | [facility] | | | and Humbertoana | + + + | Organization | [facility] | | | and [...] [place] | | | | | [address] | | + + + + + | Daina Mazariegos | ECON | Unknown | | + + + + + Care Team Providers + +------+ + | Care Fowl Blood Tester Name | Role | Phone | + +------+ + | Antoinette Davila | PCP | | | PA | | | + +------+ + Allergies + + + +--------+ + | Active Allergy | Reactions | Severity | Noted | Comments | | | | | Date | | + + + +--------+ + | Erythromycin | | | | | + + + +--------+ + Medications + + + +---------+------+------+-------+ | Medication | Sig | Dispensed | Refills | Star | End | Statu | | | | | | t | Date | s | | | | | | Date | | | + + + +---------+------+------+-------+ | Phendimetrazine | Take 105 mg by mouth | | 0 | 09/1 | | Activ | | Tartrate (BONTRIL | Daily. | | | 4/20 | | e | | SLOW RELEASE) 105 MG | | | | 12 | | | | CP24 | | | | | | | + + + +---------+------+------+-------+ | | Take 1 tablet by | | 0 | | | Activ | | oxyCODONE-acetaminop | mouth Daily as | | | | | e | | hen (PERCOCET) 5-325 | needed. | | | | | | | mg per tablet | | | | | | | + + + +---------+------+------+-------+ | aspirin (ADULT | Take 162 mg by mouth | | 0 | 03/25 | | Activ | | ASPIRIN EC LOW | Daily. | | | 11/11 | | e | | STRENGTH) 81 MG EC | | | | 12 | | | | tablet | | | | | | | + + + +---------+------+------+-------+ | naproxen | Take 250 mg by mouth | | 0 | | | Activ | | (NAPROSYN) 250 mg | 2 times daily (with | | | | | e | | tablet | breakfast & | | | | | | | | dinner). | | | | | | + + + +---------+------+------+-------+ | traMADol (ULTRAM) | Take 50 mg by mouth | | 0 | | | Activ | | 50 mg tablet | every 6 hours as | | | | | e | | | needed for Pain. | | | | | | + + + +---------+------+------+-------+ | levothyroxine | Take 75 mcg by mouth | | 0 | | | Activ | | (SYNTHROID, | every morning | | | | | e | | LEVOTHROID) 75 MCG | (before breakfast). | | | | | | | tablet | | | | | | | + + + +---------+------+------+-------+ | liraglutide | Inject 1.2 mg under | | 0 | | | Activ | | (VICTOZA) 18 mg/3 mL | the skin Daily. | | | | | e | | injection | | | | | | | + + + +---------+------+------+-------+ Active Problems + + + | Problem | Noted Date | + + + | S/P lumbar fusion - L4/L5 | 05/15/2015 | + + + | Status post right hip replacement | 05/15/2015 | + + + | Spondylolisthesis of lumbar region | 04/01/2014 | + + + | Lumbar radiculopathy | 07/12/2013 | + + + | Right hip pain | 07/12/2013 | + + + | Sacroiliitis, not elsewhere classified | 09/19/2012 | + + + | BACK PAIN, LUMBAR | | + + + | BURSITIS, HIP | | + + + | DISC DISEASE, LUMBOSACRAL SPINE | | + + + | HX OF SPINAL FUSION | | + + + Resolved Problems + +--------+ + | Problem | Noted | Resolved | | | Date | Date | + +--------+ + | Hip pain, right | | | | | | 3 | + +--------+ + Encounters +--------+ + + + + | Date | Type | Specialty | Care Team | Description | +--------+ + + + + | 11/20/ | Hospital | Radiology | Pilar Isbell MD | | | 2018 | Encounter | | | | +--------+ + + + + | 06/13/ | Hospital | Radiology | Pilar Isbell MD | | | 2018 | Encounter | | | | +--------+ + + + + | 06/13/ | Hospital | Radiology | Pilar Isbell MD | | | 2018 | Encounter | | | | +--------+ + + + + | 06/13/ | Hospital | Radiology | Pilar Isbell MD | | | 2018 | Encounter | | | | +--------+ + + + + | 06/13/ | Hospital | Radiology | Pilar Isbell MD | Epigastric pain | | 2018 | Encounter | | | | +--------+ + + + + from Last 3 Months Social History + +-------+ +--------+------+ | Tobacco [...] + + + | Blood Pressure | 139/101 | 11/11/2015 2:06 PM | | | | | PDT | | + + + + + | Pulse | 108 | [...] | + + + + + | Cervical Cancer | | | | | Screening (Pap) | 0 | | | + + + + + | Vaccine: Zoster (1 | | | | | of 2) | 0 | | | + + + + + | Breast Cancer | | | | | Screening | 5 | | | + + + + + | Vaccine: Influenza | | 07/10/2018 | | | (#1) | 9 | | | + + + + + | Vaccine: | | 11/17/2017, 08/09/2010 | | | Dtap/Tdap/Td (3 - | 8 | | | | Td) | | | | + + + + + Procedures + +--------+ + + + | [...] section. | + +--------+ + + + from Last 3 Months Results NM Gastric Emptying (06/13/2019 1:04 PM [...] + | Jarrod, Rad Results In - 06/13/2019 2:34 PM PST [...] | | | Signed by: Marco Antonio Villalta, Fernando | | Sign Date/Time: 06/13/2019 2:30 PM | + + + +---------+ + + | Performing | Address | City/State/Zipcode | Phone Number | | Organization | | | | + +---------+ + + | [facility] | | | | + +---------+ + + from Last 3 Months Insurance +-------+--------+ +--------+ +---------+------+ | Payer | Benefi | Subscriber | Effect | Phone | Address | Type | | | t Plan | ID | rad | | | | | | / | | Dates | | | | | | Group | | | | | | +-------+--------+ +--------+ +---------+------+ | CIGNA | CIGNA | [id number] | | [phone] | | PPO | | | PPO | | [id number] | 1 | | | | | | | esent | | | | +-------+--------+ +--------+ +---------+------+ + +--------+ +--------+ + + | Guarantor Name | Accoun | Relation to | Date | Phone | Billing Address | | | t Type | Patient | of | | | | | | | | | | + +--------+ +--------+ + + | Brunilda-Mae Dietrich | Person | Self [birth year] | [address] | | [place] | al/Fam | | 1961 | [phone] | [place] | | | [place] | | | 6 (Home) | [id number] | | | | | | [phone] | | | | | | | 0 (Work) | | + +--------+ +--------+ + + | Brunilda-Mae Dietrich | Person | Self [birth year] | [address] | | Karen | al/Fam | | 1961 | [phone] | [address] [place] | | | [place] | | | 6 (Home) | [id number] | | | | | | [phone] | | | | | | | 0 (Work) | | + +--------+ +--------+ + + Advance Directives + + + + + | Type | Date Recorded | Patient | Explanation | | | | Slot Machine Key Person | | + + + + + | Power of | | | | | Ground Water Technician | | | | + + + + + | Advance | 03/12/2015 12:13 | | | | Directive | PM | | | + + + + +
--- OUTSIDE RECORDS SUMMARY | ~2019-07-03 | XMS | Encounter Summary ---
Demographics + + + | Address | [address] | | | [place] [address] | + + + | Home Phone [...] Team Providers + +------+ + | Care Chief Pilot Name | Role | Phone | + +------+ + PCP | Unavailable | + +------+ + Encounter Details +--------+ + + + + | Date | Type | Department | Care Team | Description | +--------+ + + + + | 09/09/ | Discharge | | Summary, Discharge | D/C Summary ODDS | | 2001 | Summary-Tra | | | | | | nscribed | | | | +--------+ + + [...] + + documented as of this encounter Discharge Summaries Interface, Blocker Hand In - 04/08/2006 6:[address] [address] [facility] MEDICAL SUMMARY OF HOSPITALIZATION Med Rec No: [id number] Admission Date: 09/04/2001 Name: Mae Hernández Discharge Date: 09/09/2001 STAFF PHYSICIAN: Bebe Claros M.D. PRINCIPAL FINAL DIAGNOSIS: L4-5 herniated nucleus pulposis. PRINCIPAL PROCEDURE: L4-5 posterior lumbar interbody fusion performed on 09/04/2001. REASON FOR ADMISSION: The patient is a 40-year-old female with a five-year history of back pain. For the past few months, there has been a small amount of radiation into her legs and the pain has increased in severity. Workup revealed an L4-5 herniated nucleus pulposis. HOSPITAL COURSE: The patient was admitted and taken to the operating room on 09/04/2001 where she underwent the above-named procedure (L4-5 PLIF/pedicle screw). The patient tolerated the procedure well and was transferred to the noriega following the Post Anesthesia Care Unit. Postoperative, she was kept on bedrest until 09/07/2001. She was also fitted for a TLSO brace. On 09/07/2001, she got out of bed and ambulated with a fair amount of pain that was controlled with IV and p.o. pain medications. Her Leyva catheter was discontinued and she was advanced to a regular diet. Over the ensuing days, her mobilization slowly increased and by 09/09/2001, she was ambulating without difficulty on her own, eating a regular diet, and her pain was well controlled on her oral medications. She was deemed ready for discharge. DISCHARGE MEDICATIONS: 1. Oxycodone 5-10 mg p.o. q. four hours p.r.n., #40. 2. Colace 100 mg p.o. b.i.d. DISCHARGE INSTRUCTIONS: ACTIVITY: As tolerated. DIET: Regular. FOLLOW-UP: Dr. Claros in Neurosurgery Clinic in one month with follow-up AP and lateral x-rays. Marco Antonio Veras M.D. CH:x11 [id number] signed by Interface, Blocker Hand In at 04/08/2006 6:10 AM PDTdoc umented in this encounter Plan of Treatment Not on filedocumented as of this encounter Visit Diagnoses Not on filedocumented in this encounter"
--- OUTSIDE RECORDS SUMMARY | ~2019-07-03 | XMS | Encounter Summary ---
Demographics + + + | Address | [address] | | | [place] [address] | + + + | Home Phone | | + + + | Preferred Language | Unknown | + + + | Marital Status | | + + + | Yazdanism Affiliation | NON | + + + [...] Team Providers + +------+ + | Care Recoil Spring Winder Name | Role | Phone | + +------+ + PCP | Unavailable | + +------+ + Encounter Details +--------+ + + + + | Date | Type | Department | Care Team | Description | +--------+ + + + + | 09/04/ | Procedure - | | Documentation, | OP REPORT-TEACHING | | 2001 | | | Teaching Physician | | [...] + + | TEACHING PHYSICIAN | | 09/04/2001 | | | + +--------+ + + + documented in this encounter Visit Diagnoses Not on filedocumented in this encounter"
--- OUTSIDE RECORDS SUMMARY | ~2019-07-03 | XMS | Encounter Summary ---
Demographics + + + | Address | [address] | | | [place] [address] | + + + | Home Phone | | + + + | Preferred Language | Unknown | + + + | Marital Status | | + + + | Adventist Affiliation | NON | + + + | Race | White | + + + | Ethnic Group | Not or | + + + Author + + + | Author | [facility] | + + + | Organization | [facility] | + + + | Address | Unknown | + + + | Phone | Unavailable | + + + Support + + + + + | Name | Relationship | Address | Phone | + + + + + | Liam Dietrich | ECON | [place] | | + + + + + Care Team Providers + +------+ + | Care Compensation Analyst Name | Role | Phone | + +------+ + PCP | Unavailable | + +------+ + Encounter Details +--------+ + + + + | Date | Type | Department | Care Team | Description | +--------+ + + + + | 08/23/ | Results | Neurosurgery [address] | Bebe Claros MD | | | 2002 | Only | [address] | [address] | | | | | [address] Mailcode:OP14B | [place], [place] | | | | | [place] | [address] | | | | | [place], [place] | [phone] | | | | | [address] | | | | | | [phone] | | | +--------+ + + + [...] + | X-RAY SPINE | Routin | 08/23/2002 | | Results for this | | LUMBOSACRAL 2 VIEWS | e | 2:50 PM | | procedure are in the | | | | PST | | results section. | + +--------+ + + + documented in this encounter Results SPINE LUMBOSACRAL 2 VIEWS (08/23/2002 2:50 PM PST) + + + + + [...] RIO | | | | | | SPINE - TWO VIEWS: | | | | | | 08/23/2002 Dictated | | | | | | 08/24/2002 COMPARISON | | | | | | STUDY: 02/15/02. | | | | | | FINDINGS: Posterior | | | | | | fusion of L4 and L5 with | | | | | | paired spinal | | | | | | rods,pedicular screws | | | | | | and interbody bone graft | | | | | | is in normal | | | | | | postoperativealignment, | | | | | | unchanged from prior | | | | | | study. There is no | | | | | | evidence forhardware | | | | | | loosening or failure. | | | | | | The vertebrae are in | | | | | | normal alignment. | | | | | | There is mild anterior | | | | | | wedgingof T12 and L1, | | | | | | again seen. Disc space | | | | | | narrowing and | | | | | | marginalosteophytes are | | | | | | seen at the lower | | | | | | thoracic and upper | | | | | | lumbar spine andalso at | | | | | | L5-S1. Prior laminectomy | | | | | | is seen at L4 and L5. | | | | | | An electrical stimulator | | | | | | is seen with its lead | | | | | | extending into the | | | | | | lefthemipelvis, | | | | | | unchanged. IMPRESSION: | | | | | | Intact intervertebral | | | | | | bone graft and posterior | | | | | | fusion hardware atL4-L5 | | | | | | without change in | | | | | | alignment or evidence | | | | | | for | | | | | | hardwarecomplication. | | | | | | No significant change | | | | | | in exam. END OF | | | | | | IMPRESSION: | | | | + + + + + + + + | Specimen | + + | | + + + +---------+ + + | Performing | Address | City/State/Zipcode | Phone Number | | Organization | | | | + +---------+ + + | [facility] DEPARTMENT OF | | | | | RADIOLOGY | | | | + +---------+ + + documented in this encounter Visit Diagnoses Not on filedocumented in this encounter"
--- OUTSIDE RECORDS SUMMARY | ~2019-07-03 | XMS | Encounter Summary ---
Demographics + + + | Address | [address] | | | [place] [address] | + + + | Home Phone | | + + + | Preferred Language | Unknown | + + + | Marital Status | | + + + | Shinto Affiliation | 1041 | + + + | Race | Unknown | + + + | Ethnic Group | Unknown | + + + Author + + + | Author | [facility] | | | and [place] | + + + | Organization | [facility] | | | and [place] | [...] [place] | | | | | [address] | | + + + + + | Daina Mazariegos | ECON | Unknown | | + + + + + Care Team Providers + +------+ + | Care Heavy Equipment Mechanic Name | Role | Phone | + +------+ + | Noe Thomason | PCP | | | MD | | | + +------+ + Encounter Details +--------+ + + + + | Date | Type | Department | Care Team | Description | +--------+ + + + + | 10/17/ | Hospital | [facility] | BabiggbrandonchuyMohan | Right hip pain | | 2013 | Encounter | MED CTR XRAY [address] | | | | | [place] | [place], [place] | | | | | [place] [address] | [id number] | | | | | [phone] | | | | | | | Training And Development SpecialistZora | | +--------+ + + + + [...] +---------+ + + | Blood Pressure | 165/101 | 10/17/2013 1:51 PM | | | | | PDT | | + +---------+ + + | Pulse | 82 | 10/17/2013 1:51 PM | | | | | PDT [...] + | [place] ASPIRATION | Routin | 10/17/2013 | Right hip pain | Results for this | | INJECTION MAJOR | e | 1:51 PM | | procedure are in the | | JOINT RIGHT | | PDT | | results section. [...] 719.45, HIP PAIN. Ms. Mae Hernández | [facility] | | presents to the fluoroscopy suite for a fluoroscopically-guided [facility] | | right intraarticular hip injection as [...] ICD-9 CODE 719.45, HIP PAIN. Ms. Mae WorleyShruti | | presents to the fluoroscopy suite [...] + + | Performing | Address | City/State/[facility] | Phone Number | | Organization | | | | + + + + + | [address] | [address] | [place] | [phone] | | [facility] | | [address] | | | - IMAGING | | [...] iohexol (OMNIPAQUE 300) 300 | Given | 10/18/19 | 4 mLs | | | | mg/mL injection 4 mL 4 mL, | | 14 2:00 | | | | | INTRATHECAL, ONCE, Tue10/17/13 at | | PM PDT | | | | | 1400, For 1 dose | | | | | | + +--------+ +-------+------+------+ +---+---+ | | | +---+---+ + +-------+ +-------+---+---+ | lidocaine 1% injection 5 mL 5 | Given | 10/18/19 | 5 mLs | | | | mL, Infiltration, ONCE, Tue | | 14 2:00 | | | | | 10/17/13 at 1400, For 1 dose | | PM PDT | | | | + +-------+ +-------+---+---+ +---+---+ | | | +---+---+ + +-------+ +-------+---+---+ | sodium bicarbonate (NEUT) 4% | Given | 10/18/19 | 2 mLs | | | | injection 2 mL 2 mL, Topical, | | 14 2:00 | | | | | ONCE, Tue10/17/13 at 1400, For 1 | | PM PDT | | | | | dose | | | | | | + +-------+ +-------+---+---+ +---+---+ | | | +---+---+ + +-------+ +-------+---+ + | triamcinolone acetonide | Given | 10/18/19 | 40 mg | | Other | | (KENALOG-40) 40 mg/mL injection | | 14 2:00 | | | (Comment | | 40 mg 40 mg, Intra-articular, | | PM PDT | | | ) | | ONCE, Tue10/17/13 at 1400, For 1 | | | | | | | dose, Shake well. Not for IV | | | | | | | use., | | | | | | + +-------+ +-------+---+ + +---+---+ | | | +---+---+ documented in this encounter"
--- OUTSIDE RECORDS SUMMARY | ~2019-07-03 | XMS | Encounter Summary ---
Demographics + + + | Address | [address] | | | [place] [address] | + + + | Home Phone | | + + + | Preferred Language | Unknown | + + + | Marital Status | | + + + | Congregational Affiliation | NON | + + + [...] Team Providers + +------+ + | Care Traffic Sign Erection Supervisor Name | Role | Phone | + +------+ + PCP | Unavailable | + +------+ + Encounter Details +--------+ + + + + | Date | Type | Department | Care Team | Description | +--------+ + + + + | 03/06/ | Office | [facility] | Note, [...] as of this encounter Progress Notes Interface, Wind Science And Planning In - 05/03/2006 3:07 AM PDTCLINIC DATE: 03/06/2001 [facility] SUBJECTIVE: The patient with continued complaints of lumbar pain. She is scheduled for IDET procedure on March 07, 2001. Today's appointment is to review preIDET protocol. OBJECTIVE 1. Gross motion measurements performed with inclinometer. Lumbar flexion is measured at 50 degrees, extension 10 degrees, and left rotation is limited to approximately 60% normal. A passive left hip motion is restricted in the direction of coupled external rotation and abduction as well as internal rotation. 2. Treatment with: 1. Reviewed general lumbar stabilization with focus on attaining neutral spine position. 2. Perform transitional motion from ptwley-yr-lek and vuz-ib-yvxfw utilizing neutral lumbar spine technique. 3. The patient was fitted with a Saunder's lumbopelvic support brace. The patient has been instructed and is independent with donning and doffing lumbar support. He has been instructed to wear continuously following IDET procedure. ASSESSMENT: The patient has been educated on preintradiscal electrothermal therapy protocol. She continues to demonstrate significant weakness and dynamic lumbopelvic stabilizers. PLAN: Continue physical therapy to focus on dynamic stability in the lumbopelvic region with a frequency of 1 visit per week for 6 weeks. Mandi Alvarado P.T. KADE / [place] [id number] / [id number] / [id number] / C: 04/13/2001 la [id number] signed by Interface, Wind Science And Planning In at 05/03/2006 3:07 AM PDTdocume nted in this encounter Plan of Treatment Not on filedocumented as of this encounter Visit Diagnoses Not on filedocumented in this encounter"
--- OUTSIDE RECORDS SUMMARY | ~2019-07-03 | XMS | Encounter Summary ---
Demographics + + + | Address | [address] | | | [place] [address] | + + + | Home Phone | | + + + | Preferred Language | Unknown | + + + | Marital Status | | + + + | Samaritan Affiliation | NON | + + + [...] Team Providers + +------+ + | Care Lighting Director Name | Role | Phone | + [...] as of this encounter Progress Notes Interface, Parking Inspector In - 06/19/2006 3:15 AM [facility] OR [facility] and [place] [address] [place], [place] [address] or October 06, 1999 Khari Ying M.D. [address] [facility] [address] [place] [address] RE: MAE JOSE MR #: [id number] Dear Dr. Ying: Mae Jose returned to [...] Sincerely, Bebe Claros M.D. ISSAC / M[place] [id number] / [id number] / [id number] / [id number] signed by Interface, Parking Inspector In at 06/19/2006 3:15 AM PSTdocume nted in this encounter Plan of Treatment Not on filedocumented as of this encounter Visit Diagnoses Not on filedocumented in this encounter
--- OUTSIDE RECORDS SUMMARY | ~2019-07-03 | XMS | Encounter Summary ---
Demographics + + + | Address | [address] | | | [place] [address] | + + + | Home Phone | | + + + | Preferred Language | Unknown | + + + | Marital Status | | + + + | Yazidi Affiliation | NON | + + + | Race | White | + + + | Ethnic Group | Not or | + + + Author + + + | Author | [facility] | + + + | Organization | [facility] | + + + | Address [...] Team Providers + +------+ + | Care Rod Pointer Name | Role | Phone | + [...] as of this encounter Progress Notes Interface, Professor Of Pathology In - 06/06/2006 2:31 AM [facility] OR [facility] OUTPATIENT CONSULTATION REPORT [address], [place] [address] or Referred From and Faxed [...] anything of importance. She was taking some hdpq-mff-aobiqhj medication and thought she only had some [...] referred her to Dr. Claros here at [facility]. This happened in 01/1998. She underwent release [...] alcohol. She is currently working in the [employer] business. CONSULTATION FINDINGS AND RECOMMENDATIONS: Vital signs [...] Allen M.D. Roger Fatima M.D. MDR/x38 A [id number] cc: Bebe Claros M.D. Dept of Neurosurgery documented in this encounter Plan of Treatment Not on filedocumented as of this encounter Visit Diagnoses Not on filedocumented in this encounter
--- OUTSIDE RECORDS SUMMARY | ~2019-07-03 | XMS | Encounter Summary ---
Demographics + + + | Address | [address] | | | [place] [address] | + + + | Home Phone [...] Team Providers + +------+ + | Care Block Sealer Name | Role | Phone | + +------+ + PCP | Unavailable | + +------+ + Encounter Details +--------+ + + + + | Date | Type | Department | Care Team | Description | +--------+ + + + + | 01/18/ | Transcribed | | Dictation, Other | [...] as of this encounter Progress Notes Interface, Smalltalk Developer In - 06/12/2006 1:05 AM [facility] and [place] [address] [place], [place] [address] or January 19, 2000 Khari Ying M.D. [address] [facility] [address] [place] [address] RE: MAE LOWRY MR #: [id number] Dear Dr. Ying: I saw Mae back in the clinic today. We attempted a trial of spinal cord stimulation last Tuesday, but intraoperatively we were unable to obtain any stimulation in the region of her pain. This is likely due to the fact she is still somewhat numb in this area, and stimulation in numb areas is often unsuccessful. Nevertheless, we did not go onto even a temporary implantation of the electrode. She returns today with questions about what further alternatives she might have. I told her that we have discussed this before and that about the only thing that I can think of to do next would be to go ahead and cut the inferior gluteal nerve. This may or may not relieve her pain and would certainly leave her with some weakness in the gluteus medius. Neither she or I are terribly taken with the idea of doing this, and for the time being she wants to settle her legal issues and see whether or not she can cope with the pain as is. I certainly agree with her strategy and will remain open to seeing her back in the clinic in the future if she elects to pursue further invasive therapy. I did sign a form for her to return to work immediately. Sincerely, Bebe Claros M.D. ISSAC / M[place]ELINE [id number] / [id number] / [id number] / [id number] signed by Interface, Smalltalk Developer In at 06/12/2006 1:05 AM PSTdocume nted in this encounter Plan of Treatment Not on filedocumented as of this encounter Visit Diagnoses Not on filedocumented in this encounter"
--- OUTSIDE RECORDS SUMMARY | ~2019-07-03 | XMS | Encounter Summary ---
Demographics + + + | Address | [address] | | | [place] [address] | + + + | Home Phone [...] Team Providers + +------+ + | Care Net Washer Name | Role | Phone | + [...] | | | | | [place] | [address] | | | | | | FAMILY | [place], [place] | | | | | | MEDICINE | [address] | | | | | | [address] | Phone: | | | | | | [address] | [phone] | | | | | | [place], | Fax: | | | | | | [place] [address] | [phone] | | | | | | Phone: | | | | | | | [phone] | | | | | | | Fax: | | | | | | | [phone] | | +--------+--------+ + + + + Encounter Details +--------+---------+ + + + | Date | Type | Department | Care Team | Description | +--------+---------+ + + + | 05/02/ | Office | Orthopaedics at | Beto Craft, | Hip Pain (Primary | | 2008 | Visit | [facility] [address] | [address] | Dx); Knee Pain | | | | Ave Mailcode: CH12A | [facility], [place] | | | | | [facility] | [address] | | | | | and [place], | [phone] | | | | | [facility] | | | | | | [place], [place] | | | | | | [address] | | | | | | [phone] | | | +--------+---------+ + + + [...] might be different fro m the original. [facility] 05/02/2009 RESIDENT: Antoinette [...] hip Saw Dr Hines physical therapist. In [facility] for her back and hip pain then [...] recently completed a course of PT in [place] which has helped her symptoms. She has [...] a follow-up appointment. Antoinette Alonso MD Visiting Final Finisher Forging Dies I personally interviewed the patient, duplicated the pertinent parts of the physical examin ation and personally formulated the plan with the medical assistant dermatology. I have reviewed, entere d my findings, and agree with the above documentation. Beto Craft M.D. Sports Medicine [facility] Orthopaedics & Rehabilitation [facility], 12th Floor [address] [place] [address] Beto Martínez MD - 05/02/2009 11:00 AM [facility] Sports Medicine Clinic 05/02/2009 Mae Hernández [...]
--- OUTSIDE RECORDS SUMMARY | ~2019-07-03 | XMS | Encounter Summary ---
Demographics + + + | Address | [address] | | | [place] [address] | + + + | Home Phone | | + + + | Preferred Language | Unknown | + + + | Marital Status | | + + + | Buddhism Affiliation | NON | + + + [...] Team Providers + +------+ + | Care Washer Off Name | Role | Phone | + [...] | | | | Rd Mailcode:OP[address] | [place], [place] | | | | | [address] [place] | [address] | | | | | [place], [place] | [phone] | | | | | [address] | | | | | | [phone] | | | +--------+ + + + [...] | | + +---------+ + + | [facility] DEPARTMENT OF | | | | [...] | | + +---------+ + + | [facility] DEPARTMENT OF | | | | [...] [place]er | | | | | | Macro Antonio Tyler, Ph.D. | | | | [...] | + + + + + | [facility] | [address] | [place] [address] | | | PATHOLOGY | KADEEM CARDONA | | | + + + + + | [facility] | [address] | [place] [address] | | | PATHOLOGY | KADEEM CARDONA | | | + + + + + documented in this encounter Visit Diagnoses Not on filedocumented in this encounter
--- OUTSIDE RECORDS SUMMARY | ~2019-07-03 | XMS | Encounter Summary ---
Demographics + + + | Address | [address] | | | [place] [address] | + + + | Home Phone | | + + + | Preferred Language | Unknown | + + + | Marital Status | | + + + | Presybeterian Affiliation | 1041 | + + + | Race | Unknown | + + + | Ethnic Group | Unknown | + + + Author + + + | Author | [facility] | | | and [place] | + + + | Organization | [facility] | | | and [place] | [...] [place] | | | | | [address] | | + + + + + | Daina Mazariegos | ECON | Unknown | | + + + + + Care Team Providers + +------+ + | Care Transit Planner Name | Role | Phone | [...] + + | 08/23/ | Telephone | [facility] | Mohan Bunn | Appointment | | 2012 | | ORTHOPEDIC SURGERY | MD Darryl [address] | | | | | [address] [place] [address] | [place], [place] | | | | | [place], [place] | [address] | | | | | [address] | | | | | | [phone] | | | +--------+ + + + [...]
--- OUTSIDE RECORDS SUMMARY | ~2019-07-03 | XMS | Encounter Summary ---
Demographics + + + | Address | [address] | | | [place] [address] | + + + | Home Phone | | + + + | Preferred Language | Unknown | + + + | Marital Status | | + + + | Rastafari Affiliation | NON | + + + [...] Team Providers + +------+ + | Care Classification Analyst Name | Role | Phone | [...] [address] | | | | | [facility] | [place], [place] | | | | | [address] | [address] | | | | | Mailcode: CH15P | [phone] | | | | | [facility] | | | | | | and Healing, | | | | | | Building | | | | | | Floor [place], [place] | | | | | | [address] | | | | | | [phone] | | | +--------+ + + + [...]
--- OUTSIDE RECORDS SUMMARY | ~2019-07-03 | XMS | Encounter Summary ---
Demographics + + + | Address | [address] | | | [place] [address] | + + + | Home Phone [...] Team Providers + +------+ + | Care Title Inspector Name | Role | Phone | + +------+ + | Noe Thomason MD | PCP | | + +------+ + Encounter Details +--------+ + + + + | Date | Type | Department | Care Team | Description | +--------+ + + + + | 06/13/ | Results | Registration [id number] | | | | 1997 | Only | [address] | | | | | | [address] Mailcode: RPB[address] | | | | | | [place], [place] | | | | | | [address] | | | | | | [phone] | | | +--------+ + + + [...] | + +--------+ + + + | COAGULATION TESTS 2 | Routin | 06/13/1998 | | Results for this | | | e | 2:30 PM | | procedure are in the | | | | PST | | results section. | + +--------+ + + + | CHEMISTRY TESTS 4 | Routin | 06/13/1998 | | Results for this | | | e | 1:30 PM | | procedure are in the | | | | PST | | results section. | + +--------+ + + + | CBC TESTS 2 | Routin | 06/13/1998 | | Results for this | | | e | 1:30 PM | | procedure are in the | | | | PST | | results section. | + +--------+ + + + documented in this encounter Results COAGULATION TESTS 2 (06/13/1998 2:30 PM PST) + + + + + + | Component | Value | Ref Range | Performed | Pathologist | | | | | At | Signature | + + + + + + | INR | 0.93 (L) | INR | | | + + + + + + | APTT | 30.4 | SECONDS | | | + + + + + + + + | Specimen | + + | | + + + + + + + | Performing | Address | City/State/Zipcode | Phone Number | | Organization | | | | + + + + + | [facility] | [address] | [place] [address] | | | PATHOLOGY | [address] | | | + + + + + CHEMISTRY TESTS 4 (06/13/1998 1:30 PM PST) + + + + + + | Component | Value | Ref Range | Performed | Pathologist | | | | | At | Signature | + + + + + + | SODIUM, | 141. | mmol/l | | | | PLASMA | | | | | | (LAB) | | | | | + + + + + + | POTASSIUM, | 3.9 | mmol/l | | | | PLASMA | | | | | | (LAB) | | | | | + + + + + + | CHLORIDE, | 101. | mmol/l | | | | PLASMA | | | | | | (LAB) | | | | | + + + + + + | TOTAL CO2, | 26. | mmol/l | | | | PLASMA | | | | | | (LAB) | | | | | + + + + + + | BUN, PLASMA | 10. | mg/dL | | | | (LAB) | | | | | + + + + + + | CREATININE | 0.9 | mg/dL | | | | PLASMA | | | | | | (LAB) | | | | | + + + + + + | GLUCOSE, | 87. | mg/dL | | | | PLASMA | | | | | | (LAB) | | | | | + + + + + + + + | Specimen | + + | | + + + + + + + | Performing | Address | City/State/Zipcode | Phone Number | | Organization | | | | + + + + + | [facility] | [address] | [place] [address] | | | PATHOLOGY | [address] | | | + + + + + CBC TESTS 2 (06/13/1998 1:30 PM PST) + + + + + + | Component | Value | Ref Range | Performed | Pathologist | | | | | At | Signature | + + + + + + | WHITE CELL | 7.5 | K/CU MM | | | | COUNT | | | | | + + + + + + | RED CELL | 4.41 | M/CU MM | | | | COUNT | | | | | + + + + + + | HEMOGLOBIN | 13.8 | GM/DL | | | + + + + + + | HEMATOCRIT | 40.9 | % | | | + + + + + + | MCV | 92.6 | FL | | | + + + + + + | MCH | 31.3 | PG | | | + + + + + + | MCHC | 33.8 | GM/DL | | | + + + + + + | RDW | 11.9 | % | | | + + + + + + | PLATELET | 248. | K/CU MM | | | | COUNT | | | | | + + + + + + | MPV | 7.8 | FL | | | + + + + + + + + | Specimen | + + | | + + + + + + + | Performing | Address | City/State/Zipcode | Phone Number | | Organization | | | | + + + + + | [facility] | [address] | [place] [address] | | | PATHOLOGY | [address] | | | + + + + + documented in this encounter Visit Diagnoses Not on filedocumented in this encounter"
--- OUTSIDE RECORDS SUMMARY | ~2019-07-03 | XMS | Encounter Summary ---
Demographics + + + | Address | [address] | | | [place] [address] | + + + | Home Phone [...] Team Providers + +------+ + | Care Vrt Mechanic Name | Role | Phone | + +------+ + PCP | Unavailable | + +------+ + Encounter Details +--------+ + + + + | Date | Type | Department | Care Team | Description | +--------+ + + + + | 05/03/ | Transcribed | | Dictation, Other | Transcribed | | 2001 | | | | | +--------+ + [...] as of this encounter Progress Notes Interface, Commissioning Agent In - 05/20/2006 4:02 AM [facility] and [place] [address], [place] [address] or November 24, 2000 Roger Fatima M.D. [facility] RE:MAE LOWRY MR#:[id number] Fatima: I saw Mae Lowry back in the clinic today. She is still having a lot of back pain much more so than in the buttock or hip or leg pain. Last year you evaluated her for a diskogram at L4-5 and L5-S1 and possible IDET. That procedure was deferred at that time, but I think now it is appropriate to pursue this option. I would like you to do the diskograms as we planned last year and to proceed with an IDET if indicated. I know that Mae would appreciate your prompt scheduling of this procedure. Let me know if you have any questions or concerns about this. Sincerely, Bebe Claros M.D. ISSAC / [place] [id number] / [id number] / [id number] / [id number] signed by Interface, Commissioning Agent In at 05/20/2006 4:02 AM PDTdocume nted in this encounter Plan of Treatment Not on filedocumented as of this encounter Visit Diagnoses Not on filedocumented in this encounter"
--- OUTSIDE RECORDS SUMMARY | ~2019-07-03 | XMS | Encounter Summary ---
Demographics + + + | Address | [address] | | | [place] [address] | + + + | Home Phone [...] + + + | Author | [facility] | + + + | Organization | [facility] | + + + | Address [...] Team Providers + +------+ + | Care Middle [employer] Spanish Teacher Name | Role | Phone | [...] as of this encounter Progress Notes Interface, Enroller In - 05/16/2006 3:12 AM PDTCLINIC DATE: 12/21/2000 [facility] PSYCHOLOGICAL EVALUATION IDENTIFICATION AND REFERRAL: The patient is a 40-year-old white female who has been involved in treatment at the [facility] for some period of [...] feeling involving extra sharp pain like a "capacitor inspector knife jabbing up" her vagina. PRESENT PSYCHOLOGICAL [...] Social Support: [place] was [place] her child. 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 She reported very much enjoying her job. Financial: The patient reported difficult financial circumstances related a lot to strain due to medical bills. Her does work time study clerk as well. She has a law suit [...] AND SPECIFIC COMMENTS: The patient is working time study clerk despite her pain but doing relatively little [...] to coordinate her care. Roger Hameed, Ph.D. Dryer Operator of Anesthesiology Diplomate in Health Psychology, DAVIDP ROSIE / [place] [id number] / [id number] / [id number] / [id number] signed by Interface, Enroller In at 05/16/2006 3:12 AM PDTdocume nted in this encounter Plan of Treatment Not on filedocumented as of this encounter Visit Diagnoses Not on filedocumented in this encounter
--- OUTSIDE RECORDS SUMMARY | ~2019-07-03 | XMS | Encounter Summary ---
Demographics + + + | Address | [address] | | | [place] [address] | + + + | Home Phone | | + + + | Preferred Language | Unknown | + + + | Marital Status | | + + + | Buddhism Affiliation | 1041 | + + + | Race | Unknown | + + + | Ethnic Group | Unknown | + + + Author + + + | Author | [facility] | | | and [place] | + + + | Organization | [facility] | | | and [place] | [...] [place] | | | | | [address] | | + + + + + | Daina Mazariegos | ECON | Unknown | | + + + + + Care Team Providers + +------+ + | Care Tax Services Intern Name | Role | Phone | + +------+ + | Noe Thomason | PCP | | | MD | | | + +------+ + Encounter Details +--------+ + + + + | Date | Type | Department | Care Team | Description | +--------+ + + + + | 05/15/ | Hospital | [facility] | [place], | Sacroiliitis - | | 2014 | Encounter | MED CTR XRAY [address] | [address] | right; DISC DISEASE, | | | | [place] | SHAUNA ROBLERO, | LUMBOSACRAL SPINE; | | | | [place] [address] | [place] [address] | S/P lumbar fusion - | | | | [phone] | [phone] | L4/L5; Status post | | | | | | right hip | | | | | [employer] | replacement | +--------+ + + + + Social [...] +---------+ + + | Blood Pressure | 142/85 | 05/15/2015 3:48 PM | | | | | PDT | | + +---------+ + + | Pulse | 88 | 05/15/2015 3:48 PM | | | | | PDT [...] + | FL SACROILIAC | Routin | 05/15/2015 | Sacroiliitis - | Results for this | | INJECTION RIGHT | e | 3:39 PM | right DISC DISEASE, | procedure are in the | | | | PDT | LUMBOSACRAL SPINE | results section. | | | | | S/P lumbar fusion - | | | | | | L4/L5 Status post | | | | | | right hip | | | | | | replacement | | + +--------+ + + + | FL SACROILIAC | Routin | 05/15/2015 | Sacroiliitis - | Results for this | | INJECTION LEFT | e | 3:39 PM | right DISC DISEASE, | procedure are in the | | | | PDT | LUMBOSACRAL SPINE | results section. | | | | | S/P lumbar fusion - | | | | | | L4/L5 Status post | | | | | | right hip | | | | | | replacement | | + +--------+ + + + documented in this encounter Results FL Sacroiliac Injection Right (05/15/2015 3:39 PM PDT) + + | Specimen | + + | | + + + + + | Narrative | Performed At | + + + | 05/15/2015 Bilateral Sacroiliac Joint Injection Clinical History: | [facility] | | Sacroiliitis ICD-9 720.0 Mae Hernández presents to the | [facility] | | fluoroscopy suite for fluoroscopically guided bilateral sacroiliac | [facility] | | joint steroid injections as part of conservative management for | - IMAGING | | chronic pain with sacroiliitis. After informed consent was obtained | | | the patient laid in the prone position on the fluoroscopy table. The | | | bilateral sacroiliac joints were identified under fluoroscopic | | | guidance. The areas were prepped and draped in sterile fashion. A 25 | | | gauge 1-1/2 inch needle was inserted into each region and | | | approximately 3 mL of buffered 1% lidocaine was infused. Then a 22 | | | gauge spinal needle was inserted into the inferior joint spaces | | | under fluoroscopic guidance. Confirmation into the sacroiliac joints | | | obtained with infusion of approximately 1 mL of Omnipaque contrast | | | which showed flow within the joint spaces. Then a combination of 2 | | | mL 0.5% bupivacaine and 2 mL of 40 mg per milliliter Kenalog was | | | infused divided between the two sides. The patient tolerated the | | | procedure well without complications. Pre- and post procedure blood | | | pressures were stable. The patient was given verbal as well as | | | written followup instructions. Prior to the start of the | | | procedure the following were performed and verified [...] + | [facility] | [address] | [place], [place] | [phone] | | [facility] | | [address] | | | - IMAGING | | | | + + + + + FL Sacroiliac Injection Left (05/15/2015 3:39 PM PDT) + + | Specimen | + + | | + + + + + | Narrative | Performed At | + + + | 05/15/2015 Bilateral Sacroiliac Joint Injection Clinical History: | [facility] | | Sacroiliitis ICD-9 720.0 Mae Hernández presents to the | [facility] | | fluoroscopy suite for fluoroscopically guided bilateral sacroiliac [facility] | | joint steroid injections as part of conservative management for | - IMAGING | | chronic pain with sacroiliitis. After informed consent was obtained | | | the patient laid in the prone position on the fluoroscopy table. The | | | bilateral sacroiliac joints were identified under fluoroscopic | | | guidance. The areas were prepped and draped in sterile fashion. A 25 | | | gauge 1-1/2 inch needle was inserted into each region and | | | approximately 3 mL of buffered 1% lidocaine was infused. Then a 22 | | | gauge spinal needle was inserted into the inferior joint spaces | | | under fluoroscopic guidance. Confirmation into the sacroiliac joints | | | obtained with infusion of approximately 1 mL of Omnipaque contrast | | | which showed flow within the joint spaces. Then a combination of 2 | | | mL 0.5% bupivacaine and 2 mL of 40 mg per milliliter Kenalog was | | | infused divided between the two sides. The patient tolerated the | | | procedure well without complications. Pre- and post procedure blood | | | pressures were stable. The patient was given verbal as well as | | | written followup instructions. Prior to the start of the | | | procedure the following were performed and verified [...] ST. | [address] | [place] | [phone] | | [facility] | | [address] | | | - IMAGING | | | | + + + + + documented in this encounter Visit Diagnoses + + | Diagnosis | + + | Sacroiliitis - right Sacroiliitis, not elsewhere classified | + + | DISC DISEASE, LUMBOSACRAL SPINE Degeneration of lumbar or lumbosacral intervertebral | | disc | + + | S/P lumbar fusion - L4/L5 Arthrodesis status | + + | Status post right hip replacement Hip joint replacement by other means | + + documented in this encounter Administered Medications + +--------+ +-------+------+------+ | Medication Order | MAR | Action | Dose | Rate | Site | | | Action | Date | | | | + +--------+ +-------+------+------+ | bupivacaine (MARCAINE) 0.5% | Given | 05/15/20 | 3 mLs | | | | injection 3 mL 3 mL, Other, | | 15 3:48 | | | | | ONCE, [facility] 05/15/15 at 1600, For 1 | | PM PDT | | | | | dose | | | | | | + +--------+ +-------+------+------+ +---+---+ | | | +---+---+ + +-------+ +-------+---+---+ | iohexol (OMNIPAQUE 300) 300 | Given | 05/15/20 | 2 mLs | | | | mg/mL injection 2 mL 2 mL, | | 15 3:45 | | | | | Other, ONCE PRN, Other, Starting | | PM PDT | | | | | Brenda 05/15/15 at 1529, For 1 dose, | | | | | | | Radiology | | | | | | + +-------+ +-------+---+---+ +---+---+ | | | +---+---+ + +-------+ +-------+---+ + | lidocaine buffered 1% injection | Given | 05/15/20 | 6 mLs | | Other | | 6 mL 6 mL, Intradermal, ONCE, | | 15 3:41 | | | (Comment | | Brenda 05/15/15 at 1600, For 1 dose, | | PM PDT | | | ) | | Radiology | | | | | | + +-------+ +-------+---+ + +---+---+ | | | +---+---+ + +-------+ +-------+---+---+ | triamcinolone acetonide | Given | 05/15/20 | 80 mg | | | | (KENALOG-40) 40 mg/mL injection | | 15 3:48 | | | | | 80 mg 80 mg, Intra-articular, | | PM PDT | | | | | ONCE, [facility] 05/15/15 at 1600, For 1 | | | | | | | dose, Shake well. Not for IV | | | | | | | use., Radiology | | | | | | + +-------+ +-------+---+---+ +---+---+ | | | +---+---+ documented in this encounter"
--- OUTSIDE RECORDS SUMMARY | ~2019-07-03 | XMS | Encounter Summary ---
Demographics + + + | Address | [address] | | | [place] [address] | + + + | Home Phone | | + + + | Preferred Language | Unknown | + + + | Marital Status | | + + + | Religion Affiliation | NON | + + + | Race | White | + + + | Ethnic Group | Not or | + + + Author + + + | Author | [facility] | + + + | Organization | [facility] | + + + | Address [...] Team Providers + +------+ + | Care Gear Repairer Name | Role | Phone | + +------+ + PCP | Unavailable | + +------+ + Encounter Details +--------+ + + + + | Date | Type | Department | Care Team | Description | +--------+ + + + + | 07/19/ | Office | [facility] | Note, [...] as of this encounter Progress Notes Interface, Credit Office Manager In - 04/12/2006 3:08 AM PDTCLINIC DATE: 07/19/2001 [facility] SUBJECTIVE: Ms. Dietrich is here today for a followup visit for her low back pain. She continues to have 6 out of 10 pain on the visual analog scale in her lower back. She thinks that the IDET procedure has not given her enough symptomatic relief. She continues to have more spells of pain in her lower back, and she also continues to have disturbed sleep. The patient denies any numbness or weakness. There have been no changes in her ability to urinate or to have bowel movements. There have been no changes in her sexual function. She feels that her current medication is giving about 70% pain relief though she thinks that she continues to hurt despite taking the medication. On her last visit, she had been advised to increase OxyContin to 20 mg every 8 hours. The patient states that the 2 pills as she thinks that she gets the side effects including nausea as well as dizziness. She is currently taking 10 mg pills 3 times a day. She does not time it every 8 hours, but she takes 1 pill in the morning, 1 pill in the afternoon, and 1 pill at bedtime. She continues to do her physical therapy twice a week. She denies any problems with constipation, and she feels that she can manage her bowel movements with her diet. PHYSICAL EXAMINATION: GENERAL: Today, she is awake, alert, and oriented. VITAL SIGNS: Her weight is 185 pounds, height is 5 feet 9 inches, blood pressure is 132/88, heart rate is 76, respiratory rate is 16, and temperature is 36.1. The pain score is 6 out of 10. IMPRESSION: Lumbar spondylosis with myelopathy. The patient continues to have pain with extension. The patient did not have a second diagnostic lumbar medial branch block. Today, Dr. Roger Fatima spent more than 50% of the time with this patient counseling her about her various options. The patient had been to be see Dr. Bebe Claros, and she is going to wait for another month before deciding about having the fusion surgery. PLAN 1. To follow up with the patient in 1 week as she has another appointment with second neurosurgeon. We also advised the patient to take the OxyContin every 8 hours by the clock and follow up on her improvement. 2. Consider lumbar medial branch. During this entire evaluation and formulation of the plan, Dr. Roger Fatima was present, and he spent 42 minutes with the patient more than 50% of the time was spent in counseling. Megan Ferguson MD Fellow, [facility] Roger Fatima M.D. Split Leather Department Supervisor, Department of Anesthesiology / [place] [id number] / [id number] / [id number] / C: 08/02/2001 ds cc: Bebe Claros M.D. Department of Neurosurgery [id number] signed by Interface, Credit Office Manager In at 04/12/2006 3:08 AM PDTdoc umented in this encounter Plan of Treatment Not on filedocumented as of this encounter Visit Diagnoses Not on filedocumented in this encounter"
--- OUTSIDE RECORDS SUMMARY | ~2019-07-03 | XMS | Encounter Summary ---
Demographics + + + | Address | [address] | | | [place] [address] | + + + | Home Phone | | + + + | Preferred Language | Unknown | + + + | Marital Status | | + + + | Episcopal Affiliation | 1041 | + + + | Race | Unknown | + + + | Ethnic Group | Unknown | + + + Author + + + | Author | [facility] | | | and [place] | + + + | Organization | [facility] | | | and [place] [...] [place] | | | | | [address] | | + + + + + | Daina Mazariegos | ECON | Unknown | | + + + + + Care Team Providers + +------+ + | Care Senior Corporate Accountant Name | Role | Phone | + [...] + + | 06/18/ | Telephone | [facility] | Mohan Bunn | Other (Discuss | | 2012 | | PHYSIATRY [address] | [address] | further imaging) | | | | [place], | [address] [place] [place] | | | | | [place] [address] | [id number] | | | | | [phone] | | | +--------+ + + + [...]
--- OUTSIDE RECORDS SUMMARY | ~2019-07-03 | XMS | Encounter Summary ---
Demographics + + + | Address | [address] | | | [place] [address] | + + + | Home Phone | | + + + | Preferred Language | Unknown | + + + | Marital Status | | + + + | Restoration Affiliation | NON | + + + | Race | White | + + + | Ethnic Group | Not or | + + + Author + + + | Author | [facility] | + + + | Organization | [facility] | + + + | [...] Team Providers + +------+ + | Care Director Of Reimbursement Name | Role | Phone | + [...] as of this encounter Progress Notes Interface, Loom Doffer In - 04/12/2006 3:08 AM PDTCLINIC DATE: [...] spent in counseling. Megan Ferguson MD Fellow, [facility] Roger Fatima M.D. Federal Mediation Commissioner, Department of Anesthesiology / [place] [id number] / [id number] / [id number] / C: 08/02/2001 ds cc: Bebe Claros M.D. Department of Neurosurgery [id number] signed by Interface, Loom Doffer In at 04/12/2006 3:08 AM PDTdoc umented in this encounter Plan of Treatment Not on filedocumented as of this encounter Visit Diagnoses Not on filedocumented in this encounter"
--- OUTSIDE RECORDS SUMMARY | ~2019-07-03 | XMS | Encounter Summary ---
Demographics + + + | Address | [address] | | | [place] [address] | + + + | Home Phone [...] + +------+ + | Care Director Of Primary Name | Role | Phone | + [...] as of this encounter Progress Notes Interface, Hand Spring Former In - 07/05/2006 3:09 AM [facility] OR [facility] and [place] [id number] [place], [place] [address] or April 16, 1999 Khari Ying M.D. [address] [place] [address] RE: MAE LOWRY MR #: [id number] Dear Dr. Ying: I saw Mae Lowry [...] M.D. Instructor, Stereotactic Functional Neurosurgery / [place] [id number] / [id number] / [id number] / [id number] signed by Interface, Hand Spring Former In at 07/05/2006 3:09 AM PSTdocume nted in this encounter Plan of Treatment Not on filedocumented as of this encounter Visit Diagnoses Not on filedocumented in this encounter"
--- OUTSIDE RECORDS SUMMARY | ~2019-07-03 | XMS | Encounter Summary ---
Demographics + + + | Address | [address] | | | [place] [address] | + + + | Home Phone | | + + + | Preferred Language | Unknown | + + + | Marital Status | | + + + | Hindu Affiliation | NON | + + + | Race | White | + + + | Ethnic Group | Not or | + + + Author + + + | Author | [facility] | + + + | Organization | [facility] | + + + | [...] Providers + +------+ + | Care Surveillance System Monitor Name | Role | Phone | + +------+ + PCP | Unavailable | + +------+ + Encounter Details +--------+ + + + + | Date | Type | Department | Care Team | Description | +--------+ + + + + | 03/03/ | Office | [facility] | Note, [...] as of this encounter Progress Notes Interface, Air Defense Specialist In - 07/05/2006 3:09 AM PSTCLINIC DATE: 03/03/1999 NEUROLOGIC SURGERY CLINIC SUBJECTIVE: Mae Dietrich is a [id number]-old female with 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 She returns to clinic today for adjustment of her gluteal nerve stimulator. The patient states that the stimulation does help decrease her pain most of the time. She says that the lower incision on her left buttock gillette at times. She states that the stimulation does help decrease the pain, but she says "it creates it's own kind of pain". OBJECTIVE: The patient's temperature was taken with a tympanic thermometer and found to be 98.1 degrees Fahrenheit. Using the spinal cord stimulator java programmer, it was determined that the patient's electrodes have been set at 0 off, 1 positive, 2 off and 3 negative. PROCEDURE: The patient's spinal cord stimulator generator was reprogrammed and the patient's favorite settings today were 0 positive, 1 negative, 2 off and 3 off. In addition, the patient preferred an amplitude of 1.4 volts, a pulse width of 60 microseconds and a rate of 130 pulses per second. PLAN: The patient was scheduled to return to clinic on or before March 10, 1999 for future follow-up and her next adjustment. She was given a prescription for oxycodone 5-mg tablets to be taken one by mouth every four to six hours as needed for pain. She was instructed to call if she experiences any problems or other side effects following today's visit. Reshma Mosquera R.N., M.A. LEWIS/aron cc: GRANT MADDEN MD [address] [place] [id number] signed by Interface, Air Defense Specialist In at 07/05/2006 3:09 AM PSTdocume nted in this encounter Plan of Treatment Not on filedocumented as of this encounter Visit Diagnoses Not on filedocumented in this encounter
--- OUTSIDE RECORDS SUMMARY | ~2019-07-03 | XMS | Encounter Summary ---
Demographics + + + | Address | [address] | | | [place] [address] | + + + | Home Phone | | + + + | Preferred Language | Unknown | + + + | Marital Status | | + + + | Moravian Affiliation | NON | + + + [...] Team Providers + +------+ + | Care Grinder Gear Name | Role | Phone | + +------+ + PCP | Unavailable | + +------+ + Encounter Details +--------+ + + + + | Date | Type | Department | Care Team | Description | +--------+ + + + + | 06/23/ | Procedure - | | Documentation, | OP REPORT-TEACHING | | 1997 | | | Teaching Physician | | [...] + + | TEACHING PHYSICIAN | | 06/23/1998 | | | + +--------+ + + + documented in this encounter Visit Diagnoses Not on filedocumented in this encounter"
--- OUTSIDE RECORDS SUMMARY | ~2019-07-03 | XMS | Encounter Summary ---
Demographics + + + | Address | [address] | | | [place] [address] | + + + | Home Phone [...] Team Providers + +------+ + | Care Bleach Analyst Name | Role | Phone | + +------+ + PCP | Unavailable | + +------+ + Encounter Details +--------+ + + + + | Date | Type | Department | Care Team | Description | +--------+ + + + + | 04/12/ | Transcribed | | Dictation, Other | [...] as of this encounter Progress Notes Interface, Armhole Sewer In - 06/06/2006 2:31 AM [facility] OR [facility] and [place] [address] [place], [place] [address] or April 12, 2000 Bebe Claros M.D. Dough Molder, [facility] Department of Neurosurgery [address] [place] [address]. [place] [address] RE: MAE LOWRY MR #: [id number] Dear Dr. Claros: Thank you very much for consulting the [facility] regarding this patient. I evaluated her today with my fellow. Please anticipate our detailed initial evaluation coming under separate cover. As you know, Ms. Lowry has left buttock pain which appears to be related to her fall in a grocery store several years ago. As you know, she has had a piriformis muscle release and a peripheral nerve stimulator in attempts to treat this thus far. She relates that the peripheral nerve stimulator was effective, but the battery has either been damaged during an MRI or has run out of power and the unit is currently nonfunctional. She was referred here for evaluation for potential diskography and IDET. However, I find on her physical examination that she has no pain during lumbar flexion, has a negative side glide, and has a fairly nimble lumbar range of motion overall. However, she does have limited lumbar extension, and I think this is relevant. She may have at least a contributing factor related to lumbar facet arthropathy. She does have decreased disk height and water content at L4-L5 and L5-S1 based on her MRI, and this could certainly contribute to the axial spinal part of her pain. She relates that the extremity part of her pain is substantially relieved with a peripheral nerve stimulator, and apparently, she has an appointment with you shortly to discuss replacing the IPG. She has mild myofascial pain and dysfunction associated with her left buttock. However, overall, she is very functional and in reasonably good condition. She was also evaluated by our physical therapist today, and we will discuss further plans after he has had a chance to compose his evaluation. Given the limited extension (approximately 30 degrees), I felt it was reasonable to offer Ms. Lowry diagnostic lumbar medial branch blocks as a means of assessing to what extent this aspect of her examination can be changed. If she has an improvement in lumbar extension, she may be a candidate for lumbar medial branch denervation which would potentially improve her range of motion and possibly her tolerance for standing. I do not feel that she would benefit from diagnostic provocative diskography/disk stimulation at this time, but it remains a possibility in the future if she does not have adequate diagnosis or therapy with the other means we have discussed. Thanks again for this consultation. Please feel free to contact me for any further information on this patient. Very truly yours, Roger Fatima M.D. [facility], Pain Management Center DMS / HS [id number] / [id number] / [id number] / [id number] signed by Interface, Armhole Sewer In at 06/06/2006 2:31 AM PSTdocume nted in this encounter Plan of Treatment Not on filedocumented as of this encounter Visit Diagnoses Not on filedocumented in this encounter"
--- OUTSIDE RECORDS SUMMARY | ~2019-07-03 | XMS | Encounter Summary ---
Demographics + + + | Address | [address] | | | [place] [address] | + + + | Home Phone | | + + + | Preferred Language | Unknown | + + + | Marital Status | | + + + | Gnosticist Affiliation | NON | + + + | Race | White | + + + | Ethnic Group | Not or | + + + Author + + + | Author | [facility] | + + + | Organization | [facility] | + + + | Address | Unknown | + + + | Phone | Unavailable | + + + Support + + + + + | Name | Relationship | Address | Phone | + + + + + | Liam Dietrich | ECON | [place] | | + + + + + Care Team Providers + +------+ + | Care Desk Maker Name | Role | Phone | + +------+ + PCP | Unavailable | + +------+ + Encounter Details +--------+ + + + + | Date | Type | Department | Care Team | Description | +--------+ + + + + | 02/10/ | Results | Neurosurgery [address] | Bebe Claros MD | | | 1999 | Only | [address] [place] | [address] | | | | | [address] Mailcode:OP14B | [place], [place] | | | | | [place] [employer] | [address] | | | | | [place], [place] | [phone] | | | | | [address] | | | | | | [phone] | | | +--------+ + + + [...] | | + +---------+ + + | [facility] DEPARTMENT OF | | | | | RADIOLOGY | | | | + +---------+ + + documented in this encounter Visit Diagnoses Not on filedocumented in this encounter"
--- OUTSIDE RECORDS SUMMARY | ~2019-07-03 | XMS | Encounter Summary ---
Demographics + + + | Address | [address] | | | [place] [address] | + + + | Home Phone [...] Team Providers + +------+ + | Care Adult Caregiver Name | Role | Phone | + [...] | Transcriptions | + + | Interface, Keller Machine Operator In - 06/02/2006 1:03 AM PST | | [place] [address] | | [place], [place] [address] | | [facility] | | [id number] Date: 06/03/2000Name: Thao Dietrich SURGEON: | | Bebe Claros M.D.INSTALLER(S): Noe Mcdaniel M.D. | | Ph.D.PREOPERATIVE DIAGNOSIS(ES):Chronic [...] M.D. Ph.D. Bebe Claros, | | Marco AntonioFH/X65D:06/03/2000T:06/03/[id number]: | |PROCEDURE(S) PERFORMED: | |Replacement of implantable [...] | | | | | | | |[id number] | | | |CC: | + + documented in this encounter Visit Diagnoses Not on filedocumented in this encounter"
--- OUTSIDE RECORDS SUMMARY | ~2019-07-03 | XMS | Encounter Summary ---
Demographics + + + | Address | [address] | | | [place] [address] | + + + | Home Phone [...] Team Providers + +------+ + | Care Medical Operations Supervisor Name | Role | Phone | + +------+ + | Noe Thomason MD | PCP | | + +------+ + Encounter Details +--------+ + + + + | Date | Type | Department | Care Team | Description | +--------+ + + + + | 09/05/ | Documentati | Anesthesiology | Unknown . | | | 2001 | on | [address] | | | | | | [place], | | | | | | [place] [address] | | | +--------+ + + + [...] + + documented in this encounter Results ANESTHESIA/SEDATION (09/05/2001 11:21 AM PST) + + + | Narrative | Performed At | + + + | Ordered by an unspecified provider. | | + + + + + | Transcriptions | + + | 09/05/2001 11:21 AM [facility] [[email or web address]] Anesthesia PostOp Report | | | | Patient: MAE HERNÁNDEZ Med Rec: [id number] Sex F Bdate: 1960 | | Date/Time Data | | Entered Into [facility] | | Anesth PostOp | | Surgery Date [id number] 09/05/01 11:21 | | Anesthesiologist RUSS FREEMAN 09/05/01 11:21 | | Resident Anesthesiolog JAVAD TOM 09/05/01 11:21 | | Complications | | None/None Reported YES 09/07/01 08:19 | | Outcomes Information | | Satisfied with care YES 09/07/01 08:19 | | Info obtained from PATIENT 09/07/01 08:19 | | Outcome of Anesthesia NO CHANGE IN HOSPITAL COURSE 09/07/01 08:19 | | | + + documented in this encounter Visit Diagnoses Not on filedocumented in this encounter"
--- OUTSIDE RECORDS SUMMARY | ~2019-07-03 | XMS | Encounter Summary ---
Demographics + + + | Address | [address] | | | [place] [address] | + + + | Home Phone | | + + + | Preferred Language | Unknown | + + + | Marital Status | | + + + | Jehovah'S Witness Affiliation | 1041 | + + + | Race | Unknown | + + + | Ethnic Group | Unknown | + + + Author + + + | Author | [facility] | | | and Humbertoana | + + + | Organization | [facility] | | | and [...] [place] | | | | | [address] | | + + + + + | Daina Mazariegos | ECON | Unknown | | + + + + + Care Team Providers + +------+ + | Care Stunt Double Name | Role | Phone | + +------+ + | Noe Thomason | PCP | | | MD | | | + +------+ + Encounter Details +--------+ + + + + | Date | Type | Department | Care Team | Description | +--------+ + + + + | 05/15/ | Hospital | [facility] | [place], | Sacroiliitis - | | 2014 | Encounter | MED CTR XRAY [address] | [address] | right; DISC DISEASE, | | | | [place] | SH[place]NA [place], | LUMBOSACRAL SPINE; | | | | [place] [address] | [place] [address] | S/P lumbar fusion - | | | | [phone] | [phone] | L4/L5; Status post | | | | | | right hip | | | | | Cruller MakerZora | replacement | +--------+ + + + [...] 720.0 Mae Hernández presents to the | [facility] | | fluoroscopy suite for fluoroscopically guided bilateral sacroiliac | [facility] | | joint steroid injections as [...] + | [facility] [facility] | [address] | [place], [place] | [phone] | | [facility] | | [address] | | | - IMAGING | | [...] 720.0 Mae Hernández presents to the | [facility] | | fluoroscopy suite for fluoroscopically guided bilateral sacroiliac [facility] | | joint steroid injections as [...] ST. | [address] | [place] | [phone] | | [facility] | | [address] | | | - IMAGING | | [...] 3:48 | | | | | ONCE, [facility] 05/15/15 at 1600, For 1 | [...] PDT | | | | | ONCE, [facility] 05/15/15 at 1600, For 1 | | | | | | | dose, Shake well. Not for IV | | | | | | | use., Radiology | | | | | | + +-------+ +-------+---+---+ +---+---+ | | | +---+---+ documented in this encounter"
--- OUTSIDE RECORDS SUMMARY | ~2019-07-03 | XMS | Encounter Summary ---
Demographics + + + | Address | [address] | | | [place] [address] | + + + | Home Phone [...] Team Providers + +------+ + | Care Prepress Technician Name | Role | Phone | + +------+ + PCP | Unavailable | + +------+ + Encounter Details +--------+ + + + + | Date | Type | Department | Care Team | Description | +--------+ + + + + | 06/03/ | Procedure - | | Documentation, | OP REPORT-TEACHING | | 2000 | | | Teaching Physician | | [...] + + | TEACHING PHYSICIAN | | 06/03/2000 | | | + +--------+ + + + documented in this encounter Visit Diagnoses Not on filedocumented in this encounter"
--- OUTSIDE RECORDS SUMMARY | ~2019-07-03 | XMS | Encounter Summary ---
Demographics + + + | Address | [address] | | | [place] [address] | + + + | Home Phone | | + + + | Preferred Language | Unknown | + + + | Marital Status | | + + + | Sabianism Affiliation | NON | + + + [...] Team Providers + +------+ + | Care Operation Manager Name | Role | Phone | [...]
--- OUTSIDE RECORDS SUMMARY | ~2019-07-03 | XMS | Encounter Summary ---
Demographics + + + | Address | [address] | | | [place] [address] | + + + | Home Phone | | + + + | Preferred Language | Unknown | + + + | Marital Status | | + + + | Mosque Affiliation | 1041 | + + + | Race | Unknown | + + + | Ethnic Group | Unknown | + + + Author + + + | Author | [facility] | | | and [place]toana | + + + | Organization | [facility] | | | and [...] [place] | | | | | [address] | | + + + + + | Daina Mazariegos | ECON | Unknown | | + + + + + Care Team Providers + +------+ + | Care Belt Back Operator Name | Role | Phone | [...] | | | | pain | [address] | [address] | | | | | Procedures | POINT | [address] | | | | | [place] Gastric | [place], [place] | [place] | | | | | Emptying | [address] | [address] | | | | | | Phone: | Phone: | | | | | | [phone] | [phone] | | | | | | Fax: | Fax: | | | | | | [phone] | [phone] | +--------+--------+ + + + + Encounter Details +--------+ + + + + | Date | Type | Department | Care Team | Description | +--------+ + + + + | 06/13/ | Hospital | [facility] | Pilar Isbell MD | | | 2019 | Encounter | [facility] | [address] [facility] [facility] | | | | | MEDICINE [address] | [place] [address] | | | | | [address] | [phone] | | | | | [place], [place] | | | | | | [address] | | | | | | [phone] | | | +--------+ + + + [...]
--- OUTSIDE RECORDS SUMMARY | ~2019-07-03 | XMS | Encounter Summary ---
Demographics + + + | Address | [address] | | | [place] [address] | + + + | Home Phone | | + + + | Preferred Language | Unknown | + + + | Marital Status | | + + + | Synagogue Affiliation | 1041 | + + + | Race | Unknown | + + + | Ethnic Group | Unknown | + + + Author + + + | Author | [facility] | | | and [place]to[place] | + + + | Organization | [facility] | | | and [place]ana [...] [place] | | | | | [address] | | + + + + + | Daina Mazariegos | ECON | Unknown | | + + + + + Care Team Providers + +------+ + | Care Teaching Aide Name | Role | Phone | [...] 2013 | | PHYSIATRY [address] | NEWS TECHNICAL DIRECTOR | appt) | | | | [place], | | | | | | [place] [address] | | | | | | [phone] | | | +--------+ + + + [...]
--- OUTSIDE RECORDS SUMMARY | ~2019-07-03 | XMS | Encounter Summary ---
Demographics + + + | Address | [address] | | | [place] [address] | + + + | Home Phone | | + + + | Preferred Language | Unknown | + + + | Marital Status | | + + + | Rastafarian Affiliation | NON | + + + | Race | White | + + + | Ethnic Group | Not or | + + + Author + + + | Author | [facility] | + + + | Organization | [facility] | + + + | [...] Team Providers + +------+ + | Care Kiln Burner Helper Name | Role | Phone | + +------+ + PCP | Unavailable | + +------+ + Encounter Details +--------+ + + + + | Date | Type | Department | Care Team | Description | +--------+ + + + + | 07/07/ | Office | [facility] | Note, [...] as of this encounter Progress Notes Interface, Computer Programming Manager In - 06/27/2006 3:15 AM PSTCLINIC DATE: 07/07/1999 NEUROLOGICAL SURGERY CLINIC SUBJECTIVE: Mae Dietrich is a 38-year-old female with 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 She returns to clinic today for adjustment of her peripheral nerve stimulator. Ms. Dietrich states that her left buttock pain level remains approximately the same as in her most recent clinic visit. Using the visual analog scale, the patient rated her average pain during the past week as 46/100. The patient states that she is still continuing to receive partial relief from the peripheral nerve stimulator, but she states she would like to return to the electrode setting that provided the, "wavy feeling." The patient has reported that most of the effective electrode settings tried in the past have provided some degree of pain relief, but many have resulted in twitching of the gluteal muscles. She states she would like to avoid the muscle twitching if at all possible. OBJECTIVE AND PROCEDURE: Using the spinal cord stimulator programmer engineering and scientific, the patient's pulse generator was analyzed, and it was found that the patient has been using an electrode configuration of 0 off, 1 positive, 2 off, and 3 negative. The patient has been using an amplitude of 0.8 volts, a pulse width of 60 microseconds, and a rate of 130 pulses per second. All of the patient's previous electrode settings were tried, but none could be found that produced the wavy feeling that the patient said that she desired. Several other setting were tried in addition with still no effective relief along with the sensation that Ms. Dietrich is looking for. She agreed to go back to an electrode setting of 0 off, 1 off, 2 positive, and 3 negative since that had worked to some degree for her in the past. With this electrode setting, the patient was able to use a higher amplitude of 2.1 volts. PLAN: The patient was scheduled to return to clinic on an as-needed basis for further adjustment of her peripheral nerve stimulator. ADDENDUM The patient was educated about other methods for relieving pain including pacing her activities, incorporating gentle exercise into her daily routine, and utilizing relaxation techniques. She was also given the name of a self-help text called "Managing Your Pain Before It Manages You" by Zulma Mobley M.D., so that Ms. Dietrich can learn more of the alternative methods for pain relief in order to enhance the effect she is receiving from her peripheral nerve stimulator. Reshma Mosquera R.N., M.A. LEWIS / M[place]ELINE [id number] / [id number] / [id number] /sm A: 07/13/1999 leb A M PSTdocumented in this encounter Plan of Treatment Not on filedocumented as of this encounter Visit Diagnoses Not on filedocumented in this encounter
--- OUTSIDE RECORDS SUMMARY | ~2019-07-03 | XMS | Encounter Summary ---
Demographics + + + | Address | [address] | | | [place] [address] | + + + | Home Phone | | + + + | Preferred Language | Unknown | + + + | Marital Status | | + + + | Jain Affiliation | NON | + + + | Race | White | + + + | Ethnic Group | Not or | + + + Author + + + | Author | [facility] | + + + | Organization | [facility] | + + + | [...] Team Providers + +------+ + | Care Wedding Decorator Name | Role | Phone | + [...] as of this encounter Progress Notes Interface, Personal Caregiver In - 06/04/2006 1:06 AM PSTCLINIC DATE: [...] Nerve stimulator reactivation by Dr. Claros. Corey lAlen M.D. Roger Fatima M.D. / [id number] / [id number] / [id number] / cc: Bebe Claros M.D. Neurosurgery [facility] [id number] signed by Interface, Personal Caregiver In at 06/04/2006 1:06 AM PSTdocume nted in this encounter Plan of Treatment Not on filedocumented as of this encounter Visit Diagnoses Not on filedocumented in this encounter"
--- OUTSIDE RECORDS SUMMARY | ~2019-07-03 | XMS | Encounter Summary ---
Demographics + + + | Address | [address] | | | [place] [address] | + + + | Home Phone | | + + + | Preferred Language | Unknown | + + + | Marital Status | | + + + | Restoration Affiliation | 1041 | + + + | Race | Unknown | + + + | Ethnic Group | Unknown | + + + Author + + + | Author | [facility] | | | and [place] | + + + | Organization | [facility] | [...] [place] | | | | | [address] | | + + + + + | Daina Mazariegos | ECON | Unknown | | + + + + + Care Team Providers + +------+ + | Care Lining Cutter Name | Role | Phone | + +------+ + | Noe Thomason | PCP | | | MD | | | + +------+ + Encounter Details +--------+ + + + + | Date | Type | Department | Care Team | Description | +--------+ + + + + | 03/12/ | Hospital | [facility] | Michelle Haney, | Weakness of both | | 2015 | Encounter | MED CTR XRAY [address] | [place] [address] | legs | | | | [place] | [place], [place] | | | | | [place] [address] | [address] | | | | | [phone] | [phone] | | | | | | | [...]
--- OUTSIDE RECORDS SUMMARY | ~2019-07-03 | XMS | Encounter Summary ---
Demographics + + + | Address | [address] | | | [place] [address] | + + + | Home Phone | | + + + | Preferred Language | Unknown | + + + | Marital Status | | + + + | Mosque Affiliation | NON | + + + [...] Team Providers + +------+ + | Care [place] Name | Role | Phone | + [...] as of this encounter Progress Notes Interface, Hobber In - 07/25/2006 3:17 AM [facility] OR [facility] and [place] [address] [place], [place] [address] or August 07, 1998 [place] [address] [place] [address] RE: MAE LOWRY MR#: [id number] [...]
--- OUTSIDE RECORDS SUMMARY | ~2019-07-03 | XMS | Encounter Summary ---
Demographics + + + | Address | [address] | | | [place] [address] | + + + | Home Phone [...] Team Providers + +------+ + | Care Student Success Coach Name | Role | Phone | + [...] | | | both legs | PA-C 8246 | | | | | | Procedures | MYLES Burdick | | | | | | CT SPINE | [place], | | | | | | LUMBAR W | [place] | | | | | | CONTRAST | [address] | | | | | | | Phone: | | | | | | | [phone] | | | | | | | Fax: | | | | | | | [phone] | | +--------+--------+ + + + + [...] | | | both legs | PA-C 1247 | | | | | | Procedures | MYLES Burdick | | | | | | X-RAY | [place], | | | | | | MYELOGRAM | [place] | | | | | | LUMBOSACRAL | [address] | | | | | | W/INJECTION | Phone: | | | | | | [place] | [phone] | | | | | | MYELOGRAPHY | Fax: | | | | | | VIA LUMBAR | [phone] | | | | | | INJ, INCLUDE | | | | | | | | | | | | | | RADIOLOGICAL | | | | | | | SUPERVSN | | | | | | | AND INTERP; | | | | | | | LUMBOSACRAL | | | | | | | [place] | | | | | | | MYELOGRAPHY | | | | | | | VIA LUMBAR | | | | | | | INJ, INCL | | | | | | | RAD SUPERVSN | | | | | | | AND INTERP; | | | | | | | =>2 REGIONS | | | | | | | [place] | | | | | | | MYELOGRAPHY | | | | | | | LUMBAR SPINE | | | | | | | [place] CT | | | | | | [...] Phone communication | | 2014 | | [facility] [address] | [place] [address] | | | | | Heavenly Mailcode: CH8N | [place], [place] | | | | | [facility] | [address] | | | | | and Healing, | [phone] | | | | | [facility] | | | | | | Floor [place], [place] | | | | | | [address] | | | | | | [phone] | | | +--------+ + + + [...]
--- OUTSIDE RECORDS SUMMARY | ~2019-07-03 | XMS | Encounter Summary ---
Demographics + + + | Address | [address] | | | [place] [address] | + + + | Home Phone | | + + + | Preferred Language | Unknown | + + + | Marital Status | | + + + | Zoroastrian Affiliation | NON | + + + [...] Team Providers + +------+ + | Care Lcac Operator Name | Role | Phone | + +------+ + PCP | Unavailable | + +------+ + Encounter Details +--------+ + + + + | Date | Type | Department | Care Team | Description | +--------+ + + + + | /20/ | Transcribed | | Dictation, Other | [...] as of this encounter Progress Notes Interface, Automatic Pinsetter Mechanic In - 07/15/2006 3:10 AM [facility] [place] [facility] and [place] [address] [place], [place] [address] or December 11, 1998 [place] [address] [place] [address] RE: MAE LOWRY MR#: [id number] Madden: Mae Lowry returned today for further discussion regarding her left superior gluteal nerve stimulation electrode placement. We discussed the technique of the implant and the expected trial period. We went over the risks and rationale of the procedure, which include the risks of bleeding, infection, increased neurological deficit, and no effect on the pain. We discussed the eventual implantation of the stimulation generator should the trial of stimulation be successful. She is going to schedule this for , and hopefully we will be able to achieve pain relief for her at that time. Sincerely, Marco Antonio Rausch/prince RE Davis, Automatic Pinsetter Mechanic In - 07/15/2006 3:10 AM [facility] [place] [address] [address] or December 11, 1998 [place] [address] [place] [address] RE: MAE JOSE MR#: [id number] Madden: Mae Jose returned today for further discussion regarding her left superior gluteal nerve stimulation electrode placement. We discussed the technique of the implant and the expected trial period. We went over the risks and rationale of the procedure, which include the risks of bleeding, infection, increased neurological deficit, and no effect on the pain. We discussed the eventual implantation of the stimulation generator should the trial of stimulation be successful. She is going to schedule this for , and hopefully we will be able to achieve pain relief for her at that time. Sincerely, Marco Antonio Rausch/prince [id number] signed by Interface, Automatic Pinsetter Mechanic In at 07/15/2006 3:10 AM PSTflori larios in this encounter Plan of Treatment Not on filedocumented as of this encounter Visit Diagnoses Not on filedocumented in this encounter"
--- OUTSIDE RECORDS SUMMARY | ~2019-07-03 | XMS | Encounter Summary ---
Demographics + + + | Address | [address] | | | [place] [address] | + + + | Home Phone [...] Team Providers + +------+ + | Care Well Services Operator Name | Role | Phone | [...] | | | | pain | [address] | [address] | | | | | Procedures | MY[address] | Dave Conroy | | | | | CONSULT TO | [place], | [place], | | | | | ORTHOPEDICS | [place] | [place] | | | | | AND | [address] | [address] | | | | | REHABILITATI | Phone: | Phone: | | | | | ON | [phone] | [phone] | | | | | | Fax: | Fax: | | | | | | [phone] | [phone] | +--------+--------+ + + + + Physical [...] | | | | pain | PA-C 3859 | | | | | | Procedures | [address] | | | | | | PHYSICAL | [place], | | | | | | THERAPY | [place] | | | | | | REFERRAL | [address] | | | | | | | Phone: | | | | | | | [phone] | | | | | | | Fax: | | | | | | | [phone] | | +--------+--------+ + + + + [...] | (degenerativ | Mohan Andrews MD | [address] | | | | | e disc | [address] | [address] | | | | | disease), | [facility] | [place], [place] | | | | | lumbosacral | [place], [place] | [address] | | | | | Hx [place] | [address] | Phone: | | | | | spinal | Phone: | [phone] | | | | | fusion | [phone] | Fax: | | | | | Lumbar | Fax: | [phone] | | | | | radiculopath | [phone] | | | | | | y [...] pain | | 2013 | Visit | [facility] [address] | [place] [address] | (Primary Dx); | | | | Ave Mailcode: CH8N | Ave [place], [place] | Weakness of both | | | | [place] for [facility] | [address] | legs; | | | | and Healing, | [phone] | Spondylolisthesis; | | | | Building | | Right hip pain | | | | Floor [place], [place] | | | | | | [address] | | | | | | [phone] | | | +--------+---------+ + + + [...] systems questionnaire that will be scanned into [employer]. Current medication list: Current Outpatient Prescriptions Medication [...] lumbar xrays, which will be sent to [facility] to be s canned into [facility] Assessment: Ms. Hernández is a 53 year [...] if they present I spent 50 minutes ablc-jn-wgor with the patient. I spent more than 50% of this visit in co unseling in which we discussed diagnosis, treatment, imaging studies and follow-up. EDISON BURGOS PA-C NEUROSURGERY AT [facility] [address] Mailcode: [place] [address] documented in this e ncounter [...]
--- OUTSIDE RECORDS SUMMARY | ~2019-07-03 | XMS | Encounter Summary ---
Demographics + + + | Address | [address] | | | [place] [address] | + + + | Home Phone [...] + + + | Author | [facility] | + + + | Organization | [facility] | + + + | Address [...] Team Providers + +------+ + | Care Conventions Assistant Name | Role | Phone | + [...] as of this encounter Progress Notes Interface, Agricultural Commodities Grader In - 06/27/2006 3:15 AM PSTCLINIC DATE: [...] AND PROCEDURE: Using the spinal cord stimulator net developer programmer, the patient's pulse generator was analyzed, and [...] Reshma Mosquera R.N., M.A. LEWIS / [place] [id number] / [id number] / [id number] /sm A: 07/13/1999 leb A M PSTdocumented in this encounter Plan of Treatment Not on filedocumented as of this encounter Visit Diagnoses Not on filedocumented in this encounter
--- OUTSIDE RECORDS SUMMARY | ~2019-07-03 | XMS | Encounter Summary ---
Demographics + + + | Address | [address] | | | [place] [address] | + + + | Home Phone | | + + + | Preferred Language | Unknown | + + + | Marital Status | | + + + | Temple Affiliation | 1041 | + + + | Race | Unknown | + + + | Ethnic Group | Unknown | + + + Author + + + | Author | [facility] | | | and [place] | + + + | Organization | [facility] | [...] [place] | | | | | [address] | | + + + + + | Daina Mazariegos | ECON | Unknown | | + + + + + Care Team Providers + +------+ + | Care Drug Purchaser Name | Role | Phone | + [...] + | 08/25/ | Telephone | [facility] | BaMohan contreras | Other | | 2012 | | PHYSIATRY [address] | [address] | | | | | [place], | [facility], [place] | | | | | [place] [address] | [address] | | | | | [phone] | | | +--------+ + + + [...]
--- OUTSIDE RECORDS SUMMARY | ~2019-07-03 | XMS | Encounter Summary ---
Demographics + + + | Address | [address] | | | [place] [address] | + + + | Home Phone | | + + + | Preferred Language | Unknown | + + + | Marital Status | | + + + | Episcopalian Affiliation | NON | + + + [...] Providers + +------+ + | Care Well Logging Captain Mud Analysis Name | Role | Phone | + +------+ + | Noe Thomason MD | PCP | | + +------+ + Encounter Details +--------+ + + + + | Date | Type | Department | Care Team | Description | +--------+ + + + + | 10/28/ | Results | [facility] Comprehensive | Roger Fatima MD | | | 2006 | Only | Pain Center at | [address] | | | | | Formerly N[facility] | [place], [place] | | | | | [address] | [address] | | | | | Mailcode: CH15P | [phone] | | | | | [place] for [facility] | | | | | | and Healing, | | | | | | | | | | | | Floor [place], [place] | | | | | | [address] | | | | | | [phone] | | | +--------+ + + + [...] Type | Priori | Associated Diagnoses | Date/Time | | | | ty | | | + +---------+--------+ + + | FLUORO IN PAIN | Imaging | Routin | | 10/28/2006 4:15 PM | | CLINIC | | e | | PDT | + +---------+--------+ + + | FLUORO IN PAIN | Imaging | Routin | | 12/08/2006 2:00 PM | | CLINIC | | e | | PDT | + +---------+--------+ + + documented as of this encounter Visit Diagnoses Not on filedocumented in this encounter"
--- OUTSIDE RECORDS SUMMARY | ~2019-07-03 | XMS | Encounter Summary ---
Demographics + + + | Address | [address] | | | [place] [address] | + + + | Home Phone [...] Team Providers + +------+ + | Care Statistical Programmer Analyst Name | Role | Phone | [...] as of this encounter Progress Notes Interface, Retail Store Assistant In - 05/07/2006 3:12 AM PDTCLINIC DATE: [...] M.D. Roger Fatima M.D. BA / [place] [id number] / [id number] / [id number] / [id number] signed by Interface, Retail Store Assistant In at 05/07/2006 3:12 AM PDTdocume nted in this encounter Plan of Treatment Not on filedocumented as of this encounter Visit Diagnoses Not on filedocumented in this encounter"
--- OUTSIDE RECORDS SUMMARY | ~2019-07-03 | XMS | Encounter Summary ---
Demographics + + + | Address | [address] | | | [place] [address] | + + + | Home Phone | | + + + | Preferred Language | Unknown | + + + | Marital Status | | + + + | Adventism Affiliation | 1041 | + + + | Race | Unknown | + + + | Ethnic Group | Unknown | + + + Author + + + | Author | [facility] | | | and [place] | + + + | Organization | [facility] | | | [...] [place] | | | | | [address] | | + + + + + | Daina Mazariegos | ECON | Unknown | | + + + + + Care Team Providers + +------+ + | Care Rim Turning Machine Operator Name | Role | Phone [...] + | 08/14/ | Telephone | [facility] | Mohan Bunn | Appointment | | 2012 | | PHYSIATRY [address] | [address] | | | | | [place], | [place], [place] | | | | | [place] [address] | [id number] | | | | | [phone] | | | +--------+ + + + [...]
--- OUTSIDE RECORDS SUMMARY | ~2019-07-03 | XMS | Encounter Summary ---
Demographics + + + | Address | [address] | | | [place] [address] | + + + | Home Phone | | + + + | Preferred Language | Unknown | + + + | Marital Status | | + + + | Evangelical Affiliation | NON | + + + | Race | White | + + + | Ethnic Group | Not or | + + + Author + + + | Author | [facility] | + + + | Organization | [facility] | + + + | Address [...] Team Providers + +------+ + | Care Carpet Tile Layer Name | Role | Phone | + [...] as of this encounter Progress Notes Interface, Cyber Policy And Strategy Planner In - 07/05/2006 3:09 AM PSTCLINIC DATE: 03/03/1999 NEUROLOGIC [facility]GERY CLINIC SUBJECTIVE: Mae Dietrich is a eqxlia-pgsb-obql-old female with chronic pain secondary to post [...] degrees Fahrenheit. Using the spinal cord stimulator python programmer, it was determined that the patient's [...] R.N., M.A. LEWIS/aron cc: GRANT MADDEN MD [address] [place] [id number] [id number] signed by Interface, Cyber Policy And Strategy Planner In at 07/05/2006 3:09 AM PSTdocume nted in this encounter Plan of Treatment Not on filedocumented as of this encounter Visit Diagnoses Not on filedocumented in this encounter
--- OUTSIDE RECORDS SUMMARY | ~2019-07-03 | XMS | Encounter Summary ---
Demographics + + + | Address | [address] | | | [place] [address] | + + + | Home Phone [...] Team Providers + +------+ + | Care Production Department Supervisor Name | Role | Phone | + +------+ + PCP | Unavailable | + +------+ + Encounter Details +--------+ + + + + | Date | Type | Department | Care Team | Description | +--------+ + + + + | 04/26/ | Office | [facility] | Note, [...] as of this encounter Progress Notes Interface, Digital Associate In - 04/29/2006 3:03 AM PDTCLINIC DATE: 04/26/2001 [facility] SUBJECTIVE: Ms. Dietrich is returning to our Pain Clinic today for a regular followup. She is status post IDET procedure for the lumbar region 7 weeks ago. The patient reports that her sacral burning pain has been getting less and less over time, and she assumed that her pain is 50% less than before, but she is still complaining of some pain in the lower back, especially if she sits on a chair more than an hour, she starts feeling some pain, but currently she denies any shooting pain down the lower extremities or any numbness. Overall, she feels her pain is less than before the IDET but sometimes when the burning component comes up, she feels it might be a little bit more than prior to the surgery, but overall she is satisfied with the pain level achievement. Currently, she rated her pain as 3/10 on a visual analog scale. Her pain at its best is 3/10, at its worst is 10/10 but with average is 5/10. Currently, she reports that her pain control is 70% achieved. Currently, she is having no problems with her bowels. She has a bowel movement every 2 days, and this is kind of baseline for her. Regarding her urinary symptoms, she feels sometimes problem in the stream. After she starts the stream, she has kind of hesitant and having some trouble, but for some days the complaint does not exist, and her urinary symptoms are no more present. CURRENT MEDICATIONS: OxyContin 10 mg every 8 hours and Ceftin antibiotic 1 tablet b.i.d., currently taking that for mild right ear infection. OBJECTIVE: VITAL SIGNS: Temperature 37.2, blood pressure 102/70, heart rate 60, respiratory rate 16, weight 188 pounds, and height 5 feet 9 inches. GENERAL: The patient is alert and oriented x 3 and in no acute distress. The patient is pleasant and engaged in her talk about symptoms with normal affect. ASSESSMENT 1. Lumbar spondylosis without myelopathy. 2. The patient is status post IDET (intradiscal electrothermal therapy) 7 weeks ago reporting slow improvement in her lower back pain. PLAN: This plan was discussed with the patient with verbal understanding. 1. The patient needs to continue doing physical therapy. She is to have 1 month of physical therapy with our Physical Therapy Department. 2. Continue taking the OxyContin 10 mg every 8 hours to control the remaining pain. 3. The patient was advised to decrease gradually at the time for the abdominal binder so as to avoid any muscle diffuse atrophy around the lower back and hip region. 4. The patient was advised to return to clinic in 10-[address] Roger Fatima was present and involved in the patient's care as well as the plan formulation. Héctor Gonzalez MD Pain Fellow Roger Fatima M.D. Water Resource Engineering Specialist of Anesthesiology and Pain Management MA / HS [id number] / [id number] / [id number] / [id number] cc: Bebe Claros M.D. Department of Neurosurgery [facility] [id number] signed by Interface, Digital Associate In at 04/29/2006 3:03 AM PDTdocume nted in this encounter Plan of Treatment Not on filedocumented as of this encounter Visit Diagnoses Not on filedocumented in this encounter"
--- OUTSIDE RECORDS SUMMARY | ~2019-07-03 | XMS | Encounter Summary ---
Demographics + + + | Address | [address] | | | [place] [address] | + + + | Home Phone [...] Team Providers + +------+ + | Care County Tax Assessor Name | Role | Phone | + +------+ + PCP | Unavailable | + +------+ + Encounter Details +--------+ + + + + | Date | Type | Department | Care Team | Description | +--------+ + + + + | 08/01/ | Office | [facility] | Note, [...] as of this encounter Progress Notes Interface, Photographic Supervisor In - 04/08/2006 6:10 AM PDTCLINIC DATE: 08/01/2001 NEUROSURGERY CLINIC SUBJECTIVE: I just saw Mae perez in the Neurosurgery Clinic today with Dr. Claros. She continues to have very severe and focal low back pain to worsen with extension. She has no radicular symptoms. She is treating it with OxyContin 10 mg t.i.d. but has a lot of side effects including nausea. PAST MEDICAL HISTORY: Her previous history is notable for a facet block in November 1999 which did relieve her pain for about 6 hours. She had an diskography in summer, that suggested concordant problems at L4-5 at 31 PSI. In February 2001, she had an IDET which has not changed her symptoms. DIAGNOSTIC DATA: Her most recent MRI continues to show degenerative disk disease at L4-5 and L5-S1. ASSESSMENT AND PLAN: Dr. Claros discussed with her at length, the possible options. There are some alternative, that Dr. Fatima could offer including another chance of facet block for presumed medial branch facet rhizotomy. We have previously been waiting 6 months for the results of the IDET to take effect, but this does not look likely. She is very interested in getting off her medications and moving on with her life which also includes settling a law suit. We discussed all the possible issues of lumbosacral fusion with her, and she is going to think this over. Jefferson Munroe M.D. Bebe Claros M.D. VALERI / [place] [id number] / [id number] / [id number] / C: 09/12/2001 emg [id number] signed by Interface, Photographic Supervisor In at 04/08/2006 6:10 AM PDTdoc umented in this encounter Plan of Treatment Not on filedocumented as of this encounter Visit Diagnoses Not on filedocumented in this encounter"
--- OUTSIDE RECORDS SUMMARY | ~2019-07-03 | XMS | Encounter Summary ---
Demographics + + + | Address | [address] | | | [place] [address] | + + + | Home Phone [...] Team Providers + +------+ + | Care Soil Sampler Name | Role | Phone | + [...] as of this encounter Progress Notes Interface, Biology Faculty Member In - 05/20/2006 4:02 AM [facility] and [place] [address] [address], [place] [address] or November 24, 2000 Roger Fatima M.D. [facility] RE:MAE LOWRY MR#:[id number] Fatima: I [...] Sincerely, Bebe Claros M.D. ISSAC / [place] [id number] / [id number] / [id number] / [id number] signed by Interface, Biology Faculty Member In at 05/20/2006 4:02 AM PDTdocume nted in this encounter Plan of Treatment Not on filedocumented as of this encounter Visit Diagnoses Not on filedocumented in this encounter"
--- OUTSIDE RECORDS SUMMARY | ~2019-07-03 | XMS | Encounter Summary ---
Demographics + + + | Address | [address] | | | [place] [address] | + + + | Home Phone [...] Team Providers + +------+ + | Care Clinical Radiologist Name | Role | Phone | + +------+ + | Noe Thomason MD | PCP | | + +------+ + Reason for Referral Consultation (Routine) + +--------+ + + + + | Status | Reason | Specialty | Diagnoses / | Referred By | Referred To | | | | | Procedures | Contact | Contact | + +--------+ + + + + | Canceled | | Physical | Diagnoses | [place]ell, | Allyson Pt Cook Chill Technician | | | | Therapy | Lumbosacral | MD Roger | [address] | | | | | spondylosis | [address] | | | | | without | Ave | Mailcode: | | | | | myelopathy | [place], [place] | [facility] | | | | | Procedures | [address] | for Health | | | | | CONSULT TO | Phone: | and Healing, | | | | | PAIN CENTER | [phone] | Building [address] | | | | | GRACE Álvarez or | Fax: | [place], [place] | | | | | AUDREY [address] | [phone] | [address] | | | | | | | Phone: | | | | | | | [phone] | + +--------+ + + + + Reason for Visit + + + | Reason | Comments | + + + | Procedure | | + + + Consult to [place] (Routine) +--------+--------+ + + [...] | | | | | spondylosis | [address] | [address] | | | | | without | Ave | Ave | | | | | myelopathy | [place], [place] | [place], [place] | | | | | Procedures | [address] | [address] | | | | | CONSULT TO | Phone: | Phone: | | | | | [place] | [phone] | [phone] | | | | | | Fax: | Fax: | | | | | | [phone] | [phone] | +--------+--------+ + + + + Encounter Details +--------+ + + + + | Date | Type | Department | Care Team | Description | +--------+ + + + + | 12/08/ | Procedure | [facility] at [facility] | Roger Fatima MD | Procedure | | 2006 | | th Floor [address] | [address] | | | | | [address] Mailcode: | [place], [place] | | | | | [address] for | [address] | | | | | Health and Healing, | [phone] | | | | | | | | | | | Floor [place], [place] | | | | | | [address] | | | | | | [phone] | | | +--------+ + + + [...] + + + | Blood Pressure | 126/76 | 12/08/2006 12:22 PM | | | | | PDT | | + + + + + | Pulse | 70 | 12/08/2006 12:22 PM | | | | | PDT | | + + + + + | Temperature | 36.7 C (98 F) | 12/08/2006 12:22 PM | | | | | PDT | | + + + + + | Respiratory Rate | 16 | 12/08/2006 12:22 PM | | | | | PDT | | + + + + + | Oxygen Saturation | 99% | 12/08/2006 12:22 PM | | | | | PDT | | + + + + + | Inhaled Oxygen | - | - | | | Concentration | | | | + + + + + | Weight | 89.4 kg (197 lb) | 12/08/2006 12:22 PM | | | | | PDT | | + + + + + | Height | 176.5 cm (5' 9.5") | 12/08/2006 12:22 PM | | | | | PDT | | + + + + + | Body Mass Index | 28.67 | 12/08/2006 12:22 PM | | | | | PDT | | + + + + + documented in this encounter Patient Instructions Patient Instructions Jhon Cisneros Md - 12/08/2006 2:00 PM [facility] Patient Instructions - Post Interventional Procedure Date: 12/08/2006 Name: Mae Hernández Date of : 1960 Procedure Performed: LUMBAR DENERV bilateral, L3 and L4 levels Procedure Provider: Roger Fatima IF YOU HAVE ANY PROBLEMS YOU BELIEVE ARE ASSOCIATED WITH YOUR PROCEDURE TONIGHT, PLEASE ROSEMARY L THE HOSPITAL STATIONS SUPERINTENDENT, AND ASK FOR THE PAIN EVAPORATOR REPAIRER. IF YOU HAVE PROBLEMS OR QUESTIONS BETWEEN 9:00 AM AND 4:00 PM, PLEASE CALL THE [facility] NURSE TRIAGE LINE, . If you go to an Emergency Room, please bring this form with you. DISCHARGE INSTRUCTIONS If you have had an IV (intravenous catheter), please read the following. The IV site may fe el sore until tomorrow. If the site becomes hot, red swollen, or increasingly painful, or i f the skin breaks open, call the phone number listed above, and/or go to your family doctor or to an Emergency room. If you have a fever or chills in the next 48 hours, call the phone number listed above, and /or go to an Emergency Room. The procedure site may be tender for a few days. Use ice packs and/or warm compresses to t he area as needed. You may bathe or shower. If the procedure site becomes red or swollen, or if the pain increases, please call the phone number listed above, and/or go to an Emergen cy Room. Activity Instructions: The area of your procedure may be numb or weak for several hours. You should not drive for 6 hours after the procedure. You may resume normal activities 12 hours after the procedure . Diet Instructions: Resume your regular diet. Medication Instructions: Resume all your regular medications. New Medications Instructions: Medication: Oxycodone Dose: 5mg 1-2 every 4 hours as needed, #120, no refill Instructions printed and reviewed with the patient. Copy of instructions given to the simon ent. Please schedule physical therapy in our clinic. She will follow up in 2 weeks. 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 Jhon Cisneros ANESTHESIA: sedation delivered by Dominguez Donnelly RN. Sedation is supervised by Roger montenegro MD FINDINGS: Appropriate placement of needles radiographically. Congruent motor and sensory st imulation noted. A single 80 degree Celsius, 90 second lesion was performed following anesth etizing the area with Bupivacaine 0.5% 0.3ml. IV Fluids: 450ml LR Estimated Blood Loss: none Drains, Specimens, Complications: None. INDICATIONS: Mae Hernández has a history of 721.3 Lumbosacral Spondylosis without My elopathy 724.2A Low Back Pain lumbar pain consistent with facet-mediated pain, which responded well to a diagnostic block at the L3 and L4 vertebral levels bilaterally. I reviewed the Registered Nurse's pre-sedation report. The patient was deemed an appropria te candidate to undergo the planned procedure. ASA Physical Status 2. PROCEDURE IN DETAIL: Prior to the procedure, I had a PARQ discussion with Mae Hernández, and she gave writ ten consent for procedure and sedation. Ms. Hernández was escorted to the [facility] procedure suite, where she was positioned Prone on the examination table. TEAM PAUSE: Prior to the initiation of the procedure, Ms. Hernández 's identity, the site and nature o f the procedure were verified. Monitors were placed, including ECG, NIBP and SpO2. The skin was prepared with Chloroprep and sterile drapes were applied. The C-arm was positioned in the Lateral Oblique view to afford optimal view of the right L3 & L4 transverse processes. Lidocaine 1% mixed 10:1 with bicarbonate was used to anesthetiz e the skin at each level. At each level, a 10 cm curved radiofrequency cannula was position ed inferior and lateral to the intersection of the transverse process and pedicle at L3 & L4 , and was advanced under intermittent fluoroscopy until it contacted the transverse process, and the tip slightly overran that process, just lateral to the mamillary process. The posi tion of each cannula was verified and optimized in the anteroposterior view. Each position was tested for motor and sensory stimulation, and was positioned so that stim ulation was negative for stimuli outside the immediate area of the desired lesion. Bupivaca ine 0.5% 0.3 ml was injected, and a 90 second, 80 degree Centigrade lesion was generated. A similar, uneventful process was performed on the left. The needles were removed, and the patient was transported to the [facility] PACU. Images were saved, and sent to PACS. Ms. Hernández will have her next appointment in 2 weeks for routine follow up. A physical therapy consult was placed today for post-denervation physical therapy. She was provided a prescription for oxycodone 5mg 1-2 every 4 hours prn pain, #120, no refi lls. Roger Fatima was present for the entire procedure. Roger Fatima was present for the entire procedure. JHON CISNEROS MD oger Fatima - 12/08/2006 4:51 PM PDTI saw and evaluated the patient with Fellow Dr. Jhon Cisneros, who conducted the history. I reviewed the history in detail. I was present for the examination and formulat ion portions of the encounter. I agree with the findings and the plan of care as documented in this note, and I edited the trainee's note. Roger Fatima MD, DABA, [facility] e vLj man - 12/08/2006 2:09 PM PDTNurse PRE-SEDATION: Date: December 08, 2006 Mae Hernández [id number] 1960 See COMPOSITE BOND TECHNICIAN Pre-Sedation Note. IV ACCESS: IV in Place IV Catheter Size 22g BASELINE VS: See Sedation Flow Sheet. Mae Hernández [id number] 1960, presents to clinic for: Procedure: Lumbar medial branch denervation PREVIOUS REACTION TO SEDATION/ANALGESIA: No SEDATION/ ANALGESIA PLAN: Moderate Sedation Meets NPO Guidelines: Yes ( NPO x> 6 hours from solids and/or > 3 hours from clear liquids) . Sedation Consent obtained: Yes Procedure Consent in chart: Yes ID Band in place: Yes H&P obtained: Yes Emergency equipment available per policy. Stop and Pause done at: 1:11 PM 1:11 PM Propofol/Remifentanil drip started at 0.1mcg/kg/min Prone, prepped, draped, fluoro in place 1:17 PM Lidocaine 1% times 2 as local given on the right 1:17 PM P-Petros to .08 mcg/kg/min 1:19 PM P-Petros to .07 mcg/kg/min. 1:23 PM P-Petros to .05 mcg/kg/min. 1:26 PM Lidocaine 1% as local given x 2 on the left. Impedance 228 at L3 level on the left Impedance 172 at L4 level on the left Impedance 242 at L3 level on the right Impedance 163 at L4 level on the right Motor and sensory stimulation done prior to denervating for 90 seconds at 80 degrees and Bu pivacaine .5% x 4 given prior to the denervation 1:53 PM sedation off 1:55 PM procedure done 2:00 PM torodol 30 mg IV given LR 200 ml total infused Pt. escorted to recovery area, alert and awake Abram Sanches - 12/08/2006 12: 30 PM PDT COMPOSITE BOND TECHNICIAN History: PMH/PSH/SH/FH review 1. Has your pain changed from your last visit? no change 2. Do you have any new weakness or decrease in sensation? no 3. Do you have any difficulty with urination? No 4. How often do you have a bowel movement? once daily 5. Are you having difficulties with sexual function? No 6. Do your medications cause any side effects? no 7. Have you had physical therapy appointments since your last visit? no 8. Have you had psychology appointments since your last visit? no 9. Have you had any diagnostic studies since your last appointment? no 10. Do you require any medication refills today? No COMPOSITE BOND TECHNICIAN PRE-SEDATION: Date: December 08, 2006 Mae Hernández [id number] 1960 ALLERGIES: Erythromycin Previous reaction to Sedation/Analgesia: none No medications today MEDICATIONS: No current outpatient prescriptions on file. Meets NPO Guidelines: Yes Ride home arranged?: Yes For female patients of reproductive age: When was last menstrual period? Non-applicable If > 30 days, could the patient be ? no Would she like to have a test? no documented in this encounte r Plan of Treatment + + +--------+ + + | Name | Type | Priori | Associated Diagnoses | Order Schedule | | | | ty | | | + + +--------+ + + | MI THER/PROPH/DG IV | Procedures | Routin | Lumbosacral | Ordered: 12/08/2006 | | INF | | e | Spondylosis without | | | | | | Myelopathy Low Back | | | | | | Pain | | + + +--------+ + + | MI FLUOROGUIDE FOR | Procedures | Routin | Lumbosacral | Ordered: 12/08/2006 | | SPINE INJECT | | e | Spondylosis without | | | | | | Myelopathy Low Back | | | | | | Pain | | + + +--------+ + + | MI | Procedures | Routin | Lumbosacral | Ordered: 12/08/2006 | | DEST,PARAVERTEBRAL,L | | e | Spondylosis without | | | /S,SINGLE | | | Myelopathy Low Back | | | | | | Pain | | + + +--------+ + + documented as of this encounter Visit Diagnoses + + | Diagnosis | + + | Lumbosacral spondylosis without myelopathy | + + | Low back pain Lumbago | + + documented in this encounter
--- OUTSIDE RECORDS SUMMARY | ~2019-07-03 | XMS | Encounter Summary ---
Demographics + + + | Address | [address] | | | [place] [address] | + + + | Home Phone [...] Team Providers + +------+ + | Care Asthma Educator Name | Role | Phone | [...] as of this encounter Progress Notes Interface, Airport Operations Manager In - 04/29/2006 3:03 AM PDTCLINIC DATE: 05/09/2001 [facility] CHIEF COMPLAINT: "I think I am getting better." HISTORY OF PRESENT ILLNESS: Ms. Dietrich reports that the burning sensation in her [...] month. Roger Fatima M.D. KAVITA / MADELINE [id number] / [id number] / [id number] / [id number] cc: Bebe Claros M.D. Upsetting Machine Operator, Department of Neurosurgery [id number] signed by Interface, Airport Operations Manager In at 04/29/2006 3:03 AM PDTdocume nted in this encounter Plan of Treatment Not on filedocumented as of this encounter Visit Diagnoses Not on filedocumented in this encounter
--- OUTSIDE RECORDS SUMMARY | ~2019-07-03 | XMS | Encounter Summary ---
Demographics + + + | Address | [address] | | | [place] [address] | + + + | Home Phone [...] Team Providers + +------+ + | Care Dining Host Name | Role | Phone | + [...] as of this encounter Progress Notes Interface, Taxation Agent In - 04/25/2006 2:25 AM PDTCLINIC DATE: 06/06/2001 NEUROSURGERY CLINIC Ms. Dietrich comes back in today for a further assessment by Dr. Calros. She has been treated by us for [...] to work and was encouraged by her insurance attorney to touch base with our service. She [...] choices. Jefferson Munroe M.D. VALERI / MADELINE [id number] / [id number] / [id number] / [id number] signed by Interface, Taxation Agent In at 04/25/2006 2:25 AM PDTdoc umented in this encounter Plan of Treatment Not on filedocumented as of this encounter Visit Diagnoses Not on filedocumented in this encounter"
--- OUTSIDE RECORDS SUMMARY | ~2019-07-03 | XMS | Encounter Summary ---
Demographics + + + | Address | [address] | | | [place] [address] | + + + | Home Phone | | + + + | Preferred Language | Unknown | + + + | Marital Status | | + + + | Rastafarian Affiliation | 1041 | + + + | Race | Unknown | + + + | Ethnic Group | Unknown | + + + Author + + + | Author | [facility] | | | and [place] | + + + | Organization | [facility] | [...] [place] | | | | | [address] | | + + + + + | Daina Mazariegos | ECON | Unknown | | + + + + + Care Team Providers + +------+ + | Care Flatcar Whacker Name | Role | Phone | + [...] | | | | pain | [address] | [address] | | | | | Procedures | POINT | [address] | | | | | [place] Gastric | [place], [place] | [place] | | | | | Emptying | [address] | [address] | | | | | | Phone: | Phone: | | | | | | [phone] | [phone] | | | | | | Fax: | Fax: | | | | | | [phone] | [phone] | +--------+--------+ + + + + Encounter Details +--------+ + + + + | Date | Type | Department | Care Team | Description | +--------+ + + + + | 06/13/ | Hospital | [facility] | Pilar Isbell MD | | | 2019 | Encounter | [facility] | [address] | | | | | MEDICINE [address] | [place] [address] | | | | | [address] | [phone] | | | | | [place], [place] | | | | | | [address] | | | | | | [phone] | | | +--------+ + + + [...]
--- OUTSIDE RECORDS SUMMARY | ~2019-07-03 | XMS | Encounter Summary ---
Demographics + + + | Address | [address] | | | [place] [address] | + + + | Home Phone [...] + + + | Author | [facility] | + + + | Organization | [facility] | + + + | Address [...] Team Providers + +------+ + | Care Professor Of Vegetable Science Name | Role | Phone | + +------+ + PCP | Unavailable | + +------+ + Reason for Visit + + + | Reason | Comments | + + + | Medication requested | | + + + Encounter Details +--------+ + + + + | Date | Type | Department | Care Team | Description | +--------+ + + + + | 06/24/ | Telephone | [facility] | Paul Salinas, | Medication requested | | 2005 | | at [facility] | MD [address] | | | | | [address] | [place], [place] | | | | | Mailcode: CH9F | [address] | | | | | [facility] | [phone] | | | | | and Healing, | | | | | | Building | | | | | | Floor [place], [place] | | | | | | [address] | | | | | | [phone] | | | +--------+ + + + [...]
--- OUTSIDE RECORDS SUMMARY | ~2019-07-03 | XMS | Encounter Summary ---
Demographics + + + | Address | [address] | | | [place] [address] | + + + | Home Phone | | + + + | Preferred Language | Unknown | + + + | Marital Status | | + + + | Religion Affiliation | 1041 | + + + | Race | Unknown | + + + | Ethnic Group | Unknown | + + + Author + + + | Author | [facility] | | | and [place] | + + + | Organization | [facility] | [...] [place] | | | | | [address] | | + + + + + | Daina Mazariegos | ECON | Unknown | | + + + + + Care Team Providers + +------+ + | Care Biofuels Plant Superintendent Name | Role | Phone | + [...] | +--------+ + + + + | 03/11/ | Telephone | [facility] [place] | Tenisha Ricketts, | Other | | 2013 | | PHYSIATRY [address] | SLAB WORKER | | | | | [place], | | | | | | [place] [address] | | | | | | [phone] | | | +--------+ + + + [...]
--- OUTSIDE RECORDS SUMMARY | ~2019-07-03 | XMS | Clinical Summary ---
Demographics + + + | Address | [address] | | | [place] [address] | + + + | Home Phone | | + + + | Preferred Language | Unknown | + + + | Marital Status | | + + + | Catholic Affiliation | 1041 | + + + | Race | Unknown | + + + | Ethnic Group | Unknown | + + + Author + + + | Author | [facility] | | | and [place] | + + + | Organization | [facility] | [...] [place] | | | | | [address] | | + + + + + | Daina Mazariegos | ECON | Unknown | | + + + + + Care Team Providers + +------+ + | Care Global Logistics Manager Name | Role | Phone | [...] +--------+ +---------+------+ | CIGNA | CIGNA | [phone] | | [phone] | | PPO | [...] Karen | al/Fam | | 1961 | [phone] | [place] | | | keira | | | 6 (Home) | [address] | | | | | | [phone] | | | | | | | 0 (Work) | | + +--------+ +--------+ + + | Brunilda-Mae Dietrich | Person | Self [birth year] | [address] | | Karen | al/Fam | | 1961 | [phone] | [address] [place] | | | [place] | | | 6 (Home) | [address] | | | | | | [phone] | | | | | | | 0 (Work) | | + +--------+ +--------+ + + Advance Directives + + + + + | Type | Date Recorded | Patient | Explanation | | | | Neon Sign Servicer | | + + + + + | Power of | | | | | [employer] Roofer | | | | + + + + + | Advance | 03/12/2015 12:13 | | | | Directive | PM | | | + + + + +
--- OUTSIDE RECORDS SUMMARY | ~2019-07-03 | XMS | Encounter Summary ---
Demographics + + + | Address | [address] | | | [place] [address] | + + + | Home Phone [...] + + + | Author | [facility] | + + + | Organization | [facility] | + + + | Address [...] Team Providers + +------+ + | Care Marking Room Supervisor Name | Role | Phone | + +------+ + | Noe Thomason MD | PCP | | + +------+ + Reason for Visit + + + | Reason | Comments | + + + | Back pain | | + + + Consultation (Routine) +--------+--------+ + + + + | Status | Reason | Specialty | Diagnoses / | Referred By | Referred To | | | | | Procedures | Contact | Contact | +--------+--------+ + + + + | Closed | | Pain | Diagnoses | Hyacinth, | Akua | | | | Management | | MD Bebe | MD Zi | | | | | Spondylolist | [address] | [address] | | | | | hesis, grade | Ave | Ave | | | | | [address] | [place], [place] | [place], [place] | | | | | Procedures | [address] | [address] | | | | | CONSULT TO | Phone: | Phone: | | | | | PAIN CENTER | [phone] | [phone] | | | | | | Fax: | Fax: | | | | | | [phone] | [phone] | +--------+--------+ + + + + Encounter Details +--------+ + + + + | Date | Type | Department | Care Team | Description | +--------+ + + + + | 10/28/ | Procedure | Spine Center at | Zi Fatima MD | Back pain | | 2006 | | [facility] 8th Floor [address] | [address] | | | | | [address] | [place], [place] | | | | | Mailcode: CH8N | [address] | | | | | [facility] | [phone] | | | | | and Healing, | | | | | | Building | | | | | | Floor [place], [place] | | | | | | [address] | | | | | | [phone] | | | +--------+ + + + [...] + + documented as of this encounter Patient Instructions Patient Instructions Sibell, Zi - 10/28/2006 4:[address] [facility] - Post Interventional Procedure Date: 10/28/2006 Name: Mae Hernández Date of : 1960 Procedure Performed: Bilateral lumbar medial branch block Procedure Provider: Zi Fatima IF YOU HAVE ANY PROBLEMS YOU BELIEVE ARE ASSOCIATED WITH YOUR PROCEDURE TONIGHT, PLEASE ROSEMARY L [facility] PROFESSIONAL BASS FISHERMAN, AND ASK FOR THE PAIN DIRECTOR OF RECRUITING. IF YOU HAVE PROBLEMS OR QUESTIONS BETWEEN 9:00 AM AND 4:00 PM, PLEASE CALL THE [facility] NURSE TRIAGE LINE, . If you [...] to an Emergen cy Room. Activity Instructions: If Dr. Zi Fatima has asked you to fill out a pain diary, please make an entry in it ever y 1 hour until your pain returns to normal, or bedtime, whichever occurs first. The area of your procedure may be numb or weak for several hours. You should not drive for 6 hours after the procedure. You may resume normal activities 12 hours after the procedure . Diet Instructions: Resume your regular diet. Medication Instructions: Resume all your regular medications. Instructions printed and reviewed with the patient. Copy of instructions given to the simon ent. No future appointments scheduled in [facility]. ZI FATIMA MD [facility] Ivywkaxifyhdrd signed by Zi Fatima at 10/28/2006 4:27 PM PDT documented in this encounter Progress Notes Zi Fatima - 10/28/2006 4:27 PM PDTPROVIDER OPERATIVE NOTE Date: October 28, 2006 Location: [facility] [place] procedure room Mae Hernández [id number] :1960, presents to clinic for: PROCEDURE: Lumbar medial branch block LEVEL: Bilateral L3-4 joints PRE-OPERATIVE DIAGNOSIS: 721.3 Lumbosacral Spondylosis without Myelopathy 738.4B Spondylolisthesis, Grade 1 POST-OPERATIVE DIAGNOSIS: 721.3 Lumbosacral Spondylosis without Myelopathy 738.4B Spondylolisthesis, Grade 1 ATTENDING PHYSICIAN: Zi Fatima COOK HELPER: None ANESTHESIA: none FINDINGS: 1) Fusion hardware appears to be intact. 2) Needle placement and contrast spread consistent with technically successful injection. IV Fluids: none Estimated Blood Loss: none Drains, Specimens, Complications: None. INDICATIONS: Mae Hernández has a history of 721.3 Lumbosacral Spondylosis without My elopathy 738.4B Spondylolisthesis, Grade 1. Dr. Claros had requested a diagnostic facet injection adjacent to Ms. Hernández's fusion, in order to plan subsequent treatment. I reviewed the Registered Nurse's pre-sedation report. The patient was deemed an appropria te candidate to undergo the planned procedure. ASA Physical Status 2. PROCEDURE IN DETAIL: Prior to the procedure, I had a PARQ discussion with Mae Hernández, and she gave writ ten consent for procedure. Ms. Hernández was escorted to the [facility] er procedure suite, where she was positioned Prone on the examination table. TEAM PAUSE: Prior to the initiation of the procedure, Ms. Hernández 's identity, the site and nature o f the procedure were verified. Monitors were placed, including NIBP and SpO2. The skin was prepared with Chloroprep and s terile drapes were applied. The C-arm was positioned in the Anteroposterior and Lateral Oblique view to afford optimal view of the bilateral L3&L4 transverse processes. Lidocaine 1% mixed 10:1 with bicarbonate was used to anesthetize the skin at each level. 22 G 3.5 inch spinal needles were positioned inferior and lateral to the intersection of the transverse processes and pedicles at L3 & L 4, and was advanced under intermittent fluoroscopy until it contacted the transverse process at each level. The needle position was verified and optimized from the oblique angle. Omnipaque-180 was injected, and appropriate spread of contrast was noted. Local anesthetic bupivacaine 0.5% 0.5 ml was injected. The needles were removed, and the patient was transported to [facility]. The patient was instructed to keep his pain diary and report the results of this procedure. Subsequent care will be based on the results of today's procedure. Images were saved, and sent to PACS. Zi Fatima was present for the entire procedure. ZI FATIMA MD evyLj 10/28/2006 4:12 PM PDTNurse PRE-SEDATION: Date: October 28, 2006 Mae Reyes Edgar [id number] 1960 See TECHNICIAN AUTOMATIC Pre-Sedation Note. IV ACCESS: IV not needed BASELINE VS: See Sedation Flow Sheet. Mae Reyes Edgar [id number] 1960, presents to clinic for: Procedure: Lumbar medial branch block and Lumbar medial branch blockPREVIOUS REACTION TO SE DATION/ANALGESIA: No SEDATION/ ANALGESIA PLAN: Local Meets NPO Guidelines: Yes ( NPO x> 6 hours from solids and/or > 3 hours from clear liquids) . Sedation Consent obtained: Yes Procedure Consent in chart: Yes ID Band in place: Yes H&P obtained: Yes Emergency equipment available per policy. Stop and Pause done at: 3:58 PM Prone, prepped, draped, fluoro in place 3:58 PM Lidocaine 1% as local times one to the left side x2 4:01 PM Lidocaine 1% as local times one to the right side x2 4:07 PM Omnipaque 180 injected x four Bupivicaine .5%, .5ml injected x4 Procedure done at 4:10 PM Pt. escorted to recovery area, alert and awake documented in this encounter Plan of Treatment + + +--------+ + + | Name | Type | Priori | Associated Diagnoses | Order Schedule | | | | ty | | | + + +--------+ + + | [place] LOCM 150-199MG/ML | Procedures | Routin | Lumbosacral | Ordered: 10/28/2006 | | | | e | Spondylosis without | | | | | | Myelopathy | | | | | | Spondylolisthesis, | | | | | | Grade 1 | | + + +--------+ + + | [place] INJ,PARAVERTEBRAL | Procedures | Routin | Lumbosacral | Ordered: 10/28/2006 | | L/S,1 LEVEL | | e | Spondylosis without | | | | | | Myelopathy | | | | | | Spondylolisthesis, | | | | | | Grade 1 | | + + +--------+ + + documented as of this encounter Visit Diagnoses + + | Diagnosis | + + | Lumbosacral spondylosis without myelopathy | + + | Spondylolisthesis, grade 1 Acquired spondylolisthesis | + + documented in this encounter"
--- OUTSIDE RECORDS SUMMARY | ~2019-07-03 | XMS | Encounter Summary ---
Demographics + + + | Address | [address] | | | [place] [address] | + + + | Home Phone | | + + + | Preferred Language | Unknown | + + + | Marital Status | | + + + | Scientology Affiliation | NON | + + + | Race | White | + + + | Ethnic Group | Not or | + + + Author + + + | Author | [facility] | + + + | Organization | [facility] | + + + [...] Providers + +------+ + | Care Director Distribution Name | Role | Phone | + +------+ + | Noe Thomason MD | PCP | | + +------+ + Encounter Details +--------+ + + + + | Date | Type | Department | Care Team | Description | +--------+ + + + + | 07/20/ | Telephone | [facility] | Roger Fatima MD | | | 2006 | | Pain Center at | [address] | | | | | [facility] | [place], [place] | | | | | [address] | [address] | | | | | Mailcode: [id number] | [phone] | | | | | [place] for [facility] | | | | | | and Healing, | | | | | | | | | | | | Floor [place], [place] | | | | | | [address] | | | | | | [phone] | | | +--------+ + + + [...]
--- OUTSIDE RECORDS SUMMARY | ~2019-07-03 | XMS | Encounter Summary ---
Demographics + + + | Address | [address] | | | [place] [address] | + + + | Home Phone | | + + + | Preferred Language | Unknown | + + + | Marital Status | | + + + | Scientologist Affiliation | NON | + + + [...] Providers + +------+ + | Care Inspector Boiler Name | Role | Phone | + [...] requested | | 2005 | | at [facility] | MD [address] | | | | | [address] | [place], [place] | | | | | Mailcode: CH9F | [address] | | | | | [facility] | [phone] | | | | | and Healing, | | | | | | Building | | | | | | Floor [place], [place] | | | | | | [address] | | | | | | [phone] | | | +--------+ + + + [...]
--- OUTSIDE RECORDS SUMMARY | ~2019-07-03 | XMS | Encounter Summary ---
Demographics + + + | Address | [address] | | | [place] [address] | + + + | Home Phone [...] + + + | Author | [facility] | + + + | Organization | [facility] | + + + | [...] Team Providers + +------+ + | Care Acquisition Manager Name | Role | Phone | + +------+ + PCP | Unavailable | + +------+ + Encounter Details +--------+ + + + + | Date | Type | Department | Care Team | Description | +--------+ + + + + | 01/21/ | Office | [facility] | Note, Family | Progress Note | | 2002 | Visit-Trans | PRACTICE | Practice Clinic | | | | cribed | [...] as of this encounter Progress Notes Interface, Milk Inspector In - 01/20/2006 1:07 AM PDTCLINIC DATE: 01/21/2003 [facility] SUBJECTIVE: Mae is here, is a 42-year-old nonsmoking female to establish a primary care for chronic pain control at the request of Dr. Claros, her Neurosurgeon. She has had multiple surgical interventions including a pain stimulator that had been performed and notes are available on the LCR. Most recently, in July 2002 had a comparison study of her lumbar spine which showed essentially unchanged hardware and alignment. Note from July [address] Claros explains his views on this frustrating situation. MEDICATIONS: Her current medications are Vicodin 5/500. She uses less than 1 tablet daily. She uses anti-inflammatories otherwise on occasion. Her back injury dates to 1996 fall followed by initial surgery in June 1998, nerve stimulator placement in January 1999, and L4-L5 fusion in August 2001. She had a hysterectomy in 1996 with bladder suspension. GYNECOLOGIC HISTORY: G2, P2. She has an 18- and 8-year-old daughters respectively. SOCIAL HISTORY: She is working for [employer], considers her life productive and limited, however, by her inability to ambulate for long distances and the recovery period which can be up to 2 days following an overactive day. OBJECTIVE GENERAL: She is in no apparent distress. Alert and oriented x 4. VITAL SIGNS: Blood pressure 110/70, pulse 72, respirations 16, weight 199 pounds, and height 69 inches tall. EXTREMITIES: Ambulating without assistance. Her lower extremities are neurovascularly intact. HEENT: HEENT exam Shows frontal and maxillary sinus tenderness with serous otitis present as well. ASSESSMENT: Chronic back pain. PLAN 1. Vicodin #50 with 1 refill. At the rate that she is using her Vicodin, I have little or no concern to share with her over the possibility of addiction at this time. We will consider her medication care agreement if her use is escalated sometime in the future. 2. Sinusitis. Bactrim Double Strength b.i.d. with Entex PSE b.i.d. both for a total of 10 days. We will have her follow up if needed on the sinusitis. Paul Salinas M.D. [facility] / [id number] / [id number] / [id number] / Tdocumented in this encounter Plan of Treatment Not on filedocumented as of this encounter Visit Diagnoses Not on filedocumented in this encounter"
--- OUTSIDE RECORDS SUMMARY | ~2019-07-03 | XMS | Encounter Summary ---
Demographics + + + | Address | [address] | | | [place] [address] | + + + | Home Phone | | + + + | Preferred Language | Unknown | + + + | Marital Status | | + + + | Baptism Affiliation | NON | + + + [...] Team Providers + +------+ + | Care Maitre D' Name | Role | Phone | + +------+ + PCP | Unavailable | + +------+ + Encounter Details +--------+ + + + + | Date | Type | Department | Care Team | Description | +--------+ + + + + | 01/28/ | Procedure - | | Record, Operation [...] + + | OPERATION RECORD | | 01/28/1999 | | Results for this | | | | | | procedure are in the | | | | | | results section. | + +--------+ + + + documented in this encounter Results OPERATION RECORD (01/28/1999) + + | Transcriptions | + + | Interface, Patternmaker Apprentice Wood In - 07/10/2006 3:08 AM PST | | [facility] | | [place], [place] [address] [employer] | | [facility] HospitalOPERATION RECORDMed Rec No.: [id number] Date: | | 01/28/1999Name: Thao Dietrich SURGEON: Bebe Claros, | | Marco AntonioASSISTANTS: Dima Treviño M.D. | | Stan Gu M.D.POSTOPERATIVE DIAGNOSIS(ES): Right gluteal | | neuralgia.OPERATIONS PERFORMED: Exploration of right gluteal region. | | Insertion of quadripolar electrode.ANESTHESIA: | | General.SPECIMEN(S) REMOVED: See below.PROCEDURE: | | This woman previously underwentdecompression of her left gluteal | | nerve due to piriformis syndrome. Aftera period of relief the pain recurred.The | | previous incision on the left buttock was reopened. The glutealmuscles were split | | and the previous scar was followed down toward thepiriformis muscle. The sciatic | | nerve was identified and seemed to beencased in rather thick fibrosis. The | | sciatic nerve was followed all theway to the sciatic notch and seemed to be | | accompanied by another nerveoriginating at the exit from the sciatic notch. | | Several much smallerbranches seemed to be going in a cephalad direction from the | | sciatic notch.The nerves were extremely stuck down in a mass of fibrotic tissue. | | Thenerve accompanying the sciatic nerve going in a caudad direction wasassumed to | | be the superior gluteal nerve which, because the piriformis hadbeen cut, was not seen | | at this level to be going superiorly.A quadripolar electrode was covered in an | | envelope of DuraGard which wassutured around the quadripolar electrode. This was | | placed between thesciatic and the superior gluteal nerve with the electrode surface | | in thedirection of the superior gluteal nerve. This was sutured to | | theepineurium with 4-0 nylon. The electrode wire was externalized superiorlyon the | | left flank. The wound was closed in layers with 3-0 Vicryl to thesubcutaneous tissue | | and 4-0 nylon to the skin. The patient was extubatedsuccessfully in the operating | | theater and transferred to the PostAnesthesia Care Unit where she was in a good | | and stable condition.Marco Antonio Anand M.D.JI/jbrettD: | | 01/28/1999T: 02/01/1999 8:13 P | |piriformis muscle. The sciatic nerve was identified and seemed to be | |encased in rather thick fibrosis. The sciatic nerve was followed all the | |way to the sciatic notch and seemed to be accompanied by another nerve | |originating at the exit from the sciatic notch. Several much smaller | |branches seemed to be going in a cephalad direction from the sciatic notch. | |The nerves were extremely stuck down in a mass of fibrotic tissue. The | |nerve accompanying the sciatic nerve going in a caudad direction was | |assumed to be the superior gluteal nerve which, because the piriformis had | |been cut, was not seen at this level to be going superiorly. | | | |A quadripolar electrode was covered in an envelope of DuraGard which was | |sutured around the quadripolar electrode. This was placed between the | |sciatic and the superior gluteal nerve with the electrode surface in the | |direction of the superior gluteal nerve. This was sutured to the | |epineurium with 4-0 nylon. The electrode wire was externalized superiorly | |on the left flank. The wound was closed in layers with 3-0 Vicryl to the | |subcutaneous tissue and 4-0 nylon to the skin. The patient was extubated | |successfully in the operating theater and transferred to the Post | |Anesthesia Care Unit where she was in a good and stable condition. | | | | | | | |Marco Antonio Anand M.D. | | | |JI/jbrett | | | | P | + + documented in this encounter Visit Diagnoses Not on filedocumented in this encounter"
--- OUTSIDE RECORDS SUMMARY | ~2019-07-03 | XMS | Encounter Summary ---
Demographics + + + | Address | [address] | | | [place] [address] | + + + | Home Phone | | + + + | Preferred Language | Unknown | + + + | Marital Status | | + + + | Congregation Affiliation | 1041 | + + + | Race | Unknown | + + + | Ethnic Group | Unknown | + + + Author + + + | Author | [facility] | | | and [place] | + + + | Organization | [facility] | | | and [place] [...] [place] | | | | | [address] | | + + + + + | Daina Mazariegos | ECON | Unknown | | + + + + + Care Team Providers + +------+ + | Care Trains Dispatcher Supervisor Name | Role | Phone | + +------+ + | Noe Thomason | PCP | | | MD | | | + +------+ + Encounter Details +--------+ + + + + | Date | Type | Department | Care Team | Description | +--------+ + + + + | 08/21/ | Hospital | [facility] | BabiggbrandonchuyMohan | | | 2013 | Encounter | MED CTR XRAY [address] | | | | | [place] | [place], [place] | | | | | [place] [address] | [id number] | | | | | [phone] | | | +--------+ + + + [...]
--- OUTSIDE RECORDS SUMMARY | ~2019-07-03 | XMS | Encounter Summary ---
Demographics + + + | Address | [address] | | | [place] [address] | + + + | Home Phone [...] Author + + + | Author | [facility] | + + + | Organization | [facility] | + + + | [...] Team Providers + +------+ + | Care Push Button Switch Assembler Name | Role | Phone | + +------+ + PCP | Unavailable | + +------+ + Encounter Details +--------+ + + + + | Date | Type | Department | Care Team | Description | +--------+ + + + + | 03/28/ | Results | Neurosurgery [address] | Bebe Claros MD | | | 2002 | Only | [address] | [address] | | | | | [address] Mailcode:OP14B | [place], [place] | | | | | [address] | [address] | | | | | [place], [place] | [phone] | | | | | [address] | | | | | | [phone] | | | +--------+ + + + [...] + | X-RAY SPINE | Routin | 03/28/2003 | | Results for this | | LUMBOSACRAL 2 VIEWS | e | 1:52 PM | | procedure are in the | | | | PDT | | results section. | + +--------+ + + + documented in this encounter Results SPINE LUMBOSACRAL 2 VIEWS (03/28/2003 1:52 PM PDT) + + + + + + | Component | Value | Ref Range | Performed | Pathologist | | | | | At | Signature | + + + + + + | SPINE | Radiologist 1: MARILEE, | | | | | LUMBOSACRAL | Maxime DINH M.D.LUMBAR | | | | | 2 VIEWS | SPINE - AP AND LATERAL: | | | | | | 03/28/2003 Dictated | | | | | | 03/28/2003 COMPARISON: | | | | | | 08/23/02. FINDINGS: | | | | | | There is normal | | | | | | postoperative alignment | | | | | | of combined anteriorand | | | | | | posterior L4-5 fusion. | | | | | | The graft appears | | | | | | intact with end | | | | | | plateincorporation. | | | | | | The pedicle screws and | | | | | | paraspinal rods are | | | | | | intact withno signs of | | | | | | loosening. L5-S1 disc | | | | | | narrowing is unchanged. | | | | | | There issome anterior | | | | | | wedging and degenerative | | | | | | changes at the | | | | | | thoracolumbarjunction | | | | | | which are chronic and | | | | | | unchanged from prior | | | | | | examinations. An | | | | | | electrode in the region | | | | | | of the left sciatic | | | | | | notch isunchanged with | | | | | | intact leads. | | | | | | IMPRESSION: 1. No | | | | | | change in L4-5 | | | | | | anterior-posterior | | | | | | fusion with | | | | | | normalpostoperative | | | | | | alignment. 2. L5-S1 | | | | | | degenerative disc | | | | | | disease. END OF | | | | | [...]
--- OUTSIDE RECORDS SUMMARY | ~2019-07-03 | XMS | Encounter Summary ---
Demographics + + + | Address | [address] | | | [place] [address] | + + + | Home Phone | | + + + | Preferred Language | Unknown | + + + | Marital Status | | + + + | Confucianist Affiliation | 1041 | + + + | Race | Unknown | + + + | Ethnic Group | Unknown | + + + Author + + + | Author | [facility] | | | and [place] | + + + | Organization | [facility] | | | and [place] | [...] [place] | | | | | [address] | | + + + + + | Daina Mazariegos | ECON | Unknown | | + + + + + Care Team Providers + +------+ + | Care Knot Saw Operator Name | Role | Phone | [...] | | | | pain | [address] | [address] | | | | | Procedures | POINT | [address] | | | | | [place] Gastric | [place], [place] | [place], [place] | | | | | Emptying | [address] | [address] | | | | | | Phone: | Phone: | | | | | | [phone] | [phone] | | | | | | Fax: | Fax: | | | | | | [phone] | [phone] | +--------+--------+ + + + + Encounter Details +--------+ + + + + | Date | Type | Department | Care Team | Description | +--------+ + + + + | 06/13/ | Hospital | [facility] | Pilar Isbell MD | | | 2019 | Encounter | [facility] | [address] | | | | | MEDICINE [address] | [place] [address] | | | | | [address] | [phone] | | | | | [place], [place] | | | | | | [address] | | | | | | [phone] | | | +--------+ + + + [...]
--- OUTSIDE RECORDS SUMMARY | ~2019-07-03 | XMS | Encounter Summary ---
Demographics + + + | Address | [address] | | | [place] [address] | + + + | Home Phone | | + + + | Preferred Language | Unknown | + + + | Marital Status | | + + + | Restoration Affiliation | 1041 | + + + | Race | Unknown | + + + | Ethnic Group | Unknown | + + + Author + + + | Author | [facility] | | | and H[place]toana | + + + | Organization | [facility] | | | and Humbertoana [...] [place] | | | | | [address] | | + + + + + | Daina Mazariegos | ECON | Unknown | | + + + + + Care Team Providers + +------+ + | Care Night Shift Manager Name | Role | Phone | [...] | | | | pain | [address] | [address] | | | | | Procedures | [address] | [address] | | | | | NM Gastric | [place] | [place] | | | | | Emptying | [address] | [address] | | | | | | Phone: | Phone: | | | | | | [phone] | [phone] | | | | | | Fax: | Fax: | | | | | | [phone] | [phone] | +--------+--------+ + + + + Reason for Visit Diagnostic/Screening (Routine) +--------+--------+ + + + + | Status | Reason | Specialty | Diagnoses / | Referred By | Referred To | | | | | Procedures | Contact | Contact | +--------+--------+ + + + + | Closed | | Radiology | Diagnoses | Sukhi, | c Nuclear | | | | | Epigastric | MD Pilar | Medicine | | | | | pain | [address] | [address] | | | | | Procedures | POINT | BL[address] | | | | | NM Gastric | [place] | [place] | | | | | Emptying | [address] | [address] | | | | | | Phone: | Phone: | | | | | | [phone] | [phone] | | | | | | Fax: | Fax: | | | | | | [phone] | [phone] | +--------+--------+ + + + + Encounter Details +--------+ + + + + | Date | Type | Department | Care Team | Description | +--------+ + + + + | 06/13/ | Hospital | [facility] | Pilar Isbell MD | Epigastric pain | | 2019 | Encounter | [facility] | [address] | | | | | MEDICINE [address] | [place] [address] | | | | | [address] | [phone] | | | | | [place], [place] | | | | | | [address] | | | | | | [phone] | | | +--------+ + + + [...] Procedure Note | + + | Jarrod, Finesse Results In - 06/13/2019 2:34 PM PST [...] in this encounter Administered Medications + +--------+ + +------+------+ | Medication Order | MAR | Action | Dose | Rate | Site | | | Action | Date | | | | + +--------+ + +------+------+ | technetium TC-99M sulfur | Given | 06/13/20 | 1 | | | | colloid solution 1 millicurie 1 | | 19 9:02 | millicur | | | | millicurie, Oral, ONCE PRN, | | AM PST | ie | | | | Other, Starting 11/20/19 at | | | | | | | 0902, For 1 dose, Nuclear | | | | | | | Medicine | | | | | | + +--------+ + +------+------+ +---+---+ | | | +---+---+ documented in this encounter"
--- OUTSIDE RECORDS SUMMARY | ~2019-07-03 | XMS | Encounter Summary ---
Demographics + + + | Address | [address] | | | [place] [address] | + + + | Home Phone | | + + + | Preferred Language | Unknown | + + + | Marital Status | | + + + | Baptism Affiliation | NON | + + + | Race | White | + + + | Ethnic Group | Not or | + + + Author + + + | Author | [facility] | + + + | Organization | [facility] | + + + | Address [...] Team Providers + +------+ + | Care Military Science Teacher Name | Role | Phone | [...] | | | | | 1 | [place], [place] | [place] | | | | | Procedures | [address] | [address] | | | | | CONSULT TO | Phone: | Phone: | | | | | PAIN CENTER | [phone] | [phone] | | | | | | Fax: | Fax: | | | | | | [phone] | [phone] | +--------+--------+ + + + + Encounter Details +--------+ + + + + | Date | Type | Department | Care Team | Description | +--------+ + + + + | 10/28/ | Procedure | Spine Center at | Zi Fatima MD | Back pain | | 2006 | | [facility] 8th Floor [address] | [address] | | | | | [address] | [place], [place] | | | | | Mailcode: CH8N | [address] | | | | | [facility] | [phone] | | | | | and Healing, | | | | | | Building | | | | | | Floor [place], [place] | | | | | | [address] | | | | | | [phone] | | | +--------+ + + + [...] Instructions Sibell, Zi - 10/28/2006 4[facility] - [facility] Inter[facility] Procedure Date: 10/28/2006 Name: Mae Hernández Date of : 1960 Procedure Performed: Bilateral lumbar medial branch block Procedure Provider: Zi Fatima IF YOU HAVE ANY PROBLEMS YOU BELIEVE ARE ASSOCIATED WITH YOUR PROCEDURE TONIGHT, PLEASE [facility] SCRUB WOMAN, AND ASK FOR THE PAIN CARE AIDE. IF YOU HAVE PROBLEMS OR QUESTIONS BETWEEN 9:00 AM AND 4:00 PM, PLEASE CALL THE [facility] PAIN CENTER NURSE TRIAGE LINE, [...] simon ent. No future appointments scheduled in [facility] SPINE [facility]. ZI FATIMA MD [facility] [email or web address] signed by Zi Fatima at 10/28/2006 4:27 PM PDT documented in this encounter Progress Notes Zi Fatima - 10/28/2006 4:27 PM PDTPROVIDER OPERATIVE NOTE Date: October 28, 2006 Location: [facility] [place] procedure room Mae Hernández [id number] :1960, presents to clinic for: PROCEDURE: Lumbar medial branch block LEVEL: Bilateral L3-4 joints PRE-OPERATIVE DIAGNOSIS: 721.3 Lumbosacral Spondylosis without Myelopathy 738.4B Spondylolisthesis, Grade 1 POST-OPERATIVE DIAGNOSIS: 721.3 Lumbosacral Spondylosis without Myelopathy 738.4B Spondylolisthesis, Grade 1 ATTENDING PHYSICIAN: Zi Fatima SENIOR DESIGN ENGINEERING SPECIALIST: None ANESTHESIA: none FINDINGS: 1) Fusion hardware [...] procedure. Ms. Hernández was escorted to the [facility] er procedure suite, where she was [...] and the patient was [facility] The patient was instructed to keep his pain diary and report the results of this procedure. Subsequent care will be based on the results of today's procedure. Images were saved, and sent to PACS. Zi Fatima was present for the entire procedure. ZI FATIMA MD evyLj 10/28/2006 4:12 PM PDTNurse PRE-SEDATION: Date: October 28, 2006 Mae Reyes Edgar [id number] 1960 See NET SORTER Pre-Sedation Note. IV ACCESS: IV not needed BASELINE VS: See Sedation Flow Sheet. Mae Reyes Edgar [id number] 1960, presents to clinic for: Procedure: Lumbar [...] | + + +--------+ + + | TN LOCM 150-199MG/ML | Procedures | Routin | Lumbosacral | Ordered: 10/28/2006 | | | | e | Spondylosis without | | | | | | Myelopathy | | | | | | Spondylolisthesis, | | | | | | Grade 1 | | + + +--------+ + + | TN INJ,PARAVERTEBRAL | Procedures | Routin | Lumbosacral [...]
--- OUTSIDE RECORDS SUMMARY | ~2019-07-03 | XMS | Encounter Summary ---
Demographics + + + | Address | [address] | | | [place] [address] | + + + | Home Phone [...] Team Providers + +------+ + | Care Breaster Name | Role | Phone | + [...] as of this encounter Progress Notes Interface, Domestic Helper In - 04/29/2006 3:03 AM PDTCLINIC DATE: [...] Gonzalez MD Pain Fellow Roger Fatima M.D. Wind Power Project Manager of Anesthesiology and Pain Management [place] / HS [id number] / [id number] / [id number] / [id number] cc: Bebe Claros M.D. Department of Neurosurgery [facility] [id number] signed by Interface, Domestic Helper In at 04/29/2006 3:03 AM PDTdocume nted in this encounter Plan of Treatment Not on filedocumented as of this encounter Visit Diagnoses Not on filedocumented in this encounter"
--- OUTSIDE RECORDS SUMMARY | ~2019-07-03 | XMS | Encounter Summary ---
Demographics + + + | Address | [address] | | | [place] [address] | + + + | Home Phone | | + + + | Preferred Language | Unknown | + + + | Marital Status | | + + + | Temple Affiliation | 1041 | + + + | Race | Unknown | + + + | Ethnic Group | Unknown | + + + Author + + + | Author | [facility] | | | and [place]toana | + + + | Organization | [facility] | | | and [place]toana | + + + | Address | Unknown | + + + | Phone | Unavailable | + + + Support + + + + + | Name | Relationship | Address | Phone | + + + + + | Liam Dietrihc | ECON | [address] | | | | | [place] | | | | | [address] | | + + + + + | Daina Mazariegos | ECON | Unknown | | + + + + + Care Team Providers + +------+ + | Care Red [employer] Executive Director Name | Role | Phone | [...] 2014 | | [address] | SAFE DEPOSIT CLERK | | | | | [place], | | | | | | [place] [address] | | | | | | [phone] | | | +--------+ + + + [...]
--- OUTSIDE RECORDS SUMMARY | ~2019-07-03 | XMS | Encounter Summary ---
Demographics + + + | Address | [address] | | | [place] [address] | + + + | Home Phone [...] Team Providers + +------+ + | Care Aviation Manager Name | Role | Phone | + +------+ + PCP | Unavailable | + +------+ + Encounter Details +--------+ + + + + | Date | Type | Department | Care Team | Description | +--------+ + + + + | 01/14/ | Results | Neurosurgery [address] | Bebe Claros MD | | | 1999 | Only | [address] [place] | [address] | | | | | [address] Mailcode:OP14B | [place], [place] | | | | | [place] | [address] | | | | | [place], [place] | [phone] | | | | | [address] | | | | | | [phone] | | | +--------+ + + + [...] | | + +---------+ + + | [facility] DEPARTMENT OF | | | | | RADIOLOGY | | | | + +---------+ + + documented in this encounter Visit Diagnoses Not on filedocumented in this encounter"
--- OUTSIDE RECORDS SUMMARY | ~2019-07-03 | XMS | Encounter Summary ---
Demographics + + + | Address | [address] | | | [place] [address] | + + + | Home Phone [...] Author | [facility] | + + + | Organization | [facility] | + + + | Address | Unknown | + + + | Phone | Unavailable | + + + Support + + + + + | Name | Relationship | Address | Phone | + + + + + | Liam Dietrich | ECON | [place] | | + + + + + Care Team Providers + +------+ + | Care Suction Worker Name | Role | Phone | [...] W | | | | ON | [facility] 4th Floor [address] | [address] | | | | | [address] | Road [place], [place] | | | | | Mailcode: CH4S | [address] | | | | | [facility] | | | | | | and Healing, | | | | | | Building 1,4th Floor | | | | | | [place], [place] | | | | | | [address] | | | | | | [phone] | | | +--------+ + + + [...]
--- OUTSIDE RECORDS SUMMARY | ~2019-07-03 | XMS | Encounter Summary ---
Demographics + + + | Address | [address] | | | [place] [address] | + + + | Home Phone [...] Team Providers + +------+ + | Care Lozenge Maker Name | Role | Phone | + +------+ + PCP | Unavailable | + +------+ + Encounter Details +--------+ + + + + | Date | Type | Department | Care Team | Description | +--------+ + + + + | 02/03/ | Transcribed | | Dictation, Other | [...] as of this encounter Progress Notes Interface, Teacher In - 07/08/2006 1:11 AM [facility] OR [facility] [place] [address] [place], [place] [address] or February 03, 1999 [place] [address] [place] [address] RE: Mae Dietrich MR#: [id number] Madden: As you well know Mrs. Dietrich has had longstanding left buttock pain. Approximately one year ago she was operated on for piriformis division upon which she experienced some relief, however the pain then recurred. Approximately one week ago she underwent re-exploration of the previous surgical site with the intention of implanting a left gluteal nerve stimulator. The patient reports that since the surgery the stimulation she is experiencing is down the back of the left thigh in the distribution of the left posterior femoral cutaneous nerve. She also reports some hypoesthesia in that distribution. She was seen and examined and her treatment options thoroughly discussed with Dr. Claros. This existing electrode clearly needs to be removed. We are extremely unwilling to re-explore the same wound as the scarring will make the likelihood of identifying the superior gluteal nerve a third time round extremely unlikely. The options therefore, are either to explore the buttock via a more superior new incision in a further attempt to implant a stimulator by the superior gluteal nerve. This options carries the disadvantage that the patient must be asleep for an operation of this type, and again we shall not know until the patient awakens whether we are managing to stimulate the nerve that is giving rise to her pain. The second alternative would be to try her for spinal cord stimulation. The patient is more inclined to accept the first option. Therefore we shall schedule her for removal of the electrode and re-exploration of the buttock with the intention of implantation of a new electrode shortly. Yours sincerely, Dima Treviño M.D. Bebe Claros M.D. Instructor, Stereotactic Professor and Ward Assistant, and Functional Neurosurgery Department of Neurological Surgery [id number] C: 02/12/1999 hermila C: 03/16/1999 corwin [id number] signed by Interface, Teacher In at 07/08/2006 1:11 AM PSTdocume nted in this encounter Plan of Treatment Not on filedocumented as of this encounter Visit Diagnoses Not on filedocumented in this encounter"
--- OUTSIDE RECORDS SUMMARY | ~2019-07-03 | XMS | Encounter Summary ---
Demographics + + + | Address | [address] | | | [place] [address] | + + + | Home Phone [...] Team Providers + +------+ + | Care Community Service Manager Name | Role | Phone | + +------+ + PCP | Unavailable | + +------+ + Encounter Details +--------+ + + + + | Date | Type | Department | Care Team | Description | +--------+ + + + + | 09/05/ | Office | | Note, Outpatient | Progress Note | | 2004 | Visit-Trans | | Clinic | | [...] as of this encounter Progress Notes Interface, Network Cabler In - 02/20/2005 6:14 PM PDTClinic Date: 09/05/2003 Clinic: This is a 42-year-old woman with a history of low back pain following a fall in 1996. There was an injury at that time to her buttock in her thigh level nerves. She underwent, by report, a sciatic nerve stimulation in 1997 with good relief for her symptoms. She had recurrence of symptoms and underwent L4-L5 posterior fusion and pedicle screw asha construct in 2001. She reports that this also had helped her symptoms which have been localized mostly to her low back without significant radicular component. The patient now reports that over the past 3 to 4 months, she has had some low back discomfort radiating across her bilateral hips, sensation that her right more so than her left hips will "lock up" when she is stands from a sitting position. She has no radicular pain on her knees or below. She has no falls, no weakness, no electric shock-like sensations. No paresthesias down the legs, no bowel and bladder complaints as well. She reports that she has been somewhat noncompliant with her back exercises. Physical Examination General: She is awake and alert, and follows commands. She has 5/5 in all 4 extremities including her bilateral hip flexors, quads, anterior tibialis, external hallucis longus, plantar flexors, gastrocnemius, hamstrings, and hip rotators. Her previous wound has healed up well. We reviewed her lumbosacral spine x-rays from today. There is no significant change from previous lumbosacral spine x-rays from March 28, 2003. She has some degenerative disease at L5-S1 which was noted previously on her plain x-rays. We had a long discussion with the patient stating that her symptoms were possibly due to adjacent level disk disease at the L5-S1 level with referred pain to her bilateral hip and groin as she describes. Since the patient has no neurological deficit and is able to go back to her life with this discomfort, we suggested a trial of physical therapy at this point. The patient will perform physical therapy for 1 month and then will see us in clinic at the end of that month to see if there is any improvement. If she feels improved, we will consider at that time the possibility of investigation of possibly L5-S1 degenerative disease being responsible for her pain. This may include at that time a provocative diskogram. If the patient does progress and if L5-S1 is the location for her pain generator, then we may need to in the future consider incorporating fusion of L5-S1 into her previous L4-L5 fusion construct. Please note that the patient was seen with Dr. Bebe Claros. Serafin Chow M.D. Bebe Claros M.D. / [id number] / [id number] / [id number] / Tdocumented in this encounter Plan of Treatment Not on filedocumented as of this encounter Visit Diagnoses Not on filedocumented in this encounter
--- OUTSIDE RECORDS SUMMARY | ~2019-07-03 | XMS | Encounter Summary ---
Demographics + + + | Address | [address] | | | [place] [address] | + + + | Home Phone | | + + + | Preferred Language | Unknown | + + + | Marital Status | | + + + | Catholic Affiliation | NON | + + + [...] Team Providers + +------+ + | Care Disc Pad Grinder Name | Role | Phone | + [...] | Transcriptions | + + | Interface, Aligner Typewriter In - 06/04/2006 1:06 AM PST | | [place] [address] [address] | | [place], [place] [address] | | [facility] RECORDMed Rec No.: | | [id number] Date: 04/21/2000Name: Richard DietrichJonyMARISELA SURGEON: | | Roger Fatima M.D.ICT SUPPORT TECHNICIANS: Corey | | Marco Antonio AllenPREOPERATIVE DIAGNOSIS:Low [...] was used for local anesthesia at L4, C2qgedmtbxmej | | for a paramedian approach to the facet joints. A 22 gauge3-1/2 inch spinal needle | | to approach the facet joint under fluoroscopicguidance in the anteroposterior views | | and position was finally confirmed inthe oblique views.The movements were done in an | | incremental fashion. Once position of theneedles was obtained, the position was | | finally confirmed with [id number]. Contrast total of approximately 0.4 cc was [...] 04/25/2000C: 04/27/2000 cmdcc:Bebe Claros | | Marco AntonioNeurosurgerySt. [id number]: | |position with pressure points padded. A [...] | |Bebe Claros M.D. | |Neurosurgery | |[facility] | | | | | | | |[id number] | | | |CC: | + + documented in this encounter Visit Diagnoses Not on filedocumented in this encounter"
--- OUTSIDE RECORDS SUMMARY | ~2019-07-03 | XMS | Encounter Summary ---
Demographics + + + | Address | [address] | | | [place] [address] | + + + | Home Phone [...] Team Providers + +------+ + | Care Manager Mac Name | Role | Phone | + [...] | Transcriptions | + + | Interface, Animal Control Specialist In - 05/12/2006 1:10 AM PDT | | [place] [address] [address] | | [place], [place] [address] | | [facility]ORDMed Rec No.: | | [id number] Date: 01/30/2001Name: Thao Dietrich SURGEON: | | Roger Fatima M.D.RETAIL SELLING SPECIALIST(S): Megan Ferguson, | | Marco AntonioPREOPERATIVE DIAGNOSIS(ES):Mechanical [...] the procedure. She was thenescorted to the [facility] Pain Management Center Procedure | | Suite [...] wheal was placed | | here with g90-aenmd introducer needle placed through that wheal. A [...] the Findings section. We then injected the L5-P8yrflzbuxqckizl | | disc. Injection of this disc [...] transferred by | | stretcher [facility] where she | [...] Fatima | | Marco AntonioDS/X65D:01/30/2001T:01/30/2001cc: Bebe Claros M.D.[id number]: | |refractory to conservative management. She is [...] She was then | |escorted to the [facility] [place] Procedure Suite where she was | |positioned [...] She was transferred by stretcher to the [facility] Pain Management | |Center Post Anesthesia Care [...] Claros M.D. | | | | | |[id number] | | | |CC: | + + documented in this encounter Visit Diagnoses Not on filedocumented in this encounter"
--- OUTSIDE RECORDS SUMMARY | ~2019-07-03 | XMS | Encounter Summary ---
Demographics + + + | Address | [address] | | | [place] [address] | + + + | Home Phone | | + + + | Preferred Language | Unknown | + + + | Marital Status | | + + + | Hinduism Affiliation | NON | + + + [...] Team Providers + +------+ + | Care Graphotype Operator Name | Role | Phone | [...] as of this encounter Progress Notes Interface, Job Checker In - 03/28/2006 1:23 AM PDTCLINIC DATE: [...] followup. Bebe Claros M.D. ISSAC / MADELINE [id number] / [id number] / [id number] / Tdocumented in this encounter Plan of Treatment Not on filedocumented as of this encounter Visit Diagnoses Not on filedocumented in this encounter"
--- OUTSIDE RECORDS SUMMARY | ~2019-07-03 | XMS | Encounter Summary ---
Demographics + + + | Address | [address] | | | [place] [address] | + + + | Home Phone | | + + + | Preferred Language | Unknown | + + + | Marital Status | | + + + | Mandaeism Affiliation | NON | + + + | Race | White | + + + | Ethnic Group | Not or | + + + Author + + + | Author | [facility] | + + + | Organization | [facility] | + + + | Address [...] Team Providers + +------+ + | Care Mining Professionals Name | Role | Phone | + [...] as of this encounter Progress Notes Interface, Graphics Editor In - 07/10/2006 3:08 AM PSTCLINIC DATE: [...]
--- OUTSIDE RECORDS SUMMARY | ~2019-07-03 | XMS | Encounter Summary ---
Demographics + + + | Address | [address] | | | [place] [address] | + + + | Home Phone [...] | Author | [facility] | | | and Humbertoana | + + + | Organization | [facility] | | | and [...] [place] | | | | | [address] | | + + + + + | Daina Mazariegos | ECON | Unknown | | + + + + + Care Team Providers + +------+ + | Care Power Generation Plant Operator Name | Role | Phone | + +------+ + | Noe Thomason | PCP | | | MD | | | + +------+ + Encounter Details +--------+ + + + + | Date | Type | Department | Care Team | Description | +--------+ + + + + | 03/12/ | Hospital | [facility] | Michelle Haney, | Weakness of both | | 2015 | Encounter | MED CTR XRAY [address] | [place] [address] | legs; | | | | [place] | [place], [place] | Spondylolisthesis, | | | | [place] [address] | [address] | grade 1; Right hip | | | | [phone] | [phone] | pain | | | | | [...]
--- OUTSIDE RECORDS SUMMARY | ~2019-07-03 | XMS | Encounter Summary ---
Demographics + + + | Address | [address] | | | [place] [address] | + + + | Home Phone | | + + + | Preferred Language | Unknown | + + + | Marital Status | | + + + | Jew Affiliation | 1041 | + + + | Race | Unknown | + + + | Ethnic Group | Unknown | + + + Author + + + | Author | [facility] | | | and Humbertoana | + + + | Organization | [facility] | [...] [place] | | | | | [address] | | + + + + + | Daina Mazariegos | ECON | Unknown | | + + + + + Care Team Providers + +------+ + | Care Master Planner Name | Role | Phone | [...] 2013 | | PHYSIATRY [address] | SYSTEM OPERATION SUPERINTENDENT | imaging) | | | | [place], | | | | | | [place] [address] | | | | | | [phone] | | | +--------+ + + + [...]
--- OUTSIDE RECORDS SUMMARY | ~2019-07-03 | XMS | Encounter Summary ---
Demographics + + + | Address | [address] | | | [place] [address] | + + + | Home Phone | | + + + | Preferred Language | Unknown | + + + | Marital Status | | + + + | Pentecostalism Affiliation | NON | + + + | Race | White | + + + | Ethnic Group | Not or | + + + Author + + + | Author | [facility] | + + + | Organization | [facility] | + + + | [...] Team Providers + +------+ + | Care Cotton Washer Name | Role | Phone | [...] | | | [address] | [place], [place] | Spondylosis without | | | | Mailcode: [id number] | [address] | Myelopathy | | | | [facility] | [phone] | | | | | and Healing, | | | | | | Building [address], [address]th | | | | | | Floor [place], [place] | | | | | | [address] | | | | | | [phone] | | | +--------+---------+ + + + [...] PM PDT October 28, 2006 Mae Hernández [id number] [facility] Return Visit Chief [...] he no longer has easy access to [facility]. Recommendations/Plan: 1. Bilateral lumbar medial branch block at the L3-4 joint. 2. Pending results, possible radiofrequency medial branch denervation. 3. I had a detailed PARQ discussion with Ms. Hernández, who gave written consent for the procedure. ZI FATIMA MD [facility] Lj Martinez - 10/28/2006 2:54 PM PDTFormatting of this note might be different from the origin al. MARKETING STRATEGY MANAGER PRE-SEDATION: Date: October 28, 2006 Mae Hernández [id number] ALLERGIES: Erythromycin and Clarification needed Previous [...]
--- OUTSIDE RECORDS SUMMARY | ~2019-07-03 | XMS | Encounter Summary ---
Demographics + + + | Address | [address] | | | [place] [address] | + + + | Home Phone | | + + + | Preferred Language | Unknown | + + + | Marital Status | | + + + | Christianity Affiliation | 1041 | + + + | Race | Unknown | + + + | Ethnic Group | Unknown | + + + Author + + + | Author | [facility] | | | and Humbertoana | + + + | Organization | [facility] | | | and [place]ana | [...] [place] | | | | | [address] | | + + + + + | Daina Mazariegos | ECON | Unknown | | + + + + + Care Team Providers + +------+ + | Care Oil Field Laborer Name | Role | Phone | + [...] | | | | pain | [address] | [address] | | | | | Procedures | POINT | [address] | | | | | NM Gastric | [place] | [place] | | | | | Emptying | [address] | [address] | | | | | | Phone: | Phone: | | | | | | [phone] | [phone] | | | | | | Fax: | Fax: | | | | | | [phone] | [phone] | +--------+--------+ + + + + Encounter Details +--------+ + + + + | Date | Type | Department | Care Team | Description | +--------+ + + + + | 06/13/ | Hospital | [facility] | Pilar Isbell MD | | | 2019 | Encounter | [facility] | [address] | | | | | MEDICINE [address] | [place] [address] | | | | | [address] | [phone] | | | | | [place], [place] | | | | | | [address] | | | | | | [phone] | | | +--------+ + + + [...]
--- OUTSIDE RECORDS SUMMARY | ~2019-07-03 | XMS | Encounter Summary ---
Demographics + + + | Address | [address] | | | [place] [address] | + + + | Home Phone [...] Team Providers + +------+ + | Care Machine Maintenance Mechanic Name | Role | Phone | + +------+ + PCP | Unavailable | + +------+ + Encounter Details +--------+ + + + + | Date | Type | Department | Care Team | Description | +--------+ + + + + | 03/28/ | Office | | Note, Outpatient | [...] of this encounter Progress Notes Interface, Job Molder In - 01/12/2006 1:01 AM PDTCLINIC DATE: 03/28/2003 Mae returned today with new complaints of pain in the sacral area. She is curious about her lumbosacral films. These show good position of the hardware at L4-L5 without evidence of displacement of either the hardware or the graft. She still has a narrowed interspace at L5-S1 which is chronic. At this point, it looks like her hardware is intact, and there is no problem with the fusion. She is trying to mediate settlement for her original injury and hopefully this will allow her to be secure in the fact that there has been no complications from the surgery. Bebe Claros M.D. ISSAC / [id number] / [id number] / [id number] / [id number] Tdocumented in this encounter Plan of Treatment Not on filedocumented as of this encounter Visit Diagnoses Not on filedocumented in this encounter"
--- OUTSIDE RECORDS SUMMARY | ~2019-07-03 | XMS | Encounter Summary ---
Demographics + + + | Address | [address] | | | [place] [address] | + + + | Home Phone | | + + + | Preferred Language | Unknown | + + + | Marital Status | | + + + | Caodaism Affiliation | NON | + + + [...] Team Providers + +------+ + | Care Lodging Manager Name | Role | Phone | [...] | Transcriptions | + + | Interface, Restaurant Assistant In - 07/10/2006 3:08 AM PST | | [facility] | | [place], [place] [address] [employer] | | [facility]ATION RECORDMed Rec No.: [id number] Date: | | [...] | Bebe Claros M.D.Suki/ammysD: 02/06/1999T: 02/19/1999 3:05 [id number]: | |patient was taken to the Operating [...] |VANESSAL/miladys | | | | P | |[id number] | | | |cc: | + + documented in this encounter Visit Diagnoses Not on filedocumented in this encounter"
--- OUTSIDE RECORDS SUMMARY | ~2019-07-03 | XMS | Encounter Summary ---
Demographics + + + | Address | [address] | | | [place] [address] | + + + | Home Phone [...] Team Providers + +------+ + | Care Small Parts Assembler Name | Role | Phone | [...] [id number] | | | | | | [place], [place] | | | | | | [address] | | | | | | [phone] | | | +--------+ + + + [...] | + + + + + | [facility] | [address] | [place] [address] | | | PATHOLOGY | [address] [...] | + + + + + | [facility] | [address] | [place] [address] | | | PATHOLOGY | [address] [...] | + + + + + | [facility] | [address] | [place] [address] | | | PATHOLOGY | [address] | | | + + + + + documented in this encounter Visit Diagnoses Not on filedocumented in this encounter"
--- OUTSIDE RECORDS SUMMARY | ~2019-07-03 | XMS | Encounter Summary ---
Demographics + + + | Address | [address] | | | [place] [address] | + + + | Home Phone [...] Team Providers + +------+ + | Care Cable Tool Operator Name | Role | Phone | [...] [id number] | | | | | | [place], [place] | | | | | | [address] | | | | | | [phone] | | | +--------+ + + + [...] | + + + + + | [facility] | [address] | [place] [address] | | | PATHOLOGY | [address] [...] | + + + + + | [facility] | [address] | [place] [address] | | | PATHOLOGY | [address] [...] | + + + + + | [facility] | [address] | [place] [address] | | | PATHOLOGY | [address] | | | + + + + + documented in this encounter Visit Diagnoses Not on filedocumented in this encounter"
--- OUTSIDE RECORDS SUMMARY | ~2019-07-03 | XMS | Encounter Summary ---
Demographics + + + | Address | [address] | | | [place] [address] | + + + | Home Phone [...] Team Providers + +------+ + | Care Carry Out Clerk And Shelf Stocker Name | Role | Phone | + +------+ + PCP | Unavailable | + +------+ + Encounter Details +--------+ + + + + | Date | Type | Department | Care Team | Description | +--------+ + + + + | 08/11/ | Transcribed | | Dictation, Other | [...] as of this encounter Progress Notes Interface, Audio Visual Aids Director In - 06/24/2006 5:06 AM [facility] OR [facility] and [place] [address] [place], [place] [address] or August 11, 1999 Khari Ying M.D. [address] [facility], [address] [place] [address] RE: MAE LAND MR #: [id number] Dear Dr. Ying: Mae returned to see me in the clinic today. She has continued to have burning pain in the left buttock as well as some crawling-like sensations in the area of her inferior gluteal nerve. I think both of these symptoms represent recovery of the nerve to some degree. She is getting some relief from peripheral nerve stimulation, but certainly not complete. She is engaged in an active therapy of physical therapy and weight reduction. I plan to see her back in a few months to see how she is progressing. I will certainly be in touch with you at that time. Sincerely, Bebe Claros M.D. ISSAC / [id number] / [id number] / [id number] / [id number] signed by Interface, Audio Visual Aids Director In at 06/24/2006 5:06 AM PSTdocume nted in this encounter Plan of Treatment Not on filedocumented as of this encounter Visit Diagnoses Not on filedocumented in this encounter"
--- OUTSIDE RECORDS SUMMARY | ~2019-07-03 | XMS | Encounter Summary ---
Demographics + + + | Address | [address] | | | [place] [address] | + + + | Home Phone [...] Team Providers + +------+ + | Care Salesperson Florist Supplies Name | Role | Phone | + +------+ + PCP | Unavailable | + +------+ + Encounter Details +--------+ + + + + | Date | Type | Department | Care Team | Description | +--------+ + + + + | 07/10/ | Transcribed | | Dictation, Other | [...] as of this encounter Progress Notes Interface, Charter School Executive Director In - 07/29/2006 5:03 AM [facility] OR [facility] and [place] [address] [place], [place] [address] or July 11, 1998 [place] [address] [place] [address] RE: Mae Reyes MR# [id number] Dear Doctor Deonna: I saw Mae Reyes back in the clinic today. As you know, she had surgery for a left piriformis release on June 23, 1998. She still has a lot of soreness in the area of surgery, although many of her preoperative symptoms appear to have improved. We plan to see her back in about one month for follow. At that time, we will have a much better idea as to whether this surgery was beneficial for her. Today, all of her sutures were removed. Sincerely, Bebe Claros M.D. Professor and Junior Loan Processor, Department of Neurological Surgery Chio d ocumented in this encounter Plan of Treatment Not on filedocumented as of this encounter Visit Diagnoses Not on filedocumented in this encounter"
--- OUTSIDE RECORDS SUMMARY | ~2019-07-03 | XMS | Encounter Summary ---
Demographics + + + | Address | [address] | | | [place] [address] | + + + | Home Phone [...] Team Providers + +------+ + | Care Dispersion Mixer Name | Role | Phone | + [...] as of this encounter Progress Notes Interface, Manager Development In - 07/23/2006 1:09 AM [facility] OR [facility] and [place] [address] [place], [place] [address] or September 02, 1998 DR [place]ADDEN [address] [place] [address] RE: Mae Dietrich MR#: [id number] [...]
--- OUTSIDE RECORDS SUMMARY | ~2019-07-03 | XMS | Encounter Summary ---
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 She returns to clinic today for a check of her stimulator system. The patient states she has not been able to turn on her internal pulse generator since she had an MRI several weeks ago. Ms. Dietrich states that she has been using the peripheral nerve stimulator the majority of the time up until the MRI. She said that the stimulation soothes the buttock pain and brings it down approximately 20%-30% from a level of 10 to 7 or 8 using a verbal analog scale was 10 equal to severe. Ms. Dietrich states that the stimulator helps the buttock pain but not the back pain. OBJECTIVE: The patient's internal pulse generator was analyzed, but the senior java programmer was unable to read the parameters that the patient had been using. A call was placed to the crane manager of the stimulator, and a technical support technician reported several instances of damaged circuitry in Itrel III pulse generators afer they have undergone magnetic resonant imaging procedures. ANALYSIS AND PLAN: All subjective and objective data was reported to Dr. Bebe Claros. The patient will be scheduled to see Dr. Claros for a followup appointment in the near future in order to discuss options for further stimulation therapy. Reshma Mosquera R.N., M.A. LEWIS / [place] [id number] / [id number] / [id number] / [id number] signed by Interface, Balance Wheel Hand Filer In at 06/06/2006 2:31 AM PSTdocume nted in this encounter Plan of Treatment Not on filedocumented as of this encounter Visit Diagnoses Not on filedocumented in this encounter"
--- OUTSIDE RECORDS SUMMARY | ~2019-07-03 | XMS | Encounter Summary ---
Demographics + + + | Address | [address] | | | [place] [address] | + + + | Home Phone | | + + + | Preferred Language | Unknown | + + + | Marital Status | | + + + | Worship Affiliation | 1041 | + + + | Race | Unknown | + + + | Ethnic Group | Unknown | + + + Author + + + | Author | [facility] | | | and [place]toana | + + + | Organization | [facility] | | | and [...] [place] | | | | | [address] | | + + + + + | Daina Mazariegos | ECON | Unknown | | + + + + + Care Team Providers + +------+ + | Care Health Coach Name | Role | Phone | [...] [address] | | | | | [place], | [place] | | | | | [place] [address] | [address] | | | | | [phone] | | | +--------+ + + + [...] CODE 719.45, HIP PAIN. Mae Hernández | [facility] | | presents to the fluoroscopy suite for a fluoroscopically-guided [facility] | | right intraarticular hip injection as [...] | + + + + + | [facility] | [address] | [place] | [phone] | | [facility] | | [address] | | | - IMAGING | | | | + + + + + documented in this encounter Visit Diagnoses + + | Diagnosis | + + | Right hip pain - Primary Pain in joint, pelvic region and thigh | + + documented in this encounter"
--- OUTSIDE RECORDS SUMMARY | ~2019-07-03 | XMS | Encounter Summary ---
Demographics + + + | Address | [address] | | | [place] [address] | + + + | Home Phone [...] Team Providers + +------+ + | Care Allergy And Immunology Specialist Name | Role | Phone | [...] as of this encounter Progress Notes Interface, Mohs Surgeon In - 01/12/2006 1:01 AM PDTCLINIC DATE: [...] the surgery. Bebe Claros M.D. ISSAC / [id number] / [id number] / [id number] / [id number] Tdocumented in this encounter Plan of Treatment Not on filedocumented as of this encounter Visit Diagnoses Not on filedocumented in this encounter"
--- OUTSIDE RECORDS SUMMARY | ~2019-07-03 | XMS | Encounter Summary ---
Demographics + + + | Address | [address] | | | [place] [address] | + + + | Home Phone | | + + + | Preferred Language | Unknown | + + + | Marital Status | | + + + | Taoist Affiliation | NON | + + + | Race | White | + + + | Ethnic Group | Not or | + + + Author + + + | Author | [facility] | + + + | Organization | [facility] | + + + | Address [...] Team Providers + +------+ + | Care Forensic Economist Name | Role | Phone | + +------+ + PCP | Unavailable | + +------+ + Encounter Details +--------+ + + + + | Date | Type | Department | Care Team | Description | +--------+ + + + + | 02/15/ | Office | [facility] | Note, [...] as of this encounter Progress Notes Interface, Exterminator Termite In - 03/19/2006 3:06 AM PDTCLINIC DATE: 02/15/2002 NEUROSURGERY CLINIC Ms. Dietrich returns to Neurological Surgery Clinic. She reports that her back pain continues to improve. She notices improvement as she pursues her physical therapy. She has done well, however, on a brace. She is doing well enough with physical therapy that she would like to see the pace of her therapy increase. She continues to get some back discomfort with prolonged sitting and other activities, but overall is doing extremely well. X-rays taken today also show good alignment and healing. Ms. Dietrich will return in July 2002 or August 2002 about 1 year postoperative. At that time, we will repeat her lumbar spine films to check on the state of her fusion. Matt Hylton M.D. HELENA / [place] [id number] / [id number] / [id number] / [id number] Tdocumented in this encounter Plan of Treatment Not on filedocumented as of this encounter Visit Diagnoses Not on filedocumented in this encounter"
--- OUTSIDE RECORDS SUMMARY | ~2019-07-03 | XMS | Encounter Summary ---
Demographics + + + | Address | [address] | | | [place] [address] | + + + | Home Phone [...] Team Providers + +------+ + | Care Bulb Grower Name | Role | Phone | + [...] as of this encounter Progress Notes Interface, C Winforms Developer In - 07/29/2006 5:03 AM [facility] OR [facility] and [place] [address] [place], [place] [address] or July 02, 1998 [place] [address] [place] [address] RE: MAE LOWRY MR# [id number] Dear Doctor [...]
--- OUTSIDE RECORDS SUMMARY | ~2019-07-03 | XMS | Encounter Summary ---
Demographics + + + | Address | [address] | | | [place] [address] | + + + | Home Phone [...] Team Providers + +------+ + | Care Electric Fork Operator Name | Role | Phone | [...] | Transcriptions | + + | Interface, Linseed Oil Boiler In - 06/10/2006 1:01 AM PST | | [place] [address] | | [place], [place] [address] | | [facility] RECORDMed Rec No.: | | [id number] Date: [...] guidelines, was present for | | the entireprocedure.[id number]: | | | |INDICATIONS: | |This patient [...] | | | | | | | |[id number] | | | |CC: | + + documented in this encounter Visit Diagnoses Not on filedocumented in this encounter"
--- OUTSIDE RECORDS SUMMARY | ~2019-07-03 | XMS | Encounter Summary ---
Demographics + + + | Address | [address] | | | [place] [address] | + + + | Home Phone | | + + + | Preferred Language | Unknown | + + + | Marital Status | | + + + | Episcopalian Affiliation | 1041 | + + + | Race | Unknown | + + + | Ethnic Group | Unknown | + + + Author + + + | Author | [facility] | | | and Humbertoana | + + + | Organization | [facility] | | | and [...] [place] | | | | | [address] | | + + + + + | Daina Mazariegos | ECON | Unknown | | + + + + + Care Team Providers + +------+ + | Care Vice President Process Name | Role | Phone | + [...] Description | +--------+---------+ + + + | 05/15/ | Office | [facility] | [place], | Sacroiliitis - right | | 2015 | Visit | PHYSIATRY [address] | [address] | (Primary Dx); DISC | | | | [place], | SHAUNA CHAKANE, | DISEASE, LUMBOSACRAL | | | | [place] [address] | [place] [address] | SPINE; S/P lumbar | | | | [phone] | [phone] | fusion - L4/L5; | | | | | | Status post right | | | | | | hip replacement | +--------+---------+ + + + Social History [...] + + + | Blood Pressure | 142/81 | 05/15/2015 1:02 PM | | | | | PDT | | + + + + + | Pulse | 78 | 05/15/2015 1:02 PM | | | | | PDT [...] + + + + | Weight | 90.7 kg (200 lb) | 05/15/2015 1:02 PM | | | | | PDT | | + + + + + | Height | 172.7 cm (5' 8") | 05/15/2015 1:02 PM | | | | | PDT | | + + + + + | Body Mass Index | 30.41 | 05/15/2015 1:02 PM | | | | | PDT | | + + + + + documented in this encounter Patient Instructions Patient Instructions Chayito Landers PA-C - 05/15/2015 1:27 PM PDTSacoiliitis: This is the term used [...] blood sugars if you a re diabetic. FCI risk can lead to osteoporosis which is why we limited the number of injections to 3 times per year. With a sacroiliac joint injection, the steroid is placed i nside this joint. The procedure is about 20 minutes long. You will lie on your back while x-rays are taken. Once the region is marked, it is numbed and then injected with steroids. There is adjacent segment disease at the L3/L4 region which shows the spondylolithesis, the re is potential for nerve root impingment which can cause the pain into the groin. Spondylolisthesis: This is a medical term to describe slipping of one vertebra over the other. Typically due to a fracture of the pars interarticularis. Symptoms can be aching or cramping ow back garima n, worse with rotation and extension of the spine. Treatment includes medications to includ e anti-inflammatories, physical therapy, either facet injections or epidural injections if y ou are experiencing more leg symptoms. Spondylolisthesis often requires a fusion surgery if all other conservative therapies fail. Follow-up at the hospital thirty minutes before [...] of the procedure you must provide a maintenance truck driver to take you home. For all procedur es it is recommended that someone else drive you home. documented in this encounter Progress Notes Chayito Landers PA-C - 05/15/2015 1:32 PM PDTFormatting of this note might be differe nt from the original. CHIEF COMPLAINT: Chief Complaint Patient presents with Back Pain low back pain HISTORY OF PRESENT ILLNESS: The patient is a 54 y.o. female being seen today in follow-up for complaints of low back pa in. The patient has been seen for this complaint in the past, with initial visit started b magda Bunn. She has had previous right intra-articular hip injections. Since her las t injection in 2012 she did undergo a right total hip replacement spring of this year. The patient has a history of lumbar fusion of L4-L5 done in 1996. She also has a nerve stimulat or that was placed in 2000. She comes today with severe pain to the low back that has worse kyle in the last 4 months. She describes the pain as achy and sharp at times. Her symptoms worsen with getting up ou t of bed, walking, prolonged standing, bending, twisting and stooping. Her symptoms improve with use of tramadol, [...] mcg by mouth every morning (before breakfast). naproxen (NAPROSYN) 250 mg tablet Take 250 [...] No abnormal bleeding PHYSICAL EXAMINATION: Filed Vitals: 05/15/15 1302 BP: 142/81 Pulse: 78 PainSc: 4 PainLoc: Back Body mass index is 30.42 kg/(m^2). GENERAL: The patient is well developed [...] has no apparent deficits with short or [facility] memory. She has appropriate fund of knowledge [...] have facet arthritis at L5-S1. ASSESSMENT: 1. Sacroiliitis - right 2. DISC DISEASE, LUMBOSACRAL SPINE 3. S/P lumbar fusion - L4/L5 4. Status post right hip replacement PLAN: 1. The patient presents today with lumbosacral back pain. Initially on physical exam it a ppeared to be facet arthritis related and she is fused from L4-5 and has a potential of havi ng adjacent segment disease which would indicate facet arthritis worsening at L5-S1 region. However at the end of exam she located her pain lower than the L5-S1 region more into the s acroiliac joints. She is to get an injection later on this afternoon with Dr. Bunn so I ordered bilateral sacroiliac joint injections to be done however once she is under x-ray and the location is deemed to be at the L5-S1 facet joint order will be changed. 2. Medications have been reviewed at today's visit with no changes made at this time. 3. The patient will follow-up as needed. ELECTRONICALLY SIGNED BY: Chayito Landers PA-C, 05/15/2015 CC: Dr. Noe Thomason and Jonathan Banda PA-C at [facility] documented in this encounter Plan of Treatment Not on filedocumented as of this encounter Results [place] Sacroiliac Injection Right (05/15/2015 3:39 PM PDT) + + | Specimen | + + | | + + + + + | Narrative | Performed At | + + + | 05/15/2015 Bilateral Sacroiliac Joint Injection Clinical History: | [facility] | | Sacroiliitis ICD-9 720.0 Mae WorleyVeronikaKarlo presents to the | [facility] | | fluoroscopy suite for fluoroscopically guided bilateral sacroiliac | [facility] | | joint steroid injections [...] + + | Performing | Address | City/State[facility] | Phone Number | | Organization | | | | + + + + + | [facility] | [address] | [place], [place] | [phone] | | [facility] | | [address] | | | - IMAGING | | | | + + + + + [place] Sacroiliac Injection Left (05/15/2015 3:39 PM PDT) + + | Specimen | + + | | + + + + + | Narrative | Performed At | + + + | 05/15/2015 Bilateral Sacroiliac Joint Injection Clinical History: | [facility] | | Sacroiliitis ICD-9 720.0 Mae Hernández presents to the | [facility] | | fluoroscopy suite for fluoroscopically guided bilateral sacroiliac [facility] | | joint steroid injections as part [...] ST. | [address] | [place] | [phone] | | [facility] | | [address] | | | - IMAGING | | | | + + + + + documented in this encounter Visit Diagnoses + + | Diagnosis | + + | Sacroiliitis - right - Primary Sacroiliitis, not elsewhere classified | + + | DISC DISEASE, LUMBOSACRAL SPINE Degeneration of lumbar or lumbosacral intervertebral | | disc | + + | S/P lumbar fusion - L4/L5 Arthrodesis status | + + | Status post right hip replacement Hip joint replacement by other means | + + documented in this encounter
--- OUTSIDE RECORDS SUMMARY | ~2019-07-03 | XMS | Encounter Summary ---
Demographics + + + | Address | [address] | | | [place] [address] | + + + | Home Phone [...] Team Providers + +------+ + | Care Hide Splitter Name | Role | Phone | + [...] as of this encounter Progress Notes Interface, Low Altitude Air Defense Gunner In - 01/20/2006 1:07 AM PDTCLINIC DATE: 01/21/2003 [facility] SUBJECTIVE: Mae is here, is a [...] SOCIAL HISTORY: She is working for [employer], considers her life productive and limited, however, [...] needed on the sinusitis. Paul Salinas M.D. [facility] / [id number] / [id number] / [id number] / Tdocumented in this encounter Plan of Treatment Not on filedocumented as of this encounter Visit Diagnoses Not on filedocumented in this encounter"
--- OUTSIDE RECORDS SUMMARY | ~2019-07-03 | XMS | Encounter Summary ---
Demographics + + + | Address | [address] | | | [place] [address] | + + + | Home Phone [...] Team Providers + +------+ + | Care Car Servicer Name | Role | Phone | + [...] | Diagnoses | Madisonell, | Allyson Pt Drip Box Tender | | | | Therapy | Lumbosacral | MD Roger | [address] | | | | | spondylosis | [address] | | | | | without | Ave | Mailcode: | | | | | myelopathy | [place], [place] | [facility] | | | | | Procedures | [address] | for Health | | | | | CONSULT TO | Phone: | and Healing, | | | | | PAIN CENTER | [phone] | Building [address] | | | | | GRACE Álvarez or | Fax: | [place], [place] | | | | | [address] | [phone] | [address] | | | | | | | Phone: | | | | | | | [phone] | + +--------+ + + + + [...] | | | | | myelopathy | [place], [place] | [place] | | | | | Procedures | [address] | [address] | | | | | CONSULT TO | Phone: | Phone: | | | | | [place] | [phone] | [phone] | | | | | | Fax: | Fax: | | | | | | [phone] | [phone] | +--------+--------+ + + + + Encounter Details +--------+ + + + + | Date | Type | Department | Care Team | Description | +--------+ + + + + | 12/08/ | Procedure | [facility] Center at [facility] | Roger Fatima MD | Procedure | | 2006 | | th Floor [address] | [address] | | | | | [address] Mailcode: | [place], [place] | | | | | [address] for | [address] | | | | | Health and Healing, | [phone] | | | | | | | | | | | Floor [place], [place] | | | | | | [address] | | | | | | [phone] | | | +--------+ + + + [...] Jhon Cisneros Md - 12/08/2006 2:00 PM [facility] Center Patient Instructions - Post Interventional Procedure Date: 12/08/2006 Name: Mae Hernández Date of : 1960 Procedure Performed: LUMBAR DENERV bilateral, L3 and L4 levels Procedure Provider: Roger Fatima IF YOU HAVE ANY PROBLEMS YOU BELIEVE ARE ASSOCIATED WITH YOUR PROCEDURE TONIGHT, PLEASE ROSEMARY L THE HOSPITAL INFRASTRUCTURE DESIGN ENGINEER, AND ASK FOR THE PAIN BONBON CREAM WARMER. IF YOU HAVE PROBLEMS OR QUESTIONS BETWEEN 9:00 AM AND 4:00 PM, PLEASE CALL THE [facility] NURSE TRIAGE LINE, . If you [...] up in 2 weeks. 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 Jhon Cisneros ANESTHESIA: sedation delivered by Dominguez Donnelly RN. Sedation is supervised by Roger montenegro MD FINDINGS: Appropriate placement of needles radiographically. Congruent motor and sensory st imulation noted. A single 80 degree Celsius, 90 second lesion was performed following anesth etizing the area with Bupivacaine 0.5% 0.3ml. IV Fluids: 450ml LR Estimated Blood Loss: none Drains, Specimens, Complications: None. INDICATIONS: Mea Hernández has a history of 721.3 Lumbosacral [...] sedation. Ms. Hernández was escorted to the [facility] procedure suite, where she was positioned Prone [...] and the patient was transported to the [facility] Comprehensive Pain nter PACU. Images were saved, [...] and I edited the trainee's note. Roger Ftaima MD, DABA, [facility] e vLj man - 12/08/2006 2:09 PM PDTNurse PRE-SEDATION: Date: December 08, 2006 Mae Hernández [id number] 1960 See SWEETBREAD TRIMMER Pre-Sedation Note. IV ACCESS: IV in Place IV Catheter Size 22g BASELINE VS: See Sedation Flow Sheet. Mae Hernández [id number] 1960, presents to clinic for: Procedure: Lumbar [...] Sanches - 12/08/2006 12: 30 PM PDT SWEETBREAD TRIMMER History: PMH/PSH/SH/FH review 1. Has your pain [...] you require any medication refills today? No SWEETBREAD TRIMMER PRE-SEDATION: Date: December 08, 2006 Mae Hernández [id number] 1960 ALLERGIES: Erythromycin Previous reaction to Sedation/Analgesia: [...] | + + +--------+ + + | SC THER/PROPH/DG IV | Procedures | Routin | Lumbosacral | Ordered: 12/08/2006 | | INF | | e | Spondylosis without | | | | | | Myelopathy Low Back | | | | | | Pain | | + + +--------+ + + | SC FLUOROGUIDE FOR | Procedures | Routin | Lumbosacral | Ordered: 12/08/2006 | | SPINE INJECT | | e | Spondylosis without | | | | | | Myelopathy Low Back | | | | | | Pain | | + + +--------+ + + | SC | Procedures | Routin | Lumbosacral | [...]
--- OUTSIDE RECORDS SUMMARY | ~2019-07-03 | XMS | Encounter Summary ---
Demographics + + + | Address | [address] | | | [place] [address] | + + + | Home Phone | | + + + | Preferred Language | Unknown | + + + | Marital Status | | + + + | Moravian Affiliation | 1041 | + + + | Race | Unknown | + + + | Ethnic Group | Unknown | + + + Author + + + | Author | [facility] | | | and Humbertoana | + + + | Organization | [facility] | | [...] [place] | | | | | [address] | | + + + + + | Daina Mazariegos | ECON | Unknown | | + + + + + Care Team Providers + +------+ + | Care [place] Program Coordinator Name | Role | Phone | + +------+ + PCP | Unavailable | + +------+ + Encounter Details +--------+ + + + + | Date | Type | Department | Care Team | Description | +--------+ + + + + | 04/06/ | Abstract | [place] [facility] | DATA MIGRATION ADELITA | | | 2011 | | Conversion Location | SR | | | | | [phone] | | | +--------+ + + + [...] + + + | Blood Pressure | 126/94 | 05/25/2011 12:00 AM | | | | | PDT [...] Weight | 83.9 kg (185 lb) | 08/06/2011 12:00 AM | | | | | PST | | + + + + + | Height | 177.8 cm (5' 10") | 05/25/2011 12:00 AM | | | | | PDT | | + + + + + | Body Mass Index | 26.54 | 05/25/2011 12:00 AM | | | | | PDT | | + + + + + documented in this encounter Plan of Treatment Not on filedocumented as of this encounter Procedures + +--------+ + + + | Procedure Name | Priori | Date/Time | Associated Diagnosis | Comments | | | ty | | | | + +--------+ + + + | ENDOSCOPY, COLON, | Routin | 03/06/2010 | | Results for this | | DIAGNOSTIC | e | 12:00 AM | | procedure are in the | | | | PDT | | results section. | + +--------+ + + + documented in this encounter Results ENDOSCOPY, COLON, DIAGNOSTIC (03/06/2010 12:00 AM PDT) + + | Specimen | + + | | + + + + + | Narrative | Performed At | + + + | | | + + + documented in this encounter Visit Diagnoses Not on filedocumented in this encounter
--- OUTSIDE RECORDS SUMMARY | ~2019-07-03 | XMS | Encounter Summary ---
Demographics + + + | Address | [address] | | | [place] [address] | + + + | Home Phone [...] Team Providers + +------+ + | Care Informal Waiter/Waitress Name | Role | Phone | + [...] as of this encounter Progress Notes Interface, Jukebox Routeman In - 06/12/2006 1:05 AM [facility] OR [facility] and [place] [address] [place], [place] [address] or January 19, 2000 Khari Ying M.D. [address] [facility] [address] [place] [address] RE: MAE LOWRY MR #: [id number] Dear Dr. Ying: I saw Mae back [...] Sincerely, Bebe Claros M.D. ISSAC / [place] [id number] / [id number] / [id number] / [id number] signed by Interface, Jukebox Routeman In at 06/12/2006 1:05 AM PSTdocume nted in this encounter Plan of Treatment Not on filedocumented as of this encounter Visit Diagnoses Not on filedocumented in this encounter"
--- OUTSIDE RECORDS SUMMARY | ~2019-07-03 | XMS | Encounter Summary ---
Demographics + + + | Address | [address] | | | [place] [address] | + + + | Home Phone [...] Providers + +------+ + | Care Manager Park Name | Role | Phone | + +------+ + PCP | Unavailable | + +------+ + Encounter Details +--------+ + + + + | Date | Type | Department | Care Team | Description | +--------+ + + + + | 11/09/ | Office | [facility] | Note, [...] as of this encounter Progress Notes Interface, Broiler Manager In - 04/01/2006 1:07 AM PDTCLINIC DATE: 11/09/2001 NEUROSURGERY CLINIC SUBJECTIVE: Ms. Dietrich returns to clinic approximately 2 months after her posterior lumbar interbody fusion with instrumentation at the L4-L5 level. She is doing well. She has noticed some aching discomfort laterally on both sides as she has increased her level of activity. It is particularly noticeable when she sits for a prolonged period of time. PHYSICAL EXAMINATION: She is wearing her brace when seen. Examination of her back is unremarkable. She has a well-healed incision. DIAGNOSTIC DATA: Review of her lumbar spine x-rays show good alignment of the spine and good positioning of the hardware and the intervertebral fusion bone. ASSESSMENT: Ms. Dietrich is doing quite well. She has been attending general PT sessions in the [facility], and she will continue to do this. She only takes some occasional opioid for pain control. I have asked her to take [id number] nonsteroidals on an as-needed basis also. She will continue to wear the brace, and she will return to this clinic in 1 month. Matt Hylton M.D. HELENA / [place] [id number] / [id number] / [id number] / [id number] signed by Interface, Broiler Manager In at 04/01/2006 1:07 AM PDTdoc umented in this encounter Plan of Treatment Not on filedocumented as of this encounter Visit Diagnoses Not on filedocumented in this encounter"
--- OUTSIDE RECORDS SUMMARY | ~2019-07-03 | XMS | Encounter Summary ---
Demographics + + + | Address | [address] | | | [place] [address] | + + + | Home Phone [...] Team Providers + +------+ + | Care Installation Supervisor Name | Role | Phone | + +------+ + PCP | Unavailable | + +------+ + Encounter Details +--------+ + + + + | Date | Type | Department | Care Team | Description | +--------+ + + + + | 01/30/ | Discharge | | Summary, Discharge | D/C Summary ODDS | | 1999 | Summary-Tra | | | | | [...] as of this encounter Discharge Summaries Interface, Utility Worker Roller Shop In - 07/10/2006 3:[address] [address] [facility] MEDICAL SUMMARY OF HOSPITALIZATION Med Rec No: [id number] Admission Date: 01/28/1999 Name: Mae Dietrich Discharge Date: 01/30/1999 STAFF PHYSICIAN: Bebe Claros M.D. PRINCIPAL FINAL DIAGNOSIS: Chronic left gluteal pain. PRINCIPAL PROCEDURE: Placement of left gluteal electrode. REASON FOR ADMISSION: Chronic low back, left gluteal pain. HISTORY: Ms. Dietrich is a 38-year-old female with a 2-1/2 year history of chronic left gluteal and upper leg pain secondary to a fall. This pain is refractory to medical management and the pain has been worsening over the last several months. She was admitted on January 28, 1999 for placement of a left gluteal electrode stimulator. HOSPITAL COURSE: She was taken to the operating room on January 28, 1999 where she underwent insertion of a left gluteal Quadripolar electrode. The procedure was performed by Dr. Claros with assistants, Drs. Treviño and Riccardo. The procedure was without complication. Mrs. Dietrich was transferred to the [facility] for postoperative care. Postoperatively she did well with only mild gluteal pain, which was well-controlled on a patient-controlled analgesia (SUPERVISOR COOK HOUSE) pump for pain control. On postoperative day #1, the SUPERVISOR COOK HOUSE was discontinued and she was started on p.o. pain medication. She was experiencing only minimal left gluteal pain. On the afternoon of January 29, 1999, postoperative day #1, gluteal nerve stimulation was initiated via the gluteal nerve stimulator programmer or analyst. Attempts were made with several different electrode configurations but unfortunately all produced stimulation beginning at the base of the buttock, extending down the back of the medial thigh. The stimulation was given at amplitudes of 0.5 to 1 volt and pulse width of 50-60. Unfortunately none of the electrode settings provided stimulation coverage of her left buttock and lower back pain. Mrs. Dietrich was continued on oral pain medication with good pain control following the stimulation trial. On postoperative day #2, January 30, 1999, Mrs. Dietrich remained afebrile, with stable vital signs. She was voiding without difficulty, ambulating on her own, and tolerating a regular diet. Her incision site was dressed and had minimal drainage. She was discharged on January 30, 1999. CONDITION ON DISCHARGE: She was discharged home in good condition. DISCHARGE MEDICATION(S): She was discharged with adequate pain control with Oxycodone 5 mg p.o. q 4-6 hours p.r.n. pain. DISCHARGE INSTRUCTION(S): The patient was instructed to follow up with on the following Tuesday in clinic and will have repositioning of the left gluteal electrode on Tuesday, the 04 of February. Marco Antonio Lindsay M.D. MTL/lala P cc: doseble singleton in this encounter Plan of Treatment Not on filedocumented as of this encounter Visit Diagnoses Not on filedocumented in this encounter"
--- OUTSIDE RECORDS SUMMARY | ~2019-07-03 | XMS | Encounter Summary ---
Demographics + + + | Address | [address] | | | [place] [address] | + + + | Home Phone | | + + + | Preferred Language | Unknown | + + + | Marital Status | | + + + | Yarsanism Affiliation | NON | + + + | Race | White | + + + | Ethnic Group | Not or | + + + Author + + + | Author | [facility] | + + + | Organization | [facility] | + + + | [...] Team Providers + +------+ + | Care Choir Singer Name | Role | Phone | + [...] as of this encounter Progress Notes Interface, Caser Shoe Parts In - 07/05/2006 3:09 AM PSTCLINIC DATE: 02/24/1999 NEUROLOGICAL SURGERY CLINIC SUBJECTIVE: Mae Dietrich is a vxnlth-gsw-dukr-old female with chronic pain secondary to post [...] well approximated. Using the spinal cord stimulator business programmer, it was determined that the patient's [...] because the sutures are disposable. Using a business programmer seven different settings were tried. The [...] R.N., M.A. LJ/aron cc: [place] [id number] [address] [id number] signed by Interface, [employer] In at 07/05/2006 3:09 AM PSTdocume nted in this encounter Plan of Treatment Not on filedocumented as of this encounter Visit Diagnoses Not on filedocumented in this encounter"
--- OUTSIDE RECORDS SUMMARY | ~2019-07-03 | XMS | Encounter Summary ---
Demographics + + + | Address | [address] | | | [place] [address] | + + + | Home Phone [...] Team Providers + +------+ + | Care Creative Writing Professor Name | Role | Phone | + [...] as of this encounter Progress Notes Interface, Decontamination Worker In - 04/08/2006 6:10 AM PDTCLINIC DATE: [...] M.D. Bebe Claros M.D. VALERI / [place] [id number] / [id number] / [id number] / C: 09/12/2001 [id number] [id number] signed by Interface, Decontamination Worker In at 04/08/2006 6:10 AM PDTdoc umented in this encounter Plan of Treatment Not on filedocumented as of this encounter Visit Diagnoses Not on filedocumented in this encounter"
--- OUTSIDE RECORDS SUMMARY | ~2019-07-03 | XMS | Encounter Summary ---
Demographics + + + | Address | [address] | | | [place] [address] | + + + | Home Phone [...] Team Providers + +------+ + | Care Soldering Inspector Name | Role | Phone | + +------+ + PCP | Unavailable | + +------+ + Encounter Details +--------+ + + + + | Date | Type | Department | Care Team | Description | +--------+ + + + + | 06/15/ | Office | [facility] | Note, [...] as of this encounter Progress Notes Interface, Freelance Photographer In - 06/02/2006 1:03 AM PSTCLINIC DATE: 06/15/2000 NEUROSURGERY CLINIC SUBJECTIVE: The patient is a 39-year-old female patient with chronic left gluteal pain 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 She presents here to clinic today for a postoperative check following spinal cord stimulator battery replacement with a change to the synergy battery system on June 03, 2000. The patient states that she is receiving good stimulation in the painful area, but that it feels "strange." She also has some sharp pains that seem to occur with activation of the stimulator. OBJECTIVE: Upon interrogation of the stimulator, it was found that the patient's electrodes have been set with V2 active electrodes being on channel 2. Five electrode was positive and 7 was negative and all others were off. The patient's amplitude was apparently set at 2.6 V. Her pulse rate was set at 60 and her rate at 45. Electrode combinations were not changed as the patient continues to receive stimulation in the correct area. I did change the amplitude on channel 1 to 0. I also left her pulse width and rate the same. I did, however, put her on a cycling mode of 1 minute of stimulation on followed by 1 minute off. In addition, she was started on a soft-start feature with a 4-second delay in reaching the desired amplitude. Hopefully, this will allow her to reach her desired amplitude at a slower pace and hopefully stop with the sharp pains that she is feeling when she activates the stimulator. She was trialed on this cycling mode in clinic and found it to be an acceptable sensation. Her wound was seen and examined by Dr. Dima Treviño. The wound was found to be healing well with no signs and symptoms of infection including redness, swelling, or induration. There was no drainage from the wound, and the dissolvable sutures were still in place. Her temperature was taken via tympanic thermometer and found to be 98.6 degrees. PLAN: The patient will return to clinic as needed for further adjustment to her stimulators. A work release was signed by Dr. Bebe Claros allowing the patient to return to work on Tuesday, June 20, 2000. Should she have any difficulties following today's adjustment, she was instructed to call our clinic. Lynne Hein R.N., B.A. / [id number] / [id number] / [id number] / [id number] signed by Interface, Freelance Photographer In at 06/02/2006 1:03 AM PSTdocume nted in this encounter Plan of Treatment Not on filedocumented as of this encounter Visit Diagnoses Not on filedocumented in this encounter
--- OUTSIDE RECORDS SUMMARY | ~2019-07-03 | XMS | Encounter Summary ---
Demographics + + + | Address | [address] | | | [place] [address] | + + + | Home Phone [...] Team Providers + +------+ + | Care Audit Consultant Name | Role | Phone | [...] as of this encounter Progress Notes Interface, Ferry Operator In - 06/08/2006 1:08 AM PSTCLINIC DATE: 03/17/2000 NEUROSURGERY CLINIC The patient returns to the clinic today with several issues. Firstly, she maintains that subsequent to a recent MRI scan, her peripheral nerve stimulator attached to her left gluteal nerve ceased functioning. On interrogation of the generator both in the Nurse's Clinic and today in our clinic, this generator is indeed giving no signal. Although we have not seen this before and feel that it is simply coincidental with the MRI, the reality of the situation is that the generator is not working, and she feels that, as she was getting some benefit from it, she would like this to be replaced. The patient is due to visit in the Pain Clinic in approximately 3 weeks' time for a diskography and for consideration of an IDET procedure. They have requested her to undergo a psychological evaluation which she is rather loathe to go through. Dr. Claros is in agreement that this appears unnecessary, and we undertook to be in contact with them to ask them to forego this evaluation. We advised the patient to delay replacing the generator until after she undergoes the other procedures in the Pain Clinic. We will therefore see her back here after the Pain Clinic procedures. Dima Treviño B.S.C., MMaiteS. / [place] [id number] / [id number] / [id number] / [id number] signed by Interface, Ferry Operator In at 06/08/2006 1:08 AM PSTdocume nted in this encounter Plan of Treatment Not on filedocumented as of this encounter Visit Diagnoses Not on filedocumented in this encounter"
--- OUTSIDE RECORDS SUMMARY | ~2019-07-03 | XMS | Encounter Summary ---
Demographics + + + | Address | [address] | | | [place] [address] | + + + | Home Phone | | + + + | Preferred Language | Unknown | + + + | Marital Status | | + + + | Synagogue Affiliation | NON | + + + [...] Team Providers + +------+ + | Care Bridge Mechanic Name | Role | Phone | + +------+ + PCP | Unavailable | + +------+ + Encounter Details +--------+ + + + + | Date | Type | Department | Care Team | Description | +--------+ + + + + | 09/14/ | Office | [facility] | Note, [...] as of this encounter Progress Notes Dago, Hog Confinement System Manager In - 04/08/2006 6:10 AM PDTCLINIC DATE: 09/14/2001 Mae returns today, now approximately 1 week following her L4-L5 PLIF. Her wound is healing well, and she seems to be doing generally quite well. She continues to take Vicodin on a tapering dose for pain control. She had some questions about wound care which were answered, and we will see her back in about 3 weeks for repeat films. During that time, I told her to walk but not to do any strenuous activities. I did advise her against traveling until she is able to be more comfortable and not be limited by pain. Bebe Claros M.D. ISSAC / [place] [id number] / [id number] / [id number] / [id number] signed by Dago, Hog Confinement System Manager In at 04/08/2006 6:10 AM PDTdoc umented in this encounter Plan of Treatment Not on filedocumented as of this encounter Visit Diagnoses Not on filedocumented in this encounter"
--- OUTSIDE RECORDS SUMMARY | ~2019-07-03 | XMS | Encounter Summary ---
Demographics + + + | Address | [address] | | | [place] [address] | + + + | Home Phone [...] Team Providers + +------+ + | Care Insurance Adjustor Name | Role | Phone | + [...] as of this encounter Discharge Summaries Interface, Professor Of Architecture In - 07/10/2006 3:[address] [address] [facility] MEDICAL SUMMARY OF HOSPITALIZATION Med [...] which was well-controlled on a patient-controlled analgesia (ELECTRONIC PREPRESS OPERATOR) pump for pain control. On postoperative day #1, the ELECTRONIC PREPRESS OPERATOR was discontinued and she was started on p.o. pain medication. She was experiencing only minimal left gluteal pain. On the afternoon of January 29, 1999, postoperative day #1, gluteal nerve stimulation was initiated via the gluteal nerve stimulator senior net programmer. Attempts were made with several different electrode [...]
--- OUTSIDE RECORDS SUMMARY | ~2019-07-03 | XMS | Encounter Summary ---
Demographics + + + | Address | [address] | | | [place] [address] | + + + | Home Phone [...] Team Providers + +------+ + | Care Air Carrier Operations Inspector Name | Role | Phone | [...] | | | | | Spondylolist | [address] | [address] | | | | | stephan, grade | Ave | Ave | | | | | [address] | [place], [place] | [place] | | | | | Procedures | [address] | [address] | | | | | CONSULT TO | Phone: | Phone: | | | | | PAIN CENTER | [phone] | [phone] | | | | | | Fax: | Fax: | | | | | | [phone] | [phone] | +--------+--------+ + + + + Reason [...] Pain | | 2006 | Visit | [facility] [address] | [address] | (Primary Dx); | | | | Ave Mailcode: [id number] | [place], [place] | Spondylolisthesis, | | | | [facility] | [address] | Grade [address] | | | | and Healing, | [phone] | | | | | [place] [address] [facility] | | | | | | Floor [place], [place] | | | | | | [address] | | | | | | [phone] | | | +--------+---------+ + + + [...] | | + +---------+ + + | [facility] DEPARTMENT OF | | | | | RADIOLOGY | | | | + +---------+ + + documented in this encounter Visit Diagnoses + + | Diagnosis | + + | Low back pain - Primary Lumbago | + + | Spondylolisthesis, grade 1 Acquired spondylolisthesis | + + documented in this encounter"
--- OUTSIDE RECORDS SUMMARY | ~2019-07-03 | XMS | Encounter Summary ---
Demographics + + + | Address | [address] | | | [place] [address] | + + + | Home Phone | | + + + | Preferred Language | Unknown | + + + | Marital Status | | + + + | Faith Affiliation | [phone] | + + + | Race | Unknown | + + + | Ethnic Group | Unknown | + + + Author + + + | Author | [facility] | | | and [place] | + + + | Organization | [facility] | | | and [...] [place] | | | | | [address] | | + + + + + | Daina Mazariegos | ECON | Unknown | | + + + + + Care Team Providers + +------+ + | Care Group Contract Analyst Name | Role | Phone | + +------+ + PCP | Unavailable | + +------+ + Encounter Details +--------+ + + + + | Date | Type | Department | Care Team | Description | +--------+ + + + + | 08/06/ | Hospital | [facility] | Mohan Bunn | | | 2011 | Encounter | MED CTR XRAY [address] | T, MD [address] | | | | | [place] | [place], [place] | | | | | [place] [address] | [address] | | | | | [phone] | | | +--------+ + + + [...] + +--------+ + + + | XR PELVIS 1 OR 2 VW | | 08/06/2011 | | Results for this | | | | 2:08 PM | | procedure are in the | | | | PST | | results section. | + +--------+ + + + | XR LUMBAR SPINE 2 OR | | 08/06/2011 | | Results for this | | 3 VW | | 2:08 PM | | procedure are in the | | | | PST | | results section. | + +--------+ + + + documented in this encounter Results XR Lumbar Spine 2 or 3 Vw (08/06/2011 2:08 PM PST) + + | Specimen | + + | | + + + + + | Narrative | Performed At | + + + | [facility] | [facility] | | [address] [facility] | [facility] | | LUMBAR SPINE, LIMITED: | [facility] | | 08/06/2011 CLINICAL HISTORY: LUMBAR FUSION. COMPARISON: | | | None. FINDINGS: Three views of the lumbar spine. Five nonrib | | | bearing lumbar type vertebral bodies. Trans pedicular screws and | | | vertical rods are present fusing L4-5. Interbody grafts are in place | | | and there appears to be solid osseous fusion at that disk level. | | | The hardware appears to be intact. There is significant | | | retrolisthesis of L3 on L4 by about 9.5 mm. There is disk narrowing | | | at that level. Ther e is a lesser degree of retrolisthesis of L2 on | | | L3, again associated with disk narrowing. Probable r etrolisthesis | | | of L1 on L2. Right greater than left sacroiliac joint degenerative | | | change. IMPRESSION: 1. INTACT OPERATIVE HARDWARE AND FUSION | | | AT L4-5. 2. 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 Dictated Date/Time: 08/06/2011 | | | 15:21 Transcribed Date/Time: 08/06/2011 15:56 Straw Hat Washer Operator: | | | <Electronically Signed by Beto Berry MD> 08/06/11 [id number] | | + + + + + | Procedure Note | + + | Jarrod, Rad Conversion - 08/31/2013 4:33 PM [facility] | | Diagnostic Imaging Department [address] [place] [address] | | LUMBAR SPINE, LIMITED: 08/06/2011 CLINICAL HISTORY: | | LUMBAR FUSION. COMPARISON: None. FINDINGS: Three views of the lumbar spine. Five | | nonrib bearing lumbar type vertebral bodies. Transpedicular screws and vertical rods | | are present fusing L4-5. Interbody grafts are in place and there appears to be solid | | osseous fusion at that disk level. The hardware appears to be intact. There is | | significant retrolisthesis of L3 on L4 by about 9.5 mm. There is disk narrowing at that | | level. There is a lesser degree of retrolisthesis of L2 on L3, again associated with | | disk narrowing. Probable retrolisthesis of L1 on L2. Right greater than left | | sacroiliac joint degenerative change. IMPRESSION: 1. INTACT OPERATIVE HARDWARE AND | | FUSION AT L4-5. 2. RETROLISTHESIS, MOST SIGNIFICANT AT L3-4 AND TO A LESSER DEGREE L1-2 | | AND L2-3. Dictated Date/Time: 08/06/2011 15:21Transcribed Date/Time: 08/06/2011 | | 15:56Transcriptionist: NICK<Electronically Signed by Beto Berry MD> 08/06/11 | | 1653 | |significant retrolisthesis of L3 on L4 by about 9.5 mm. There is disk narrowing at that le ancelmo. Ther | |e is a lesser degree of retrolisthesis of L2 on L3, again associated with disk narrowing. Probable r | |etrolisthesis of L1 on L2. Right greater than left sacroiliac joint degenerative change. | | | |IMPRESSION: | |1. INTACT OPERATIVE HARDWARE AND FUSION AT L4-5. | | | |2. 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 | | | |Dictated Date/Time: 08/06/2011 15:21 | |Transcribed Date/Time: 08/06/2011 15:56 | |Straw Hat Washer Operator: HÉCTOR | |<Electronically Signed by Beto Berry MD> 08/06/113 | + + + +---------+ + + | Performing | Address | City/State/Zipcode | Phone Number | | Organization | | | | + +---------+ + + | [facility] | | | | | [facility] | | | | + +---------+ + + XR Pelvis 1 or 2 Vw (08/06/2011 2:08 PM PST) + + | Specimen | + + | | + + + + + | Narrative | Performed At | + + + | [facility] | [place] | | [address] | [facility] | | PELVIS, ONE VIEW: 08/06/2011 | DIAG IMG | | CLINICAL HISTORY: RIGHT HIP. COMPARISON: None. | | | FINDINGS: Frontal view of the pelvis. There is an implanted device | | | in the left pelvis with a lead p rojecting toward the pelvic soft | | | tissues. Incompletely evaluated operative changes in the lower lumb | | | ar spine. There is right sided superior joint space narrowing. | | | The left is preserved. No diastasis of the pubic symphysis or | | | sacroiliac joints. The sacral foraminal lines are intact. Soft | | | tissues a re otherwise unremarkable. IMPRESSION: JOINT SPACE | | | NARROWING REPRESENTING MILD DEGENERATIVE CHANGES IN THE RIGHT HIP. | | | Dictated Date/Time: 08/06/2011 15:19 Transcribed Date/Time: | | | 08/06/2011 15:51 Straw Hat Washer Operator: NICK <Electronically Signed | | | by Beto Berry MD> 08/06/11 1653 | | + + + + + | Procedure Note | + + | Jarrod, Rad Conversion - 08/31/2013 4:33 PM [facility] | | Diagnostic Imaging Department [address] [facility] [place] | | PELVIS, ONE VIEW: 08/06/2011 CLINICAL HISTORY: RIGHT | | HIP. COMPARISON: None. FINDINGS: Frontal view of the pelvis. There is an implanted | | device in the left pelvis with a lead projecting toward the pelvic soft tissues. | | Incompletely evaluated operative changes in the lower lumbar spine. There is right | | sided superior joint space narrowing. The left is preserved. No diastasis of the pubic | | symphysis or sacroiliac joints. The sacral foraminal lines are intact. Soft tissues | | are otherwise unremarkable. IMPRESSION: JOINT SPACE NARROWING REPRESENTING MILD | | DEGENERATIVE CHANGES IN THE RIGHT HIP. Dictated Date/Time: 08/06/2011 15:19Transcribed | | Date/Time: 08/06/2011 15:51Transcriptionist: <Electronically Signed by Beto Andrews | | MD Kristi> 08/06/11 7459 | |FINDINGS: Frontal view of the pelvis. There is an implanted device in the left pelvis wit h a lead p | |rojecting toward the pelvic soft tissues. Incompletely evaluated operative changes in the lower lumb | |ar spine. There is right sided superior joint space narrowing. The left is preserved. No diastasis | | of the pubic symphysis or sacroiliac joints. The sacral foraminal lines are intact. Soft tissues a | |re otherwise unremarkable. | | | |IMPRESSION: JOINT SPACE NARROWING REPRESENTING MILD DEGENERATIVE CHANGES IN THE RIGHT HIP. | | | |Dictated Date/Time: 08/06/2011 15:19 | |Transcribed Date/Time: 08/06/2011 15:51 | |Straw Hat Washer Operator: | |<Electronically Signed by Beto Berry MD> 08/06/11 1653 | + + + +---------+ + + | Performing | Address | City/State/Zipcode | Phone Number | | Organization | | | | + +---------+ + + | [facility] | | | | | [place] | | | | + +---------+ + + documented in this encounter Visit Diagnoses Not on filedocumented in this encounter"
--- OUTSIDE RECORDS SUMMARY | ~2019-07-03 | XMS | Encounter Summary ---
Demographics + + + | Address | [address] | | | [place] [address] | + + + | Home Phone [...] | Author | [facility] | | | and [place] | + + + | Organization | [facility] | | | and [place] [...] [place] | | | | | [address] | | + + + + + | Daina Mazariegos | ECON | Unknown | | + + + + + Care Team Providers + +------+ + | Care Engraving Supervisor Name | Role | Phone | + +------+ + | Noe Thomason | PCP | | | MD | | | + +------+ + Encounter Details +--------+ + + + + | Date | Type | Department | Care Team | Description | +--------+ + + + + | 10/17/ | Hospital | [facility] | BabiggbrandonchuyMohan | Right hip pain | | 2013 | Encounter | MED CTR XRAY [address] | T, [address] | | | | | [place] | ST [place], [place] | | | | | [place] [address] | [id number] | | | | | [phone] | | | | | | | Civil Project EngineerZora | | +--------+ + + [...] 719.45, HIP PAIN. Ms. Mae Hernández | [facility] | | presents to the fluoroscopy suite for a fluoroscopically-guided [facility] | | right intraarticular hip injection [...] + | Performing | Address | City/State/[facility] | Phone Number | | Organization | | | | + + + + + | [facility] | [address] | [place] | [phone] | | [facility] | | [address] | | | - IMAGING | | [...]
--- OUTSIDE RECORDS SUMMARY | ~2019-07-03 | XMS | Encounter Summary ---
Demographics + + + | Address | [address] | | | [place] [address] | + + + | Home Phone [...] Team Providers + +------+ + | Care Disk Recordist Name | Role | Phone | + [...]
--- OUTSIDE RECORDS SUMMARY | ~2019-07-03 | XMS | Encounter Summary ---
Demographics + + + | Address | [address] | | | [place] [address] | + + + | Home Phone [...] Team Providers + +------+ + | Care Telephone Operator Name | Role | Phone | [...]
--- OUTSIDE RECORDS SUMMARY | ~2019-07-03 | XMS | Encounter Summary ---
Demographics + + + | Address | [address] | | | [place] [address] | + + + | Home Phone [...] + | Author | [facility] | | | and [place] | + + + | Organization | [facility] | | | and [place] | [...] [place] | | | | | [address] | | + + + + + | Daina Mazariegos | ECON | Unknown | | + + + + + Care Team Providers + +------+ + | Care Land Classifier Name | Role | Phone | + +------+ + | Noe Thomason | PCP | | | MD | | | + +------+ + Encounter Details +--------+ + + + + | Date | Type | Department | Care Team | Description | +--------+ + + + + | 02/11/ | Orders Only | [facility] | Mohan Bunn | BACK PAIN, LUMBAR | | 2013 | | PHYSIATRY [address] | [address] | (Primary Dx); DISC | | | | [place], | [place], [place] | DISEASE, LUMBOSACRAL | | | | [place] [address] | [address] | SPINE; Hx of spinal | | | | [phone] | | fusion; Lumbar | | | | | | radiculopathy | +--------+ + + + + Social [...] documented as of this encounter Progress Notes Mohan Bunn MD - 02/11/2014 6:07 PM PDTPatient reportedly called requesting new im aging so that it can be determined if she is a candidate for surgery. Specifically she reque sted x-rays at [facility]. My staff informed her that x-rays might not be th e best imaging modality to try to determine if she is a candidate for surgery. Still it may be a good starting point. X-rays were ordered per patient request. I still feel a CT myel ogram would be much more helpful. 14 6:11 PM PDTdocumented in this encounter Plan of Treatment + +---------+--------+ + + | Name | Type | Priori | Associated Diagnoses | Order Schedule | | | | ty | | | + +---------+--------+ + + | XR Lumbar Spine 4 + | Imaging | Routin | BACK PAIN, LUMBAR | Expected: | | Vw | | e | DISC DISEASE, | 02/11/2014, Expires: | | | | | LUMBOSACRAL SPINE | 02/11/2015 | | | | | Hx of spinal fusion | | | | | | Lumbar | | | | | | radiculopathy | | + +---------+--------+ + + documented as of this encounter Visit Diagnoses + + | Diagnosis | + + | BACK PAIN, LUMBAR - Primary Lumbago | + + | DISC DISEASE, LUMBOSACRAL SPINE Degeneration of lumbar or lumbosacral intervertebral | | disc | + + | Hx of spinal fusion Arthrodesis status | + + | Lumbar radiculopathy Thoracic or lumbosacral neuritis or radiculitis, unspecified | + + documented in this encounter"
--- OUTSIDE RECORDS SUMMARY | ~2019-07-03 | XMS | Encounter Summary ---
[...] Team Providers + +------+ + | Care Steel Construction Worker Name | Role | Phone | + +------+ + PCP | Unavailable | + +------+ + Encounter Details +--------+ + + + + | Date | Type | Department | Care Team | Description | +--------+ + + + + | 03/13/ | Transcribed | Allergy Clinic at | Dictation, Other | Transcribed | | 1997 | | [facility] [address] | | | | | | [address] | | | | | | Mailcode: [id number] | | | | | | Dave Sweeney | | | | | | [facility] | | | | | | [place] [address] | | | | | | [phone] | | | +--------+ + + + [...] as of this encounter Progress Notes Interface, Chemist Steroids In - 08/10/2006 2:08 AM PST [address] [address] or March 13, 1998 GRANT MADDEN MD [address] [place] [id number] RE:MAE HOLLINS MR#:[id number] Madden: Ms. [...] surgery. Sincerely, Bebe Claros M.D. Professor and [facility] Department of Neurological Surgery Bhupendra documented in this encounter Plan of Treatment Not on filedocumented as of this encounter Visit Diagnoses Not on filedocumented in this encounter"
--- OUTSIDE RECORDS SUMMARY | ~2019-07-03 | XMS | Encounter Summary ---
Demographics + + + | Address | [address] | | | [place] [address] | + + + | Home Phone [...] Team Providers + +------+ + | Care Funeral Home Associate Name | Role | Phone | + [...] as of this encounter Progress Notes Interface, High Energy Forming Equipment Operator In - 04/01/2006 1:07 AM PDTCLINIC DATE: [...] control. I have asked her to take xpio-wgn-turuupt nonsteroidals on an as-needed basis also. She will continue to wear the brace, and she will return to this clinic in 1 month. Matt Hylton M.D. HELENA / [place] [id number] / [id number] / [id number] / [id number] signed by Interface, High Energy Forming Equipment Operator In at 04/01/2006 1:07 AM PDTdoc umented in this encounter Plan of Treatment Not on filedocumented as of this encounter Visit Diagnoses Not on filedocumented in this encounter"
--- OUTSIDE RECORDS SUMMARY | ~2019-07-03 | XMS | Encounter Summary ---
Demographics + + + | Address | [address] | | | [place] [address] | + + + | Home Phone [...] | [facility] | | | and [place] | + + + | Organization | [facility] | | | and [place] [...] [place] | | | | | [address] | | + + + + + | Daina Mazariegos | ECON | Unknown | | + + + + + Care Team Providers + +------+ + | Care Retail Customer Service Specialist Name | Role | Phone | + +------+ + | Noe Thomason | PCP | | | MD | | | + +------+ + Encounter Details +--------+ + + + + | Date | Type | Department | Care Team | Description | +--------+ + + + + | 08/01/ | Hospital | [facility] | [facility] | | | 2013 | Encounter | MED CTR XRAY [address] | | | | | [place] | [place], [place] | | | | | [place] [address] | [address] | | | | | [phone] | | | +--------+ + + + [...]
--- OUTSIDE RECORDS SUMMARY | ~2019-07-03 | XMS | Encounter Summary ---
Demographics + + + | Address | [address] | | | [place] [address] | + + + | Home Phone | | + + + | Preferred Language | Unknown | + + + | Marital Status | | + + + | Hoahaoism Affiliation | NON | + + + | Race | White | + + + | Ethnic Group | Not or | + + + Author + + + | Author | [facility] | + + + | Organization | [facility] | + + + | Address [...] Providers + +------+ + | Care Senior Wind Turbine Technician Name | Role | Phone | + +------+ + PCP | Unavailable | + +------+ + Encounter Details +--------+ + + + + | Date | Type | Department | Care Team | Description | +--------+ + + + + | 02/06/ | Results | Neurosurgery [address] | Bebe Claros MD | | | 1998 | Only | [address] [place] | [address] | | | | | [address] Mailcode:OP14B | [place], [place] | | | | | [place] [employer] | [address] | | | | | [place], [place] | [phone] | | | | | [address] | | | | | | [phone] | | | +--------+ + + + [...] + + | FLUOROSCOPY, | Routin | 02/06/1999 | | Results for this | | INDEPENDENT PORT. | e | 12:40 PM | | procedure are in the | | | | PDT | | results section. | + +--------+ + + + documented in this encounter Results FLUOROSCOPY, INDEPENDENT PORT. (02/06/1999 12:40 PM PDT) + + + + + [...] | | + +---------+ + + | [facility] DEPARTMENT OF | | | | | RADIOLOGY | | | | + +---------+ + + documented in this encounter Visit Diagnoses Not on filedocumented in this encounter"
--- OUTSIDE RECORDS SUMMARY | ~2019-07-03 | XMS | Encounter Summary ---
Demographics + + + | Address | [address] | | | [place] [address] | + + + | Home Phone [...] Providers + +------+ + | Care Production Engineer Track Name | Role | Phone | + [...] as of this encounter Progress Notes Interface, Diesel Service Journeyman In - 02/20/2005 6:14 PM PDTClinic Date: [...] Serafin Chow M.D. Bebe Claros M.D. / [id number] / [id number] / [id number] / Tdocumented in this encounter Plan of Treatment Not on filedocumented as of this encounter Visit Diagnoses Not on filedocumented in this encounter
--- OUTSIDE RECORDS SUMMARY | ~2019-07-03 | XMS | Encounter Summary ---
Demographics + + + | Address | [address] | | | [place] [address] | + + + | Home Phone [...] Providers + +------+ + | Care Manager Style Name | Role | Phone | + [...] as of this encounter Progress Notes Interface, Educational Consultant In - 01/29/2006 1:01 AM PDTCLINIC DATE: [...] Choe M.D. Bebe Claros M.D. / [place] [id number] / [id number] / [id number] / [id number] C: 08/29/2002 am C: 08/31/2002S cc: Jefferson Cortes [address] [facility] [address] [place] [address] Sonny Beebe M.D. [address] [place] [address] Khari Ying M.D. [address] [facility] [address] [place], [place] [address]Yrfcmxrlyrquuw signed by Interface, Educational Consultant In at 01/29/2006 1:01 AM PDTInterface, Educational Consultant In - 01/29/2006 1:01 AM PDTCLINIC DATE: [...] try to set that up here at [facility]. She is using Vicodin sparingly, and I [...] physician. Bebe Claros M.D. ISSAC / MADELINE [id number] / [id number] / [id number] / Tdocumented in this encounter Plan of Treatment Not on filedocumented as of this encounter Visit Diagnoses Not on filedocumented in this encounter"
--- OUTSIDE RECORDS SUMMARY | ~2019-07-03 | XMS | Encounter Summary ---
Demographics + + + | Address | [address] | | | [place] [address] | + + + | Home Phone | | + + + | Preferred Language | Unknown | + + + | Marital Status | | + + + | Episcopal Affiliation | NON | + + + | Race | White | + + + | Ethnic Group | Not or | + + + Author + + + | Author | [facility] | + + + | Organization | [facility] | + + + | [...] Team Providers + +------+ + | Care Looping Machine Operator Name | Role | Phone [...] as of this encounter Progress Notes Interface, Electric Melt Operator In - 04/25/2006 2:25 AM PDTCLINIC DATE: [...] medial branch block #2. Roger Fatima M.D. [facility], Pain Management Center [facility] / [id number] / [id number] / [id number] / [id number] cc: Bebe Claros M.D. Department of Neurosurgery, Senior Online Marketing Manager [id number] signed by Interface, Electric Melt Operator In at 04/25/2006 2:25 AM PDTdoc umented in this encounter Plan of Treatment Not on filedocumented as of this encounter Visit Diagnoses Not on filedocumented in this encounter
--- OUTSIDE RECORDS SUMMARY | ~2019-07-03 | XMS | Encounter Summary ---
Demographics + + + | Address | [address] | | | [place] [address] | + + + | Home Phone [...] Team Providers + +------+ + | Care Branch Chief Name | Role | Phone | [...] as of this encounter Progress Notes Interface, Paraffin Plant Sweater Operator In - 06/06/2006 2:31 AM [facility] OR [facility] and [place] [address] [place], [place] [address] or April 12, 2000 Bebe Claros M.D. Ground Layer, [facility] Department of Neurosurgery [address] [place] [address]. [place] [address] RE: MAE LOWRY MR #: [id number] Dear Dr. Claros: Thank you very much for consulting the [facility] Pain Management Center regarding this patient. I [...] patient. Very truly yours, Roger Fatima M.D. [facility], Pain Management Center DMS / HS [id number] / [id number] / [id number] / [id number] signed by Interface, Paraffin Plant Sweater Operator In at 06/06/2006 2:31 AM PSTdocume nted in this encounter Plan of Treatment Not on filedocumented as of this encounter Visit Diagnoses Not on filedocumented in this encounter"
--- OUTSIDE RECORDS SUMMARY | ~2019-07-03 | XMS | Encounter Summary ---
Demographics + + + | Address | [address] | | | [place] [address] | + + + | Home Phone [...] Team Providers + +------+ + | Care Avionics Mechanic Name | Role | Phone | [...]
--- OUTSIDE RECORDS SUMMARY | ~2019-07-03 | XMS | Encounter Summary ---
Demographics + + + | Address | [address] | | | [place] [address] | + + + | Home Phone [...] Providers + +------+ + | Care Supervisor Baking Name | Role | Phone | + [...] as of this encounter Progress Notes Interface, Construction Ironworker In - 03/19/2006 3:06 AM PDTCLINIC DATE: [...] fusion. Matt Hylton M.D. HELENA / MADELINE [id number] / [id number] / [id number] / [id number] Tdocumented in this encounter Plan of Treatment Not on filedocumented as of this encounter Visit Diagnoses Not on filedocumented in this encounter"
--- OUTSIDE RECORDS SUMMARY | ~2019-07-03 | XMS | Encounter Summary ---
Demographics + + + | Address | [address] | | | [place] [address] | + + + | Home Phone [...] Team Providers + +------+ + | Care Dump Attendant Name | Role | Phone | + +------+ + PCP | Unavailable | + +------+ + Encounter Details +--------+ + + + + | Date | Type | Department | Care Team | Description | +--------+ + + + + | 08/23/ | Results | Neurosurgery [address] | eBbe Claros MD | | | 2002 | Only | [address] | [address] | | | | | [address] Mailcode:OP14B | [place], [place] | | | | | [place] [employer] | [address] | | | | | [employer], [place] | [phone] | | | | | [address] | | | | | | [phone] | | | +--------+ + + + [...]
--- OUTSIDE RECORDS SUMMARY | ~2019-07-03 | XMS | Encounter Summary ---
Demographics + + + | Address | [address] | | | [place] [address] | + + + | Home Phone | | + + + | Preferred Language | Unknown | + + + | Marital Status | | + + + | Orthodoxy Affiliation | 1041 | + + + | Race | Unknown | + + + | Ethnic Group | Unknown | + + + Author + + + | Author | [facility] | | | and [place] | + + + | Organization | [facility] | | | and [place] [...] [place] | | | | | [address] | | + + + + + | Daina Mazariegos | ECON | Unknown | | + + + + + Care Team Providers + +------+ + | Care Business Performance Specialist Name | Role | Phone | [...] | | | | pain | [address] | [address] | | | | | Procedures | [address] | [address] | | | | | NM Gastric | [place], [place] | [place] | | | | | Emptying | [address] | [address] | | | | | | Phone: | Phone: | | | | | | [phone] | [phone] | | | | | | Fax: | Fax: | | | | | | [phone] | [phone] | +--------+--------+ + + + + Reason [...] | | | | pain | [address] | [address] | | | | | Procedures | POINT | BLVD | | | | | NM Gastric | [place], [place] | [place], [place] | | | | | Emptying | [address] | [address] | | | | | | Phone: | Phone: | | | | | | [phone] | [phone] | | | | | | Fax: | Fax: | | | | | | [phone] | [phone] | +--------+--------+ + + + + Encounter Details +--------+ + + + + | Date | Type | Department | Care Team | Description | +--------+ + + + + | 06/13/ | Hospital | [facility] | Pilar Isbell MD | Epigastric pain | | 2019 | Encounter | [facility] | [address] | | | | | MEDICINE [address] | [place] [address] | | | | | [address] | [phone] | | | | | [place], [place] | | | | | | [address] | | | | | | [phone] | | | +--------+ + + + [...]
--- OUTSIDE RECORDS SUMMARY | ~2019-07-03 | XMS | Encounter Summary ---
Demographics + + + | Address | [address] | | | [place] [address] | + + + | Home Phone [...] Team Providers + +------+ + | Care City Plant Supervisor Name | Role | Phone | [...] as of this encounter Progress Notes Interface, Environmental Health Specialist In - 06/24/2006 5:06 AM [facility] OR [facility] and [place] [address] [place], [place] [address] or August 11, 1999 Khari Ying M.D. [address] [facility], [address] [place] [address] RE: MAE LAND MR #: [id number] Dear Dr. Ying: Mae returned to see [...] Sincerely, Bebe Claros M.D. ISSAC / [place] [id number] / [id number] / [id number] / [id number] signed by Interface, Environmental Health Specialist In at 06/24/2006 5:06 AM PSTdocume nted in this encounter Plan of Treatment Not on filedocumented as of this encounter Visit Diagnoses Not on filedocumented in this encounter"
--- OUTSIDE RECORDS SUMMARY | ~2019-07-03 | XMS | Encounter Summary ---
Demographics + + + | Address | [address] | | | [place] [address] | + + + | Home Phone [...] Team Providers + +------+ + | Care Firefighter Marine Name | Role | Phone | + [...]
--- OUTSIDE RECORDS SUMMARY | ~2019-07-03 | XMS | Encounter Summary ---
Demographics + + + | Address | [address] | | | [place] [address] | + + + | Home Phone | | + + + | Preferred Language | Unknown | + + + | Marital Status | | + + + | Presybeterian Affiliation | NON | + + + [...] Providers + +------+ + | Care Director Financial Systems Name | Role | Phone | + +------+ + PCP | Unavailable | + +------+ + Encounter Details +--------+ + + + + | Date | Type | Department | Care Team | Description | +--------+ + + + + | 05/14/ | Office | [facility] | Note, [...] as of this encounter Progress Notes Interface, Venue Coordinator In - 07/02/2006 5:08 AM PSTCLINIC DATE: 05/14/1999 NEUROSURGERY CLINIC SUBJECTIVE: Mae returns today to the neurosurgery clinic. 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 On the last visit, she reported that she still had some neuralgia-type pain which was difficult to catch with the stimulation, and she was started on mexiletine. Today, she reports that the neuralgia-type pain is good or better with the mexiletine but not gone completely. She is complaining today more of a low back pain radiating in a belt-like pattern bilaterally. She gets no relief from medications including nonsteroidal anti-inflammatories. The pain is worse on activity but is still present at rest, and she cannot find a comfortable position at night. She is reluctant to go to bed because when she gets up in the morning, she feels extremely stiff. She maintains that this pain is in continuance with the pain that she experienced after her fall, and this sacral pain was never completely evaluated. OBJECTIVE: On examination today, there is some sensitivity of the sacrum. However, mobility of the lumbar spine in all directions seemed full and relatively pain-free. She also seems to be able to walk in a very normal fashion without exhibiting obvious pain behavior. Mae is probably experiencing some musculoskeletal pain secondary to increasing activity level following the various interventions that she has recently undergone. She has recently increased her work from 4 hours to 8 hours per day, and she is working intensively with a physical therapist. We have encouraged her to continue working with her physical therapist and explained that there is nothing against taking pain medication when the pain is at a insufferable level. However, we have expressed optimism that this would indeed improve, and she should go with the pain for the time being. We will follow up Mae on a need to see basis in the clinic. Dima Treviño M.D. Instructor, Stereotactic and Functional Neurosurgery / [id number] / [id number] / [id number] / Tdocumented in this encounter Plan of Treatment Not on filedocumented as of this encounter Visit Diagnoses Not on filedocumented in this encounter"
--- OUTSIDE RECORDS SUMMARY | ~2019-07-03 | XMS | Encounter Summary ---
Demographics + + + | Address | [address] | | | [place] [address] | + + + | Home Phone | | + + + | Preferred Language | Unknown | + + + | Marital Status | | + + + | Alevism Affiliation | NON | + + + [...] Providers + +------+ + | Care Casting House Laborer Name | Role | Phone | + +------+ + PCP | Unavailable | + +------+ + Encounter Details +--------+ + + + + | Date | Type | Department | Care Team | Description | +--------+ + + + + | 12/23/ | Transcribed | | Dictation, Other | [...] as of this encounter Progress Notes Interface, Scarifier Operator In - 06/12/2006 1:05 AM [facility] OR [facility] and [place] [address] [place], [place] [address] or December 24, 1999 Khari Ying M.D. [address] [place] [address] RE: MAE CHRISTY MR #: [id number] Dear Dr. Ying: I saw the patient today in the clinic. She is coming in on January 15, 2000, to begin a trial of spinal cord stimulation for pain in the left buttock. I went over with Mae the methods of that procedure, the alternatives, and the risks. She also had me sign some disability forms, and we plan to see her back for her preoperative visit just prior to her initial implant. Sincerely, eBbe Claros M.D. ISSAC / MADELINE [id number] / [id number] / [id number] / [id number] signed by Interface, Scarifier Operator In at 06/12/2006 1:05 AM PSTdocume nted in this encounter Plan of Treatment Not on filedocumented as of this encounter Visit Diagnoses Not on filedocumented in this encounter"
--- OUTSIDE RECORDS SUMMARY | ~2019-07-03 | XMS | Encounter Summary ---
Demographics + + + | Address | [address] | | | [place] [address] | + + + | Home Phone [...] Team Providers + +------+ + | Care Wildlife Refuge Manager Name | Role | Phone | [...] | | | | Rd Mailcode:OP14B | [place], [place] | | | | | [place] [employer] | [address] | | | | | [place], [place] | [phone] | | | | | [address] | | | | | | [phone] | | | +--------+ + + + [...]
--- OUTSIDE RECORDS SUMMARY | ~2019-07-03 | XMS | Encounter Summary ---
Demographics + + + | Address | [address] | | | [place] [address] | + + + | Home Phone | | + + + | Preferred Language | Unknown | + + + | Marital Status | | + + + | Nondenominational Affiliation | NON | + + + [...] Team Providers + +------+ + | Care Hair Assistant Name | Role | Phone | + +------+ + PCP | Unavailable | + +------+ + Encounter Details +--------+ + + + + | Date | Type | Department | Care Team | Description | +--------+ + + + + | 03/07/ | Procedure - | | Record, Operation [...] + + | OPERATION RECORD | | 03/07/2001 | | Results for this | | | | | | procedure are in the | | | | | | results section. | + +--------+ + + + documented in this encounter Results OPERATION RECORD (03/07/2001) + + | Transcriptions | + + | Interface, Pt Sitter In - 05/03/2006 3:07 AM PDT | | [place] [address] [address] | | [place], [place] [address] | | [facility] RECORDMed Rec No.: | | [id number] Date: 03/07/2001Name: Mae Dietrich SURGEON: | | Roger Fatima M.D.WIRELESS DEVELOPMENT MANAGER(S): Héctor Gonzalez, | | Marco AntonioPREOPERATIVE DIAGNOSIS(ES):Mechanical low back pain, secondary to L4-5 degenerative | | joint disease.POSTOPERATIVE DIAGNOSIS(ES):Same.PROCEDURE(S) PERFORMED:L4-5 intradiscal | | electrothermal therapy.ANESTHESIA:Sedation and monitoring supervised by | | Akua.COMPLICATIONS:None.ESTIMATED BLOOD | | LOSS:None.DRAINS:None.SPECIMEN(S):None.FLUIDS:Lactated Ringer's, approximately 500 | | cc.INDICATIONS:Mae is a 40-year-old patient with a chronic history of mechanical | | lowback pain. She underwent provocative discography on January 30 for L3-4, L4-5and L5-S1. | | The L4-5 disc revealed 13 psi, which was also reproducing herpain upon the | | provocative discography, so this was a strong indication todo JDET for this disc to | | help reduce her lower back pain significantly,since she has not done well on | | conservative measurements.PROCEDURE:After a detailed PARQ discussion, the patient signed | | a written consent formand she had a 20-gauge peripheral IV placed in the left forearm. | | Then thepatient was escorted to the floor where she placed herself in a | | proneposition. Then monitors were attached to the patient and oxygen, threeliters | | per minute, was supplemented via the nasal cannula. Then her backwas prepped and | | draped in the usual sterile fashion. Then with the help offluorography x-ray machine, | | the L4-5 disc was identified via identificationof the lumbar vertebral counting from T12 | | down to T5. Then about 7-8 cm ofmidline on the left side a skin wheal was made | | using 1% Lidocaine mixedwith bicarb and a 25-gauge 1.5 inch length was advanced to | | numb the wholetract. After that, a 17-gauge introducer was advanced through the | | whealabout 45 degrees to the skin, with the help of the fluoroscopy, aiming atthe L4-5 | | disc space. On intermittent advancement of the introducer waschecked with the | | oblique, AP and lateral x-ray until the L4-5 disc wascontacted from the side | | and this contact was confirmed also by thefluoroscopy machine. After they | | contacted, the introducer was advancedwithin the disc tissue itself for about 1 cm | | and this was also confirmedwith different views by fluoroscopy machine. A heating | | cord was advancedthrough the introducer using pulse fluoroscopy machine that | | demonstratedadvancement of the heating cold through the disc matter itself and | | wasadvancing as smoothly and was deemed to be in the midline of the disc.Advancement of | | the heating coil was completed by making a complete oneround in the disc material | | itself. X-ray machine was in pulse mode duringthe entire time and the placement was | | evaluated by AP, oblique, lateral andcauda cephalic view that demonstrated a heating | | coil within the discitself, internal to the annuls, and there was no | | encroachment upon theepidural space. During the advancement process the patient was | | sedated.Then some time was allowed until the patient recovered from | | sedation.Impedance was checked and showed 135, which is within normal limits of 122to | | 200. The patient was asked if she felt any abnormal sensation and shereported she | | felt nothing while getting stimulated. Then the heatingprocess started, with 65 | | degrees, and the patient reported no complaints,side effects or feeling any abnormal | | sensation in the lower extremity. Theheating process continued until the temperature | | reached 90 degrees C andthen after that four minutes were allowed to pass while the | | temperature was90 degrees and the total heating time was 16.5 minutes. After the | | thermaltherapy finished, the heating coil was removed under pulse fluoroscopy.After | | that, Omnipaque, a mixture of 180 and 310 cc range plus Ancefantibiotic was | | injected into the introducer slowly, under the fluoroscopicpulse mode that showed dye | | distribution in the same tract of the heatingcoil, but did not show any dye | | extravasation outside the disc material.After that, the introducer was removed. | | Small pressure was applied at theskin puncture site and Steri-Strips were applied. The | | back of the patientwas cleaned with Betadine and the patient was escorted back to the | | waitingarea, during which she remained alert and awake with no side effects. Shewas | | able to move both lower extremities and reported no pain or numbnessdown her | | bilateral lower extremity, but she was still feeling some backpain. The patient | | was discharged home with the post-procedureinstructions.Pursuant to federal | | Medicare regulations, Dr. Fatima was available andinvolved physically in the | | procedure.Marco Antonio Gardiner, | | Marco AntonioMAG/X65D:03/07/2001T:03/08/2001C: 03/29/2001 dabcc: Bebe Claros M.D.[id number] | |midline on the left side a skin wheal was made using 1% Lidocaine mixed | |with bicarb and a 25-gauge 1.5 inch length was advanced to numb the whole | |tract. After that, a 17-gauge introducer was advanced through the wheal | |about 45 degrees to the skin, with the help of the fluoroscopy, aiming at | |the L4-5 disc space. On intermittent advancement of the introducer was | |checked with the oblique, AP and lateral x-ray until the L4-5 disc was | |contacted from the side and this contact was confirmed also by the | |fluoroscopy machine. After they contacted, the introducer was advanced | |within the disc tissue itself for about 1 cm and this was also confirmed | |with different views by fluoroscopy machine. A heating cord was advanced | |through the introducer using pulse fluoroscopy machine that demonstrated | |advancement of the heating cold through the disc matter itself and was | |advancing as smoothly and was deemed to be in the midline of the disc. | | | |Advancement of the heating coil was completed by making a complete one | |round in the disc material itself. X-ray machine was in pulse mode during | |the entire time and the placement was evaluated by AP, oblique, lateral and | |cauda cephalic view that demonstrated a heating coil within the disc | |itself, internal to the annuls, and there was no encroachment upon the | |epidural space. During the advancement process the patient was sedated. | |Then some time was allowed until the patient recovered from sedation. | |Impedance was checked and showed 135, which is within normal limits of 122 | |to 200. The patient was asked if she felt any abnormal sensation and she | |reported she felt nothing while getting stimulated. Then the heating | |process started, with 65 degrees, and the patient reported no complaints, | |side effects or feeling any abnormal sensation in the lower extremity. The | |heating process continued until the temperature reached 90 degrees C and | |then after that four minutes were allowed to pass while the temperature was | |90 degrees and the total heating time was 16.5 minutes. After the thermal | |therapy finished, the heating coil was removed under pulse fluoroscopy. | | | |After that, Omnipaque, a mixture of 180 and 310 cc range plus Ancef | |antibiotic was injected into the introducer slowly, under the fluoroscopic | |pulse mode that showed dye distribution in the same tract of the heating | |coil, but did not show any dye extravasation outside the disc material. | |After that, the introducer was removed. Small pressure was applied at the | |skin puncture site and Steri-Strips were applied. The back of the patient | |was cleaned with Betadine and the patient was escorted back to the waiting | |area, during which she remained alert and awake with no side effects. She | |was able to move both lower extremities and reported no pain or numbness | |down her bilateral lower extremity, but she was still feeling some back | |pain. The patient was discharged home with the post-procedure | |instructions. | | | | | |Pursuant to federal Medicare regulations, Dr. Fatima was available and | |involved physically in the procedure. | | | | | |Héctor Gonzalez M.D. Roger Fatima M.D. | | | |MAG/X65 | | | | | |C: 03/29/2001 dab | |cc: Bebe Claros M.D. | | | | | |[phone] | + + documented in this encounter Visit Diagnoses Not on filedocumented in this encounter"
--- OUTSIDE RECORDS SUMMARY | ~2019-07-03 | XMS | Encounter Summary ---
Demographics + + + | Address | [address] | | | [place] [address] | + + + | Home Phone [...] Team Providers + +------+ + | Care Usability Specialist Name | Role | Phone | [...] as of this encounter Progress Notes Interface, Bridge Instructor In - 07/05/2006 3:09 AM [facility] OR [facility] and [place] [address] [place], [place] [address] or March 24, 1999 Khari Ying M.D. [address] [facility], [address] [place] [address] RE: MAE LOWRY MR #: [id number] Dear Dr. Ying: We saw Mae Lowry [...] makes. Sincerely, Dima Treviño M.D. GREG / [id number] / [id number] / wac cc: Jefferson Cortes M.D. [address] [facility], [address] [place] [address] Sonny Beebe M.D. [address] [place] [address] Jefferson Cortes M.D. [address] [facility], [address] [place] [address] Sonny Beebe M.D. [address] [facility] [place] [id number] signed by Interface, Bridge Instructor In at 07/05/2006 3:09 AM PSTdocumented in this encounter Plan of Treatment Not on filedocumented as of this encounter Visit Diagnoses Not on filedocumented in this encounter"
--- OUTSIDE RECORDS SUMMARY | ~2019-07-03 | XMS | Encounter Summary ---
Demographics + + + | Address | [address] | | | [place] [address] | + + + | Home Phone [...] Team Providers + +------+ + | Care Train Caller Name | Role | Phone | + [...] | | | | | [place], | | | | | | [place] [address] | | | +--------+ + + + [...] | + + | 09/05/2001 11:21 AM [facility] Anesthesia PostOp Report | | | | Patient: MAE HERNÁNDEZ Med Rec: [id number] Sex F Bdate: 1960 | | Date/Time Data | | Entered Into [facility] | | Anesth PostOp | | Surgery Date [id number] 09/05/01 11:21 | | Anesthesiologist RUSS FREEMAN [...]
--- OUTSIDE RECORDS SUMMARY | ~2019-07-03 | XMS | Encounter Summary ---
Demographics + + + | Address | [address] | | | [place] [address] | + + + | Home Phone | | + + + | Preferred Language | Unknown | + + + | Marital Status | | + + + | Mormon Affiliation | 1041 | + + + | Race | Unknown | + + + | Ethnic Group | Unknown | + + + Author + + + | Author | [facility] | | | and [place] | + + + | Organization | [facility] | | | and [place]toana [...] [place] | | | | | [address] | | + + + + + | Daina Mazariegos | ECON | Unknown | | + + + + + Care Team Providers + +------+ + | Care Mechanical Manufacturing Engineer Name | Role | Phone | + +------+ + | Noe Thomason | PCP | | | MD | | | + +------+ + Encounter Details +--------+ + + + + | Date | Type | Department | Care Team | Description | +--------+ + + + + | 08/21/ | Hospital | [facility] | [facility] | | | 2013 | Encounter | MED CTR XRAY [address] | | | | | [place] | [place], [place] | | | | | [facility] [place] [address] | [id number] | | | | | [phone] | | | +--------+ + + + [...]
--- OUTSIDE RECORDS SUMMARY | ~2019-07-03 | XMS | Encounter Summary ---
Demographics + + + | Address | [address] | | | [place] [address] | + + + | Home Phone | | + + + | Preferred Language | Unknown | + + + | Marital Status | | + + + | Denominational Affiliation | NON | + + + | Race | White | + + + | Ethnic Group | Not or | + + + Author + + + | Author | [facility] | + + + | Organization | [facility] | + + + | Address | Unknown | + + + | Phone | Unavailable | + + + Support + + + + + | Name | Relationship | Address | Phone | + + + + + | Liam Dietrich | ECON | [place] | | + + + + + Care Team Providers + +------+ + | Care Assisted Living Executive Director Name | Role | Phone | + +------+ + PCP | Unavailable | + +------+ + Encounter Details +--------+ + + + + | Date | Type | Department | Care Team | Description | +--------+ + + + + | 04/14/ | Office | [facility] | Note, [...] as of this encounter Progress Notes Interface, Dispute Resolution Specialist In - 06/27/2006 3:15 AM PSTCLINIC DATE: 04/14/1999 NEUR[facility]ERY CLINIC SUBJECTIVE: Mae Dietrich is a 38-year-old female with 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 She returns to clinic today for analysis and adjustment of her peripheral nerve stimulator. Ms. Dietrich rates her pain level as 45/100 using the visual analog scale. She states that she thinks the stimulator may be helpful for some of her pain but she states that she continues to experience contraction-like pains in her left buttock approximately 7 to 8 times per day. She stated that the spinal cord stimulator does not help this type of pain. She likens it to, "being stabbed with an icepick. It is a lightening sharp pain." Ms. Dietrich states that she has been participating in the prescribed physical therapy and exercise program. She said that she has been returning to work for partial days but would like to have a work release that would make a recommendation for a more gradual return to work. She is working approximately 4 hours per day at present. OBJECTIVE: Using the spinal cord stimulator database programmer, the patient's internal post-generator was analyzed. It was found that Ms. Dietrich has been using electrode configurations of 0 positive, 1 negative, 2 off, and 3 off. She has been using an amplitude of 0.9 volts, a pulse width of 60 microseconds, and a rate of 130 pulses per second. The stimulator was then reprogrammed to use electrodes of 0 off, 1 positive, 2 off, and 3 negative. At this setting, she used a higher amplitude of 2.5 volts. Ms. Dietrich stated that she would like to try this new setting for another few weeks to see if this might better alleviate the contraction-like pains that she experiences intermittently during each 24-hour period. PLAN: The patient will return to the clinic withing the next few days to speak with Dr. Bebe Claros about a gradual work release program and also a recommendation that her physical therapist made for thermophore moist heat treatments. Reshma Mosquera R.N., M.A. LEWIS / [place] [id number] / [id number] / [id number] / Tdocumented in this encounter Plan of Treatment Not on filedocumented as of this encounter Visit Diagnoses Not on filedocumented in this encounter
--- OUTSIDE RECORDS SUMMARY | ~2019-07-03 | XMS | Encounter Summary ---
Demographics + + + | Address | [address] | | | [place] [address] | + + + | Home Phone | | + + + | Preferred Language | Unknown | + + + | Marital Status | | + + + | Voodoo Affiliation | 1041 | + + + | Race | Unknown | + + + | Ethnic Group | Unknown | + + + Author + + + | Author | [facility] | | | and [place] | + + + | Organization | [facility] | | | [...] [place] | | | | | [address] | | + + + + + | Daina Mazariegos | ECON | Unknown | | + + + + + Care Team Providers + +------+ + | Care Orthopedic Technician Name | Role | Phone | [...] [address] | | | | | [place], | [place], [place] | | | | | [place] [address] | [address] | | | | | [phone] | | | +--------+ + + + [...]
--- OUTSIDE RECORDS SUMMARY | ~2019-07-03 | XMS | Encounter Summary ---
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 She returns to clinic today for another adjustment of her gluteal nerve stimulator. The patient states that her current electrode configuration is providing paresthesias of the correct area of her left buttock. Ms. Dietrich states that her pain level is approximately 5 on a 0-10 scale was 10 equal to severe, when she uses her gluteal nerve stimulator. Prior to implantation of the gluteal nerve stimulator, the pain ranged from moderate to "10 plus on bad days." The patient notes that she continues to have a burning sensation at the inferior incisional site on her left buttock. She states that it feels like there is water going into an open wound. This information was all relayed to Dr. Bebe Claros. OBJECTIVE: The patient's incisions were all inspected, and both of the buttock incisions appear to be well-healed with no signs and symptoms of infection. Wound edges were all well-approximated. Using the cad programmer, it was determined that the patient has been using an electrode configuration of 0 positive, 1 negative, 2 off, and 3 off. Her amplitude was at 1.2 volts, the pulse width at 60 microseconds, and rate at 130 pulses per second. PROCEDURE: Because the patient stated that she wanted to try another setting to see if it might work better for her pain relief, her internal pulse generator was re-programmed to have an electrode configuration of 0 off, 1 negative, 2 off, 3 off, and K positive. With this setting, the patient required an amplitude of 1.0 volts, a pulse width 60 microseconds, and a rate of 130 pulses per second. PLAN: The patient is scheduled to see Dr. Claros at the end of February for a followup evaluation. She was encouraged to call if she wants to try any another electrode settings if the one programmed today does not provide adequate relief of her left buttock pain. Reshma Mosquera R.N., M.A. LEWIS / [place] 11276 / [id number] / [id number] / 700 cc: Khari Ying M.D. [address] [place] [address], [address] [place] [phone] [id number] signed by Interface, Deli/Bakery Associate In at 07/05/2006 3:09 AM PSTdocume nted in this encounter Plan of Treatment Not on filedocumented as of this encounter Visit Diagnoses Not on filedocumented in this encounter
--- OUTSIDE RECORDS SUMMARY | ~2019-07-03 | XMS | Encounter Summary ---
Demographics + + + | Address | [address] | | | [place] [address] | + + + | Home Phone | | + + + | Preferred Language | Unknown | + + + | Marital Status | | + + + | Gnosticism Affiliation | NON | + + + [...] Providers + +------+ + | Care Manager Embalmer Funeral Director Name | Role | Phone | [...] as of this encounter Progress Notes Interface, Delivery Professional In - 06/04/2006 1:06 AM [facility] OR [facility] and [place] [address] [place], [place] [address] or May 03, 2000 Khari Ying M.D. [facility] [address] [facility] [address] [place] [address] RE: MAE WILLIS MR #: [id number] Dear Dr. Ying: I saw the patient [...] stimulated generator. Sincerely, Bebe Claros M.D. / [id number] / [id number] / [id number] / [id number] cc: Roger Fatima M.D. [facility] [id number] signed by Interface, Delivery Professional In at 06/04/2006 1:06 AM PSTdocume nted in this encounter Plan of Treatment Not on filedocumented as of this encounter Visit Diagnoses Not on filedocumented in this encounter"
--- OUTSIDE RECORDS SUMMARY | ~2019-07-03 | XMS | Encounter Summary ---
Demographics + + + | Address | [address] | | | [place] [address] | + + + | Home Phone | | + + + | Preferred Language | Unknown | + + + | Marital Status | | + + + | Alevism Affiliation | 1041 | + + + | Race | Unknown | + + + | Ethnic Group | Unknown | + + + Author + + + | Author | [facility] | | | and [place] | + + + | Organization | [facility] [...] [place] | | | | | [address] | | + + + + + | Daina Mazariegos | ECON | Unknown | | + + + + + Care Team Providers + +------+ + | Care Patient Care Manager Name | Role | Phone | + +------+ + PCP | Unavailable | + +------+ + Encounter Details +--------+ + + + + | Date | Type | Department | Care Team | Description | +--------+ + + + + | 08/06/ | Hospital | [facility] | Mohan Bunn | | | 2011 | Encounter | MED CTR XRAY [address] | T, [address] | | | | | [place] | [place], [place] | | | | | [place] [address] | [address] | | | | | [phone] | | | +--------+ + + + [...] Performed At | + + + | [facility] Diagnostic Imaging Department | [facility] | | [address] [facility] | [facility] | | LUMBAR SPINE, LIMITED: | [facility] | | 08/06/2011 CLINICAL HISTORY: LUMBAR [...] | | 15:21 Transcribed Date/Time: 08/06/2011 15:56 Inhalation Therapy Aide: | | | <Electronically Signed by Beto Berry MD> 08/06/11 2573 | | + + + + + | Procedure Note | + + | Jarrod, Rad Conversion - 08/31/2013 4:33 PM [facility] | | Diagnostic Imaging Department [address] [place] [address] | | LUMBAR SPINE, LIMITED: 08/06/2011 CLINICAL [...] 15:21 | |Transcribed Date/Time: 08/06/2011 15:56 | |Inhalation Therapy Aide: HÉCTOR | |<Electronically Signed by Beto eBrry MD> 08/06/113 | + + + +---------+ [...] Performed At | + + + | [facility] Diagnostic Imaging Department | [place] | | [address] | [facility] | | PELVIS, ONE VIEW: 08/06/2011 | [...] Transcribed Date/Time: | | | 08/06/2011 15:51 Inhalation Therapy Aide: NICK <Electronically Signed | | | by Beto Berry MD> 08/06/11 1653 | | + + + + + | Procedure Note | + + | Jarrod, Rad Conversion - 08/31/2013 4:33 PM [facility] | | Diagnostic Imaging Department [address] [facility] [place] | | PELVIS, ONE VIEW: 08/06/2011 CLINICAL [...] Beto Andrews | | MD Kristi> 08/06/11 6103 | |FINDINGS: Frontal view of the pelvis. [...] 15:19 | |Transcribed Date/Time: 08/06/2011 15:51 | |Inhalation Therapy Aide: | |<Electronically Signed by Beto Berry MD> 08/06/11 1653 | + + + +---------+ + + | Performing | Address | City/State/Zipcode | Phone Number | | Organization | | | | + +---------+ + + | [place] | | | | | [place] | | | | + +---------+ + + documented in this encounter Visit Diagnoses Not on filedocumented in this encounter"
--- OUTSIDE RECORDS SUMMARY | ~2019-07-03 | XMS | Encounter Summary ---
Demographics + + + | Address | [address] | | | [place] [address] | + + + | Home Phone | | + + + | Preferred Language | Unknown | + + + | Marital Status | | + + + | Restorationism Affiliation | NON | + + + | Race | White | + + + | Ethnic Group | Not or | + + + Author + + + | Author | [facility] | + + + | Organization | [facility] | + + + | Address [...] Team Providers + +------+ + | Care Algologist Name | Role | Phone | + [...] | | | | | spondylosis | [address] | [address] | | | | | without | Ave | Ave | | | | | myelopathy | [place], [place] | [place], [place] | | | | | Procedures | [address] | [address] | | | | | CONSULT TO | Phone: | Phone: | | | | | [place] | [phone] | [phone] | | | | | | Fax: | Fax: | | | | | | [phone] | [phone] | +--------+--------+ + + + + Encounter Details +--------+ + + + + | Date | Type | Department | Care Team | Description | +--------+ + + + + | 11/03/ | Documentati | [facility] | Roger Fatima MD | | | 2006 | on | Pain Center at | [address] | | | | | [facility] | [place], [place] | | | | | [address] | [address] | | | | | Mailcode: CH15P | [phone] | | | | | [facility] | | | | | | and Healing, | | | | | | | | | | | | [place], [place] | | | | | | [address] | | | | | | [phone] | | | +--------+ + + + [...]
--- OUTSIDE RECORDS SUMMARY | ~2019-07-03 | XMS | Encounter Summary ---
Demographics + + + | Address | [address] | | | [place] [address] | + + + | Home Phone | | + + + | Preferred Language | Unknown | + + + | Marital Status | | + + + | Restorationism Affiliation | 1041 | + + + | Race | Unknown | + + + | Ethnic Group | Unknown | + + + Author + + + | Author | [facility] | | | and Humbertoana | + + + | Organization | [facility] | | | and Humbertoana [...] [place] | | | | | [address] | | + + + + + | Daina Mazariegos | ECON | Unknown | | + + + + + Care Team Providers + +------+ + | Care Wheel Inspector Name | Role | Phone | [...] + + | 11/10/ | Office | [facility] | [place], | S/P lumbar fusion - | | 2016 | Visit | PHYSIATRY [address] | [address] | L4/L5 (Primary Dx); | | | | [place], | [place], | Status post right | | | | [place] [address] | [place] [address] | hip replacement; | | | | [phone] | [phone] | Sacroiliitis, not | | | | | | elsewhere classified | | | | | | ([facility]) | +--------+---------+ + + + Social History [...] blood sugars if you a re diabetic. manager long term care risk can lead to osteoporosis which is [...] of the procedure you must provide a otr refrigerated cdl truck driver to take you home. For [...] has no apparent deficits with short or rn long term care memory. She has appropriate fund of knowledge [...] PT (multiple sessions over the years) and nursing care partner. Unfortunately she cont inues to have significant [...] PA-C, 11/11/2015 CC: Jonathan Banda PA-C at [facility] 16 1:20 PM PDTdocumented in this encounter [...] M46.1 Mae Jones Edgar presents to | [facility] | | the fluoroscopy suite for fluoroscopically guided bilateral [facility] | | sacroiliac joint steroid [...] + + | Performing | Address | City/State/[facility] | Phone Number | | Organization | | | | + + + + + | [facility] | [address] | [place], [place] | [phone] | | [facility] | | [address] | | | - IMAGING | | [...] M46.1 Mae Jones Edgar presents to | [facility] | | the fluoroscopy suite for fluoroscopically guided bilateral | [facility] | | sacroiliac joint steroid injections [...] ST. | [address] | [place], [place] | [phone] | | [facility] | | [address] | | | - IMAGING | | [...]
--- OUTSIDE RECORDS SUMMARY | ~2019-07-03 | XMS | Encounter Summary ---
Demographics + + + | Address | [address] | | | [place] [address] | + + + | Home Phone [...] + | Liam Dietrich | ECON | [place] | | + + + + + Care Team Providers + +------+ + | Care Latrine Cleaner Name | Role | Phone | + +------+ + | Noe Thomason MD | PCP | | + +------+ + Reason for Visit + + + | Reason | Comments | + + + | Follow-up encounter | | + + + Encounter Details +--------+ + + + + | Date | Type | Department | Care Team | Description | +--------+ + + + + | 11/03/ | Telephone | [facility] | Roger Fatima MD | Follow-up encounter | | 2006 | | Pain Center at | [address] | | | | | [facility] | [place], [place] | | | | | [address] | [address] | | | | | Mailcode: CH15 | [phone] | | | | | [facility] | | | | | | and Healing, | | | | | | Building | | | | | | Floor [place], [place] | | | | | | [address] | | | | | | [phone] | | | +--------+ + + + [...]
--- OUTSIDE RECORDS SUMMARY | ~2019-07-03 | XMS | Encounter Summary ---
Demographics + + + | Address | [address] | | | [place] [address] | + + + | Home Phone | | + + + | Preferred Language | Unknown | + + + | Marital Status | | + + + | Methodist Affiliation | 1041 | + + + | Race | Unknown | + + + | Ethnic Group | Unknown | + + + Author + + + | Author | [facility] | | | and [place]toana | + + + | Organization | [facility] | | | and [...] [place] | | | | | [address] | | + + + + + | Daina Mazariegos | ECON | Unknown | | + + + + + Care Team Providers + +------+ + | Care Stripper Cutter Machine Name | Role | Phone | + [...] (Primary Dx); DISC | | | | [place], | [place] | DISEASE, LUMBOSACRAL | | | | [place] [address] | [address] | SPINE; Hx of spinal | | | | [phone] | | fusion; Lumbar | | | [...] surgery. Specifically she reque sted x-rays at [place]. My staff informed her that x-rays might [...]
--- OUTSIDE RECORDS SUMMARY | ~2019-07-03 | XMS | Encounter Summary ---
Demographics + + + | Address | [address] | | | [place] [address] | + + + | Home Phone | | + + + | Preferred Language | Unknown | + + + | Marital Status | | + + + | Confucianism Affiliation | 1041 | + + + | Race | Unknown | + + + | Ethnic Group | Unknown | + + + Author + + + | Author | [facility] | | | and [place]toana | + + + | Organization | [facility] | | | and [...] [place] | | | | | [address] | | + + + + + | Daina Mazariegos | ECON | Unknown | | + + + + + Care Team Providers + +------+ + | Care Dock Operations Supervisor Name | Role | Phone [...] | | | | | CT | [place], [place] | | | | | | Myelography | [address] | | | | | | Lumbar Spine | Phone: | | | | | | | [phone] | | | | | | | Fax: | | | | | | | [phone] | | +--------+--------+ + + + + [...] | | | | | CT | [place], [place] | | | | | | Myelography | [address] | | | | | | Lumbar Spine | Phone: | | | | | | | [phone] | | | | | | | Fax: | | | | | | | [phone] | | +--------+--------+ + + + + Encounter Details +--------+ + + + + | Date | Type | Department | Care Team | Description | +--------+ + + + + | 03/12/ | Hospital | [facility] | Michelle Haney, | Weakness of both | | 2015 | Encounter | [address] [facility] [address] | [place] [address] | legs | | | | [place], | [place], [place] | | | | | [place] [address] | [address] | | | | | [phone] | [phone] | | | | | | | [...] loss of | | disc height at P29-06xpyshpu L1-2, and mild to moderate loss of [...] with posterior | | spinal fusion and A5lawukseiclz.Multilevel degenerative disc disease and | | spondylolisthesis [...] + + | Performing | Address | City/State[facility] | Phone Number | | Organization [...]
--- OUTSIDE RECORDS SUMMARY | ~2019-07-03 | XMS | Encounter Summary ---
Demographics + + + | Address | [address] | | | [place] [address] | + + + | Home Phone | | + + + | Preferred Language | Unknown | + + + | Marital Status | | + + + | Jewish Affiliation | 1041 | + + + | Race | Unknown | + + + | Ethnic Group | Unknown | + + + Author + + + | Author | [facility] | | | and [place] | + + + | Organization | [facility] | [...] [place] | | | | | [address] | | + + + + + | Daina Mazariegos | ECON | Unknown | | + + + + + Care Team Providers + +------+ + | Care Court Magistrate Name | Role | Phone | + [...] + + | 02/23/ | Hospital | [facility] | Nguyễn Redmond MD | Epigastric pain | | 2018 | Encounter | [address] | [address] | | | | | [place]ug[place], | [place], [place] | | | | | [place] [address] | [address] | | | | | [phone] | [phone] | | | | | | | [...]
--- OUTSIDE RECORDS SUMMARY | ~2019-07-03 | XMS | Encounter Summary ---
Demographics + + + | Address | [address] | | | [place] [address] | + + + | Home Phone [...] Team Providers + +------+ + | Care Recovery Analyst Name | Role | Phone | [...] as of this encounter Progress Notes Interface, Finishing Powder Press Operator In - 07/05/2006 3:09 AM PSTCLINIC DATE: [...] Wound edges were all well-approximated. Using the programmer engineering and scientific, it was determined that the patient has [...] Reshma Mosquera R.N., M.A. LEWIS / [place] [id number] / [id number] / [id number] / 700 cc: Khari Ying M.D. [address] [place] [address], [address] [place] [id number] [id number] signed by Interface, Finishing Powder Press Operator In at 07/05/2006 3:09 AM PSTdocume nted in this encounter Plan of Treatment Not on filedocumented as of this encounter Visit Diagnoses Not on filedocumented in this encounter
--- OUTSIDE RECORDS SUMMARY | ~2019-07-03 | XMS | Encounter Summary ---
Demographics + + + | Address | [address] | | | [place] [address] | + + + | Home Phone | | + + + | Preferred Language | Unknown | + + + | Marital Status | | + + + | Roman Catholic Affiliation | 1041 | + + + | Race | Unknown | + + + | Ethnic Group | Unknown | + + + Author + + + | Author | [facility] | | | and [place]toana | + + + | Organization | [facility] | | | and [place]toana [...] [place] | | | | | [address] | | + + + + + | Daina Mazariegos | ECON | Unknown | | + + + + + Care Team Providers + +------+ + | Care Organizational Development Manager Name | Role | Phone | + +------+ + | Noe Thomason | PCP | | | MD | | | + +------+ + Encounter Details +--------+ + + + + | Date | Type | Department | Care Team | Description | +--------+ + + + + | 08/01/ | Hospital | [facility] | BabiggbrandonchuyMohan | | | 2013 | Encounter | MED CTR XRAY [address] | [address] | | | | | [place] | [place], [place] | | | | | [place] [address] | [address] | | | | | [phone] | | | +--------+ + + + [...]
--- OUTSIDE RECORDS SUMMARY | ~2019-07-03 | XMS | Encounter Summary ---
Demographics + + + | Address | [address] | | | [place] [address] | + + + | Home Phone | | + + + | Preferred Language | Unknown | + + + | Marital Status | | + + + | Yazidi Affiliation | 1041 | + + + | Race | Unknown | + + + | Ethnic Group | Unknown | + + + Author + + + | Author | [facility] | | | and [place]toana | + + + | Organization | [facility] | | | and [place]ana [...] [place] | | | | | [address] | | + + + + + | Daina Mazariegos | ECON | Unknown | | + + + + + Care Team Providers + +------+ + | Care Automobile Club Travel Counselor Name | Role | Phone | [...] | | | | pain | [address] | [address] | | | | | Procedures | POINT | [address] | | | | | [place] Gastric | [place], [place] | [place] | | | | | Emptying | [address] | [address] | | | | | | Phone: | Phone: | | | | | | [phone] | [phone] | | | | | | Fax: | Fax: | | | | | | [phone] | [phone] | +--------+--------+ + + + + Encounter Details +--------+ + + + + | Date | Type | Department | Care Team | Description | +--------+ + + + + | 06/13/ | Hospital | [facility] | Pilar Isbell MD | | | 2019 | Encounter | [facility] | [address] | | | | | MEDICINE [address] | [place] [address] | | | | | [address] | [phone] | | | | | [place], [place] | | | | | | [address] | | | | | | [phone] | | | +--------+ + + + [...]
--- OUTSIDE RECORDS SUMMARY | ~2019-07-03 | XMS | Encounter Summary ---
Demographics + + + | Address | [address] | | | [place] [address] | + + + | Home Phone | | + + + | Preferred Language | Unknown | + + + | Marital Status | | + + + | Christian Affiliation | 1041 | + + + | Race | Unknown | + + + | Ethnic Group | Unknown | + + + Author + + + | Author | [facility] | | | and [place]to[place] | + + + | Organization | [facility] | [...] [place] | | | | | [address] | | + + + + + | Daina Mazariegos | ECON | Unknown | | + + + + + Care Team Providers + +------+ + | Care Pump Erector Helper Name | Role | Phone | + +------+ + | Noe Thomsaon | PCP | | | MD | [...] + + | 05/15/ | Office | [facility] | [place], | Sacroiliitis - right | | 2015 | Visit | PHYSIATRY [address] | [address] | (Primary Dx); DISC | | | | [place], | [place], | DISEASE, [place]OS[place]CR[place] | | | | [place] [address] | [place] [address] | SPINE; S/P lumbar | | | | [phone] | [phone] | fusion - L4/L5; | | | [...] blood sugars if you a re diabetic. jail risk can lead to osteoporosis which is [...] of the procedure you must provide a tanker truck driver to take you home. For [...] has no apparent deficits with short or long-term memory. She has appropriate fund of knowledge [...] Noe Thomason and Jonathan Banda PA-C at [facility] documented in this encounter Plan of [...] 720.0 Mae WorleyVeronikaKarlo presents to the | [facility] | | fluoroscopy suite for fluoroscopically guided bilateral sacroiliac | [facility] | | joint steroid injections as part [...] + | [facility] | [address] | [place], [place] | [phone] | | [facility] | | [address] | | | - IMAGING | | [...] Mae Hernández presents to the | [facility] | | fluoroscopy suite for fluoroscopically guided bilateral sacroiliac [facility] | | joint steroid injections [...] ST. | [address] | [place] | [phone] | | [facility] | | [address] | | | - IMAGING | | [...]
--- OUTSIDE RECORDS SUMMARY | ~2019-07-03 | XMS | Encounter Summary ---
Demographics + + + | Address | [address] | | | [place] [address] | + + + | Home Phone [...] Team Providers + +------+ + | Care Plastic Cutter Name | Role | Phone | + +------+ + PCP | Unavailable | + +------+ + Encounter Details +--------+ + + + + | Date | Type | Department | Care Team | Description | +--------+ + + + + | 06/09/ | Transcribed | | Dictation, Other | [...] as of this encounter Progress Notes Interface, Stockroom Worker In - 06/30/2006 1:11 AM [facility] [place] [facility] and [place] [address] [place], [place] [address] or June 09, 1999 Khari Ying M.D. [address], [address] [place] [address] RE: MAE JOSE MR #: [id number] Dear Dr. Ying: I saw Mae Jose back in our clinic today. She came in today more for reassurance than anything else. She continues to take mexiletine as well as p.r.n. oxycodone or Vicodin. She states that the sharp pain in her buttock is getting somewhat better and she is increasing her level of physical activity. She is coming down to the end of her legal process and I will be meeting with her claim attorney probably within the next month or so. Overall, I think she is doing a bit better and I think we should continue to encourage her that this will be a long process of recovery. Sincerely, Bebe Claros M.D. Professor and Integrity Analyst Department of Neurosurgery [facility] / [place] [id number] / [id number] / [id number] / slk [id number] signed by Interface, Stockroom Worker In at 06/30/2006 1:11 AM PSTdocume nted in this encounter Plan of Treatment Not on filedocumented as of this encounter Visit Diagnoses Not on filedocumented in this encounter"
--- OUTSIDE RECORDS SUMMARY | ~2019-07-03 | XMS | Encounter Summary ---
Demographics + + + | Address | [address] | | | [place] [address] | + + + | Home Phone [...] Team Providers + +------+ + | Care Shredding Specialist Name | Role | Phone | [...] as of this encounter Progress Notes Interface, Civil Drafting Technician In - 07/29/2006 5:03 AM [facility] [place] [facility] and [place] [address] [place], [place] [address] or July 11, 1998 [place] [address] [place] [address] RE: Mae Reyes MR# [id number] Dear Doctor [...] removed. Sincerely, Bebe Claros M.D. Professor and Thread Dresser, Department of Neurological Surgery Chio d ocumented in this encounter Plan of Treatment Not on filedocumented as of this encounter Visit Diagnoses Not on filedocumented in this encounter"
--- OUTSIDE RECORDS SUMMARY | ~2019-07-03 | XMS | Encounter Summary ---
Demographics + + + | Address | [address] | | | [place] [address] | + + + | Home Phone [...] Team Providers + +------+ + | Care Asbestos Cement Sheet Supervisor Name | Role | Phone | [...] | Transcriptions | + + | Interface, Retail Department Reset In - 05/03/2006 3:07 AM PDT | | [place] [address] [address] | | [place], [place] [address] | | [facility] RECORDMed Rec No.: | | [id number] Date: 03/07/2001Name: Mae Dietrich SURGEON: | | Roger Fatima M.D.CELL TUBER HAND(S): Héctor Gonzalez, | | Marco AntonioPREOPERATIVE DIAGNOSIS(ES):Mechanical [...] | Marco AntonioMAG/X65D:03/07/2001T:03/08/2001C: 03/29/2001 dabcc: Bebe Claros M.D.[id number] | |midline on the left side a [...] Claros M.D. | | | | | |[id number] | + + documented in this encounter Visit Diagnoses Not on filedocumented in this encounter"
--- OUTSIDE RECORDS SUMMARY | ~2019-07-03 | XMS | Encounter Summary ---
Demographics + + + | Address | [address] | | | [place] [address] | + + + | Home Phone | | + + + | Preferred Language | Unknown | + + + | Marital Status | | + + + | Jew Affiliation | NON | + + + [...] Team Providers + +------+ + | Care Private Branch Exchange Service Adviser Name | Role | Phone | + [...] | | | | Rd Mailcode:[address] | [place], [place] | | | | | [place] | [address] | | | | | [place], [place] | [phone] | | | | | [address] | | | | | | [phone] | | | +--------+ + + + [...] | | + +---------+ + + | [facility] DEPARTMENT OF | | | | | RADIOLOGY | | | | + +---------+ + + documented in this encounter Visit Diagnoses Not on filedocumented in this encounter"
--- OUTSIDE RECORDS SUMMARY | ~2019-07-03 | XMS | Encounter Summary ---
Demographics + + + | Address | [address] | | | [place] [address] | + + + | Home Phone | | + + + | Preferred Language | Unknown | + + + | Marital Status | | + + + | Bahai Affiliation | NON | + + + | Race | White | + + + | Ethnic Group | Not or | + + + Author + + + | Author | [facility] | + + + | Organization | [facility] | + + + | [...] + +------+ + | Care Vice President Quality Name | Role | Phone | + +------+ + PCP | Unavailable | + +------+ + Encounter Details +--------+ + + + + | Date | Type | Department | Care Team | Description | +--------+ + + + + | 09/20/ | Office | [facility] | Note, [...] as of this encounter Progress Notes Interface, Intern In - 04/05/2006 1:08 AM PDTCHIEF COMPLAINT: Melanoma in situ. HISTORY OF PRESENT ILLNESS: Ms. 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 This was diagnosed and biopsied by Dr. Beto Farooq. Patient has no previous history of melanoma. She did have a lower back fusion 2 weeks ago. She does have a family history of lung cancer but no family history of melanoma. She has had significant sun damage and has used tanning booths in the past. PAST MEDICAL HISTORY: Please refer to the dermatology patient intake sheet, which was reviewed. EXAMINATION: Patient was examined on the scalp, face, chest and abdomen without any significant abnormalities. Examination of the arms was negative. Examination of the back revealed a 1.4 x 1.0 cm. scar on the right midline back. There was a healing scar from the spinal surgery on the lower back. On the right anterior thigh there was a 0.7 x 0.7mm. slightly irregular pigmented papule. ASSESSMENT AND PLAN: 1. Melanoma in situ. I had a lengthy discussion with the patient regarding the treatment and prognosis of this melanoma in situ. Wide local excision was recommended. 2. Right anterior thigh mole. This is atypical in nature and I recommended a saucerization biopsy for this. Carlos Hudson M.D. Counseling Psychologist, Dermatology Otolaryngology - Head and Neck Surgery KKL/randy A 1: 08 AM PDTInterface, Intern In - 04/05/2006 1:08 AM PDT O PERATION RECORD ATTENDING SURGEON: Carlos Hudson M.D. PREOPERATIVE DIAGNOSIS(ES): Melanoma in situ, mid-back skin. POSTOPERATIVE DIAGNOSIS(ES): Same. OPERATIONS PERFORMED: Wide local excision of melanoma in situ and biopsy of right anterior thigh nevus. INDICATIONS: Patient presents with melanoma in situ on her mid-back. 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 I went over the wide local excision of the melanoma in situ. Also went over some protection recommendations as well. After PARQ and both written and verbal informed consent being obtained, the procedure was carried out as follows. PROCEDURE: Patient was placed on her right lateral decubitus position. Located on the mid-back was a scar measuring 1.4 x 1.0cm. There was no palpable lymph adenopathy in this region. The area was anesthetized for 1% Lidocaine with Epinephrine, scrubbed with Hibiclens, rinsed with sterile saline and sterile drapes were placed around the operative site. Using a 15-blade scalpel, a 0.5cm margin was delineated around the scar for a total excision width of 2.4cm. After adequate anesthesia a fusiform ellipse was excised down onto the deep subcutaneous tissue. The wound was then widely undermined. Hemostasis was obtained with electrodesiccation. The wound was then carefully reapproximated using 3-0 vicryl deep subcutaneous and dermal sutures. The superficial wound was closed with 4-0 vicryl and running subcuticular sutures. The wound was dressed and wound care instructions were given. The right thigh lesion measuring 0.7 x 0.7cm was saucerized into the fat. Hemostasis was obtained with Aluminum Chloride. The final wound length of the intermediate linear layer closure was 6 cm. Jyoti A 1: 08 AM PDTdocumented in this encounter Plan of Treatment Not on filedocumented as of this encounter Visit Diagnoses Not on filedocumented in this encounter"
--- OUTSIDE RECORDS SUMMARY | ~2019-07-03 | XMS | Encounter Summary ---
Demographics + + + | Address | [address] | | | [place] [address] | + + + | Home Phone [...] Team Providers + +------+ + | Care Heat Treat Furnace Operator Name | Role | Phone | + +------+ + PCP | Unavailable | + +------+ + Encounter Details +--------+ + + + + | Date | Type | Department | Care Team | Description | +--------+ + + + + | 09/20/ | Results | Surgical | Carlos Hudson MD | | | 2001 | Only | Dermatology [address] | | | | | | [address] | | | | | | Mailcode:OP06 | | | | | | Outpatient Clinic | | | | | | [facility], Room [address] | | | | | | [place], [place] | | | | | | [address] | | | | | | [phone] | | | +--------+ + + + [...] | + +--------+ + + + | DERMATOPATHOLOGY(WET | Routin | 10/05/2001 | | Results for this | | MOUNT) | e | | | procedure are in the | | | | | | results section. | + +--------+ + + + | DERMATOPATHOLOGY(WET | Routin | 09/20/2001 | | Results for this | | MOUNT) | e | | | procedure are in the | | | | | | results section. | + +--------+ + + + documented in this encounter Results DERMATOPATHOLOGY(WET MOUNT) (10/05/2001) + + + + + + | Component | Value | Ref Range | Performed | Pathologist | | | | | At | Signature | + + + + + + | DERMATOPATH | SOURCE OF SPECIMEN: | | | | | OLOGY(WET | FIRST TISSUE LEVEL IV | | | | | MNT) | [address] CLINICAL | | | | | | DESCRIPTION:Shave, lt. | | | | | | calf; dermatofibroma; | | | | | | R/O MM. GROSS | | | | | | DESCRIPTION:Left calf, | | | | | | shave, 0.9 x 0.8 x 0.25 | | | | | | cm, trisected. | | | | | | MICROSCOPIC | | | | | | DESCRIPTION:There are an | | | | | | increased number of | | | | | | fibroblasts in a dermis | | | | | | composed ofrandomly | | | | | | arranged fibrotic | | | | | | tissue. | | | | | | DIAGNOSIS:DERMATOFIBROMA | | | | | | .NOTE: The left calf | | | | | | dermatofibroma extends | | | | | | closely to the | | | | | | surgicalmargins. | | | | | | AMILCAR/jyiRendering | | | | | | Diagnostician: | | | | | | Ayush Reddy Jr., | | | | | | Marco AntonioPathologistElectroni | | | | | | wilberto Signed | | | | | | 10/09/2001Comment: | | | | | | SOURCE OF SPECIMEN: | | | | | | FIRST TISSUE LEVEL IV | | | | | | [address] | | | | + + + + + + + + | Specimen | + + | | + + + + + + + | Performing | Address | City/State/Zipcode | Phone Number | | Organization | | | | + + + + + | [facility] | Mailcode CH[address]D, [address] | [place] [address] | | | DERMATOPATHOLOGY | [address] | | | + + + + + DERMATOPATHOLOGY(WET MOUNT) (09/20/2001) + + + + + + | Component | Value | Ref Range | Performed | Pathologist | | | | | At | Signature | + + + + + + | DERMATOPATH | SOURCE OF SPECIMEN: | | | | | OLOGY(WET | FIRST TISSUE LEVEL IV | | | | | MNT) | [id number] OF | | | | | | SPECIMEN: FIRST TISSUE | | | | | | [place] [address] | | | | | | CLINICAL DESCRIPTION:A. | | | | | | Excision, mid back; | | | | | | re-excision MIS; MIS.B. | | | | | | Saucerization, rt. | | | | | | thigh; pigmented papule | | | | | | of unknown duration; | | | | | | nevus(rule in); R/O MM. | | | | | | GROSS DESCRIPTION:A. | | | | | | Mid back, ellipse, 3.2 x | | | | | | 1.9 x 1.0 cm, inked, | | | | | | eleven segments, | | | | | | A-1through A-5.B. | | | | | | Right thigh, fragment, | | | | | | 0.8 x 0.5 x 0.15 cm, | | | | | | inked, trisected. | | | | | | MICROSCOPIC | | | | | | DESCRIPTION:A. There | | | | | | are an increased number | | | | | | of collagen bundles | | | | | | associated | | | | | | withfibroblasts arranged | | | | | | parallel to the skin | | | | | | surface with vertically | | | | | | orientedblood vessels. | | | | | | B. There are nests of | | | | | | melanocytes along the | | | | | | dermal epidermal | | | | | | junction andorderly | | | | | | nests of uniform nevus | | | | | | cells within the dermis. | | | | | | DIAGNOSIS:A: SCAR | | | | | | SECONDARY TO THE | | | | | | PREVIOUS SURGICAL | | | | | | PROCEDURE.NOTE: There | | | | | | is no evidence of | | | | | | residual melanoma in | | | | | | situ in the mid | | | | | | backre-excision; it | | | | | | appears to be completely | | | | | | and adequately excised. | | | | | | B: MELANOCYTIC NEVUS, | | | | | | COMPOUND TYPE.NOTE: | | | | | | The right thigh nevus | | | | | | has a congenital pattern | | | | | | and extends to | | | | | | thesurgical margin. | | | | | | There is no evidence | | | | | | of melanoma. | | | | | | AMILCAR/jyi09/22/2001 cc: | | | | | | Manolo Hudson M.D. | | | | | | Juan A Luna, | | | | | | Jesus | | | | | | Diagnostician: Ayush | | | | | | Tameka Reddy Jr., | | | | | | M.D.PathologistElectroni | | | | | | wilberto Signed | | | | | | 09/22/2001Comment: | | | | | | SOURCE OF SPECIMEN: | | | | | | FIRST TISSUE LEVEL IV | | | | | | [id number]-OKYIY TISSUE [place]EVEL | | | | | | [place] [address] | | | | + + + + + + + + | Specimen | + + | | + + + + + + + | Performing | Address | City/State/Zipcode | Phone Number | | Organization | | | | + + + + + | [facility] | Mailcode CH[address]D, [address] | [place] [address] | | | DERMATOPATHOLOGY | [address] | | | + + + + + documented in this encounter Visit Diagnoses Not on filedocumented in this encounter"
--- OUTSIDE RECORDS SUMMARY | ~2019-07-03 | XMS | Encounter Summary ---
Demographics + + + | Address | [address] | | | [place] [address] | + + + | Home Phone [...] + | Author | [facility] | | | and Humbertoana | + + + | Organization | [facility] | | | and Humbertoana [...] [place] | | | | | [address] | | + + + + + | Daina Mazariegos | ECON | Unknown | | + + + + + Care Team Providers + +------+ + | Care Internet Developer Name | Role | Phone | + [...] 2013 | | PHYSIATRY [address] | RN CLINICAL QUALITY | (Primary Dx) | | | | [place], | | | | | | [place] [address] | | | | | | [phone] | | | +--------+ + + + [...] 719.45, HIP PAIN. Ms. Mae WorleyCorneliustamra | [facility] | | presents to the fluoroscopy suite [...] ST. | [address] | [place], [place] | [phone] | | [facility] | | [address] | | | - IMAGING | | | | + + + + + documented in this encounter Visit Diagnoses + + | Diagnosis | + + | Right hip pain - Primary Pain in joint, pelvic region and thigh | + + documented in this encounter"
--- OUTSIDE RECORDS SUMMARY | ~2019-07-03 | XMS | Encounter Summary ---
Demographics + + + | Address | [address] | | | [place] [address] | + + + | Home Phone [...] Team Providers + +------+ + | Care Remedial Project Manager Name | Role | Phone | [...] as of this encounter Progress Notes Dago, Junior Account Manager In - 06/10/2006 1:01 AM PSTCLINIC DATE: [...] them. Bebe Claros M.D. ISSAC / MADELINE [id number] / [id number] / [id number] / [id number] signed by Dago, Junior Account Manager In at 06/10/2006 1:01 AM PSTdocume nted in this encounter Plan of Treatment Not on filedocumented as of this encounter Visit Diagnoses Not on filedocumented in this encounter
--- OUTSIDE RECORDS SUMMARY | ~2019-07-03 | XMS | Encounter Summary ---
Demographics + + + | Address | [address] | | | [place] [address] | + + + | Home Phone | | + + + | Preferred Language | Unknown | + + + | Marital Status | | + + + | Jainism Affiliation | NON | + + + | Race | White | + + + | Ethnic Group | Not or | + + + Author + + + | Author | [facility] | + + + | Organization | [facility] | + + + | Address | [...] Providers + +------+ + | Care Supervisor Mainspring Fabrication Name | Role | Phone | + +------+ + PCP | Unavailable | + +------+ + Encounter Details +--------+ + + + + | Date | Type | Department | Care Team | Description | +--------+ + + + + | 02/06/ | Results | Neurosurgery [address] | Bebe Claros MD | | | 1998 | Only | [address] | [address] | | | | | [address] Mailcode:OP14B | [place], [place] | | | | | [place] | [address] | | | | | [place], [place] | [phone] | | | | | [address] | | | | | | [phone] | | | +--------+ + + + [...] | | + +---------+ + + | [facility] DEPARTMENT OF | | | | | RADIOLOGY | | | | + +---------+ + + documented in this encounter Visit Diagnoses Not on filedocumented in this encounter"
--- OUTSIDE RECORDS SUMMARY | ~2019-07-03 | XMS | Encounter Summary ---
Demographics + + + | Address | [address] | | | [place] [address] | + + + | Home Phone [...] Team Providers + +------+ + | Care Residential Real Estate Sales Manager Name | Role | Phone | [...] | | | | | Therapy Center [address] | [place], [place] | | | | | [address] | [address] | | | | | Outpatient Therapy | [phone] | | | | | Center 2nd floor | | | | | | Mailcode: OP26 | | | | | | [place], [place] | | | | | | [address] | | | | | | [phone] | | | +--------+ + + + [...]
--- OUTSIDE RECORDS SUMMARY | ~2019-07-03 | XMS | Encounter Summary ---
Demographics + + + | Address | [address] | | | [place] [address] | + + + | Home Phone [...] Providers + +------+ + | Care Air Intercept Controller Name | Role | Phone | + [...] as of this encounter Progress Notes Dago, Scratch Polisher In - 04/08/2006 6:10 AM PDTCLINIC DATE: [...] pain. Bebe Claros M.D. ISSAC / MADELINE [id number] / [id number] / [id number] / [id number] signed by Dago, Scratch Polisher In at 04/08/2006 6:10 AM PDTdoc umented in this encounter Plan of Treatment Not on filedocumented as of this encounter Visit Diagnoses Not on filedocumented in this encounter"
--- OUTSIDE RECORDS SUMMARY | ~2019-07-03 | XMS | Encounter Summary ---
Demographics + + + | Address | [address] | | | [place] [address] | + + + | Home Phone [...] Team Providers + +------+ + | Care Stud Master/Mistress Name | Role | Phone | + [...] as of this encounter Progress Notes Interface, Document Improvement Specialist In - 07/15/2006 3:10 AM [facility] OR [facility] and [place] [address] [place], [place] [address] or November 25, 1998 [place] [address] [place] [address] RE: Mae Jose MR#: [id number] Madden: I saw Mae Jose back in the Neurosurgery Clinic at [facility] today. She is still not doing very [...] her progress during this trial procedure. Sincerely, Beeb Claros M.D. Professor and Nuclear Fuels Reclamation Engineer, Department of Neurological Surgery KB:x11 #[id number] signed by Interface, Document Improvement Specialist In at 07/15/2006 3:10 AM PSTdocumen ric in this encounter Plan of Treatment Not on filedocumented as of this encounter Visit Diagnoses Not on filedocumented in this encounter"
--- OUTSIDE RECORDS SUMMARY | ~2019-07-03 | XMS | Encounter Summary ---
Demographics + + + | Address | [address] | | | [place] [address] | + + + | Home Phone [...] Author | [facility] | | | and Humbertoana | + + + | Organization | [facility] | | | and [...] [place] | | | | | [address] | | + + + + + | Daina Mazariegos | ECON | Unknown | | + + + + + Care Team Providers + +------+ + | Care Electronic Train Control Technician Name | Role | Phone | + +------+ + | Noe Thomason | PCP | | | MD | | | + +------+ + Encounter Details +--------+ + + + + | Date | Type | Department | Care Team | Description | +--------+ + + + + | 07/12/ | Hospital | [facility] | Babigg[facility]andon[facility]uy[facility]ohan | Right hip pain | | 2012 | Encounter | MED CTR XRAY [address] | | | | | [address] | [address] [place], [place] | | | | | [place] [address] | [address] | | | | | [phone] | | | +--------+ + + + [...] + +--------+ + + + | XR HIP RIGHT 2 + VW | Routin | 07/12/2013 | Right hip pain | Results for this | | | e | 10:39 AM | | procedure are in the | | | | PST | | results section. | + +--------+ + + + documented in this encounter Results XR Hip Right 2 + Vw (07/12/2013 10:39 AM PST) + + | Specimen | + + | | + + + + + | Narrative | Performed At | + + + | [facility] Diagnostic Imaging | [facility] | | Department [address] [place] [address] [facility] | | [ rep [address]] [ rep [facility] | | [facility]] Signed | - IMAGING | | | | | Patient Name: MAE THOMPSON | | | Physician: KEILA : 1960 Age: 52 Sex: F Unit | | | #: [id number] Exam Date: 07/12/13 Location: | | | [facility] Report #: [id number] Page: | | | %(RAD)RES..mtdd.print.filter("pg") of %(RAD) | | | RES..mtdd.print.filter("tpg") | | | | | | Accession Number: [id number] | | | PELVIS AND RIGHT HIP, [...] Transcribed Date/Time: 07/12/2013 | | | 10:58 Shield Runner: AKASH <<Signature | | | on File>> | | | Rui Shaver | | | MD Nguyễn07/12/13 5472 <Electronically signed by Rui Adrian MD> | | | Rui Adrian MD 07/12/13 1039 Shield Runner: | | | [employer] Uuhvmyffhmzsl34/19/13 1058 Mohan Bunn MD | | | | | + + + + + + + + | Performing | Address | City/State/Zipcode | Phone Number | | Organization | | | | + + + + + | [facility] | [address] | [place] | [phone] | | [facility] | | [address] | | | - IMAGING | | | | + + + + + documented in this encounter Visit Diagnoses + + | Diagnosis | + + | Right hip pain Pain in joint, pelvic region and thigh | + + documented in this encounter
--- OUTSIDE RECORDS SUMMARY | ~2019-07-03 | XMS | Encounter Summary ---
Demographics + + + | Address | [address] | | | [place] [address] | + + + | Home Phone [...] Team Providers + +------+ + | Care Optoelectronic Technician Name | Role | Phone | [...] as of this encounter Progress Notes Interface, Interactive Art Director In - 06/27/2006 3:15 AM PSTCLINIC DATE: [...] present. OBJECTIVE: Using the spinal cord stimulator principal programmer, the patient's internal post-generator was analyzed. [...] Reshma Mosquera R.N., M.A. LEWIS / MADELINE [id number] / [id number] / [id number] / Tdocumented in this encounter Plan of Treatment Not on filedocumented as of this encounter Visit Diagnoses Not on filedocumented in this encounter
--- OUTSIDE RECORDS SUMMARY | ~2019-07-03 | XMS | Encounter Summary ---
Demographics + + + | Address | [address] | | | [place] [address] | + + + | Home Phone | | + + + | Preferred Language | Unknown | + + + | Marital Status | | + + + | Mormon Affiliation | NON | + + + [...] Team Providers + +------+ + | Care Sap Basis Architect Name | Role | Phone | [...] as of this encounter Progress Notes Interface, Varnish Supervisor In - 06/06/2006 2:31 AM PSTCLINIC DATE: [...] internal pulse generator was analyzed, but the programmer analyst health it was unable to read the parameters that the patient had been using. A call was placed to the soda room operator of the stimulator, and a technical aide reported several instances of damaged circuitry in [...] Reshma Mosquera R.N., M.A. LEWIS / MADELINE [id number] / [id number] / 13634 / [id number] signed by Interface, Varnish Supervisor In at 06/06/2006 2:31 AM PSTdocume nted in this encounter Plan of Treatment Not on filedocumented as of this encounter Visit Diagnoses Not on filedocumented in this encounter"
--- OUTSIDE RECORDS SUMMARY | ~2019-07-03 | XMS | Encounter Summary ---
Demographics + + + | Address | [address] | | | [place] [address] | + + + | Home Phone [...] Team Providers + +------+ + | Care Mileage Clerk Name | Role | Phone | [...] | Transcriptions | + + | Interface, Test Architect In - 04/05/2006 1:08 AM PDT | | [place] [address] [address] | | [place], [place] [address] | | [facility]ORDMed Rec No.: | | [...] was carried out at L3, L4, and E5dhmyx Torres retractors and Bovie | | electrocautery. [...] pedicles.Once | | this was accomplished, the [employer] high-speed drill was then used toplace fuel pilot engineer | | holes over the L4 and [...] to the supine position on a [facility] where she was awakenedand | | extubated by the anesthesiologist. Shew was then taken to the PostAnesthesia Care | | Unit in stable condition.Allan Mercado M.D. Bebe Claros, | | Marco AntonioMS:x11D: 10/09/2001T: 10/10/[id number]: | |margin of L5 bilaterally was performed to facilitate exposure and palpation | |of the L4-5 pedicles. | | | |Once this was accomplished, the [employer] high-speed drill was then used to | |place fuel pilot engineer holes over the L4 and L5 pedicles bilaterally using a | |combination of direct visualization and fluoroscopy for guidance. Once the | |fuel pilot engineer holes were placed, a pedicle probe was [...] |returned to the supine position on a [facility] where she was awakened | |and extubated by the anesthesiologist. Shew was then taken to the Post | |Anesthesia Care Unit in stable condition. | | | | | | | |Allan Mercado M.D. Bebe Claros M.D. | | | |MS:x11 | | | | | | | | | |[id number] | | | |CC: | + + documented in this encounter Visit Diagnoses Not on filedocumented in this encounter"
--- OUTSIDE RECORDS SUMMARY | ~2019-07-03 | XMS | Encounter Summary ---
Demographics + + + | Address | [address] | | | [place] [address] | + + + | Home Phone [...] Team Providers + +------+ + | Care Nat Instructor Name | Role | Phone | [...] as of this encounter Progress Notes Interface, Sample Builder In - 05/03/2006 3:07 AM PDTCLINIC DATE: [...] spine position. 2. Perform transitional motion from qahfdi-tx-khk and fss-jr-rcpqb utilizing neutral lumbar spine technique. 3. The [...] weeks. Mandi Alvarado P.T. KADE / MADELINE [id number] / [id number] / [id number] / C: 04/13/2001 la [id number] signed by Interface, Sample Builder In at 05/03/2006 3:07 AM PDTdocume nted in this encounter Plan of Treatment Not on filedocumented as of this encounter Visit Diagnoses Not on filedocumented in this encounter"
--- OUTSIDE RECORDS SUMMARY | ~2019-07-03 | XMS | Encounter Summary ---
Demographics + + + | Address | [address] | | | [place] [address] | + + + | Home Phone | | + + + | Preferred Language | Unknown | + + + | Marital Status | | + + + | Nondenominational Affiliation | 1041 | + + + | Race | Unknown | + + + | Ethnic Group | Unknown | + + + Author + + + | Author | [facility] | | | and Humbertoana | + + + | Organization | [facility] | | | and [...] [place] | | | | | [address] | | + + + + + | Daina Mazariegos | ECON | Unknown | | + + + + + Care Team Providers + +------+ + | Care Railroad Repairer Name | Role | Phone | [...] | SR | | | | | [phone] | | | +--------+ + + + [...]
--- OUTSIDE RECORDS SUMMARY | ~2019-07-03 | XMS | Encounter Summary ---
Demographics + + + | Address | [address] | | | [place] [address] | + + + | Home Phone | | + + + | Preferred Language | Unknown | + + + | Marital Status | | + + + | Roman Catholic Affiliation | NON | + + [...] Team Providers + +------+ + | Care Cord Splicer Name | Role | Phone | + [...] | Transcriptions | + + | Interface, Trial Court Justice In - 07/29/2006 5:03 AM PST | | [facility] | | [place], [place] [address] University | | [facility] HospitalOPERATION RECORDMed Rec No.: [id number] Date: | | 06/23/1998Name: Thao Dietrich SURGEON: Bebe Claros M.D. | | Professor and Salesperson [employer]ial [employer], | | Department of Neurological Surgery | [...] slightly curvilinear | | incision was made detention between the trochantermajor and the ischial tuberosity. [...] Bebe Claros M.D. | | Professor and Salesperson [employer], | | Department of Neurological Surgery | [...] Bebe Claros M.D. | | Professor and Salesperson [employer], | | Department of Neurological Surgery | | | | | |EVELINA/paras | | | | A | | | |cc: | + + documented in this encounter Visit Diagnoses Not on filedocumented in this encounter"
--- OUTSIDE RECORDS SUMMARY | ~2019-07-03 | XMS | Encounter Summary ---
Demographics + + + | Address | [address] | | | [place] [address] | + + + | Home Phone | | + + + | Preferred Language | Unknown | + + + | Marital Status | | + + + | Spiritism Affiliation | NON | + + + | Race | White | + + + | Ethnic Group | Not or | + + + Author + + + | Author | [facility] | + + + | Organization | [facility] | + + + [...] Team Providers + +------+ + | Care Anode Adjuster Name | Role | Phone | + [...] Clinic | | | | | | [facility], [address] | | | | | | [place], [place] | | | | | | [address] | | | | | | [phone] | | | +--------+ + + + [...] | | | | | MNT) | [address] CLINICAL | | | | | | [...] [place] | | | | | | [address] | | | | + + + + + + + + | Specimen | + + | | + + + + + + + | Performing | Address | City/State/Zipcode | Phone Number | | Organization | | | | + + + + + | [facility] | [address]code [address], [address] | [place] [address] | | | DERMATOPATHOLOGY | [address] [...] | | | | | MNT) | [id number] OF | | | | | | SPECIMEN: FIRST TISSUE | | | | | | [place] [address] | | | | | | CLINICAL [...] M.D.PathologistElectroni | | | | | | wliberto Signed | | | | | | 09/22/2001Comment: | | | | | | SOURCE OF SPECIMEN: | | | | | | FIRST TISSUE LEVEL IV | | | | | | [address]-QSPAC TISSUE LEVEL | | | | | | [place] [address] | | | | + + + + + + + + | Specimen | + + | | + + + + + + + | Performing | Address | City/State/Zipcode | Phone Number | | Organization | | | | + + + + + | [facility] | Mailcode [address], [address] | [place] [address] | | | DERMATOPATHOLOGY | [address] | | | + + + + + documented in this encounter Visit Diagnoses Not on filedocumented in this encounter"
--- OUTSIDE RECORDS SUMMARY | ~2019-07-03 | XMS | Encounter Summary ---
Demographics + + + | Address | [address] | | | [place] [address] | + + + | Home Phone [...] Team Providers + +------+ + | Care Extruder Operator Horizontal Name | Role | Phone | + [...] as of this encounter Progress Notes Interface, Clinical Study Manager In - 06/30/2006 1:11 AM [facility] OR [facility] and [place] [address] [place], [place] [address] or June 09, 1999 Khari Ying M.D. [address], [address] [place] [address] RE: MAE JOSE MR #: [id number] Dear Dr. Ying: I saw Mae Jose [...] and I will be meeting with her roofer probably within the next month or so. Overall, I think she is doing a bit better and I think we should continue to encourage her that this will be a long process of recovery. Sincerely, Bebe Claros M.D. Professor and 4Th Grade Teacher Department of Neurosurgery ISSAC / MADELINE [id number] / [id number] / [id number] / slk [id number] signed by Interface, Clinical Study Manager In at 06/30/2006 1:11 AM PSTdocume nted in this encounter Plan of Treatment Not on filedocumented as of this encounter Visit Diagnoses Not on filedocumented in this encounter"
--- OUTSIDE RECORDS SUMMARY | ~2019-07-03 | XMS | Encounter Summary ---
Demographics + + + | Address | [address] | | | [place] [address] | + + + | Home Phone [...] Team Providers + +------+ + | Care Cvir Tech Name | Role | Phone | [...] as of this encounter Progress Notes Interface, Wine Maker In - 04/05/2006 1:08 AM PDTCHIEF COMPLAINT: [...] saucerization biopsy for this. Carlos Hudson M.D. Associate Chemist, Dermatology Otolaryngology - Head and Neck Surgery KKL/randy A 1: 08 AM PDTInterface, Wine Maker In - 04/05/2006 1:08 AM PDT O [...]
--- OUTSIDE RECORDS SUMMARY | ~2019-07-03 | XMS | Encounter Summary ---
Demographics + + + | Address | [address] | | | [place] [address] | + + + | Home Phone | | + + + | Preferred Language | Unknown | + + + | Marital Status | | + + + | Uatsdin Affiliation | NON | + + + [...] Team Providers + +------+ + | Care Construction Cost Estimator Name | Role | Phone | + [...] | Transcriptions | + + | Interface, Child Welfare Director In - 07/10/2006 3:08 AM PST | | [facility] | | [place], [place] [address] University | | [facility] HospitalOPERATION RECORDMed Rec No.: [id number] Date: | [...]
--- OUTSIDE RECORDS SUMMARY | ~2019-07-03 | XMS | Encounter Summary ---
Demographics + + + | Address | [address] | | | [place] [address] | + + + | Home Phone [...] Team Providers + +------+ + | Care Heating And Refrigeration Inspector Name | Role | Phone | [...] as of this encounter Progress Notes Interface, Acid Filler In - 07/08/2006 1:11 AM [facility] OR [facility] and [place] [address] [place], [place] [address] or February 03, 1999 [place] [address] [place] [address] RE: Mae Dietrich MR#: [id number] [...] Bebe Claros M.D. Instructor, Stereotactic Professor and Embroiderer, and Functional Neurosurgery Department of Neurological Surgery [id number]:[id number] C: 02/12/1999 hermila C: 03/16/1999 corwin [id number] signed by Interface, Acid Filler In at 07/08/2006 1:11 AM PSTdocume nted in this encounter Plan of Treatment Not on filedocumented as of this encounter Visit Diagnoses Not on filedocumented in this encounter"
--- OUTSIDE RECORDS SUMMARY | ~2019-07-03 | XMS | Encounter Summary ---
Demographics + + + | Address | [address] | | | [place] [address] | + + + | Home Phone | | + + + | Preferred Language | Unknown | + + + | Marital Status | | + + + | Restorationist Affiliation | 1041 | + + + | Race | Unknown | + + + | Ethnic Group | Unknown | + + + Author + + + | Author | [facility] | | | and Humbertoana | + + + | Organization | [facility] | [...] [place] | | | | | [address] | | + + + + + | Daina Mazariegos | ECON | Unknown | | + + + + + Care Team Providers + +------+ + | Care Brick Stacker Name | Role | Phone | + [...] | | | | Procedures | [place], [place] | [address] Phone: | | | | | [place] | [address] | [phone] | | | | | DRAIN/INJECT | Phone: | Fax: | | | | | LARGE | [phone] | [phone] | | | | | JOINT/BURSA | Fax: | | | | | | Bilateral | [phone] | | | | | | Trochanteric [...] + + | 09/19/ | Office | [facility] | Mohan Bunn | Bursitis, hip | | 2012 | Visit | PHYSIATRY [address] | [address], [address] | (Primary Dx); | | | | [place], | [place], [place] | Sacroiliitis - | | | | [place] [address] | [address] | right; Hx of spinal | | | | [phone] | | fusion; BACK PAIN, | | [...] offered her a right trochanteric bursa in critical access hospital and she did wish to proceed. The [...]
--- OUTSIDE RECORDS SUMMARY | ~2019-07-03 | XMS | Encounter Summary ---
Demographics + + + | Address | [address] | | | [place] [address] | + + + | Home Phone | | + + + | Preferred Language | Unknown | + + + | Marital Status | | + + + | Taoist Affiliation | 1041 | + + + | Race | Unknown | + + + | Ethnic Group | Unknown | + + + Author + + + | Author | [facility] | | | and Humbertoana | + + + | Organization | [facility] | | | and Humbertoana [...] [place] | | | | | [address] | | + + + + + | Daina Mazariegos | ECON | Unknown | | + + + + + Care Team Providers + +------+ + | Care Survey Project Manager Name | Role | Phone | + +------+ + | Noe Thomason | PCP | | | MD | | | + +------+ + Encounter Details +--------+ + + + + | Date | Type | Department | Care Team | Description | +--------+ + + + + | 07/12/ | Hospital | [facility] | BabiggbrandonchuyMohan | Right hip pain | | 2012 | Encounter | MED CTR XRAY [address] | [address], [address] | | | | | [place] | ST [place], [place] | | | | | [place] [address] | 4[address]62 | | | | | [phone] | | | +--------+ + + + [...] Performed At | + + + | [facility] | [place] | | Department [address] [place] [address] [facility] | | [ rep [address]] [ rep [facility] | | [facility]] Signed | - IMAGING | | | | | Patient Name: MAE THOMPSON | | | Physician: KEILA : 1960 Age: 52 Sex: F Unit | | | #: [id number] Exam Date: 07/12/13 Location: | | | [facility] Report #: [id number] Page: | | | %(RAD)RES..mtdd.print.filter("pg") of %(RAD) | | | RES..mtdd.print.filter("tpg") | | | | | | Accession Number: [id number] | | | PELVIS AND RIGHT HIP, [...] Transcribed Date/Time: 07/12/2013 | | | 10:58 Patient Scheduling Manager: AKASH <<Signature | | | on File>> | | | Rui Shaver | | | MD Nguyễn07/12/13 2192 <Electronically signed by Rui Adrian MD> | | | Rui Adrian MD 07/12/13 1039 Patient Scheduling Manager: | | | [employer] Wrmqcebewhywi52/19/13 1058 Mohan Bunn MD | | | | | + + + + + + + + | Performing | Address | City/State/Zipcode | Phone Number | | Organization | | | | + + + + + | [address] | [address] | [place] | [phone] | | [facility] | | [address] | | | - IMAGING | | | | + + + + + documented in this encounter Visit Diagnoses + + | Diagnosis | + + | Right hip pain Pain in joint, pelvic region and thigh | + + documented in this encounter
--- OUTSIDE RECORDS SUMMARY | ~2019-07-03 | XMS | Encounter Summary ---
Demographics + + + | Address | [address] | | | [place] [address] | + + + | Home Phone [...] Team Providers + +------+ + | Care Telecommunications Repairer Name | Role | Phone | [...] as of this encounter Progress Notes Interface, Reporting Lead In - 06/02/2006 1:03 AM PSTCLINIC DATE: [...] our clinic. Lynne Hein R.N., B.A. / [id number] / [id number] / [id number] / [id number] signed by Interface, Reporting Lead In at 06/02/2006 1:03 AM PSTdocume nted in this encounter Plan of Treatment Not on filedocumented as of this encounter Visit Diagnoses Not on filedocumented in this encounter
--- OUTSIDE RECORDS SUMMARY | ~2019-07-03 | XMS | Encounter Summary ---
Demographics + + + | Address | [address] | | | [place] [address] | + + + | Home Phone | | + + + | Preferred Language | Unknown | + + + | Marital Status | | + + + | Alevism Affiliation | NON | + + + | Race | White | + + + | Ethnic Group | Not or | + + + Author + + + | Author | [facility] | + + + | Organization | [facility] | + + + | [...] Team Providers + +------+ + | Care Aircraft Engine Mechanic Name | Role | Phone | [...] | | | | Rd Mailcode:[address] | [place], [place] | | | | | [address] | [address] | | | | | [place], [place] | [phone] | | | | | [address] | | | | | | [phone] | | | +--------+ + + + [...]
--- OUTSIDE RECORDS SUMMARY | ~2019-07-03 | XMS | Encounter Summary ---
Demographics + + + | Address | [address] | | | [place] [address] | + + + | Home Phone [...] Providers + +------+ + | Care Field Education Director Name | Role | Phone | [...] | | | | Rd Mailcode:[address] | [place], [place] | | | | | [employer] | [address] | | | | | [place], [place] | [phone] | | | | | [address] | | | | | | [phone] | | | +--------+ + + + [...] | | + +---------+ + + | [facility] DEPARTMENT OF | | | | | RADIOLOGY | | | | + +---------+ + + documented in this encounter Visit Diagnoses Not on filedocumented in this encounter"
--- OUTSIDE RECORDS SUMMARY | ~2019-07-03 | XMS | Encounter Summary ---
Demographics + + + | Address | [address] | | | [place] [address] | + + + | Home Phone [...] Providers + +------+ + | Care Telecommunications Analyst Name | Role | Phone | [...] as of this encounter Progress Notes Interface, Copy Editor In - 07/15/2006 3:10 AM [facility] OR [facility] and [place] [address] [place], [place] [address] or December 11, 1998 [place] [address] [place] [address] RE: MAE LOWRY MR#: [id number] [...] time. Sincerely, Marco Antonio Rausch/prince RE Davis, Copy Editor In - 07/15/2006 3:10 AM [facility] OR [address] [address] or December 11, 1998 [place] [address] [place] [address] RE: MAE JOSE MR#: [id number] [...] at that time. Sincerely, Marco Antonio Rausch/prince [id number] signed by Interface, Copy Editor In at 07/15/2006 3:10 AM PSTflori larios in this encounter Plan of Treatment Not on filedocumented as of this encounter Visit Diagnoses Not on filedocumented in this encounter"
--- OUTSIDE RECORDS SUMMARY | ~2019-07-03 | XMS | Encounter Summary ---
Demographics + + + | Address | [address] | | | [place] [address] | + + + | Home Phone | | + + + | Preferred Language | Unknown | + + + | Marital Status | | + + + | Restoration Affiliation | 1041 | + + + | Race | Unknown | + + + | Ethnic Group | Unknown | + + + Author + + + | Author | [facility] | | | and [place]toana | + + + | Organization | [facility] | | | and [place] | + + + | Address | Unknown | + + + | Phone | Unavailable | + + + Support + + + + + | Name | Relationship | Address | Phone | + + + + + | Liam Diterich | ECON | [address] | | | | | [place] | | | | | [address] | | + + + + + | Daina Mazariegos | ECON | Unknown | | + + + + + Care Team Providers + +------+ + | Care Button Bradder Name | Role | Phone | + [...] | | | [place], | [address] | | | | | Sacroiliitis | Mohan Andrews MD | [place], | | | | | (HCC) | [address] | [place] | | | | | Procedures | [place] | [address] | | | | | [place] INJECT SI | [place], [place] | Phone: | | | | | JOINT | [address] | [phone] | | | | | ARTHRGRPHY&/ | Phone: | Fax: | | | | | ANES/STEROID | [phone] | [phone] | | | | | W/IMAGE [place] | Fax: | | | | | | | [phone] | | | | | | TRIAMCINOLON [...] + + | 11/10/ | Hospital | [facility] | Yohannesgertrude, | S/P lumbar fusion - | | 2015 | Encounter | MED CTR XRAY [address] | [address] [place] [address] | L4/L5; Status post | | | | [place] | [place], | right hip | | | | [place] [address] | [place] [address] | replacement; | | | | [phone] | [phone] | Sacroiliitis, not | | | | | | elsewhere classified | | | | | Pediatric Speech Language PathologistZora | ([facility]) | +--------+ + + + + Social [...] M46.1 Mae Jones EliseozackShruti presents to | [facility] | | the fluoroscopy suite for fluoroscopically [...] | + + + + + | [facility] | [address] | [place] | [phone] | | [facility] | | [address] | | | - IMAGING | | [...] ICD-10 M46.1 Mae Hernández presents to | [facility] | | the fluoroscopy suite for fluoroscopically guided bilateral [facility] | | sacroiliac joint steroid injections as [...] ST. | [address] | [place] | [phone] | | [facility] | | [address] | | | - IMAGING | | [...]
--- OUTSIDE RECORDS SUMMARY | ~2019-07-03 | XMS | Encounter Summary ---
Demographics + + + | Address | [address] | | | [place] [address] | + + + | Home Phone | | + + + | Preferred Language | Unknown | + + + | Marital Status | | + + + | Anabaptism Affiliation | 1041 | + + + | Race | Unknown | + + + | Ethnic Group | Unknown | + + + Author + + + | Author | [facility] | | | and Humbertoana | + + + | Organization | [facility] | | | and [place]toana | [...] [place] | | | | | [address] | | + + + + + | Daina Mazariegos | ECON | Unknown | | + + + + + Care Team Providers + +------+ + | Care Journeyman Millwright Name | Role | Phone | + [...] [address] | | | | | [place], | [place], [place] | | | | | [place] [address] | [address] | | | | | [phone] | | | +--------+ + + + [...]
--- OUTSIDE RECORDS SUMMARY | ~2019-07-03 | XMS | Encounter Summary ---
Demographics + + + | Address | [address] | | | [place] [address] | + + + | Home Phone [...] Team Providers + +------+ + | Care Collating Machine Operator Name | Role | Phone [...] as of this encounter Progress Notes Interface, Plodding Machine Operator In - 06/12/2006 1:05 AM [facility] OR [facility] and [place] [address] [place], [place] [address] or December 24, 1999 Khari Ying [place].D. [address] [place] [address] RE: MAE CHRISTY MR #: [id number] Dear Dr. Ying: I saw the patient [...] just prior to her initial implant. Sincerely, Bebe Claros M.D. ISSAC / [place] [id number] / [id number] / [id number] / [id number] signed by Interface, Plodding Machine Operator In at 06/12/2006 1:05 AM PSTdocume nted in this encounter Plan of Treatment Not on filedocumented as of this encounter Visit Diagnoses Not on filedocumented in this encounter"
--- OUTSIDE RECORDS SUMMARY | ~2019-07-03 | XMS | Encounter Summary ---
Demographics + + + | Address | [address] | | | [place] [address] | + + + | Home Phone | | + + + | Preferred Language | Unknown | + + + | Marital Status | | + + + | Synagogue Affiliation | 1041 | + + + | Race | Unknown | + + + | Ethnic Group | Unknown | + + + Author + + + | Author | [facility] | | | and [place]toana | + + + | Organization | [facility] | | | and Humbertoana [...] [place] | | | | | [address] | | + + + + + | Daina Mazariegos | ECON | Unknown | | + + + + + Care Team Providers + +------+ + | Care Director Employee Communications Name | Role | Phone | + [...] 2013 | | PHYSIATRY [address] | COLLECTION OFFICER | | | | | [place], | | | | | | [place] [address] | | | | | | [phone] | | | +--------+ + + + [...]
--- OUTSIDE RECORDS SUMMARY | ~2019-07-03 | XMS | Encounter Summary ---
Demographics + + + | Address | [address] | | | [place] [address] | + + + | Home Phone [...] Providers + +------+ + | Care Supervisor Metal Furniture Assembly Name | Role | Phone | + [...] as of this encounter Progress Notes Interface, Stucco Applicator In - 04/08/2006 6:10 AM PDTCLINIC DATE: [...] day. Jefferson Munroe M.D. [place] / [place] [id number] / [id number] / [id number] / C: 09/12/2001 [facility] [id number] signed by Interface, Stucco Applicator In at 04/08/2006 6:10 AM PDTdoc umented in this encounter Plan of Treatment Not on filedocumented as of this encounter Visit Diagnoses Not on filedocumented in this encounter"
--- OUTSIDE RECORDS SUMMARY | ~2019-07-03 | XMS | Encounter Summary ---
Demographics + + + | Address | [address] | | | [place] [address] | + + + | Home Phone [...] Team Providers + +------+ + | Care Package Liner Name | Role | Phone | + [...] as of this encounter Progress Notes Interface, Dining Car Waiter/Waitress In - 07/02/2006 5:08 AM PSTCLINIC DATE: [...] M.D. Instructor, Stereotactic and Functional Neurosurgery / [id number] / [id number] / [id number] / Tdocumented in this encounter Plan of Treatment Not on filedocumented as of this encounter Visit Diagnoses Not on filedocumented in this encounter"
--- OUTSIDE RECORDS SUMMARY | ~2019-07-03 | XMS | Encounter Summary ---
Demographics + + + | Address | [address] | | | [place] [address] | + + + | Home Phone [...] + + + | Author | [facility] | + + + | Organization | [facility] | + + + | [...] Team Providers + +------+ + | Care Town Planner Name | Role | Phone | + +------+ + | Noe Thomason MD | PCP | | + +------+ + Encounter Details +--------+ + + + + | Date | Type | Department | Care Team | Description | +--------+ + + + + | 10/28/ | Results | [facility] Comprehensive | Roger Fatima MD | | | 2006 | Only | Pain Center at | [address] | | | | | [facility] | [place], [place] | | | | | [address] | [address] | | | | | Mailcode: CH15P | [phone] | | | | | [place] for [facility] | | | | | | and Healing, | | | | | | | | | | | | Floor [place], [place] | | | | | | [address] | | | | | | [phone] | | | +--------+ + + + [...]
--- OUTSIDE RECORDS SUMMARY | ~2019-07-03 | XMS | Encounter Summary ---
Demographics + + + | Address | [address] | | | [place] [address] | + + + | Home Phone | | + + + | Preferred Language | Unknown | + + + | Marital Status | | + + + | Gnosticism Affiliation | 1041 | + + + | Race | Unknown | + + + | Ethnic Group | Unknown | + + + Author + + + | Author | [facility] | | | and [place]to[place] | + + + | Organization | [facility] | | | and [place]ana [...] [place] | | | | | [address] | | + + + + + | Daina Mazariegos | ECON | Unknown | | + + + + + Care Team Providers + +------+ + | Care Irrigation Teacher Name | Role | Phone | [...] + + | 06/11/ | Telephone | [facility] [place] | Mohan Bunn | Other (Discuss pain) | | 2012 | | PHYSIATRY [address] | [address] | | | | | [place], | [place], [place] | | | | | [place] [address] | [address] | | | | | [phone] | | | +--------+ + + + [...]
--- OUTSIDE RECORDS SUMMARY | ~2019-07-03 | XMS | Encounter Summary ---
Demographics + + + | Address | [address] | | | [place] [address] | + + + | Home Phone [...] Team Providers + +------+ + | Care Rv Service Technician Name | Role | Phone | [...]
--- OUTSIDE RECORDS SUMMARY | ~2019-07-03 | XMS | Encounter Summary ---
Demographics + + + | Address | [address] | | | [place] [address] | + + + | Home Phone | | + + + | Preferred Language | Unknown | + + + | Marital Status | | + + + | Shinto Affiliation | NON | + + + [...] Team Providers + +------+ + | Care Card Hanger Name | Role | Phone | + [...] as of this encounter Progress Notes Interface, Site Lead In - 06/08/2006 1:08 AM PSTCLINIC DATE: [...] procedures. Dima Treviño B.S.C., MMaiteS. / [place] [id number] / [id number] / [id number] / [id number] signed by Interface, Site Lead In at 06/08/2006 1:08 AM PSTdocume nted in this encounter Plan of Treatment Not on filedocumented as of this encounter Visit Diagnoses Not on filedocumented in this encounter"
--- OUTSIDE RECORDS SUMMARY | ~2019-07-03 | XMS | Encounter Summary ---
Demographics + + + | Address | [address] | | | [place] [address] | + + + | Home Phone [...] Providers + +------+ + | Care Steam Oven Operator Name | Role | Phone | [...] + + | 11/03/ | Telephone | [facility] | Roger Fatima MD | Follow-up encounter | | 2006 | | Pain Center at | [address] | | | | | [facility] | [place], [place] | | | | | [address] | [address] | | | | | Mailcode: CH15 | [phone] | | | | | [facility] | | | | | | and Healing, | | | | | | Building | | | | | | Floor [place], [place] | | | | | | [address] | | | | | | [phone] | | | +--------+ + + + [...]
--- OUTSIDE RECORDS SUMMARY | ~2019-07-03 | XMS | Encounter Summary ---
Demographics + + + | Address | [address] | | | [place] [address] | + + + | Home Phone [...] Team Providers + +------+ + | Care Network Project Manager Name | Role | Phone | + +------+ + PCP | Unavailable | + +------+ + Encounter Details +--------+ + + + + | Date | Type | Department | Care Team | Description | +--------+ + + + + | 01/30/ | Transcribed | Allergy Clinic at | Dictation, Other | Transcribed | | 1997 | | [facility] [address] | | | | | | Rohith Kelly | | | | | | Mailcode: OP[address] | | | | | | Dave Sweeney | | | | | | [facility] | | | | | | [place] [address] | | | | | | [phone] | | | +--------+ + + + [...] as of this encounter Progress Notes Interface, Attractions Associate In - 08/11/2006 3:03 AM PST [address] [address] or December 31, 1997 [place] [address] [address] RE:MAE LOWRY MR#:[id number] Madden: I [...] future. Sincerely, Hola Arciniega M.D. Fellow, Neurosurgery /[facility] documented in this encounter Plan of Treatment Not on filedocumented as of this encounter Visit Diagnoses Not on filedocumented in this encounter
--- OUTSIDE RECORDS SUMMARY | ~2019-07-03 | XMS | Encounter Summary ---
Demographics + + + | Address | [address] | | | [place] [address] | + + + | Home Phone [...] Team Providers + +------+ + | Care Carpenter General Name | Role | Phone | + [...] as of this encounter Discharge Summaries Interface, Embroidery Worker In - 04/08/2006 6:[address] [address] [facility] MEDICAL SUMMARY OF HOSPITALIZATION Med Rec No: [...] lateral x-rays. Marco Antonio Veras M.D. CH:x11 [id number] signed by Interface, Embroidery Worker In at 04/08/2006 6:10 AM PDTdoc umented in this encounter Plan of Treatment Not on filedocumented as of this encounter Visit Diagnoses Not on filedocumented in this encounter"
--- OUTSIDE RECORDS SUMMARY | ~2019-07-03 | XMS | Encounter Summary ---
Demographics + + + | Address | [address] | | | [place] [address] | + + + | Home Phone | | + + + | Preferred Language | Unknown | + + + | Marital Status | | + + + | Druze Affiliation | 1041 | + + + | Race | Unknown | + + + | Ethnic Group | Unknown | + + + Author + + + | Author | [facility] | | | and [place]ana | + + + | Organization | [facility] | | | and [...] [place] | | | | | [address] | | + + + + + | Daina Mazariegos | ECON | Unknown | | + + + + + Care Team Providers + +------+ + | Care Escort Vehicle Driver Name | Role | Phone | + +------+ + | Noe Thomason | PCP | | | MD | | | + +------+ + Encounter Details +--------+ + + + + | Date | Type | Department | Care Team | Description | +--------+ + + + + | 06/18/ | Hospital | [facility] | BabiggbrandonchuyMohan | Right hip pain | | 2013 | Encounter | MED CTR XRAY [address] | [address], [address] | | | | | [place] | [address] [place], [place] | | | | | [place] [address] | [address] | | | | | [phone] | | | | | | | Music Education DirectorZora | | +--------+ + + + + [...] CODE 719.45, HIP PAIN. Mae Hernández | [facility] | | presents to the fluoroscopy suite for a fluoroscopically-guided [facility] | | right intraarticular hip [...] ICD-9 CODE 719.45, HIP PAIN. Mae Jones [facility] | | presents to the fluoroscopy suite [...] + + | Performing | Address | City/State[facility] | Phone Number | | Organization | | | | + + + + + | [address] | [address] | [place] | [phone] | | [facility] | | [address] | | | - IMAGING | | [...]
--- OUTSIDE RECORDS SUMMARY | ~2019-07-03 | XMS | Encounter Summary ---
Demographics + + + | Address | [address] | | | [place] [address] | + + + | Home Phone [...] Providers + +------+ + | Care Medical Office Worker Name | Role | Phone | + +------+ + PCP | Unavailable | + +------+ + Encounter Details +--------+ + + + + | Date | Type | Department | Care Team | Description | +--------+ + + + + | 09/02/ | Results | | Other, Faculty | | | 2001 | Only | | [phone] | | +--------+ + + + + [...] Mary; | | | | | | [id number]. | | | | | | CRW/jyiRendering [...] + + | [facility] | [address], [address] | [place] [address] | | | DERMATOPATHOLOGY | [address] | | | + + + + + documented in this encounter Visit Diagnoses Not on filedocumented in this encounter"
[~2019-07-03 20:52] MED LIST: ASPIRIN81 MG PO; HYDROCODON-ACE1 EA11 PO; LEVOTHYROXINE75 MCG PO; NAPROSYN500 MG PO; OMEPRAZOLE20 MG PO; OXYCODONE HCL5 MG PO
== END 2019-07-03 21:27 | disposition home or self-care (01) ==
LOC: ED 20:52
DX: J11.1 Influenza due to unidentified influenza virus with other respiratory manifestations (principal); Z88.1 Allergy status to other antibiotic agents; Z79.899 Other long term (current) drug therapy; Z79.82 Long term (current) use of aspirin
CPT/HCPCS: 99283

== ENCOUNTER 2020-07-15 09:58 | Observation (INO) | payer OTHER ==
[~2020-07-15] VITALS: Ht 172.7 cm; Wt 92.8 kg
[~2020-07-15 09:58] MED LIST changes: +ADULT ASPIRIN R81 MG PO; -ASPIRIN81 MG PO; -OMEPRAZOLE20 MG PO; +PROTONIX40 MG PO
--- NOTE | 2020-07-15 13:27 | NUR ---
PT ARRIVED TO FLOOR VIA STRETCHER. VITALS TAKEN AND STABLE. PT DENEIS PAIN. FLUIDS STARTED. ABX JUST COMPLETED. PT DENEIS NEEDS. ASSESSMENT COMPLETED. CALL LIGHT IN REACH.
[2020-07-15] MEDS ORDERED: LEVOTHYROXINE88 MCG PO (15:24)
--- NOTE | 2020-07-15 16:00 | NUR ---
pt assisted to bathroom. voided 400ml. back to bed. deneis pain. call light in reach
[2020-07-15] MEDS ORDERED: MISOPROSTOL200 MCG PO (17:00)
[2020-07-15] MEDS ORDERED: DESONIDE15 GM TOP (17:01)
[2020-07-15] MEDS ORDERED: SUCRALFATE1 GM PO (17:01)
--- NOTE | 2020-07-15 17:02 | NUR ---
MED REC COMPLETE
--- NOTE | 2020-07-15 18:16 | NUR ---
PT UP TO RESTROOM WITH SBA. TOLERATED CHICKEN BROTH AND JELLO AND ICE WATER. ABLE TO AMBULATE WITH BOOTS AND HOLDING ON TO IV POLE.
--- NOTE | 2020-07-15 19:05 | NUR ---
REPORT RECEIVED FROM MARIANNA FAITH, PT RESTING IN BED, IVF INFUSING WNL. HANSEL MUHAMMAD ASSISTING PT TO USE BR. WARM BLANKET PROVIDED, CALL LIGHT IN REACH, NO OTHER NEEDS AT THIS TIME.
--- NOTE | 2020-07-15 19:15 | NUR ---
SBA TO THE BATHROOM AND BACK TO BED. PATIENT ASKED FOR JELLO, HOT TEA AND WARM BLANKET. PROVIDED.
--- NOTE | 2020-07-15 20:12 | NUR ---
MEDICATIONS ADMINISTERED, IVF INFUSING WNL, PATIENT REPORTS NO PAIN OR NEEDS AT THIS TIME. LUNGS CLEAR, HRR, BOWEL TONES ACTIVE. PT REPORTS CMS INTACT IN PAST SURGICAL LEG. SLIGHT TENDERNESS WITH ABD PALPATION, OTHERWISE REPORTS NO PAIN AND DENIES NEED FOR PRN MEDICATIONS. NPO AT MIDNIGHT. VITALS AND I/O'S COMPLETE. CALL LIGHT IN REACH, NO OTHER NEEDS.
--- NOTE | 2020-07-15 21:04 | NUR ---
CALL LIGHT ANSWERED. IV ANTIBIOTIC COMPLETE. IV SITE FLUSHED WNL, ORDERED IVF INFUSING WNL. SBA TO RESTROOM FOR VOID. ORAL CARE COMPLETE BY pt. pt BACK IN BED. CALL LIGHT IN REACH. NO ADDITIONAL REQUESTS AT THIS TIME.
--- NOTE | 2020-07-16 05:09 | NUR ---
[facility] DOWNTIME [id number]. PT RESTED IN BED, IVF AND ABX INFUSED PER ORDERS, VSS AND A+O. PT REPORTS NO ABD PAIN THIS SHIFT, DENIES NEEDS FOR PRN MEDS. PT AMBULATES TO BR W SBA, STEADY GAIT, WEARS SURGICAL BOOTS WHEN UP. VOIDING QUANTITY SUFFICIENT. NPO. USES CALL LIGHT APPROPRIATELY. PRE-PROCEDURE CHECKLIST INITIATED.
--- NOTE | 2020-07-16 06:39 | NUR ---
PRE OP WIPES DONE. SCD'S ON BY THE BED.
--- NOTE | 2020-07-16 07:00 | NUR ---
HANDOFF REPORT RECEIVED FROM PHARMACY RESOURCE TECH RN. PT OFF UNIT, AT OR.
--- NOTE | 2020-07-16 08:53 | NUR ---
07/16/20 0853 Sheets,Laquita 0899 PT ARRIVED TO PACU ON 6L VIA MASK, PT NONAROUSABLE AND SNORING NOTED. JAW THRUST NEEDED OFF AND ON TO MAINTAIN AIRWAY. VSS.
--- NOTE | 2020-07-16 09:00 | NUR ---
PATIENT IN OR.
--- NOTE | 2020-07-16 10:15 | NUR ---
PT ARRIVED FROM PACU. PT ON ROOM AIR, LUNG SOUNDS CLEAR. PT DENIES PAIN. BOWEL TONES ACTIVE, DENIES NAUSEA, PROVIDED WITH ICE WATER. PT WITH LAP SITES X4 TO ABD, DRESSING CDI. CMS INTACT, WITHOUT EDEMA. PT WITH WALKING BOOTS AND STOCKINGS TO BLE FROM RECENT SURGERY, PULSES STRONG. SCHEDULED MEDICATIONS ADMINISTERED PER EMAR. PT DENIES OTHER NEEDS AT THIS TIME.
--- NOTE | 2020-07-16 10:20 | NUR ---
PATIENT UP TO VOID, SALINE LOCKED, UP IN CHAIR, WARM BLANKET PROVIDED.
[2020-07-16] MEDS ORDERED: OXYCODONE HCL10 MG PO (10:27)
[2020-07-16] MEDS ORDERED: TYLENOL325 MG PO (10:29)
--- NOTE | 2020-07-16 10:36 | OR ---
[facility] [address] [place], [place] [address] Signed DATE OF OPERATION: 07/16/2020 SURGEON: Adam Britt MD PREOPERATIVE DIAGNOSIS: Acute acalculous cholecystitis. POSTOPERATIVE DIAGNOSES: 1. Acute calculous cholecystitis. 2. Purdys gallbladder. PROCEDURE: Laparoscopic cholecystectomy with intraoperative cholangiogram. ESTIMATED BLOOD LOSS: Minimal. FINDINGS: Mae had 7 to 8 miliary yellow cholesterol stones in the neck of the gallbladder in the proximal cystic duct. The intraoperative cholangiogram was unremarkable for any filling defects. INDICATIONS: Mae is a 59-year-old female who probably for a number of years has had trouble with her gallbladder. 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 The last week and a half it has been getting worse. She woke the day of admission with quite a bit of pain in her right upper quadrant. She came to the emergency room for evaluation. She was tender in the right upper quadrant with unremarkable laboratory work. Ultrasound showed the gallbladder wall little thick at 4 mm with pericholecystic fluid, but there were no stones and the common bile duct was unremarkable. The liver was unremarkable. She has had a recent left hip replacement and foot surgery. I was asked to admit her as a general surgeon on-call. We started her on Rocephin and Flagyl. I met with her last night along with her daughter. We had reviewed the above findings in detail. She understands the location and function of the gallbladder. I brought her a brochure on the gallbladder, so we went through page by page. She understands the difference between laparoscopic and an open cholecystectomy. We reviewed the expected intraop and postop course. There is risk to surgery including, but not limited to bleeding, infection, scarring, change in contour of the skin, damage to bowel, damage to main bile duct, incisional hernias, and infection of her hip prosthesis and so forth. In addition, we found on physical exam, she had a small umbilical hernia. She told me Electronically Signed By: ADAM BRITT MD 07/16/20 1036 PATIENT NAME: MAE GEE OPERATIVE REPORT DATE OF : 58 REPORT #: [id number] PHYSICIAN: ADAM BRITT MD PCP: BETI JOHNSTON PAC REPORT IS CONFIDENTIAL AND NOT TO BE RELEASED WITHOUT AUTHORIZATION [facility] [address] [place] [id number] Signed that has been there since her diagnostic laparoscopy from many years ago. I explained to Mae and her daughter we would simply use that fascial defect for the camera. We will close it primarily with Prolene suture. Of course there is risk to that umbilical hernia repair including but not limited to bleeding, infection, scarring, change in contour of the skin, damage to bowel as well as chronic pain, recurrent hernias. They had expressed understanding and wished to proceed. DESCRIPTION OF PROCEDURE: I met with Mae first thing this morning in our preop area. After reviewing her above findings, she was taken to the operating room and placed in a supine position under general endotracheal tube anesthesia. She was on preoperative antibiotics along with subcutaneous heparin. SCDs were in place. We left the boots on both of her feet after her surgeries. She was then prepped and draped in the usual sterile fashion. We utilized our standard trocar locations and we placed a Louise trocar through the umbilical fascial defect, this measured about 10 mm. We had taken pictures throughout for photodocumentation. The liver has quite a bit of fat. Her gallbladder was grasped and elevated in the right upper quadrant. Most of the gallbladder wall edema was in the neck of the gallbladder. Very little pericholecystic fluid. The triangle of Calot was dissected free and we found that the cystic artery was running anteriorly and it was divided. We made a small grace in the neck of the gallbladder as it joins the cystic duct and we found 7 to 8 small mm yellow cholesterol stones. Those were suctioned off and irrigated until clear. The intraoperative cholangiocatheter was then inserted into the cystic duct. The intraoperative cholangiogram was unremarkable. We secured the cystic duct stump with a PDS Endoloop and 2 clips were placed across the cystic duct stump to alexsandra its location. After this, the gallbladder was carefully and slowly removed from the gallbladder fossa with the help of the cautery and placed into an EndoCatch bag. The right upper quadrant was irrigated and suctioned out until clear. We passed the gallbladder off to our circulating nurse on the back table. It was opened and we found that she had significant cholesterolosis. No additional small miliary stones in the gallbladder specimen. We then closed the fascia of the subxiphoid trocar site with an interrupted 0-Vicryl suture using our laparoscopic suturing device. All the gas was allowed to escape and all the trocars had been removed. We closed the fascia of the umbilical site transversely with a running #1 Prolene suture. Local anesthetic was injected in all trocar sites. Each trocar site was irrigated and suctioned out until clear. The umbilical skin was held down to midline fascia with an interrupted 2-0 PDS suture. The skin and dermis of each trocar site were closed with interrupted 3-0 subcuticular Monocryl sutures. We brought the skin together at the umbilical trocar site with the help of a running 5-0 fast absorbing plain gut suture. Dry gauze and tape were applied to all incisions. Mae was awakened from anesthesia, extubated in the OR, and taken to recovery room in stable condition. Electronically Signed By: ADAM BRITT MD 07/16/20 1036 PATIENT NAME: MAE GEE OPERATIVE REPORT DATE OF : 58 REPORT #: [id number] PHYSICIAN: ADAM BRITT MD PCP: BETI JOHNSTON PAC REPORT IS CONFIDENTIAL AND NOT TO BE RELEASED WITHOUT AUTHORIZATION [address] [address] Signed MD ABHIJIT Vivas/NELI /[id number] cc: Beti Johnston PA-C Copies: ~ Electronically Signed By: ADAM BRITT MD 07/16/20 1036 PATIENT NAME: MAE GEE OPERATIVE REPORT DATE OF : 58 REPORT #: [id number] PHYSICIAN: ADAM BRITT MD PCP: BETI JOHNSTON PAC REPORT IS CONFIDENTIAL AND NOT TO BE RELEASED WITHOUT AUTHORIZATION
--- NOTE | 2020-07-16 10:50 | NUR ---
PT SITTING IN CHAIR, SIPPING ON CLEAR LIQUID TRAY. VSS. PT HAS VOIDED. PT DENIES OTHER NEEDS AT THIS TIME.
--- NOTE | 2020-07-16 11:05 | NUR ---
PATIENT GIVEN 2 NORCO FOR 6/10 ABD PAIN. PATIENT IS SITTING UP TO CHAIR.
--- NOTE | 2020-07-16 12:40 | NUR ---
PT DOING WELL POST-OP. CALL PLACED TO DR. BRITT TO CONFIRM TO CONTINUE WITH DISCHARGE, OK WITH DISCHARGE.
--- NOTE | 2020-07-16 13:42 | NUR ---
MET WITH PT JUST BEFORE SURGERY AND JUST AFTER SHE RETURNED TO HER RM FROM PACU. PT SITTING IN CHAIR, ALERT AND ORIENTED. PT SEEMS TO HAVE PAIN UNDER CONTROL, LOOKING FORWARD TO DC LATER TODAY. ALL QUESTIONS ASKED ANSWERED, PT REQUESTED PRAYER. GAVE G.POST, WILL FOLLOW
--- NOTE | 2020-07-17 12:17 | EKG ---
[facility] [address] [place], [place] [address] Signed Normal sinus rhythm Normal ECG When compared with ECG of 18-SEP-2018 15:38, No significant change was found Confirmed by JENNI MALIK MD ([id number]) on 07/17/2020 12:17:17 PM Electronically Signed By: JENNI MALIK MD 07/17/20 1217 PATIENT NAME: JACQUELINE LOWRYGILLES Electrocardiogram DATE OF : 58 PHYSICIAN: JENNI MALIK MD REPORT #: [id number] REPORT IS CONFIDENTIAL AND NOT TO BE RELEASED WITHOUT AUTHORIZATION
--- NOTE | 2020-07-21 17:09 | PATH ---
[facility] [address] [place], [place] [address] Signed SPECIMEN(S): A GALLBLADDER SPECIMEN SOURCE: A. GALLBLADDER CLINICAL HISTORY: Cholecystitis FINAL PATHOLOGIC DIAGNOSIS: Gallbladder, cholecystectomy: - Chronic cholecystitis with cholesterolosis. BRP:cml:C2NR MICROSCOPIC EXAMINATION: Histologic sections of all submitted blocks are examined by light microscopy. These findings, together with the gross examination, support the pathologic diagnosis. GROSS DESCRIPTION: The specimen, labeled "Soumya Macedo," and designated on the requisition "gallbladder," is received in formalin and consists of Specimen: Previously opened gallbladder. Dimensions: 6.6 x 4.8 x 0.4 cm. Serosa: Violaceous and smooth. Cystic Duct: Cannot be grossly assessed. Calculi: Not grossly identified. Mucosa: Green and velvety with yellow flecking. Wall thickness: 0.4 cm. Lymph node: No pericystic lymph nodes are grossly identified. Additional: None. Club Car Attendant sections are submitted in cassette (A1). FB (under the direct supervision of a pathologist) The Gross Description was prepared using a voice recognition system. The report was reviewed for accuracy; however, sound-alike word errors, addition and/or deletions may occur. If there is any question about this report, please contact Client Services. PERFORMING LABORATORY: The technical component was performed by [employer], [address] [place] [id number] (Prosthetic Aides Teacher: Judith Wilkinson MD; CLIA# [id number]). Professional interpretation was performed by PATIENT NAME: GILLES MACEDO PATHOLOGY DATE OF : 58 REPORT #: [id number] PHYSICIAN: [facility] PCP: BETI JOHNSTON PAC REPORT IS CONFIDENTIAL AND NOT TO BE RELEASED WITHOUT AUTHORIZATION [facility] [address] [place], [place] [address] Signed [facility], [facility], [address] [facility], [facility] [address], [place], [place] [address] (CLIA# [id number]). Diagnostician: Rodríguez Dutta MD Pathologist Electronically Signed 07/21/2020 Copies: ~ PATIENT NAME: GILLES MACEDO PATHOLOGY DATE OF : 58 REPORT #: [id number] PHYSICIAN: [facility] PCP: BETI JOHNSTON PAC REPORT IS CONFIDENTIAL AND NOT TO BE RELEASED WITHOUT AUTHORIZATION
== END 2020-07-16 13:10 | disposition home or self-care (01) ==
LOC: ED 09:58 → MS 10:00
PROVIDERS: ADMIT Colon & Rectal Surgery; ATTEND Colon & Rectal Surgery
PROC: 0FT44ZZ Resection of Gallbladder, Percutaneous Endoscopic Approach (ICD-10-PCS; principal; 2020-07-15)
PROC: BF03YZZ Plain Radiography of Gallbladder and Bile Ducts using Other Contrast (ICD-10-PCS; 2020-07-15)
DX: K80.12 Calculus of gallbladder with acute and chronic cholecystitis without obstruction (principal); I48.91 Unspecified atrial fibrillation; E03.9 Hypothyroidism, unspecified; G89.29 Other chronic pain; M54.9 Dorsalgia, unspecified; K21.9 Gastro-esophageal reflux disease without esophagitis; Z88.1 Allergy status to other antibiotic agents; Z79.82 Long term (current) use of aspirin; Z79.890 Hormone replacement therapy; Z79.899 Other long term (current) drug therapy; Z20.828 Contact with and (suspected) exposure to other viral communicable diseases
CPT/HCPCS: 00790; 36415; 74300; 76705; 80053; 81001; 83690; 83735; 84100; 84484; 85025; 93005; 93010; 96365; 96366; 96375; 96376; 99285-25; C9803; G0378; J0330; J0696; J1100; J1170; J1644; J1885; J2250; J2405; J2704; J3480; J7030; J7121; Q9967; U0003